=== PATIENT | female | born 1965 | race Caucasian/White ===

== ENCOUNTER → 2019-01-24 10:48 | Outpatient (CLI) | payer OTHER, SELFPAY ==
--- NOTE | 2019-01-24 10:56 | US_ITS ---
US extremity RT limited CLINICAL INDICATION: ITS.REASON: INGUINAL LYMPHADENOPATHY ORDERING PHYSICIAN: ANUP Fierro PATIENT AGE: 53 years Comparison: None FINDINGS: Several small lymph nodes are present in the right inguinal region measuring up to 2 x 1 cm. No abnormal fluid collections or other significant anomalies. IMPRESSION: Multiple small right inguinal lymph nodes. Consider CT for more thorough evaluation
== END ==
PROVIDERS: PCP Family Medicine; Visit Provider Physician Assistant
DX: R59.0 Localized enlarged lymph nodes (principal)
CPT/HCPCS: 76882

== ENCOUNTER → 2019-01-31 17:37 | Outpatient (CLI) | payer OTHER, SELFPAY ==
[2019-01-31 19:28] LABS: Blood Urea Nitrogen 10 mg/dL (7-18); Creatinine,Serum 0.68 mg/dL (0.55-1.02); Estimated Glomerular Filt Rate 90 ml/min (>60); GFR (African American) 109 ML/MIN (>60)
== END ==
PROVIDERS: Visit Provider Physician Assistant
DX: Z01.818 Encounter for other preprocedural examination (principal)
CPT/HCPCS: 36415; 82565; 84520

== ENCOUNTER → 2019-02-02 09:37 | Outpatient (CLI) | payer OTHER, SELFPAY ==
--- NOTE | 2019-02-02 09:44 | CT_ITS ---
CT abdomen pelvis w con CLINICAL INDICATION: Lymphadenopathy, enlarging lymph nodes on ultrasound ITS.REASON: INGUINAL LYMPHADENOPATHY ORDERING PHYSICIAN: ANUP Fierro PATIENT AGE: 53 years COMPARISON: 08/28/2016 TECHNIQUE: Axial images obtained with sagittal and coronal reformats. All CT scans at the facility use one or more dose reduction, viz: automated exposure control, ma/kV adjustment per patient size (including targeted exams where dose is matched to indication, i.e. head), or iterative reconstruction technique. PROCEDURE: Oral Contrast: None IV Contrast: 75 mL's Optiray 350. FINDINGS: Lower thoracic images show bilateral breast implants. Cholecystectomy change. The liver, spleen, right adrenal gland, and pancreas have an unremarkable appearance. There is a stable left adrenal nodule is 6 mm consistent with an adenoma. No renal or ureteral calculi. No hydronephrosis. No intestinal obstruction or free air. Prior appendectomy. Prior hysterectomy. No pelvic mass abnormal fluid collection or focal inflammatory change. There are scattered small lymph nodes within the mesentery is nonspecific and not significantly changed. There are a few scattered small inguinal lymph nodes on both sides. These do not appear significant changed compared to 08/28/2016 and do not meet size criteria for enlargement by CT criteria. There is incidentally noted high-grade stenosis of the ostium of the celiac artery with stenosis estimated to be greater than 90%. CT angiography may confirm. The superior mesenteric artery has an unremarkable appearance. IMPRESSION: 1. There are few scattered small lymph nodes in the abdomen and within the inguinal areas not significantly changed. No adenopathy evident. 2. 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
== END ==
PROVIDERS: PCP Family Medicine; Visit Provider Physician Assistant
DX: R59.0 Localized enlarged lymph nodes (principal)
CPT/HCPCS: 74177; Q9967

== ENCOUNTER → 2019-02-13 14:04 | Outpatient (CLI) | payer OTHER, SELFPAY ==
--- NOTE | 2019-02-13 14:06 | CT_ITS ---
CT chest wo con HISTORY: ITS.REASON: LYMPHADENOPATHY ORDERING PHYSICIAN: Ernie Silva MD PATIENT AGE: 53 years COMPARISON: None Technique: Axial images obtained without contrast. Sagittal, and coronal reformatted images are also generated and reviewed. All CT scans at the facility use one or more dose reduction, viz: automated exposure control, ma/kV adjustment per patient size (including targeted exams where dose is matched to indication, i.e. head), or iterative reconstruction technique. FINDINGS: There is some mild calcification of the aortic root and questionable calcification of the left main coronary artery. Normal heart size. No evidence of pericardial effusion. No mediastinal or hilar mass or adenopathy. No axillary adenopathy. There are bilateral subpectoral breast implants. There is evidence of old granulomatous disease. No suspicious pulmonary nodules are evident. No effusions or infiltrates. There is a subpleural nodular opacity left lower lobe laterally at 4 mm which is nonspecific. No central obstructing lesions. No acute bony anomalies. IMPRESSION: 1. No acute finding. No adenopathy. There are scattered small nodes in the mediastinum axilla and dora however, these nodes are not enlarged 2. Minimal coronary artery calcification. 3. Other nonacute findings as described above
[2019-02-13 17:36] LABS: Free T4 (Free Thyroxine) 0.79 ng/dl (0.76-1.46); Thyroid Stimulating Hormone 5.86 uIU/ml (0.358-3.740)
[2019-02-15 14:28] LABS: Thyroid Peroxidase Antibodies 30 IU/mL (0-34)
== END ==
PROVIDERS: Otolaryngology; PCP Family Medicine; Visit Provider Family Medicine
DX: R59.1 Generalized enlarged lymph nodes (principal)
CPT/HCPCS: 36415; 71250; 82308; 84439; 84443; 84445; 86376

== ENCOUNTER → 2019-02-13 15:36 | Outpatient (CLI) | payer OTHER, SELFPAY | PROVIDERS: Visit Provider Otolaryngology | DX: R59.1 Generalized enlarged lymph nodes (principal) | CPT/HCPCS: 36415; 82308; 84439; 84443; 84445; 86376 ==

== ENCOUNTER → 2019-02-17 08:10 | Outpatient (CLI) | payer OTHER, SELFPAY ==
--- NOTE | 2019-02-17 08:12 | US_ITS ---
US thyroid HISTORY: ITS.REASON: thyroid nodule ORDERING PHYSICIAN: Norbert Sampson MD PATIENT AGE: 53 years Comparison: None FINDINGS: The isthmus is thickened at 5 mm. The right lobe is 4.2 x 1.5 x 1.3 cm. There is diffuse heterogeneous echogenicity of the right lobe of the thyroid gland. The left lobe is 3.5 x 1.1 x 1.4 cm with heterogeneous echogenicity. A 1.3 x 0.5 cm hypoechoic nodule is present superiorly. IMPRESSION: Heterogeneous echogenicity of the thyroid gland with 1 cm nodule superiorly on the left. There is diffuse heterogeneous echogenicity on the right. Consider 6 month follow-up to confirm stability
== END ==
PROVIDERS: PCP Family Medicine; Visit Provider Otolaryngology
DX: E01.0 Iodine-deficiency related diffuse (endemic) goiter (principal); E03.9 Hypothyroidism, unspecified
CPT/HCPCS: 76536

== ENCOUNTER → 2019-03-07 12:35 | Outpatient (CLI) | payer OTHER, SELFPAY ==
[2019-03-07 16:01] LABS: Blood Urea Nitrogen 8 mg/dL (7-18); Estimated Glomerular Filt Rate 87 ml/min (>60); GFR (African American) 106 ML/MIN (>60)
== END ==
PROVIDERS: Visit Provider Family Medicine
DX: E03.9 Hypothyroidism, unspecified (principal); E04.1 Nontoxic single thyroid nodule; E06.3 Autoimmune thyroiditis
CPT/HCPCS: 36415; 82565; 84520

== ENCOUNTER → 2019-03-08 09:29 | Outpatient (CLI) | payer OTHER, SELFPAY ==
--- NOTE | 2019-03-08 09:34 | CT_ITS ---
CT angio abdomen pelvis CLINICAL INDICATION: Right upper quadrant pain, back pain, history of Crohn's disease ITS.REASON: CELIAC ARTERY STENOSIS ORDERING PHYSICIAN: Enrie Silva MD PATIENT AGE: 53 years COMPARISON: 02/02/2019 TECHNIQUE: Axial images obtained with sagittal and coronal reformats. All CT scans at the facility use one or more dose reduction, viz: automated exposure control, ma/kV adjustment per patient size (including targeted exams where dose is matched to indication, i.e. head), or iterative reconstruction technique. PROCEDURE: Oral Contrast: None IV Contrast: 100 mL's Optiray 350. FINDINGS: Lower thorax: There is consolidation within the inferior aspect of the right upper lobe consistent with pneumonia. This is incompletely imaged and chest x-ray or CT follow-up is suggested. A subpleural nodular opacity is present in the left lung base laterally at 4 mm.. Prior bilateral breast implant placement ABDOMEN: Liver: Fatty liver Gallbladder: Post cholecystectomy Pancreas: No masses or peripancreatic fluid collections. Spleen: Unremarkable. Adrenals: Unremarkable Kidneys/ureters: No masses. No renal calculi. No hydronephrosis. No perinephric fluid collections. No ureteral dilatation or obvious ureteral calculi. Stomach bowel: Nondistended. No obvious mass or thickening. Appendix: Prior appendectomy PELVIS: Reproductive: Post hysterectomy Bladder: Nondistended. No obvious stones or masses. ABDOMEN & PELVIS: Peritoneum: No abnormal fluid collections. No obvious inflammatory changes. No free air. Lymph nodes: There are few scattered small mesenteric and inguinal lymph nodes nonspecific Vasculature: No evidence of aortic aneurysm. Atheromatous changes are present involving the aortoiliac vessels without significant stenosis. There is moderate to severe stenosis involving the proximal aspect of the celiac artery approximately 1 cm distal to the ostium.. There is poststenotic dilatation. It is difficult to determine the degree of stenosis due to the poststenotic dilatation or displacement of the 50-60% if not more. Approximately 40 % stenosis involves the ostium of the celiac artery. The SMA has an unremarkable appearance. HOLLI is patent. Bones: No acute fracture IMPRESSION: 1. Moderate to high-grade stenosis involving the ostium and proximal aspect of the celiac artery with poststenotic dilatation. There is 50-60% stenosis of the proximal aspect of the celiac artery. The stenosis was over estimated on the non-CTA abdomen of 02/02/2019. The current study is more accurate for stenosis. 2. Otherwise negative CTA of the abdomen and pelvis
== END ==
PROVIDERS: PCP Family Medicine; Visit Provider Family Medicine
DX: I77.4 Celiac artery compression syndrome (principal)
CPT/HCPCS: 74174; Q9967

== ENCOUNTER → 2019-03-13 11:17 | Outpatient (CLI) | payer OTHER, SELFPAY ==
--- NOTE | 2019-03-13 11:22 | XR_ITS ---
XR chest 2V HISTORY: ITS.REASON: COUGH,CONGESTION ORDERING PHYSICIAN: Christiano Garcia MD PATIENT AGE: 53 years COMPARISON: 12/29/2015 FINDINGS: The cardiomediastinal silhouette and pulmonary vascularity are within normal limits. Faint opacification is present in the right midlung and may be related to residual pneumonia as seen on the most recent CT of 03/08/2019 faint nodularity is present in this region possibly related to the alveolar opacification.. Consider CT chest for further evaluation. Left lung is clear. No acute bony anomalies. IMPRESSION: Faint nodularity in the right midlung which may be due to some residual pneumonia versus underlying pulmonary nodule. Previous abdomen CT demonstrates some infiltrate in this area on the most superior image. Consider chest CT with contrast follow-up for further evaluation
== END ==
PROVIDERS: PCP Family Medicine; Visit Provider Family Medicine
DX: J18.1 Lobar pneumonia, unspecified organism (principal); R05 Cough
CPT/HCPCS: 71046

== ENCOUNTER → 2019-05-17 10:17 | Outpatient (CLI) | payer OTHER, SELFPAY ==
--- NOTE | 2019-05-17 10:20 | US_ITS ---
US thyroid HISTORY: 3 month follow-up thyroid nodule ITS.REASON: thyroid nodule ORDERING PHYSICIAN: Norbert Sampson MD PATIENT AGE: 53 years Comparison: 02/17/2019 FINDINGS: There is diffuse heterogeneous echogenicity of the thyroid gland. The isthmus is mildly thickened. A 7 mm hypoechoic nodule present in the lateral aspect of the isthmus probably unchanged The right lobe is 3.7 x 1.5 x 1.1 cm. A 6 mm hypoechoic nodule is present in the lower pole unchanged. The left lobe is 3.4 x 1.1 x 1.1 cm with diffuse heterogeneous echogenicity. There is a 1 cm nodule in the upper pole not significant changed. Other areas of decreased echogenicity are noted consistent with heterogeneous echotexture tissue. IMPRESSION: No change in the diffuse heterogeneous echogenicity of the thyroid gland with small bilateral nodules
[2019-05-17 12:22] LABS: Free T4 (Free Thyroxine) 0.82 ng/dl (0.76-1.46); Thyroid Stimulating Hormone 4.41 uIU/ml (0.358-3.740)
== END ==
PROVIDERS: PCP Family Medicine; Visit Provider Otolaryngology
DX: E03.9 Hypothyroidism, unspecified (principal); E04.1 Nontoxic single thyroid nodule; E06.3 Autoimmune thyroiditis
CPT/HCPCS: 36415; 76536; 84439; 84443

== ENCOUNTER → 2019-05-22 12:09 | Outpatient (CLI) | payer OTHER, SELFPAY ==
--- NOTE | 2019-05-22 12:14 | XR_ITS ---
XR foot LT min 3V HISTORY: ITS.REASON: LT FOOT PAIN ORDERING PHYSICIAN: Christiano Garcia MD PATIENT AGE: 53 years COMPARISON: None FINDINGS: No fracture or dislocation. No lytic or blastic change. There is normal mineralization.. The joint spaces are well-preserved. No significant degenerative/arthritic changes. No erosive changes evident. There is a prominent calcaneal spur at 9 mm IMPRESSION: Calcaneal spur otherwise negative
== END ==
PROVIDERS: PCP Family Medicine; Visit Provider Family Medicine
DX: M79.672 Pain in left foot (principal)
CPT/HCPCS: 73630

== ENCOUNTER → 2019-08-25 16:27 | Outpatient (CLI) | payer OTHER, SELFPAY ==
[2019-08-25 17:31] LABS: Free T4 (Free Thyroxine) 0.89 ng/dl (0.76-1.46); Thyroid Stimulating Hormone 4.02 uIU/ml (0.358-3.740)
== END ==
PROVIDERS: Visit Provider Otolaryngology
DX: E03.9 Hypothyroidism, unspecified (principal); E04.9 Nontoxic goiter, unspecified
CPT/HCPCS: 36415; 84439; 84443

== ENCOUNTER → 2019-10-24 12:45 | Outpatient (CLI) | payer OTHER, SELFPAY ==
--- NOTE | 2019-10-24 12:45 | US_ITS ---
PROCEDURE: US THYROID CLINICAL INDICATION: thyroid nodule Follow-up thyroid nodules COMPARISON: THY US thyroid from 02/17/2019 THY US thyroid from 05/17/2019 FINDINGS: The isthmus is thickened at 4 mm with hypoechoic nodule in the right isthmus at 5 mm unchanged and hypoechoic nodule at the left of the isthmus at 5 mm slightly larger. Right lobe is 4.1 x 1.4 x 1.1 cm. 4 mm hypoechoic nodules present in the upper pole. 9 mm hypoechoic nodule noted in the lower pole. This is probably unchanged although not well demonstrated on the previous exam however was felt to be present on 10/26 and not significantly changed. Left lobe is 3.6 x 1.1 x 1.1 cm. There is an 11 x 5 mm hypoechoic nodule in the upper pole unchanged. Heterogeneous echogenicity noted with other multiple small nodules unchanged. IMPRESSION: No change multinodular appearance of the thyroid gland Dictated by: Lamont Pierre MD 10/24/2019 16:07 Electronically signed by Lamont Pierre MD in [place] 10/24/2019 16:07
== END ==
PROVIDERS: PCP Family Medicine; Visit Provider Otolaryngology
DX: E03.9 Hypothyroidism, unspecified (principal); E04.1 Nontoxic single thyroid nodule
CPT/HCPCS: 76536

== ENCOUNTER → 2019-11-02 11:47 | Outpatient (CLI) | payer OTHER, SELFPAY ==
[2019-11-02 14:57] LABS: Free T4 (Free Thyroxine) 0.91 ng/dl (0.76-1.46); Thyroid Stimulating Hormone 2.52 uIU/ml (0.358-3.740)
== END ==
PROVIDERS: Visit Provider Otolaryngology
DX: E03.9 Hypothyroidism, unspecified (principal); E04.1 Nontoxic single thyroid nodule
CPT/HCPCS: 36415; 84439; 84443

== ENCOUNTER → 2019-12-19 09:21 | Outpatient (POV) | payer OTHER, SELFPAY | PROVIDERS: Visit Provider Dermatology | DX: Z00.00 Encounter for general adult medical examination without abnormal findings (principal) ==

== ENCOUNTER → 2020-05-28 12:50 | Outpatient (CLI) | payer OTHER, SELFPAY ==
[2020-05-28 16:00] LABS: Free T4 (Free Thyroxine) 1.02 ng/dl (0.78-2.19)
[2020-05-28 16:14] LABS: Thyroid Stimulating Hormone 2.36 uIU/mL (0.465-4.68)
[2020-05-28 17:32] LABS: Coronavirus 19 IgM Antibody Negative (Negative)
[2020-05-28 17:39] LABS: Coronavirus 19 IgG Antibody Positive (Negative)
== END ==
PROVIDERS: Otolaryngology; Visit Provider Physician Assistant
DX: E03.9 Hypothyroidism, unspecified (principal); E04.9 Nontoxic goiter, unspecified
CPT/HCPCS: 36415; 84439; 84443; 86328

== ENCOUNTER → 2020-05-30 13:48 | Outpatient (CLI) | payer OTHER, SELFPAY ==
--- NOTE | 2020-05-30 13:51 | US_ITS ---
PROCEDURE: US THYROID CLINICAL INDICATION: goiter Follow-up nodule COMPARISON: US THYROID from 10/24/2019 FINDINGS: Right lobe: 1.1cm x 3.3 cm x 1.3cm. Heterogeneous echogenicity noted of the right lobe of the thyroid gland. Ill-defined nodules are noted on the right the largest at 1 cm in the lower pole unchanged. Left lobe: 1.2cm x 2.9cm x 1.0cm. Heterogeneous echogenicity with ill-defined nodularity with the largest nodule at 9 mm unchanged Isthmus: The isthmus is thickened at 5 mm. A hypoechoic nodules present in the left aspect of the isthmus at 5 mm unchanged. 5 mm hypoechoic nodule also present in the right aspect of the isthmus unchanged Additional findings: IMPRESSION: No change heterogeneous echogenicity of the thyroid with stable bilateral nodules and stable isthmus nodules Dictated by: Lamont Pierre MD 05/31/2020 12:49 Electronically signed by Lamont Pierre MD in [place] 05/31/2020 12:49
== END ==
PROVIDERS: PCP Family Medicine; Visit Provider Otolaryngology
DX: E03.9 Hypothyroidism, unspecified (principal); E04.9 Nontoxic goiter, unspecified
CPT/HCPCS: 76536

== ENCOUNTER 2020-08-11 17:47 | Emergency (ER) | payer OTHER, MEDICAID, SELFPAY ==
[2020-08-11 18:10] VITALS: BP 136/72; PULSE 91; RESP 19; TEMP 36.8; O2SAT 98; BMI 36.3
--- NOTE | 2020-08-11 18:30 | HMH.EDUTC ---
[facility] [place] Dis[place] Clinical Impression: Urticaria Disposition: Home, Self-Care Condition on Discharge: Good Instructions: DI for Hives, Prednisone Additional Instructions: Over the counter Benadryl may help with itching Take medication as prescribed start medrol dose pack tomorrow Follow up with Family Doctor if no improvement or any worsening of symptoms Straight to ER if any life threatening symptoms Follow up with Dermatology if no improvement or any worsening of symptoms Prescriptions: methylPREDNISolone [Medrol 4mg tab] 4 mg PO DIRECTED #21 tab Transmission Status: Received by [id number] Referrals: Christiano Garcia MD [Primary Care Provider] - As needed Time of Disposition: 19:01 Medical Decision Making - Nate Inquiry Pt receiving controlled substance: No Nate was queried for this patient: No Vital Signs: 08/11/20 18:10 08/11/20 19:03 Temperature 98.2 F 98.2 F Temperature Source Oral Oral Pulse Rate 91 H Pulse Rate [Radial] 91 H Respiratory Rate 19 19 Blood Pressure 136/72 Blood Pressure [Right Arm] 136/72 Blood Pressure Mean [Right Arm] 93 Blood Pressure Source Automatic Cuff Blood Pressure Source [Right Arm] Automatic Cuff Blood Pressure Position Sitting Blood Pressure Position [Right Arm] Sitting 02 Sat by Pulse Oximetry 98 Oxygen Delivery Method Room Air Room Air Orders (Tests/Meds): ED MEDICATIONS Discontinued Medications Generic Name Dose Route Start Last Admin Trade Name Brian PRN Reason Stop Dose Admin Methylprednisolone Sodium Succinate 125 mg 08/11/20 18:50 08/11/20 18:51 Methylprednisolone Sod Succ 125mg Vial IM 08/11/20 18:51 125 mg ONCE ONE Administration Medical Decision Narrative: Patient states that steriods is listed on her allergies however she is not allergic to them they just keep her up at night States that she has taken them several times before without complications or reactions. States that her PCP gives them too her and usually when she has an allergic reaction she has to get medrol dose pack and steriod shot to clear it up. Patient aware that it may elevate her blood sugar but then should return to normal and patient states that she has taken both SoluMedrol and medrol dose pack in the past without reactions or complications Shot time and patient rash on arms appears improved after injection [facility] [place] HPI - General Stated complaint: Possible allergic reaction Time Seen by Provider: 08/11/20 18:31 Mode of Arrival: Ambulatory Source of Information: Patient Limitations: No Limitations Description of Symptoms (Recalled from Triage Doc. by RN): allergic reaction rash all over for 1 week HEENT Symptoms (Recalled from RN notes): No Resp Symptoms (Recalled from RN notes): No Skin Symptoms (Recalled from RN notes): Yes MS Symptoms (Recalled from RN notes): No Functional Status (Recalled from RN notes): wnl - History of Present Illness Provider Complaint: Patient states that she is allergic to alot of things States that she noticed she started breaking out last week and has continued to get worse States that she has been using topical hydrocortisone but not helped and she noticed earlier that that rash was getting worse and she got to looking and she had used some unstoppables and thinks she may be having a reaction to that - Related Data Home Medications Medication Instructions Recorded Confirmed gabapentin 600 mg tablet 600 mg PO DAILY 02/13/19 06/04/20 rosuvastatin 20 mg tablet 20 mg PO DAILY 02/13/19 06/04/20 sitagliptin 50 mg-metformin 1,000 1 tab PO BID 02/13/19 06/04/20 mg tablet Aspirin [Aspirin 81mg EC Tab] 81 mg PO DAILY 05/04/19 06/04/20 Prasugrel HCl [Prasugrel 10mg 10 mg PO DAILY 05/04/19 06/04/20 Tab] aspirin 81 mg tablet,delayed 81 mg PO DAILY 05/29/19 06/04/20 release diclofenac sodium 1 % topical gel TOPICAL 11/03/19 06/04/20 nitroglycerin 0.4 mg sublingual mg SUBLINGUAL 11/03/1905/09
--- NOTE | 2020-08-11 18:58 | PC.NURSE ---
Patient states that she can have steroids it just makes her not sleep.
[2020-08-11 19:03] VITALS: BP 136/72; PULSE 91; RESP 19; TEMP 36.8; O2SAT 98
== END 2020-08-11 19:06 | disposition home or self-care (01) ==
PROVIDERS: Emergency Provider Nurse Practitioner; PCP Family Medicine
DX: L50.0 Allergic urticaria (principal); E11.9 Type 2 diabetes mellitus without complications; Z79.899 Other long term (current) drug therapy; Z88.0 Allergy status to penicillin; Z88.2 Allergy status to sulfonamides; Z88.5 Allergy status to narcotic agent; Z88.8 Allergy status to other drugs, medicaments and biological substances; Z90.13 Acquired absence of bilateral breasts and nipples; Z90.710 Acquired absence of both cervix and uterus; Z90.49 Acquired absence of other specified parts of digestive tract
CPT/HCPCS: 96372; 99201

== ENCOUNTER → 2020-10-30 11:55 | Outpatient (CLI) | payer OTHER, MEDICAID, SELFPAY ==
[2020-10-30 13:52] LABS: Hemoglobin A1C 7.1 % (4.0-6.0)
[2020-10-30 15:07] LABS: Alanine Aminotransferase 32 U/L (12-78); Albumin Level 4.5 g/dl (3.5-5.0); Albumin/Globulin Ratio 1.7 (1.1-1.8); Alkaline Phosphatase 74 U/L (38-126); Anion Gap 11.5 mEq/L (5-15); Aspartate Amino Transferase 27 U/L (14-36); Blood Urea Nitrogen 15 mg/dl (7-17); Calcium 10.2 mg/dl (8.4-10.2); Carbon Dioxide 27 mmol/L (22.0-30.0); Chloride 102 mmol/L (98-107); Chol/HDL Ratio 2.1 (1-3.5); Cholesterol 153 mg/dl (140-200); Estimated Glomerular Filt Rate 103 ml/min (>60); GFR (African American) 125 ML/MIN (>60); Globulin 2.7 g/dL (1.3-3.2); Glucose 157 mg/dl (74-100); HDL Cholesterol 72 mg/dl (40-60); Potassium 4.5 mmoL/L (3.5-5.1); Sodium 136 mmol/L (136-145); Total Protein,Serum 7.2 g/dl (6.3-8.2); Triglycerides 142 mg/dl (30-150); VLDL Cholesterol 28 mg/dL (0-40)
[2020-10-30 15:18] LABS: Direct LDL Cholesterol 67.91 mg/dL (100-129)
[2020-10-30 15:24] LABS: 25-OH Vitamin D, Total 25.3 ng/mL (30-100)
[2020-10-30 15:38] LABS: Thyroid Stimulating Hormone 2.11 uIU/mL (0.465-4.68)
[2020-10-30 15:57] LABS: Vitamin B12 799 pg/mL (239-931)
[2020-10-30 16:08] LABS: Coronavirus 19 IgG Antibody Positive (Negative); Coronavirus 19 IgM Antibody Negative (Negative)
== END ==
PROVIDERS: Visit Provider Physician Assistant
DX: E03.9 Hypothyroidism, unspecified (principal); E11.9 Type 2 diabetes mellitus without complications; E78.2 Mixed hyperlipidemia; E55.9 Vitamin D deficiency, unspecified; E53.8 Deficiency of other specified B group vitamins; Z86.19 Personal history of other infectious and parasitic diseases
CPT/HCPCS: 36415; 80053; 80061; 82306; 82607; 83036; 84443; 86328

== ENCOUNTER 2020-11-12 11:20 | Emergency (ER) | payer OTHER, SELFPAY ==
[2020-11-12 12:15] VITALS: BP 130/69; PULSE 82; RESP 18; TEMP 36.9; O2SAT 98; BMI 36.9
--- NOTE | 2020-11-12 12:37 | HMH.EDUTC ---
[facility] [place] Clinical Impression: Exposure to COVID-19 virus Disposition: Home, Self-Care Condition on Discharge: Good Instructions: DI for COVID-19 (Suspected or Confirmed ), COVID-19: Testing and Tracing, Preventing the Spread of Coronavirus Discharge Instructions Additional Instructions: *Monitor Temp, Over the counter Motrin or Tylenol as directed/as needed Tylenol every 4 hours and Motrin every 6 hours (as long as your family doctor has told you that you can take it) for fever or pain. and straight to ER if unable to lower temp less than 101.0 after medication given *Warm salt water gargles may help to soothe the throat *Throat Lozenges *Warm fluids like tea with honey may help to soothe the throat *Sleep elevated *Humidifier/Vaporizer Follow up IMMEDIATELY for new or worsening symptoms or no Noticeable improvement over the next 48-72 hours. 911 for difficulty breathing or swallowing You were tested for today for COVID19 your test result should be back in the next 24-48 hours, you may call to the [facility] to see if your test results are back in the next 48 hours [phone] [facility] hours are 9am-9pm You was given a handout with instructions for Self Quarantine and Self isolation for while you wait on test results and what to do if they are positive If you are positive the Health Dept will be contacting you also Referrals: Christiano Garcia MD [Primary Care Provider] - As needed Forms: Work/School Release Time of Disposition: 12:39 Medical Decision Making - Nate Inquiry Pt receiving controlled substance: No Nate was queried for this patient: No Vital Signs: 11/12/20 12:15 Temperature 98.4 F Temperature Source Oral Pulse Rate [Right Brachial] 82 Respiratory Rate 18 Blood Pressure [Right Arm] 130/69 Blood Pressure Mean [Right Arm] 89 Blood Pressure Source [Right Arm] Automatic Cuff Blood Pressure Position [Right Arm] Sitting 02 Sat by Pulse Oximetry 98 Oxygen Delivery Method Room Air Orders (Tests/Meds): ORDERS Category Date Time Status Covid-19 Nasal PCR ([facility]) Routine Lab 11/12/20 12:07 Ordered [facility] [place] HPI - General Stated complaint: covid exposure Time Seen by Provider: 11/12/20 12:37 Mode of Arrival: Ambulatory Source of Information: Patient Limitations: No Limitations Description of Symptoms (Recalled from Triage Doc. by RN): REQUESTING COVID TEST D/T EXPOSURE; DENIES SYMPTOMS HEENT Symptoms (Recalled from RN notes): No Resp Symptoms (Recalled from RN notes): No Skin Symptoms (Recalled from RN notes): No MS Symptoms (Recalled from RN notes): No Functional Status (Recalled from RN notes): WNL - History of Present Illness Provider Complaint: Patient state that her and several other members of her family has recently tested positive for COVID States that she has had a few body aches and diarrhea yesterday but she has crohns and often has diarrhea but she just wanted to get tested - Related Data Home Medications Medication Instructions Recorded Confirmed gabapentin 600 mg tablet 600 mg PO DAILY 02/13/19 06/04/20 rosuvastatin 20 mg tablet 20 mg PO DAILY 02/13/19 06/04/20 sitagliptin 50 mg-metformin 1,000 1 tab PO BID 02/13/19 06/04/20 mg tablet Aspirin [Aspirin 81mg EC Tab] 81 mg PO DAILY 05/04/19 06/04/20 Prasugrel HCl [Prasugrel 10mg 10 mg PO DAILY 05/04/19 06/04/20 Tab] aspirin 81 mg tablet,delayed 81 mg PO DAILY 05/29/19 06/04/20 release diclofenac sodium 1 % topical gel TOPICAL 11/03/19 06/04/20 nitroglycerin 0.4 mg sublingual mg SUBLINGUAL 11/03/19 06/04/20 tablet Previous Rx's Medication Instructions Recorded levothyroxine 50 mcg tablet 50 mcg PO DAILY #90 tab 11/03/19 levothyroxine 25 mcg tablet 25 mcg PO DAILY #90 tab 06/04/20 methylPREDNISolone [Medrol 4mg 4 mg PO DIRECTED #21 tab 08/11/20 tab] Allergies Allergy/AdvReac Type Severity Reaction Status Date / Time codeine [CODEINE] Allergy Severe Unknown Verified
[2020-11-12 12:44] VITALS: BP 130/69; PULSE 82; RESP 18; TEMP 36.9; O2SAT 98
== END 2020-11-12 12:45 | disposition home or self-care (01) ==
PROVIDERS: Emergency Provider Nurse Practitioner; PCP Family Medicine
DX: Z20.822 Contact with and (suspected) exposure to COVID-19 (principal); M79.10 Myalgia, unspecified site; E03.9 Hypothyroidism, unspecified; E11.9 Type 2 diabetes mellitus without complications; Z79.899 Other long term (current) drug therapy; Z88.0 Allergy status to penicillin; Z88.2 Allergy status to sulfonamides; Z88.8 Allergy status to other drugs, medicaments and biological substances
CPT/HCPCS: 99202; G0463; U0003

== ENCOUNTER → 2020-11-22 14:45 | Outpatient (CLI) | payer OTHER, SELFPAY ==
--- NOTE | 2020-11-22 14:46 | US_ITS ---
PROCEDURE: US THYROID CLINICAL INDICATION: GOITER Follow-up thyroid nodule COMPARISON: US US THYROID from 05/30/2020 FINDINGS: Right lobe: 1.5cm x 4.1cm x 1.3cm. Left lobe: 0.9cm x 3.2cm x 1.5cm Isthmus: There is a 5 mm hypoechoic nodule in the left aspect of the isthmus not significantly changed. An additional 3 mm hypoechoic nodules present in the right aspect of the isthmus unchanged Additional findings: There is diffuse heterogeneous echogenicity of the thyroid gland both sides. There are multiple small hypoechoic nodules with the largest nodule in the lower pole on the right at 9 mm unchanged. On the left there are multiple small hypoechoic nodules with the largest nodule at approximately 8 mm also unchanged. IMPRESSION: Overall no change in the multiple small nodules of the thyroid gland with diffuse heterogeneous echogenicity of the thyroid gland. Dictated by: Lamont Pierre MD 11/23/2020 05:17 Lamont Pierre MD in [place] 11/23/2020 05:17
== END ==
PROVIDERS: PCP Family Medicine; Visit Provider Otolaryngology
DX: E04.9 Nontoxic goiter, unspecified (principal)
CPT/HCPCS: 76536

== ENCOUNTER 2020-11-26 10:00 | Outpatient (RCR) | payer OTHER, MEDICAID, SELFPAY ==
[2020-08-19 12:19] LABS: POC Glucose,Bedside 208 (70-110)
== END 2020-11-26 10:05 | disposition home or self-care (01) ==
LOC: PT 10:00
PROVIDERS: PCP Family Medicine; Visit Provider Orthopaedic Surgery
DX: M25.562 Pain in left knee (principal); M17.12 Unilateral primary osteoarthritis, left knee
CPT/HCPCS: 82962; 97010; 97014; 97035; 97110; 97163; 97164; G0283

== ENCOUNTER → 2020-12-02 15:05 | Outpatient (CLI) | payer OTHER, SELFPAY ==
[2020-12-02 16:17] LABS: Free T4 (Free Thyroxine) 1.13 ng/dl (0.78-2.19)
[2020-12-02 16:31] LABS: Thyroid Stimulating Hormone 3.83 uIU/mL (0.465-4.68)
== END ==
PROVIDERS: Visit Provider Otolaryngology
DX: E04.9 Nontoxic goiter, unspecified (principal)
CPT/HCPCS: 36415; 84439; 84443

== ENCOUNTER → 2020-12-09 08:51 | Outpatient (CLI) | payer OTHER, SELFPAY ==
[2020-12-09 09:30] LABS: Basophils # 0.1 K/mm3 (0-0.2); Basophils % 0.5 % (0.1-2.0); Eosinophils # 0.1 K/mm3 (0.0-0.4); Eosinophils % 0.7 % (0.1-12.0); Lymphocytes # 2.1 K/mm3 (0.7-4.5); Lymphocytes % 18.8 % (10-50); Mean Corpuscular HGB Conc 32.7 g/dL (31.8-35.4); Mean Corpuscular Hemoglobin 28.2 pg (27.0-31.2); Mean Corpuscular Volume 86.2 fl (81-99); Monocytes # 0.6 K/mm3 (0.1-1.0); Monocytes % 5.6 % (1.7-9.3); Neutrophils # 8.4 K/mm3 (1.8-7.8); Neutrophils % 74.3 % (37.0-80.0); Platelet Count 413 K/mm3 (142-424); Red Blood Count 5.68 M/mm3 (4.20-5.40); Red Cell Distribution Width 13.6 % (11.5-17.5); White Blood Count 11.3 K/mm3 (4.8-10.8)
[2020-12-09 09:47] LABS: Anion Gap 11.3 mEq/L (5-15); Blood Urea Nitrogen 13 mg/dl (7-17); Calcium 10.2 mg/dl (8.4-10.2); Carbon Dioxide 31 mmol/L (22.0-30.0); Chloride 97 mmol/L (98-107); Estimated Glomerular Filt Rate 87 ml/min (>60); GFR (African American) 105 ML/MIN (>60); Glucose 200 mg/dl (74-100); Potassium 4.3 mmoL/L (3.5-5.1); Sodium 135 mmol/L (136-145)
[2020-12-09 10:05] LABS: Coronavirus 19 IgG Antibody Positive (Negative); Coronavirus 19 IgM Antibody Negative (Negative)
== END ==
PROVIDERS: Visit Provider Nurse Practitioner Family
DX: Z01.810 Encounter for preprocedural cardiovascular examination (principal); Z20.822 Contact with and (suspected) exposure to COVID-19; Z86.16 Personal history of COVID-19; I20.9 Angina pectoris, unspecified; I25.118 Atherosclerotic heart disease of native coronary artery with other forms of angina pectoris; Z82.49 Family history of ischemic heart disease and other diseases of the circulatory system; Z87.891 Personal history of nicotine dependence
CPT/HCPCS: 36415; 80048; 85025; 86328

== ENCOUNTER 2020-12-10 08:27 | Day surgery (SDC) | payer OTHER, SELFPAY ==
[2020-12-10] VITALS (11 sets, daily range): BP systolic 122–159; BP diastolic 65–85; PULSE 63–90; RESP 16–20; O2SAT 92–97; BMI 37.8
--- NOTE | 2020-12-10 07:16 | IR_ITS ---
APPROVED REPORT Patient Location: Outpatient Case Packer: PAULIE Gomez RT (R) PROCEDURES Left heart catheterization Left ventriculogram Selective coronary angiogram INDICATION Known coronary artery disease, Atypical angina Informed consent was obtained prior to the procedure. COMPLICATIONS none Estimated Blood Loss: less than 10 mls TECHNIQUE One percent lidocaine used to anesthetize the right anterior aspect of the wrist. The right radial artery was accessed via the Seldinger technique. A 6 [place] sheath was placed in the right radial artery. 2.5 mg of verapamil, 800 mcg of nitroglycerin, 1mg Lidocaine and 5000 U Heparin were given through the arterial sheath. The trap catheter and a 4 Malaysian JL 3.5 catheter were used to perform left heart catheterization, left ventriculogram and selective coronary angiogram. At the end of the procedure the sheath was removed good hemostasis was achieved using Traclet band, patient was transferred to the postop holding area in stable condition. ANGIOGRAPHIC RESULTS The left main artery Has a smooth eccentric 20% stenosis The left anterior descending artery Has a stent in the proximal segment which is widely patent free of in-stent restenosis with excellent proximal distal transitioning The circumflex artery Large dominant vessel with mild 10% luminal irregularities The right coronary artery Small nondominant normal The [place] ventriculogram reveals Normal 65% The left ventricular end-diastolic pressure Elevated 25 mmHg IMPRESSION Coronary disease as described above Normal ejection fraction Elevated LVEDP consistent with moderate diastolic dysfunction PLAN 1. Continue treatment for ischemic heart disease 2. Patient symptoms are likely stemming from elevated LVEDP/diastolic dysfunction, treat accordingly Electronically signed by : Olivier Encinas, 12/10/2020 11:08:07
--- NOTE | 2020-12-10 08:31 | CA_ITS ---
APPROVED REPORT EXAM: Comprehensive 2D, Doppler, and color-flow Echocardiogram [employer] Car[employer] Operator: Sharona Mariano RVT Ht: 5 ft 6 in Wt: 234lbs BSA: 2.14 BP: 154/82 mmHg Indications: ANGINA,FINN,NEAR SUNCOPE,EX SMOKER,DM,HTN,HLD,HX BREAST CA TDS-PT HAS IMPLANTS 2D Dimensions LVOT 1.63 cm (M/F) 1.5-2.5 M-Mode Dimensions RVDd 2.62 cm (0.9-2.6) LA Diam 3.94 cm (1.9-4.0) LVDd 3.83 cm (3.5-5.7) Ao Diam 2.65 cm (2.0-3.7) LVDs 2.50 cm (3.5-5.7) IVSd 1.25 cm (0.6-1.1) PWd 0.68 cm (0.6-1.1) EF (Teich) 64.70% FS 34.70% EDV (Teich) 63.10 mL ESV (Teich) 22.30 mL LV Diastology E Decel Time 240.00 (160-240 msec) E/A Ratio 1.0 MED E' 9.00 (< 7 cm/sec) E'/MED E' Ratio 7.62 (>14) LAT E' 8.90 (<10 cm/sec) E/LAT E' Ratio 7.71 (>14) Mitral Valve MV E Max Geoffrey. 69.00 (40-130 cm/s) MV A Velocity 67.00 (40-130 cm/s) E/A Ratio 1.02 MV Decel. Time 240.00 (160-240 ms) MV PHT 70.00 ms Pulmonary Valve PV Peak Velocity 73.00 (50-150 cm/s) Tricuspid Valve TR P. Velocity 191.00 cm/s Left Ventricle Left atrium is mildly enlarged, left ventricle is normal size, mild concentric left ventricular hypertrophy, visually estimated ejection fraction 55% with no regional wall motion abnormality, diastolic parameters are inconclusive. Right Ventricle Right atrium and right ventricle are normal size and contractility. Aortic Valve Aortic valve is minimally thickened and fibrosed, there is no aortic stenosis or aortic insufficiency. Mitral Valve Mitral valve is grossly normal, there is trace mitral regurgitation. Tricuspid Valve Tricuspid valve grossly normal, there is no significant tricuspid regurgitation noted to calculated right ventricular systolic pressure. Pulmonic Valve Pulmonic valve is poorly visualized. Great Vessels Aortic root is normal size. Pericardium No significant pericardial effusion noted. Conclusion 1. Mildly enlarged left atrium, normal left ventricular size, mild concentric left ventricular hypertrophy, visually estimated ejection fraction 55% with no regional wall motion abnormality, diastolic parameters are inconclusive. 2. Trace mitral regurgitation. 3. No significant pericardial effusion noted. Electronically signed by : Chaparro Snow, 12/11/2020 06:22:57
== END 2020-12-10 14:00 | disposition home or self-care (01) ==
LOC: CATHLAB 08:29
PROVIDERS: PCP Family Medicine; Visit Provider Internal Medicine
DX: I25.110 Atherosclerotic heart disease of native coronary artery with unstable angina pectoris (principal); E11.9 Type 2 diabetes mellitus without complications; E78.5 Hyperlipidemia, unspecified; G47.33 Obstructive sleep apnea (adult) (pediatric); I10 Essential (primary) hypertension; Z82.49 Family history of ischemic heart disease and other diseases of the circulatory system; Z87.891 Personal history of nicotine dependence; Z79.84 Long term (current) use of oral hypoglycemic drugs; Z79.82 Long term (current) use of aspirin; Z88.8 Allergy status to other drugs, medicaments and biological substances; Z88.5 Allergy status to narcotic agent
CPT/HCPCS: 93306; 93458; 99152; 99153; C1725; C1760; C1769; J1644; Q9967

== ENCOUNTER → 2020-12-16 10:48 | Outpatient (CLI) | payer OTHER, SELFPAY ==
--- NOTE | 2020-12-16 10:50 | CA_ITS ---
APPROVED REPORT Laterality: Unilateral right Foam Machine Operator: Sharona Mariano, RVT Comments Pt had cath on 12/10/20. Bruising at cath site, pain at cath site that radiates into rt elbow Findings Study suggests no evidence of pseudoaneurysm or AV fistula of the right wrist. Conclusion Study suggests no evidence of pseudoaneurysm or AV fistula of the right wrist. Electronically signed by : Lamont Pierre MD 12/16/2020 16:13:04
== END ==
PROVIDERS: PCP Family Medicine; Visit Provider Nurse Practitioner Family
DX: I77.0 Arteriovenous fistula, acquired (principal)
CPT/HCPCS: 93931

== ENCOUNTER → 2021-01-24 14:39 | Outpatient (CLI) | payer OTHER, SELFPAY ==
[2021-01-24 15:35] LABS: Chloride 102 mmol/L (98-107); Sodium 139 mmol/L (136-145)
[2021-01-24 15:36] LABS: Potassium 3.9 mmoL/L (3.5-5.1)
[2021-01-24 15:39] LABS: Anion Gap 10.9 mEq/L (5-15); Blood Urea Nitrogen 11 mg/dl (7-17); Calcium 10.1 mg/dl (8.4-10.2); Carbon Dioxide 30 mmol/L (22.0-30.0); Estimated Glomerular Filt Rate 103 ml/min (>60); GFR (African American) 125 ML/MIN (>60); Glucose 238 mg/dl (74-100)
== END ==
PROVIDERS: Visit Provider Nurse Practitioner Family
DX: I10 Essential (primary) hypertension (principal); E78.2 Mixed hyperlipidemia; R06.02 Shortness of breath; R94.30 Abnormal result of cardiovascular function study, unspecified; I25.118 Atherosclerotic heart disease of native coronary artery with other forms of angina pectoris; G47.33 Obstructive sleep apnea (adult) (pediatric); Z87.891 Personal history of nicotine dependence
CPT/HCPCS: 36415; 80048

== ENCOUNTER → 2021-02-06 09:49 | Outpatient (CLI) | payer OTHER, SELFPAY ==
[2021-02-06 11:04] LABS: Erythrocyte Sedimentation Rate 13 mm/hr (0-30)
[2021-02-06 12:06] LABS: Vitamin B12 522 pg/mL (239-931)
[2021-02-06 12:07] LABS: Folate 9.11 ng/mL
[2021-02-07 07:36] LABS: Homocyst(e)ine 9.3 umol/L (0.0-14.5)
[2021-02-07 16:12] LABS: Anti-Centromere B Antibodies <0.2 AI (0.0-0.9); Anti-Jo-1 <0.2 AI (0.0-0.9); Anti-Smith Antibody <0.2 AI (0.0-0.9); Antichromatin Antibodies <0.2 AI (0.0-0.9); Antiscleroderma-70 Antibodies <0.2 AI (0.0-0.9); RNP Antibodies <0.2 AI (0.0-0.9); Sjogren's Anti-SS-A <0.2 AI (0.0-0.9); Sjogren's Anti-SS-B <0.2 AI (0.0-0.9)
[2021-02-08 14:51] LABS: Anti-DNA (DS) Ab Qn 1 IU/mL (0-9)
[2021-02-14 19:34] LABS: Methylmalonic Acid 52 nmol/L (0-378)
== END ==
PROVIDERS: Visit Provider Specialist
DX: R41.3 Other amnesia (principal); G44.1 Vascular headache, not elsewhere classified; I25.118 Atherosclerotic heart disease of native coronary artery with other forms of angina pectoris; I10 Essential (primary) hypertension; G47.33 Obstructive sleep apnea (adult) (pediatric); E11.9 Type 2 diabetes mellitus without complications; Z79.84 Long term (current) use of oral hypoglycemic drugs
CPT/HCPCS: 36415; 82131; 82607; 82746; 83090; 85651; 86225; 86235

== ENCOUNTER → 2021-02-12 13:43 | Outpatient (CLI) | payer OTHER, SELFPAY ==
--- NOTE | 2021-02-12 13:48 | XR_ITS ---
PROCEDURE: XR CHEST 2V CLINICAL HISTORY: dyspnea COMPARISON: Implants are hard to see on the x-ray the a medium barely cm bodies are to see on CT and FINDINGS: The cardiomediastinal silhouette and pulmonary vascularity are within normal limits. The lungs are clear without infiltrates, suspicious nodules, or pleural effusions. No acute bony abnormalities. There are bilateral breast implants. IMPRESSION: No acute findings. Dictated by: Lamont Pierre MD 02/12/2021 14:19 Lamont Pierre MD in [place] 02/12/2021 14:19
== END ==
PROVIDERS: PCP Family Medicine; Visit Provider Urology
DX: R06.02 Shortness of breath (principal); R94.30 Abnormal result of cardiovascular function study, unspecified; Z87.891 Personal history of nicotine dependence
CPT/HCPCS: 71046; 95806

== ENCOUNTER → 2021-02-27 09:19 | Outpatient (CLI) | payer OTHER, SELFPAY ==
--- NOTE | 2021-02-27 09:19 | US_ITS ---
APPROVED REPORT Exam Type: Ankle to Brachial Index Field Technician: Jossy Osman CRT Indications Claudication: Rest Pain: Risk Factors Hypertension Hyperlipidemia cardiac stent Pressures/Indices Right Indices Left Indices Brachial 141.00 mmHg Brachial 144.00 mmHg Low Thigh 145.00 mmHg 1.01 Low Thigh 147.00 mmHg 1.02 Calf 161.00 mmHg 1.12 Calf 146.00 mmHg 1.01 Ankle(PT) 137.00 mmHg 0.95 Ankle(PT) 158.00 mmHg 1.10 Ankle(DP) 137.00 mmHg 0.95 Ankle(DP) 141.00 mmHg 0.98 Digit 137.00 mmHg 0.95 Digit 122.00 mmHg 0.85 Findings R NEPTALI 1.0 L NEPTALI 1.1 R TBI 1.0 L TBI 1.1 Normal waveforms and pulses Conclusion R NEPTALI 1.0 L NEPTALI 1.1 R TBI 1.0 L TBI 1.1 Normal waveforms and pulses Normal appearing resting noninvasive lower extremity arterial study. Electronically signed by : Lamont Pierre MD 02/27/2021 16:59:22
--- NOTE | 2021-02-27 11:06 | MR_ITS ---
PROCEDURE: MR HEAD/BRAIN WO CON CLINICAL INDICATION: headache, memory impairment Pt c/o h/a and memory loss. Blurred vision that has gotten worse over the last year. Pt has hx of melanoma. Prior CT brain done 11/01/2019. COMPARISON: No exams were available for comparison TECHNIQUE: Routine multiplanar multi echo sequences are performed without gadolinium enhancement. FINDINGS: No midline shift, mass effect, intracranial hemorrhage, or hydrocephalus is evident. The cerebellopontine angles, cerebellum, brainstem and mid brain have an unremarkable appearance. There are a few T2 white matter hyperintensities which are nonspecific and may be due to small gliotic foci from microangiopathic changes. The pituitary, optic chiasm, corpus callosum, and craniocervical junction have an unremarkable appearance. No mastoid effusion or sinus air-fluid level. IMPRESSION: 1. No acute intracranial findings. 2. There are few scattered T2 white matter hyperintensities nonspecific and may be related to microangiopathic changes. Migraine headache and demyelinating process included in the differential diagnosis. Dictated by: Lamont Pierre MD 02/28/2021 15:09 Lamont Pierre MD in [place] 02/28/2021 15:09
== END ==
PROVIDERS: PCP Family Medicine; Visit Provider Urology
DX: G44.1 Vascular headache, not elsewhere classified (principal); I73.9 Peripheral vascular disease, unspecified; R41.3 Other amnesia
CPT/HCPCS: 70551; 93923

== ENCOUNTER → 2021-03-03 14:56 | Outpatient (CLI) | payer OTHER, SELFPAY ==
--- NOTE | 2021-03-03 15:30 | PC.NURSE ---
PFT Completed without incident. Albuterol 0.083% given via HHN, Per written protocol, Pt tolerated tx well.
== END ==
PROVIDERS: PCP Family Medicine; Visit Provider Urology
DX: R06.00 Dyspnea, unspecified (principal)
CPT/HCPCS: 94060; 94726; 94729

== ENCOUNTER → 2021-05-21 13:01 | Outpatient (CLI) | payer OTHER, SELFPAY | PROVIDERS: Visit Provider Otolaryngology | DX: E07.9 Disorder of thyroid, unspecified (principal) | CPT/HCPCS: 84439; 84443 ==

== ENCOUNTER → 2021-05-21 13:12 | Outpatient (CLI) | payer OTHER, SELFPAY ==
--- NOTE | 2021-05-21 13:12 | US_ITS ---
PROCEDURE: US THYROID CLINICAL INDICATION: goiter Follow-up nodules, follow-up goiter COMPARISON: US US THYROID from 11/22/2020 FINDINGS: Right lobe: 1.2cm x 4.0cm x 1.5cm. Heterogeneous echogenicity. 13 x 5 mm solid nodule upper pole unchanged. 7 mm hypoechoic solid nodule mid polar region unchanged Left lobe: 0.8cm x 3.0cm x 1.1cm. 5 mm hypoechoic nodule solid-appearing upper pole unchanged. 7 x 6 mm hypoechoic solid appearing nodule lower pole unchanged Isthmus: Mildly thickened at 5 mm. A 5 x 2 mm hypoechoic oval nodule is present in the isthmus slightly toward the left unchanged. On the right side of the isthmus there is a 4 mm spongiform appearing nodule unchanged Additional findings: IMPRESSION: Small bilateral thyroid and isthmus nodules which appear stable. Annual follow-up suggested Dictated by: Lamont Pierre MD 05/22/2021 07:26 Lamont Pierre MD in [place] 05/22/2021 07:26
[2021-05-21 14:16] LABS: Free T4 (Free Thyroxine) 1.17 ng/dl (0.78-2.19)
[2021-05-21 14:30] LABS: Thyroid Stimulating Hormone 1.86 uIU/mL (0.465-4.68)
== END ==
PROVIDERS: PCP Family Medicine; Visit Provider Otolaryngology
DX: E03.9 Hypothyroidism, unspecified (principal); E04.9 Nontoxic goiter, unspecified
CPT/HCPCS: 76536; 84439; 84443

== ENCOUNTER → 2021-07-30 07:34 | Outpatient (CLI) | payer OTHER, SELFPAY ==
[2021-07-30 07:59] LABS: Blood Urea Nitrogen 5 mg/dl (7-17); Estimated Glomerular Filt Rate 103 ml/min (>60); GFR (African American) 125 ML/MIN (>60)
--- NOTE | 2021-07-30 09:06 | CT_ITS ---
Procedure: CT ANGIO ABDOMEN PELVIS CLINICAL HISTORY: CELIAC ARTERY STENOSIS Follow-up celiac artery stenosis COMPARISON: [facility] CT angio abdomen pelvis from 03/08/2019 TECHNIQUE: IV Contrast: 100ml Isovue 370 Axial images obtained with sagittal and coronal reformats. All CT scans at the facility use one or more dose reduction, viz: automated exposure control, ma/kV adjustment per patient size (including targeted exams where dose is matched to indication, i.e. head), or iterative reconstruction technique. FINDINGS: High-grade celiac artery stenosis is present approximately 1 cm distal to its origin. The stenosis as increased compared to the previous exam now estimated to be approximately 70 percent previously estimated at 50 percent. There is kinking in the celiac artery at this region with the distal celiac having a cephalad course. There is poststenotic dilatation of the celiac artery. The SMA has an unremarkable appearance. The HOLLI is patent. No significant renal artery stenosis apparent. No evidence of aortic aneurysm. No iliac artery stenosis. Bilateral breast implants are present. There has been a prior cholecystectomy. Coronary artery stent noted in the LAD. The liver, spleen, pancreas, right adrenal gland, and kidneys have an unremarkable appearance. Minimal nodularity noted of the left adrenal gland nonspecific and unchanged. No intestinal obstruction or free air. There is a mild amount of retained colonic feces. Urinary bladder is contracted with thickening of its wall. There are post hysterectomy changes. Postsurgical changes are present at the cecal region. No acute bony anomaly IMPRESSION: 1. High-grade stenosis of the proximal aspect of the celiac artery of approximately 70 percent increased from the previous exam. There is poststenotic dilatation. There is a kink in the celiac artery at this region with the distal celiac artery having a cephalad course 2. Other nonacute findings as described above Dictated by: Lamont Pierre MD 07/31/2021 07:26 Lamont Pierre MD in [place] 07/31/2021 07:26
== END ==
PROVIDERS: PCP Family Medicine; Visit Provider Physician Assistant
DX: I77.4 Celiac artery compression syndrome (principal)
CPT/HCPCS: 36415; 74174; 82565; 84520; Q9967

== ENCOUNTER 2021-08-07 08:55 | Day surgery (SDC) | payer OTHER, SELFPAY ==
[2021-08-07] VITALS (14 sets, daily range): BP systolic 120–158; BP diastolic 68–108; PULSE 62–98; RESP 13–20; O2SAT 91–98; BMI 33.5
--- NOTE | 2021-08-07 | IR_ITS ---
APPROVED REPORT Patient Location: Outpatient PROCEDURES Right femoral arterial access Catheter placement in the right vertebral artery Right vertebral artery selective angiogram Indirect right common carotid artery angiogram Catheter placed in the left subclavian artery Left subclavian artery angiogram Bare-metal stent deployment to the left subclavian artery INDICATION Left subclavian artery stenosis, Subclavian steal phenomena, Bilateral carotid artery stenosis Informed consent was obtained prior to the procedure. COMPLICATIONS none Estimated Blood Loss: less than 10 ml TECHNIQUE 1% lidocaine used anesthetize the right groin the right femoral artery was accessed via Salinger technique and a 5 Romansh sheath was placed in the right femoral artery. A JR4 catheter was used to selectively intubate the right vertebral artery and perform angiography. The JR4 catheter cannot easily cannulate the right common carotid artery therefore indirect angiography was performed. At this point the catheter was then placed in the left subclavian artery where angiography was performed and showed a severe high-grade calcified ostial stenosis. Therapeutic heparin was administered and a long advantage wire was placed distally in the vessel. The sheath was exchanged for a long 7 Romansh destination sheath. An 8 mm balloon cannot be advanced for predilatation. A 6 mm balloon was then advanced and deployed in the ostial segment. Following this an 8 mm x 20 mm balloon was then deployed at 14 emily to also reduce the stenosis. Despite this there is still dense calcification in the sheath cannot be advanced. An 8 mm x 17 mm balloon mounted stent was then advanced into the ostial segment. A portion of the stent latched onto the calcified edges and could neither be advanced nor retrieved. The balloon was retrieved however the stent remained lodged into the calcified left subclavian artery. A 5 mm x 40 mm balloon was then advanced up the wire into the proximal and distal portion of the stent and deployed at 14 emily. Following this an additional 8 mm x 17 mm balloon mounted stent was placed distal to the first stent and deployed at 14 emily. Repeat angiography still demonstrated there was a residual stenosis therefore an 8 mm x 27 mm bare-metal stent was then placed slightly distal to this overlapping the first 2 stents and then deployed at 14 emily. You 10 mm x 20 mm balloon was then deployed at 14 emily in the ostial segment which flared the stent. There was excellent angiographic results with wide patency and antegrade flow down the left subclavian artery at the end of the procedure. At the end of procedure the apparatus was removed the groin was reprepped closure change at this move hemostasis achieved using Perclose device patient transferred the postop already in stable condition ANGIOGRAPHIC RESULTS The right vertebral artery singular and supplies a large basilar artery The right common carotid artery is widely patent and supplies a calcified right internal carotid artery and right external carotid artery The internal carotid artery stenosis cannot be accurately estimated The left common carotid artery is widely patent however stenosis severity cannot be assessed The left subclavian artery has an ostial calcified 90% stenosis IMPRESSION Patent right vertebral artery Patent common carotid arteries with angiographically indeterminate bilateral internal carotid artery calcification and stenoses Severe left subclavian artery stenosis Successful stenting of the left subclavian artery severe disease reduced to 0% with 3 bare-metal stents as described above thereby providing excellent antegrade flow down the left subclavian a
[2021-08-07 09:46] LABS: Coronavirus 19, PCR Not Detected (NotDetected); Influenza A, PCR Not Detected (NotDetected); Influenza B, PCR Not Detected (NotDetected)
[2021-08-07 09:48] LABS: Basophils # 0.1 K/mm3 (0-0.2); Basophils % 0.8 % (0.1-2.0); Eosinophils # 0.1 K/mm3 (0.0-0.4); Eosinophils % 0.8 % (0.1-12.0); Hematocrit 44.4 % (37.0-47.0); Hemoglobin 15.3 g/dL (12.2-16.2); Lymphocytes # 1.7 K/mm3 (0.7-4.5); Lymphocytes % 22.9 % (10-50); Mean Corpuscular HGB Conc 34.4 g/dL (31.8-35.4); Mean Corpuscular Hemoglobin 29.7 pg (27.0-31.2); Mean Corpuscular Volume 86.3 fl (81-99); Mean Platelet Volume 8.8 fl (7.4-10.4); Monocytes # 0.5 K/mm3 (0.1-1.0); Monocytes % 6.9 % (1.7-9.3); Neutrophils % 68.6 % (37.0-80.0); Platelet Count 373 K/mm3 (142-424); Red Blood Count 5.14 M/mm3 (4.20-5.40); Red Cell Distribution Width 13.9 % (11.5-17.5); White Blood Count 7.3 K/mm3 (4.8-10.8)
[2021-08-07 09:55] LABS: Chloride 105 mmol/L (98-107); Potassium 3.5 mmoL/L (3.5-5.1); Sodium 140 mmol/L (136-145)
[2021-08-07 09:58] LABS: Anion Gap 13.5 mEq/L (5-15); Blood Urea Nitrogen 4 mg/dl (7-17); Carbon Dioxide 25 mmol/L (22.0-30.0); Creatinine Clearance Estimated 187 mL/min (50-200); Estimated Glomerular Filt Rate 128 ml/min (>60); GFR (African American) 154 ML/MIN (>60); Glucose 185 mg/dl (74-100)
[2021-08-07 09:59] LABS: Calcium 9.6 mg/dl (8.4-10.2)
[2021-08-07 15:30] LABS: CATHL Activated Clotting Time 228 SEC (74-125)
--- NOTE | 2021-08-07 15:45 | HMH.PHACLD ---
Sydnie Alejandra has received discharge medication counseling on the following medications: -ASA -PLAVIX (BLEEDING RISK WITH ASA, IMPORTANCE OF TAKING DAILY, IF YOU BUMP HEAD YOU NEED TO BE SEEN) -ROSUVASTATIN -METOPROLOL -METFORMIN - HOLD UNTIL WEDNESDAY.
== END 2021-08-07 14:30 | disposition home or self-care (01) ==
LOC: CATHLAB 08:57
PROVIDERS: PCP Family Medicine; Visit Provider Internal Medicine
DX: I77.4 Celiac artery compression syndrome (principal); I25.118 Atherosclerotic heart disease of native coronary artery with other forms of angina pectoris; I77.1 Stricture of artery; I65.23 Occlusion and stenosis of bilateral carotid arteries; E11.9 Type 2 diabetes mellitus without complications; K21.9 Gastro-esophageal reflux disease without esophagitis; Z79.84 Long term (current) use of oral hypoglycemic drugs; Z20.822 Contact with and (suspected) exposure to COVID-19; Z79.899 Other long term (current) drug therapy; Z88.8 Allergy status to other drugs, medicaments and biological substances
CPT/HCPCS: 36222; 36226; 36245; 36251; 37236; 37237; 80048; 85025; 85347; 99152; 99153; C1725; C1769; C1876; C9803; J1644; J2405; Q9967; U0003; U0005

== ENCOUNTER → 2021-08-18 07:04 | Outpatient (CLI) | payer OTHER, SELFPAY ==
[2021-08-18 07:19] LABS: Basophils % 0.5 % (0.1-2.0); Eosinophils # 0.1 K/mm3 (0.0-0.4); Eosinophils % 1.4 % (0.1-12.0); Hematocrit 43.2 % (37.0-47.0); Hemoglobin 14.6 g/dL (12.2-16.2); Lymphocytes # 1.9 K/mm3 (0.7-4.5); Lymphocytes % 21.7 % (10-50); Mean Corpuscular HGB Conc 33.7 g/dL (31.8-35.4); Mean Corpuscular Hemoglobin 28.8 pg (27.0-31.2); Mean Corpuscular Volume 85.3 fl (81-99); Mean Platelet Volume 8.7 fl (7.4-10.4); Monocytes # 0.5 K/mm3 (0.1-1.0); Monocytes % 6.3 % (1.7-9.3); Neutrophils % 70.1 % (37.0-80.0); Platelet Count 387 K/mm3 (142-424); Red Blood Count 5.06 M/mm3 (4.20-5.40); Red Cell Distribution Width 14.2 % (11.5-17.5); White Blood Count 8.6 K/mm3 (4.8-10.8)
[2021-08-18 07:48] LABS: Anion Gap 9.5 mEq/L (5-15); Calcium 9.4 mg/dl (8.4-10.2); Carbon Dioxide 32 mmol/L (22.0-30.0); Chloride 99 mmol/L (98-107); Glucose 203 mg/dl (74-100); Potassium 3.5 mmoL/L (3.5-5.1); Sodium 137 mmol/L (136-145)
[2021-08-18 10:06] LABS: Blood Urea Nitrogen 6 mg/dl (7-17)
== END ==
PROVIDERS: Visit Provider Internal Medicine
DX: I25.10 Atherosclerotic heart disease of native coronary artery without angina pectoris (principal); I10 Essential (primary) hypertension
CPT/HCPCS: 36415; 80048; 85025

== ENCOUNTER → 2021-09-16 07:41 | Outpatient (CLI) | payer OTHER, SELFPAY ==
[2021-09-16 08:07] LABS: Blood Urea Nitrogen 5 mg/dl (7-17); Estimated Glomerular Filt Rate 103 ml/min (>60); GFR (African American) 125 ML/MIN (>60)
--- NOTE | 2021-09-16 08:49 | CT_ITS ---
Procedure: CT ANGIO ABDOMEN/FEMORAL CLINICAL HISTORY: claudication LLE COMPARISON: No exams were available for comparison TECHNIQUE: IV Contrast: 100ml Isovue 370 Axial images obtained with sagittal and coronal reformats. All CT scans at the facility use one or more dose reduction, viz: automated exposure control, ma/kV adjustment per patient size (including targeted exams where dose is matched to indication, i.e. head), or iterative reconstruction technique. FINDINGS: CTA abdomen: A stent is present within the celiac artery however the ostium the celiac artery in the most proximal aspect of the stent is not imaged. The SMA has an unremarkable appearance. Mild atheromatous changes of the renal arteries without significant stenosis. No aneurysm patent HOLLI. Atheromatous changes involve the distal abdominal aorta without significant stenosis. Calcific plaque is present involving the common internal iliacs without significant stenosis. No external iliac artery stenosis. CTA femorals with runoff: Right lower extremity: The common femoral, femoral, and popliteal arteries are unremarkable. The tibial peroneal trunk and anterior tib have an unremarkable appearance proximally. The vessels are not well opacified from the mid to lower calf region and not adequately assessed. Left lower extremity: The common iliac internal iliac, and external iliac arteries have an unremarkable appearance aside from some minimal calcific plaque at the common iliac proximally. The superficial femoral artery is unremarkable popliteal artery and tibial peroneal trunk and anterior tib artery are patent to the mid calf. The distal vessels at the lower calf were not well opacified and not adequately assessed. This may be due to a timing phenomenon. There is colonic diverticulosis. No evidence of diverticulitis. There is sclerosis of the SI joints. Small sclerotic foci present in the humeral head centrally and posteriorly suggesting bone islands. IMPRESSION: No significant stenotic lesions evident The visualized portion of the celiac artery is patent. The ostium of the celiac is not covered on the images. Dictated by: Lamont Pierre MD 09/22/2021 08:33 Lamont Pierre MD in [place] 09/22/2021 08:33
== END ==
PROVIDERS: PCP Family Medicine; Visit Provider Nurse Practitioner Family
DX: I25.118 Atherosclerotic heart disease of native coronary artery with other forms of angina pectoris (principal); I73.9 Peripheral vascular disease, unspecified; M79.605 Pain in left leg; I77.4 Celiac artery compression syndrome; Z87.891 Personal history of nicotine dependence
CPT/HCPCS: 36415; 75635; 82565; 84520; Q9967

== ENCOUNTER → 2021-09-21 13:21 | Outpatient (CLI) | payer OTHER, SELFPAY | LOC: UTC.OUT 13:24 → COVID.OUT 09-22 05:48 | PROVIDERS: PCP Family Medicine; Visit Provider Nurse Practitioner | DX: Z20.822 Contact with and (suspected) exposure to COVID-19 (principal) | CPT/HCPCS: C9803; U0003; U0005 ==

== ENCOUNTER → 2021-10-21 17:22 | Outpatient (CLI) | payer OTHER, SELFPAY ==
--- NOTE | 2021-10-21 17:30 | XR_ITS ---
PROCEDURE: XR HIP RT 2-3V W/PELVIS CLINICAL INDICATION: Pain COMPARISON: No exams were available for comparison FINDINGS: Minimal osteoarthritic change hips. No fracture or dislocation. No lytic or blastic change. IMPRESSION: Minimal osteoarthritis of the hips Dictated by: Lamont Pierre MD 10/21/2021 17:49 Lamont Pierre MD in [place] 10/21/2021 17:49
--- NOTE | 2021-10-21 17:30 | XR_ITS ---
PROCEDURE: XR KNEE LT 2V CLINICAL INDICATION: fall, c/o rt hip and lt knee pain COMPARISON: No exams were available for comparison FINDINGS: No fracture or dislocation. No lytic or blastic change. There is normal mineralization. There are mild osteoarthritic changes involving all 3 compartments. Chondrocalcinosis noted of the medial compartment. Other findings:None. IMPRESSION: Osteoarthritis with chondrocalcinosis Dictated by: Lamont Pierre MD 10/21/2021 17:49 Lamont Pierre MD in [place] 10/21/2021 17:49
== END ==
PROVIDERS: PCP Family Medicine; Visit Provider Nurse Practitioner Family
DX: M25.551 Pain in right hip (principal); R10.2 Pelvic and perineal pain; M25.562 Pain in left knee
CPT/HCPCS: 73502; 73560

== ENCOUNTER → 2021-11-09 10:28 | Outpatient (CLI) | payer BC, SELFPAY | PROVIDERS: PCP Family Medicine; Visit Provider Nurse Practitioner Family | DX: Z20.822 Contact with and (suspected) exposure to COVID-19 (principal) | CPT/HCPCS: C9803; U0003; U0005 ==

== ENCOUNTER → 2022-02-16 14:21 | Outpatient (CLI) | payer BC, SELFPAY ==
--- NOTE | 2022-02-16 14:22 | CT_ITS ---
FINAL REPORT TECHNIQUE: Axial images through the abdomen and pelvis were performed without contrast. This study was performed with techniques to keep radiation doses as low as reasonably achievable, (ALARA). Individualized dose reduction techniques using automated exposure control or adjustment of mA and/or kV according to the patient's size were employed. CLINICAL HISTORY: pelvic pain FINDINGS: Abdomen: There are bilateral subglandular breast implants. The lung bases are clear. The liver parenchyma is homogeneous. The gallbladder is absent. The spleen, pancreas, adrenals and kidneys are unremarkable. There has been placement of a celiac axis stent. A large amount of retained stool is present. Pelvis: The urinary bladder is unremarkable. There are postoperative changes at the base of the cecum. The uterus is not identified. There is no pelvic mass or inflammation. IMPRESSION: Large amount of retained stool. Postoperative change at the base of the cecum. Reviewed, Interpreted and Dictated by Cali Berry MD Transcribed by Louie Lancaster Authenticated by Cali Berry MD on 02/16/2022 04:17:[address] [facility]
== END ==
PROVIDERS: PCP Family Medicine; Visit Provider Obstetrics & Gynecology
DX: R10.2 Pelvic and perineal pain (principal)
CPT/HCPCS: 74176

== ENCOUNTER → 2022-03-19 10:10 | Outpatient (CLI) | payer BC, SELFPAY ==
[2022-03-19 13:50] LABS: Free T4 (Free Thyroxine) 0.92 ng/dl (0.78-2.19)
[2022-03-19 14:01] LABS: Thyroid Stimulating Hormone 3.35 uIU/mL (0.465-4.68)
== END ==
PROVIDERS: PCP Family Medicine; Visit Provider Otolaryngology
DX: E03.9 Hypothyroidism, unspecified (principal)
CPT/HCPCS: 36415; 84439; 84443

== ENCOUNTER → 2022-05-07 13:16 | Outpatient (CLI) | payer BC, SELFPAY ==
--- NOTE | 2022-05-07 13:16 | US_ITS ---
FINAL REPORT CLINICAL HISTORY: hx hypothyroid COMPARISON: May 21, 2021 FINDINGS: THYROID ULTRASOUND The right lobe of the thyroid measures 3.5 x 1.8 x 1.0 cm. The left lobe of the thyroid measures 2.8 x 1.1 x 0.7 cm. The thyroid gland has heterogeneous echotexture. There is a 9 x 6 x 4 mm solid and isoechoic nodule in the mid right thyroid consistent with a TIRADS 4. The upper left lobe of the thyroid is a 6 x 5 x 3 mm solid hypoechoic TIRADS 4 nodule. In the lower left thyroid is a 7 x 4 x 6 solid and isoechoic nodule consistent with a TIRADS 3. There is a 3 mm isthmus nodule. IMPRESSION: No significant change in a small thyroid with multiple small nodules that may represent chronic thyroiditis. Reviewed, Interpreted and Dictated by Zach Rausch III, MD Transcribed by Louie Lancaster Authenticated and [facility]
--- NOTE | 2022-05-07 16:26 | XR_ITS ---
FINAL REPORT CLINICAL HISTORY: LEFT SHOULDER PAIN, LIMITED ROM FINDINGS: LEFT SHOULDER Three views demonstrate no acute fracture or dislocation. There are mild degenerative changes of the acromioclavicular and the glenohumeral joints. The visualized bony structures are well aligned. No soft tissue abnormality is seen. IMPRESSION: Mild degenerative changes. Reviewed, Interpreted and Dictated by Zach Rausch III, MD Transcribed by Louie Lancaster Authenticated and [facility]
== END ==
PROVIDERS: PCP Family Medicine; Visit Provider Otolaryngology
DX: E03.9 Hypothyroidism, unspecified (principal); M25.512 Pain in left shoulder
CPT/HCPCS: 73030; 76536

== ENCOUNTER → 2022-05-07 16:22 | Outpatient (CLI) | payer BC, SELFPAY | PROVIDERS: PCP Family Medicine; Visit Provider Physician Assistant | DX: M25.512 Pain in left shoulder (principal) ==

== ENCOUNTER → 2022-05-15 16:06 | Outpatient (CLI) | payer BC, SELFPAY ==
--- NOTE | 2022-05-15 16:09 | MR_ITS ---
PROCEDURE INFORMATION: Exam: MR Left Upper Extremity Joint Without Contrast; Shoulder Exam date and time: 05/15/2022 4:16 PM Age: 56 years old Clinical indication: Pain; Shoulder; Left; Additional info: Acute pain of left shoulder TECHNIQUE: Imaging protocol: Magnetic resonance imaging of the Left upper extremity without contrast. Exam focused on the shoulder. COMPARISON: CR XR SHOULDER LT MIN 2V 05/07/2022 4:28 PM FINDINGS: Bones and cartilage: Mild hypertrophy and degeneration of the acromioclavicular joint. Otherwise, unremarkable. No marrow edema or infiltrate. No fractures or dislocations. Joint spaces: Intact. Glenoid labrum: Unremarkable. No evidence of tear. Bursae: Small amount of fluid in the subcoracoid bursa. No other joint fluid. Supraspinatus tendon: Unremarkable. No evidence of tear. Infraspinatus tendon: Unremarkable. No evidence of tear. Subscapularis tendon: Unremarkable. No evidence of tear. Teres minor tendon: Unremarkable. No evidence of tear. Tendon of biceps brachii: Unremarkable. No evidence of tear. Glenohumeral ligaments: Unremarkable. Muscles: Unremarkable. Soft tissues: Unremarkable. IMPRESSION: 1. Minimal to mild subcoracoid bursitis. 2. Otherwise, unremarkable shoulder.
== END ==
PROVIDERS: PCP Family Medicine; Visit Provider Physician Assistant
DX: M25.512 Pain in left shoulder (principal)
CPT/HCPCS: 73221

== ENCOUNTER 2022-05-23 14:33 | Emergency (ER) | payer BC, SELFPAY ==
[2022-05-23 15:05] VITALS: BP 120/70; PULSE 94; RESP 20; TEMP 36.9; O2SAT 99; BMI 28.0
--- NOTE | 2022-05-23 15:30 | HMH.EDUTC ---
[facility] [place] Clinical Impression: COVID-19, Viral syndrome Disposition: Home, Self-Care Condition on Discharge: Good Instructions: DI for COVID-19 (Suspected or Confirmed ), Preventing the Spread of Coronavirus Discharge Instructions Additional Instructions: Drink plenty of fluids. Take tylenol or ibuprofen for pain or fever. Take the medications as directed. Follow up with your regular doctor. GO TO THE ER FOR ANY WORSENING SYMPTOMS Quarantine until you know the results of your covid-19 test. Notify your school or workplace of your results and follow their instructions regarding return to work/school. The cough medication (promethazine dm) will make you drowsy, so don't drive or operate heavy machinery after taking it. Prescriptions: Promethazine/Dextromethorphan [Promethazine-Dm Syrup] 5 ml PO Q6HP PRN #240 ml PRN Reason: Cough Transmission Status: Received by [id number] Ondansetron [Zofran 4mg ODT] 4 mg PO Q8HP PRN #20 tab PRN Reason: Nausea Transmission Status: Received by [facility] Benzonatate [Benzonatate 100mg cap] 100 mg PO TIDP PRN #30 cap PRN Reason: Cough Transmission Status: Received by [facility] Referrals: Christiano Garcia MD [Primary Care Provider] - Time of Disposition: 15:52 Medical Decision Making - Medical Records Medical records reviewed: No: I reviewed the patient's medical records. - Nate Inquiry Pt receiving controlled substance: No Vital Signs: 05/23/22 15:05 05/23/22 15:57 Temperature 98.5 F 98.5 F Temperature Source Oral Oral Pulse Rate 94 H Pulse Rate [Brachial] 94 H Respiratory Rate 20 20 Blood Pressure 120/70 Blood Pressure [Right Arm] 120/70 Blood Pressure Mean [Right Arm] 86 Blood Pressure Source Automatic Cuff Blood Pressure Source [Right Arm] Automatic Cuff Blood Pressure Position Sitting Blood Pressure Position [Right Arm] Sitting 02 Sat by Pulse Oximetry 99 Oxygen Delivery Method Room Air Room Air [facility] [place] - General Stated complaint: congestion positive home test Time Seen by Provider: 05/23/22 15:30 - History of Present Illness Provider Complaint: She is here to have a pcr covid test. She has been feeling bad for the past 2 days. She tested positive for covid-19 at home on a home test. - Related Data Home Medications Medication Instructions Recorded Confirmed rosuvastatin 20 mg tablet 20 mg PO DAILY 02/13/19 05/20/22 aspirin 81 mg tablet,delayed 81 mg PO DAILY tab 12/04/20 05/20/22 release gabapentin 300 mg capsule 600 mg PO DAILY cap 12/04/20 05/20/22 metformin 500 mg tablet,extended 1,000 mg PO BID tab 02/12/21 05/20/22 release 24 hr cyanocobalamin (vitamin B-12) 1,000 mcg SQ DAILY ml 06/03/21 05/20/22 1,000 mcg/mL injection solution Levothyroxine Sodium [Synthroid 50 mcg PO DAILY 08/07/21 05/20/22 50mcg (0.05mg) tab] linaclotide 145 mcg capsule 145 mcg PO DAILY cap 03/18/22 05/20/22 potassium chloride 20 mEq/15 mL 20 meq PO DAILY ml 03/18/22 05/20/22 oral liquid dulaglutide 1.5 mg/0.5 mL mg SQ 05/20/22 05/20/22 subcutaneous pen injector Previous Rx's Medication Instructions Recorded clopidogrel 75 mg tablet 75 mg PO DAILY #90 tab 09/05/21 rivaroxaban 2.5 mg tablet 2.5 mg PO BID #180 tab 09/09/21 furosemide 40 mg tablet See Rx Instructions .ROUTE 12/18/21 .COMPLEX #90 tablet spironolactone 50 mg tablet See Rx Instructions .ROUTE 12/18/21 .COMPLEX #90 tablet metoprolol succinate 25 mg See Rx Instructions .ROUTE 12/23/21 tablet,extended release 24 hr .COMPLEX #90 tablet estradiol 1 appful VAGINAL DAILY 30 Days 02/10/22 #42.5 g Benzonatate [Benzonatate 100mg 100 mg PO TIDP PRN #30 cap 05/23/22 cap] Ondansetron [Zofran 4mg ODT] 4 mg PO Q8HP PRN #20 tab 05/23/22 Promethazine/Dextromethorphan 5 ml PO Q6HP PRN #240 ml 05/23/22 [Promethazine-Dm Syrup] Allergies Allergy/AdvReac Type Severity Reaction Status
[2022-05-23 15:57] VITALS: BP 120/70; PULSE 94; RESP 20; TEMP 36.9
== END 2022-05-23 15:59 | disposition home or self-care (01) ==
PROVIDERS: Emergency Provider Nurse Practitioner Family; PCP Family Medicine
DX: U07.1 COVID-19 (principal)
CPT/HCPCS: 99212; C9803; G0463; U0003; U0005

== ENCOUNTER → 2022-06-11 10:58 | Outpatient (CLI) | payer BC, SELFPAY ==
[2022-06-11 11:49] LABS: Basophils % 0.5 % (0.1-2.0); Eosinophils # 0.1 K/mm3 (0.0-0.4); Eosinophils % 1.6 % (0.1-12.0); Hematocrit 40.8 % (37.0-47.0); Hemoglobin 13.2 g/dL (12.2-16.2); Lymphocytes # 1.5 K/mm3 (0.7-4.5); Lymphocytes % 20.4 % (10-50); Mean Corpuscular HGB Conc 32.3 g/dL (31.8-35.4); Mean Corpuscular Hemoglobin 27.6 pg (27.0-31.2); Mean Corpuscular Volume 85.6 fl (81-99); Monocytes # 0.4 K/mm3 (0.1-1.0); Monocytes % 5.9 % (1.7-9.3); Neutrophils # 5.3 K/mm3 (1.8-7.8); Neutrophils % 71.6 % (37.0-80.0); Platelet Count 302 K/mm3 (142-424); Red Blood Count 4.76 M/mm3 (4.20-5.40); Red Cell Distribution Width 13.6 % (11.5-17.5); White Blood Count 7.4 K/mm3 (4.8-10.8)
[2022-06-11 12:26] LABS: Chloride 106 mmol/L (98-107)
[2022-06-11 12:27] LABS: Potassium 4.5 mmoL/L (3.5-5.1); Sodium 139 mmol/L (136-145)
[2022-06-11 12:30] LABS: Anion Gap 6.5 mEq/L (5-15); Blood Urea Nitrogen 9 mg/dl (7-17); Carbon Dioxide 31 mmol/L (22.0-30.0); Estimated Glomerular Filt Rate 103 ml/min (>60); GFR (African American) 125 ML/MIN (>60); Glucose 118 mg/dl (74-100)
== END ==
PROVIDERS: PCP Family Medicine; Visit Provider Surgery
DX: Z01.812 Encounter for preprocedural laboratory examination (principal)
CPT/HCPCS: 36415; 80048; 85025

== ENCOUNTER 2022-07-06 14:18 | Emergency (ER) | payer BC, SELFPAY ==
[2022-07-06 14:25] VITALS: BP 111/66; PULSE 79; RESP 16; TEMP 36.7; O2SAT 100; BMI 27.4
--- NOTE | 2022-07-06 14:32 | ECG_ITS ---
APPROVED REPORT Exam: Resting ECG HR:84 bpm ECG Measurements Heart Rate 84 AXES AL 144 P 24 QRSd 98 QRS 51 QT 370 T -20 QTc 411 Conclusion SINUS RHYTHM LOW QRS VOLTAGE IN EXTREMITY LEADS [QRS DEFLECTION < 0.5 mV IN LIMB LEADS] ABNORMAL QRS-T ANGLE [QRS-T AXIS DIFFERENCE > 60] ABNORMAL ECG INTERPRETATION BASED ON A DEFAULT AGE OF 40 YEARS UNCONFIRMED REPORT Electronically signed by : Christian Rios MD 07/06/2022 20:07:22
--- NOTE | 2022-07-06 14:55 | PC.NURSE ---
EKG machine was malfunctioning when I hooked patient up to the EKG machine. EKG machine kept sating no leads attached even though I turned off the machine, tried pushing stickers down and unhooking wires from the machine to reset it. I had to call respiratory for them to come look and they were having just as much trouble. They ended up having to bring us another EKG machine. EKG was finally complete at 1432 and given to ER . Severino Olmstead RN was aware of situation.
--- NOTE | 2022-07-06 15:56 | XR_ITS ---
FINAL REPORT CLINICAL HISTORY: chest pain FINDINGS: The heart size is normal. The mediastinum is normal. There is no focal infiltrate or edema. There are no pleural effusions. There is no pneumothorax. There is no osseous abnormality. IMPRESSION: No acute cardiopulmonary process Reviewed, Interpreted and Dictated by Zach Rausch III, MD Transcribed by Louie Lancaster Authenticated and [facility]
[2022-07-06 16:06] LABS: Chloride 101 mmol/L (98-107); Potassium 3.7 mmoL/L (3.5-5.1); Sodium 138 mmol/L (136-145)
[2022-07-06 16:09] LABS: Alanine Aminotransferase 35 U/L (12-78); Albumin Level 4.3 g/dl (3.5-5.0); Albumin/Globulin Ratio 1.7 (1.1-1.8); Alkaline Phosphatase 77 U/L (38-126); Anion Gap 10.7 mEq/L (5-15); Aspartate Amino Transferase 53 U/L (14-36); Basophils % 0.4 % (0.1-2.0); Bilirubin,Total 0.7 mg/dl (0.2-1.3); Blood Urea Nitrogen 11 mg/dl (7-17); Carbon Dioxide 30 mmol/L (22.0-30.0); Creatinine Clearance Estimated 108 mL/min (50-200); Eosinophils # 0.1 K/mm3 (0.0-0.4); Eosinophils % 1.5 % (0.1-12.0); Estimated Glomerular Filt Rate 86 ml/min (>60); GFR (African American) 104 ML/MIN (>60); Globulin 2.6 g/dL (1.3-3.2); Hematocrit 40.3 % (37.0-47.0); Hemoglobin 13.3 g/dL (12.2-16.2); Lymphocytes # 1.8 K/mm3 (0.7-4.5); Mean Corpuscular HGB Conc 32.9 g/dL (31.8-35.4); Mean Corpuscular Hemoglobin 27.7 pg (27.0-31.2); Mean Corpuscular Volume 84.3 fl (81-99); Mean Platelet Volume 8.9 fl (7.4-10.4); Monocytes # 0.7 K/mm3 (0.1-1.0); Monocytes % 8.8 % (1.7-9.3); Neutrophils # 5.4 K/mm3 (1.8-7.8); Neutrophils % 67.3 % (37.0-80.0); Platelet Count 286 K/mm3 (142-424); Red Blood Count 4.79 M/mm3 (4.20-5.40); Red Cell Distribution Width 13.2 % (11.5-17.5); Total Protein,Serum 6.9 g/dl (6.3-8.2); White Blood Count 8.1 K/mm3 (4.8-10.8)
[2022-07-06 16:10] LABS: Calcium 9.7 mg/dl (8.4-10.2); Glucose 217 mg/dl (74-100)
[2022-07-06 16:16] VITALS: BP 109/59; PULSE 78; O2SAT 99
--- NOTE | 2022-07-06 16:18 | PC.NURSE ---
Rounded on patient; gave her another warm blanket and some ice water that was okay'd by ER . she voices no other needs at this time and is aware that we are waiting on test results
[2022-07-06 16:19] LABS: NT Pro Brain Natriuretic Pep. 80.7 pg/mL (0-125)
[2022-07-06 16:23] LABS: Troponin I < 0.01 ng/ml (0.00-0.034)
--- NOTE | 2022-07-06 17:26 | HMH.EDGENADL ---
Discharge Plan Disposition Patient Disposition: Home, Self-Care Condition: Good Chief Complaint: Chest Pain Prescriptions Prescriptions: No Action rosuvastatin 20 mg tablet 20 mg PO DAILY gabapentin 300 mg capsule 600 mg PO DAILY metformin 500 mg tablet extended release 24 hr 1,000 mg PO BID cyanocobalamin (vitamin B-12) 1,000 mcg/mL solution 1,000 mcg SQ DAILY Linzess 145 mcg capsule 145 mcg PO DAILY potassium chloride 20 mEq/15 mL liquid 20 meq PO DAILY estradiol [Estrace] 0.01 % (0.1 mg/gram) cream 1 appful VAGINAL DAILY 30 Days Qty: 42.5 2RF Trulicity 1.5 mg/0.5 mL pen injector SQ aspirin 81 mg tablet,delayed release (DR/EC) 81 mg PO DAILY clopidogrel 75 mg tablet 75 mg PO DAILY Qty: 90 3RF Xarelto 2.5 mg tablet 2.5 mg PO BID Qty: 180 3RF spironolactone 50 mg tablet See Rx Instructions .ROUTE .COMPLEX Qty: 90 3RF Dose Instruction: TAKE 1 TABLET DAILY Rx Instructions: TAKE 1 TABLET DAILY furosemide 40 mg tablet See Rx Instructions .ROUTE .COMPLEX Qty: 90 3RF Dose Instruction: TAKE 1 TABLET DAILY Rx Instructions: TAKE 1 TABLET DAILY metoprolol succinate 25 mg tablet extended release 24 hr See Rx Instructions .ROUTE .COMPLEX Qty: 90 0RF Dose Instruction: TAKE 1 TABLET DAILY Rx Instructions: TAKE 1 TABLET DAILY levothyroxine 50 MCG tablet 50 mcg PO DAILY promethazine-DM 120 ML syrup 5 ml PO Q6HP PRN (Reason: Cough) Qty: 240 0RF benzonatate 100 MG capsule 100 mg PO TIDP PRN (Reason: Cough) Qty: 30 0RF ondansetron 4 MG tablet,disintegrating 4 mg PO Q8HP PRN (Reason: Nausea) Qty: 20 0RF Referrals Follow up/Referrals: Provider,Referral, MD [Primary Care Provider] - See instructions Clinical Impressions Clinical Impression: Chest pain Discharge ED Provider: Smith Massey General Adult HPI General Chief complaint: Chest Pain Stated complaint: CP Time Seen by Provider: 07/06/22 14:30 Mode of Arrival: Ambulatory Source of Information: Patient Limitations: No Limitations Description of Symptoms (Recalled from ER Triage Doc. by RN): chest pain that started Wednesday with left arm numbness and soa and gets worse with a incline of decline with walking History of Present Illness HPI narrative: This is a 56-year-old female with history of CAD status post stenting 1 year prior to arrival who is presenting with chest pain. Patient states that chest pain started approximately 2 days prior to arrival. The chest pain is dull, burning, substernal, radiates to her left arm and is associated with left arm numbness. It is made worse by walking up ramps and exertion, made better by rest. Nonpositional. She has not tried Tylenol or ibuprofen. 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 Denies nausea, vomiting, diaphoresis, shortness of breath more than baseline, neurologic deficits otherwise. Related Data Home Medications Medication Instructions Recorded Confirmed rosuvastatin 20 mg tablet 20 mg PO DAILY Cholesterol 02/13/19 05/20/22 aspirin 81 mg tablet,delayed 81 mg PO DAILY Heart disease 12/04/20 05/20/22 release gabapentin 300 mg capsule 600 mg PO DAILY Pain 12/04/20 05/20/22 metformin 500 mg tablet,extended 1,000 mg PO BID Diabetes 02/12/21 05/20/22 release 24 hr cyanocobalamin (vitamin B-12) 1,000 mcg SQ DAILY Supplement 06/03/21 05/20/22 1,000 mcg/mL injection solution levothyroxine 50 mcg tablet 50 mcg PO DAILY Thyroid 08/07/21 05/20/22 linaclotide 145 mcg capsule 145 mcg PO DAILY 03/18/22 05/20/22 (Linzess) potassium chloride 20 mEq/15 mL 20 meq PO DAILY 03/18/22 05/20/22 oral liquid dulaglutide 1.5 mg/0.5 mL mg SQ 05/20/22 05/20/22 subcutaneous pen injector (Trulicity) Previous Rx's Medication Instructions Recorded cl
[2022-07-06 18:10] VITALS: BP 119/72; PULSE 84; RESP 16; TEMP 36.7; O2SAT 100
== END 2022-07-06 18:09 | disposition home or self-care (01) ==
PROVIDERS: Emergency Provider Emergency Medicine
DX: R07.9 Chest pain, unspecified (principal); R06.02 Shortness of breath; R20.0 Anesthesia of skin; Z98.61 Coronary angioplasty status; Z87.891 Personal history of nicotine dependence
CPT/HCPCS: 71045; 80053; 83880; 84484; 85025; 93005; 99284

== ENCOUNTER → 2022-07-16 07:16 | Outpatient (CLI) | payer BC, SELFPAY ==
--- NOTE | 2022-07-16 07:17 | NM_ITS ---
APPROVED REPORT Exam: Nuclear Stress Test Indication: chest pain..short of breath..palpitations..fatigue Patient Location: Outpatient Stress Tech: Aissatou Dunham [place] Tech:Zaida Trivedi ARRMichela RT(R)(N) Ht: 5 ft 6 in Wt: 170 lbs Bra Size: 38c HR: 92 bpm BP: 123/57 mmHg BSA: 1.87 m2 TID: 1.62 BMI: 27.4 History: chest pain..short of breath..palpitations..fatigue Procedure: Patient exercised on Brandon protocol 6:46 minutes and sec, resting heart rate 92 bpm, resting blood pressure 123/57 mmHg, with exercise maximum heart rate achived was 133 bpm which is 82 % of the maximum predicted heart rate and blood pressure was 153/57 mmHg. Patient has Adequate exercise capacity, achieved 7.0 METs of workload on treadmill, the blood pressure response to exercise was Adequate. Electrocardiogram Resting electrocardiogram showed sinus rhythm, with exercise there is less than 1.[address] segment depression noted from the baseline EKG. The EKG portion of the exercise Myoview was nondiagnostic as patient did not achieve the target heart rate. Cardiac Stress and Resting SPECT Images: Cardiac Stress and Resting SPECT images were obtained using technetium 99m Myoview 30.6 mCi stress and 10.07 mCi at rest. Gated SPECT analysis of segmental wall motion and calculation of the ejection fraction also done. Cardiac stress and rest SPECT images show a fixed defect anterolaterally with normal contractility in the gated SPECT is likely secondary to soft tissue attenuation, no reversible ischemia seen, however there is transient ischemic dilatation of the left ventricle seen. Computer derived ejection fraction is 64% with no regional wall motion abnormality, right ventricle is normal size and contractility. Conclusion: 1. The EKG portion of the exercise Myoview was nondiagnostic as patient did not achieve the target heart rate, patient has adequate exercise capacity achieved 7 METS of workload on treadmill, the blood pressure response to exercise was adequate, patient complained of chest pressure with exercise which was relieved with rest. 2. No scintigraphic evidence of reversible ischemia seen, a fixed defect anterolaterally is likely secondary to soft tissue attenuation, computer derived ejection fraction is 64% with no regional wall motion abnormality however there is transient ischemic dilatation of the left ventricle seen raising the concerns for balanced ischemia or multivessel coronary artery disease. 3. Abnormal exercise Myoview study. Electronically signed by : Chaparro Snow MD 07/17/2022 09:48:44
--- NOTE | 2022-07-16 09:32 | CA_ITS ---
APPROVED REPORT Exam: Exercise Treadmill Technologist: Aissatou Bo, Ht: 5 ft 6 in Wt: 173 lbs BSA: 1.88 m2 HR: 85 bpm BP: 110/60 mmHg Medical History Medications: Aspirin,,,,, Metoprolol,,,,, Metformin,,,,, Gabapentin,,,,, XaRELTO,,,,, ProMETHAZINE,,,,, Cyclobenzaprine,,,,, RoSUVASTATIN,,,,, ONdansetron,,,,, TrULicity,,,,, Furosemide,,,,, Vitamin B2,,,,, Stress Test Details Test: Brandon HR Resting HR: 92 bpm Max Heart Rate (APMHR): 163 bpm Max HR Achieved: 133 bpm Target HR (85% APMHR): 139 bpm % of APMHR: 82 Recovery HR: 84 bpm BP Resting BP: 123/57 mmHg Max BP: 153/51 mmHg Recovery BP: 131.0/51.0 mmHg ECG Resting ECG: NSR, right axis deviation, low voltage QRS Clinical Exercise duration: 06:46 min Highest Stage Achieved: II Exercise capacity: 7.0 METs Stress ECG Conclusion Exercised 6:45 into stage II of Brandon Protocol. Stage II held to completion. Max HR: 133 %of PM: 82% Max BP: 153/51 METs: 7.0 Test stopped due to: SOA Symptoms: Left upper CP with exercise, resolving in recovery. Arrhythmias/Ectopy: None ST-T Changes: Nonspecific T wave changes inferiorly, most notable in recovery otherwise normal ST response to exercise. Conclusion: Exercise induced CP but within normal stress EKGs. Myoview images reported seperately. Test Summary REST . . . . . . . Sitting REST . . . . . . . Standing REST 04:01 0.0 0.0 92 . 123/ 57 . . Stage 1 01:00 10.0 1.7 105 . . . . Stage 1 02:00 10.0 1.7 116 . . . . Stage 1 03:00 10.0 1.7 121 . 148/ 78 . . Stage 2 01:00 12.0 2.5 108 . . . . Stage 2 02:00 12.0 2.5 130 . . . . Stage 2 . . . . . . . Cardiolite injected Stage 2 . . . . . . . Stage held Stage 2 03:00 12.0 2.5 130 . . . . Stage 2 . . . . . . . Stage resumed Stage 2 03:46 12.0 2.5 133 . . . Stop exercise at 06:46 RECOVERY 01:00 0.0 0.0 113 . . . . RECOVERY 02:00 0.0 0.0 95 . 146/ 71 . . RECOVERY 03:00 0.0 0.0 87 . 146/ 71 . . RECOVERY 04:00 0.0 0.0 89 . 153/ 51 . . RECOVERY 05:00 0.0 0.0 84 . 131/ 51 . . RECOVERY 05:29 0.0 0.0 87 . 131/ 51 . . Electronically signed by : Chaparro Snow MD 07/17/2022 09:44:28
== END ==
PROVIDERS: PCP Family Medicine; Visit Provider Physician Assistant
DX: I25.118 Atherosclerotic heart disease of native coronary artery with other forms of angina pectoris (principal); R06.02 Shortness of breath; I20.8 Other forms of angina pectoris; I10 Essential (primary) hypertension; E78.2 Mixed hyperlipidemia; I73.9 Peripheral vascular disease, unspecified; I77.4 Celiac artery compression syndrome
CPT/HCPCS: 78452; 93017; A9502

== ENCOUNTER → 2022-07-22 12:03 | Outpatient (CLI) | payer BC, SELFPAY ==
--- NOTE | 2022-07-22 12:07 | XR_ITS ---
FINAL REPORT CLINICAL HISTORY: COCCYGEAL PAIN FINDINGS: SACRUM/COCCYX 3 views were obtained. There is no acute fracture. The joint spaces are intact. There is no soft tissue abnormality. IMPRESSION: No acute bony abnormality. Reviewed, Interpreted and Dictated by Zach Rausch III, MD Transcribed by Vivi Brandt Authenticated and . [facility]
== END ==
PROVIDERS: PCP Family Medicine; Visit Provider Physician Assistant
DX: M53.3 Sacrococcygeal disorders, not elsewhere classified (principal)
CPT/HCPCS: 72220

== ENCOUNTER → 2022-07-24 14:45 | Outpatient (CLI) | payer BC, SELFPAY ==
[2022-07-24 15:24] LABS: Basophils # 0.1 K/mm3 (0-0.2); Basophils % 0.7 % (0.1-2.0); Eosinophils # 0.1 K/mm3 (0.0-0.4); Eosinophils % 1.2 % (0.1-12.0); Hematocrit 40.8 % (37.0-47.0); Hemoglobin 13.8 g/dL (12.2-16.2); Lymphocytes % 21.7 % (10-50); Mean Corpuscular HGB Conc 33.8 g/dL (31.8-35.4); Mean Corpuscular Hemoglobin 28.4 pg (27.0-31.2); Mean Corpuscular Volume 83.8 fl (81-99); Mean Platelet Volume 8.8 fl (7.4-10.4); Monocytes # 0.5 K/mm3 (0.1-1.0); Monocytes % 5.5 % (1.7-9.3); Neutrophils # 6.5 K/mm3 (1.8-7.8); Platelet Count 375 K/mm3 (142-424); Red Blood Count 4.87 M/mm3 (4.20-5.40); Red Cell Distribution Width 13.8 % (11.5-17.5); White Blood Count 9.1 K/mm3 (4.8-10.8)
[2022-07-24 15:52] LABS: Anion Gap 16.1 mEq/L (5-15); Blood Urea Nitrogen 11 mg/dl (7-17); Calcium 9.5 mg/dl (8.4-10.2); Carbon Dioxide 28 mmol/L (22.0-30.0); Chloride 97 mmol/L (98-107); Estimated Glomerular Filt Rate 86 ml/min (>60); GFR (African American) 104 ML/MIN (>60); Glucose 147 mg/dl (74-100); Potassium 4.1 mmoL/L (3.5-5.1); Sodium 137 mmol/L (136-145)
== END ==
PROVIDERS: PCP Family Medicine; Visit Provider Nurse Practitioner
DX: Z01.812 Encounter for preprocedural laboratory examination (principal); Z20.822 Contact with and (suspected) exposure to COVID-19; R06.02 Shortness of breath; I25.118 Atherosclerotic heart disease of native coronary artery with other forms of angina pectoris; I77.4 Celiac artery compression syndrome; I10 Essential (primary) hypertension; E78.2 Mixed hyperlipidemia; R94.30 Abnormal result of cardiovascular function study, unspecified
CPT/HCPCS: 36415; 80048; 85025; C9803; U0003; U0005

== ENCOUNTER 2022-07-27 08:53 | Day surgery (SDC) | payer BC, SELFPAY ==
[2022-07-27] VITALS (16 sets, daily range): BP systolic 111–133; BP diastolic 57–74; PULSE 70–88; RESP 16–18; O2SAT 92–98; BMI 27.7
--- NOTE | 2022-07-27 | IR_ITS ---
APPROVED REPORT Patient Location: Outpatient PROCEDURES Left heart catheterization Left ventriculogram Selective coronary angiogram INDICATION Known coronary artery disease, Angina pectoris, Abnormal stress test Informed consent was obtained prior to the procedure. COMPLICATIONS None Estimated Blood Loss: Less than 10 mls TECHNIQUE One percent lidocaine was used to anesthetize the right groin. The right femoral artery was accessed via the Seldinger technique. A 4-Croatian sheath was placed in the right femoral artery. The JL-4 and JR-4 catheter was also used to perform left heart catheterization left ventriculogram and selective coronary angiogram. At the end of the procedure the patient was transferred to the post-op holding area in stable condition for arterial sheath removal. ANGIOGRAPHIC RESULTS The left main artery Normal The left anterior descending artery Has stents in the proximal LAD which are widely patent with minimal in-stent restenosis. The remaining LAD is widely patent The circumflex artery Is a dominant vessel and has mild mid vessel 10% luminal irregularities The right coronary artery Vestigial normal The [place] ventriculogram reveals Normal 60% The left ventricular end-diastolic pressure 20 mmHg IMPRESSION Widely patent proximal LAD stent Normal ejection fraction with mildly elevated LVEDP consistent with hypertensive heart disease and or diastolic dysfunction PLAN 1. Continue medical management with risk factor modification Electronically signed by : Olivier Encinas MD 07/27/2022 13:09:17
== END 2022-07-27 14:54 | disposition home or self-care (01) ==
PROVIDERS: PCP Family Medicine; Visit Provider Internal Medicine
DX: I25.118 Atherosclerotic heart disease of native coronary artery with other forms of angina pectoris (principal); R94.39 Abnormal result of other cardiovascular function study; Z95.5 Presence of coronary angioplasty implant and graft; Z79.899 Other long term (current) drug therapy; Z87.891 Personal history of nicotine dependence; I10 Essential (primary) hypertension; I77.4 Celiac artery compression syndrome; E78.5 Hyperlipidemia, unspecified
CPT/HCPCS: 93458; 99152; C1725; C1769; J1644; Q9967

== ENCOUNTER → 2022-11-02 14:46 | Outpatient (CLI) | payer BC, SELFPAY ==
--- NOTE | 2022-11-02 14:50 | XR_ITS ---
FINAL REPORT CLINICAL HISTORY: PAIN IN LEFT FOOT on top FINDINGS: 3 views of the left foot were obtained. There is no acute fracture or dislocation. There are calcaneal spurs. The joint spaces are intact. The soft tissues are unremarkable. IMPRESSION: No acute process. Reviewed, Interpreted and Dictated by Zach Rausch III, MD Transcribed by Louie Lancaster Authenticated and . [facility]
== END ==
PROVIDERS: PCP Family Medicine; Visit Provider Family Medicine
DX: M79.672 Pain in left foot (principal)
CPT/HCPCS: 73630

== ENCOUNTER 2022-11-08 09:45 | Emergency (ER) | payer BC, SELFPAY ==
[2022-11-08] VITALS (9 sets, daily range): BP systolic 91–126; BP diastolic 48–68; PULSE 75–85; RESP 16–19; TEMP 36.4; O2SAT 97–100; BMI 28.5
--- NOTE | 2022-11-08 09:52 | ECG_ITS ---
APPROVED REPORT Exam: Resting ECG HR:78 bpm ECG Measurements Heart Rate [address] 138 P 10 QRSd 89 QRS 46 QT 390 T 51 QTc 423 Conclusion SINUS RHYTHM NORMAL ECG UNCONFIRMED REPORT Electronically signed by : Christian iRos MD 11/08/2022 22:21:02
--- NOTE | 2022-11-08 09:56 | HMH.EDGENADL ---
Discharge Plan Disposition Patient Disposition: Home, Self-Care Condition: Good Chief Complaint: Syncope Prescriptions Prescriptions: No Action rosuvastatin 20 mg tablet 20 mg PO DAILY gabapentin 300 mg capsule 600 mg PO DAILY metformin 500 mg tablet extended release 24 hr 2,000 mg PO HS cyanocobalamin (vitamin B-12) 1,000 mcg/mL solution 1,000 mcg SQ DAILY Trulicity 1.5 mg/0.5 mL pen injector 1.5 mg SQ WEEKLY cyclobenzaprine 5 mg tablet 5 mg PO DAILY aspirin 81 mg tablet,delayed release (DR/EC) 81 mg PO DAILY levothyroxine [Synthroid] 25 mcg tablet 25 mcg PO DAILY metoprolol succinate 25 mg tablet extended release 24 hr 25 mg PO DAILY Qty: 90 3RF ethacrynic acid 25 mg tablet 25 mg PO BID Qty: 180 3RF Xarelto 2.5 mg tablet 2.5 mg PO BID Qty: 180 3RF spironolactone 50 mg tablet See Rx Instructions .ROUTE .COMPLEX Rx Instructions: TAKE 1 TABLET DAILY promethazine-DM 120 ML syrup 5 ml PO Q6HP PRN (Reason: Cough) Qty: 240 0RF ondansetron 4 MG tablet,disintegrating 4 mg PO Q8HP PRN (Reason: Nausea) Qty: 20 0RF Referrals Follow up/Referrals: Christiano Garcia MD [Primary Care Provider] - See instructions Activity Restrictions/Add. Instructions Additional Instructions/Restrictions: Rest, drink plenty fluids. Follow-up with primary care provider, call tomorrow morning to make appointment. Clinical Impressions Clinical Impression: Near syncope, Abrasion of knee, Upper respiratory infection, viral, Dizziness Instructions Patient Instructions: DI for Syncope in Adults (Fainting), DI for Abrasion, DI for Viral Upper Respiratory Infection -- Adult, DI for Dizziness-Nonvertigo Discharge ED Provider: Carlton Crenshaw General Adult HPI General Chief complaint: [place] St[place]: [id number], fell/passed out, sore everywhere Time Seen by Provider: 11/08/22 10:51 History of Present Illness HPI narrative: She has not felt well for couple of days. She feels like she has a cold. She complains of cough and congestion. No documented fevers. She has diarrhea, but says she also has diarrhea chronically because of Crohn's disease. A little bit of blood in her stool last night. No vomiting. At [employer] today she says she was feeling dizzy which she describes both as a feeling of lightheadedness/weakness and spinning. She says that she went down to the ground at je[employer]ah[employer] witness because of the lightheadedness and both of her legs felt weak, but she says she did not lose consciousness. Currently says she just feels weak and washed out. 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 She has some pain from that. Her right knee hurts from hitting it on the ground when she fell. Denies any other pain. No chest pain. Related Data Home Medications Medication Instructions Recorded Confirmed rosuvastatin 20 mg tablet 20 mg PO DAILY Cholesterol 02/13/19 09/30/22 aspirin 81 mg tablet,delayed 81 mg PO DAILY Heart disease 12/04/20 09/30/22 release gabapentin 300 mg capsule 600 mg PO DAILY Pain 12/04/20 09/30/22 cyanocobalamin (vitamin B-12) 1,000 mcg SQ DAILY Supplement 06/03/21 09/30/22 1,000 mcg/mL injection solution cyclobenzaprine 5 mg tablet 5 mg PO DAILY . 07/07/22 09/30/22 dulaglutide 1.5 mg/0.5 mL 1.5 mg SQ WEEKLY . 07/07/22 09/30/22 subcutaneous pen injector (Trulicity) metformin 500 mg tablet,extended 2,000 mg PO HS Diabetes 07/07/22 09/30/22 release 24 hr spironolactone 50 mg tablet See Rx Instructions .Route 07/27/22 09/30/22 .COMPLEX . levothyroxine 25 mcg tablet 25 mcg PO DAILY 09/30/22 09/30/22 (Synthroid) Previous Rx's Medication Instructions Recorded ondansetron 4 mg disintegrating 4 mg PO Q8HP PRN Nausea #20 tabs 05/23/22 tablet promethazine-DM 6.25 mg-15 mg/5 mL 5 ml PO Q6HP PRN Cough #240 mL 05/23/22 oral syrup metoprolol succinate 25 mg 25 mg PO DAILY . #90 tabs 09/21/22 tablet,extended release
[2022-11-08 10:05] LABS: Coronavirus 19, PCR Not Detected (NotDetected); Influenza A, PCR Not Detected (NotDetected); Influenza B, PCR Not Detected (NotDetected)
[2022-11-08 10:08] LABS: POC Glucose,Bedside 129 (70-110)
--- NOTE | 2022-11-08 10:10 | XR_ITS ---
PROCEDURE INFORMATION: Exam: XR Chest Exam date and time: 11/08/2022 10:15 AM Age: 57 years old Clinical indication: Other: Syncope TECHNIQUE: Imaging protocol: Radiologic exam of the chest. Views: 2 views. COMPARISON: CR XR CHEST PORTABLE 07/06/2022 4:09 PM FINDINGS: Lungs: Acute airspace disease noted at the left lung base. Pleural spaces: Unremarkable. No pleural effusion. No pneumothorax. Heart/Mediastinum: Unremarkable. No cardiomegaly. Bones/joints: Unremarkable. IMPRESSION: Left lung base pneumonia.
--- NOTE | 2022-11-08 10:19 | PC.NURSE ---
auto brake technician taking patient to x-ray in wheelchair
[2022-11-08 10:23] LABS: Chloride 102 mmol/L (98-107); Potassium 3.9 mmoL/L (3.5-5.1); Sodium 139 mmol/L (136-145)
[2022-11-08 10:25] LABS: Blood Urea Nitrogen 10 mg/dl (7-17); Creatinine Clearance Estimated 97 mL/min (50-200); Estimated Glomerular Filt Rate 74 ml/min (>60); GFR (African American) 89 ML/MIN (>60)
[2022-11-08 10:26] LABS: Alanine Aminotransferase 24 U/L (12-78); Albumin Level 3.9 g/dl (3.5-5.0); Albumin/Globulin Ratio 1.6 (1.1-1.8); Alkaline Phosphatase 70 U/L (38-126); Anion Gap 11.9 mEq/L (5-15); Aspartate Amino Transferase 33 U/L (14-36); Bilirubin,Total 0.7 mg/dl (0.2-1.3); Calcium 8.9 mg/dl (8.4-10.2); Carbon Dioxide 29 mmol/L (22.0-30.0); Globulin 2.4 g/dL (1.3-3.2); Glucose 186 mg/dl (74-100); Total Protein,Serum 6.3 g/dl (6.3-8.2)
[2022-11-08 10:40] LABS: Basophils # 0.1 K/mm3 (0-0.2); Basophils % 0.9 % (0.1-2.0); Eosinophils # 0.1 K/mm3 (0.0-0.4); Eosinophils % 1.4 % (0.1-12.0); Hematocrit 41.2 % (37.0-47.0); Hemoglobin 13.7 g/dL (12.2-16.2); Lymphocytes # 1.4 K/mm3 (0.7-4.5); Lymphocytes % 23.2 % (10-50); Mean Corpuscular HGB Conc 33.2 g/dL (31.8-35.4); Mean Corpuscular Hemoglobin 27.9 pg (27.0-31.2); Mean Corpuscular Volume 83.9 fl (81-99); Mean Platelet Volume 8.8 fl (7.4-10.4); Monocytes # 0.5 K/mm3 (0.1-1.0); Monocytes % 8.8 % (1.7-9.3); Neutrophils # 3.9 K/mm3 (1.8-7.8); Neutrophils % 65.8 % (37.0-80.0); Platelet Count 340 K/mm3 (142-424); Red Blood Count 4.91 M/mm3 (4.20-5.40)
[2022-11-08 10:50] LABS: Troponin I < 0.01 ng/ml (0.00-0.034)
--- NOTE | 2022-11-08 10:59 | XR_ITS ---
PROCEDURE INFORMATION: Exam: XR Right Knee Exam date and time: 11/08/2022 11:17 AM Age: 57 years old Clinical indication: Patient HX: Fall, right knee pain; Additional info: Fell and landed on knee TECHNIQUE: Imaging protocol: Radiologic exam of the Right knee. Views: 3 views. COMPARISON: US ARTERIAL LOWER EXT REST 02/27/2021 9:26 AM FINDINGS: Bones/joints: No acute fracture or malalignment. Mild tricompartmental degenerative changes. No joint effusion. Soft tissues: Normal. IMPRESSION: No acute fracture or malalignment.
--- NOTE | 2022-11-08 11:05 | PC.NURSE ---
mechanical sound technician @ [facility] for chest x-ray
--- NOTE | 2022-11-08 12:00 | PC.NURSE ---
pt sleeping on ED stretcher with SO at [facility]. SO reports they have no needs at this time, turned lights out for patient to better rest
== END 2022-11-08 12:56 | disposition home or self-care (01) ==
PROVIDERS: Emergency Provider Emergency Medicine; PCP Family Medicine
DX: R55 Syncope and collapse (principal); J06.9 Acute upper respiratory infection, unspecified; R42 Dizziness and giddiness; S80.211A Abrasion, right knee, initial encounter; W19.XXXA Unspecified fall, initial encounter; K50.90 Crohn's disease, unspecified, without complications; E11.9 Type 2 diabetes mellitus without complications; K21.9 Gastro-esophageal reflux disease without esophagitis; E78.5 Hyperlipidemia, unspecified; I10 Essential (primary) hypertension; Z87.891 Personal history of nicotine dependence; Z20.822 Contact with and (suspected) exposure to COVID-19
CPT/HCPCS: 71046; 73562; 80053; 82962; 84484; 85025; 93005; 96360; 99285; C9803; U0003; U0005

== ENCOUNTER 2022-11-09 15:50 | Outpatient (CLI) | payer BC, SELFPAY ==
[2022-11-09 16:00] VITALS: BP 134/89; PULSE 89; RESP 18; TEMP 36.8; O2SAT 98
[2022-11-09 17:00] VITALS: BP 152/72; PULSE 90; RESP 18; O2SAT 99
[2022-11-09 18:00] VITALS: BP 149/76; PULSE 91; RESP 18; O2SAT 99
[2022-11-09 18:45] VITALS: BP 140/79; PULSE 89; RESP 18; O2SAT 99
== END 2022-11-09 19:00 | disposition home or self-care (01) ==
LOC: INF 15:51
PROVIDERS: PCP Family Medicine; Visit Provider Family Medicine
DX: R19.7 Diarrhea, unspecified (principal); I95.9 Hypotension, unspecified
CPT/HCPCS: 96360; 96361

== ENCOUNTER → 2023-01-09 09:31 | Outpatient (CLI) | payer BC, SELFPAY ==
[2023-01-09 11:10] LABS: Chloride 101 mmol/L (98-107); Potassium 4.2 mmoL/L (3.5-5.1); Sodium 139 mmol/L (136-145)
[2023-01-09 11:13] LABS: Anion Gap 13.2 mEq/L (5-15); Blood Urea Nitrogen 10 mg/dl (7-17); Carbon Dioxide 29 mmol/L (22.0-30.0); Estimated Glomerular Filt Rate 86 ml/min (>60); GFR (African American) 104 ML/MIN (>60); Glucose 125 mg/dl (74-100)
[2023-01-09 11:14] LABS: Calcium 9.4 mg/dl (8.4-10.2)
== END ==
PROVIDERS: PCP Family Medicine; Visit Provider Specialist
DX: I25.118 Atherosclerotic heart disease of native coronary artery with other forms of angina pectoris (principal); R42 Dizziness and giddiness; R51.9 Headache, unspecified
CPT/HCPCS: 36415; 80048

== ENCOUNTER → 2023-01-11 13:24 | Outpatient (CLI) | payer BC, SELFPAY ==
--- NOTE | 2023-01-11 13:24 | MR_ITS ---
FINAL REPORT CLINICAL HISTORY: Chronic daily headache, history of melanoma. DIZZINESS, BLURRED VISION COMPARISON: 02/27/2021 FINDINGS: Multiplanar MR imaging of the brain was performed without and with contrast. There are stable mild chronic ischemic/gliotic changes. There is no evidence of intracranial hemorrhage or mass. No abnormal extra-axial fluid collection is seen. The ventricular size is within normal limits. There is no evidence of shift of the midline structures. The posterior fossa and brainstem have an unremarkable appearance. No area of abnormal restricted diffusion is identified. No abnormal contrast enhancement is seen. Normal major vessel vascular flow voids are noted. Retention cysts or polyps are seen in the right maxillary sinus. IMPRESSION: No acute intracranial abnormality identified. Reviewed, Interpreted and Dictated by Zach Rausch III, MD Transcribed by Vivi Brandt Authenticated and [facility]
== END ==
PROVIDERS: PCP Family Medicine; Visit Provider Specialist
DX: G44.85 Primary stabbing headache (principal); Z85.820 Personal history of malignant melanoma of skin
CPT/HCPCS: 70553; A9576

== ENCOUNTER → 2023-02-17 14:07 | Outpatient (CLI) | payer BC, SELFPAY ==
--- NOTE | 2023-02-17 14:18 | XR_ITS ---
FINAL REPORT CLINICAL HISTORY: SOA, follow up on pneumonia COMPARISON: 11/08/2022 FINDINGS: Two views of the chest were obtained. The heart size and pulmonary vascularity are within normal limits. The mediastinum is normal. There has been interval improvement in left base opacity consistent with proving pneumonia. There is no pneumothorax. The bony thorax is intact. IMPRESSION: Findings consistent with improving pneumonia. Reviewed, Interpreted and Dictated by Zach Rausch III, MD Transcribed by Abigail Landeros Authenticated and [facility]
== END ==
PROVIDERS: PCP Family Medicine; Visit Provider Physician Assistant
DX: R06.02 Shortness of breath (principal); Z87.891 Personal history of nicotine dependence
CPT/HCPCS: 71046

== ENCOUNTER → 2023-03-02 16:03 | Outpatient (CLI) | payer BC, SELFPAY ==
[2023-03-02 17:20] LABS: Blood Urea Nitrogen 9 mg/dl (7-17); Estimated Glomerular Filt Rate 103 ml/min (>60); GFR (African American) 124 ML/MIN (>60)
== END ==
PROVIDERS: PCP Family Medicine; Visit Provider Physician Assistant
DX: Z01.812 Encounter for preprocedural laboratory examination (principal)
CPT/HCPCS: 36415; 82565; 84520

== ENCOUNTER → 2023-03-03 10:38 | Outpatient (CLI) | payer BC, SELFPAY ==
--- NOTE | 2023-03-03 10:39 | CT_ITS ---
FINAL REPORT TECHNIQUE: Axial CT images of the chest were obtained with contrast. Coronal reformatted images were also obtained. This study was performed with techniques to keep radiation doses as low as reasonably achievable, (ALARA). Individualized dose reduction techniques using automated exposure control or adjustment of mA and/or KV according to the patient's size were employed. CLINICAL HISTORY: abnl cxr/pnx COMPARISON: Two-view chest 02/17/2023 FINDINGS: There is no evidence of mediastinal or hilar mass or adenopathy. No axillary mass or adenopathy is identified. There are postoperative changes in the anterior chest wall. There is a 4 mm nodule in the lateral left lung base. There is mild atelectasis or scarring. There is a calcified granuloma in the right middle lung. Limited images of the upper abdomen reveal post cholecystectomy. There is mild fatty infiltration of the liver. IMPRESSION: Left lung base 4 mm nodule. Reviewed, Interpreted and Dictated by Zach Rausch III, MD Transcribed by Tamie Martinez Authenticated and [facility]
== END ==
PROVIDERS: PCP Family Medicine; Visit Provider Physician Assistant
DX: J18.9 Pneumonia, unspecified organism (principal); R93.89 Abnormal findings on diagnostic imaging of other specified body structures
CPT/HCPCS: 71260; Q9967

== ENCOUNTER 2023-04-06 10:30 | Outpatient (RCR) | payer BC, SELFPAY ==
--- NOTE | 2023-02-10 09:52 | HMH.PTOPEV ---
PT Outpatient Evaluation Rehab PT Outpatient Evaluation Start: 02/10/23 09:30 Freq: Status: Active Protocol: Document 02/10/23 09:31 LYNSEY (Rec: 02/10/23 09:52 LYNSEY [id number]) E-signed By Daniele Baron, PT Outpatient Therapy Subjective History Subjective History Patient is a 57 year old female presenting to outpatient PT with reports of chronic headaches/migraines starting approx 10 years ago. Patient has previously been being treated by an fence installer some short-term relief. Patient also complains of L frozen shoulder symptoms with no mechanism of injury. Comorbidities include hx of diabetes, TKA possible and hypotension. Chief Complaint Pain,Spasms,Stiff Symptom Type Dull Symptoms Relieved By Rest/Positioning,OTC Meds, Prescription Meds Symptoms Aggravated By Physical Activity,Lifting Prior Functional Limitations None Current Functional Limitations Reaching,Lifting,Housework Symptom Description Constant but Variable Level of pain today (0-10) 2 Pain scale - at its best (0-10) 0 Pain scale - at its worst (0-10) 5 Cervical Eval Palpation Cervical Muscles R Upper Trapezius,L Upper Trapezius Cervical/Thoracic Palpation Findings Tenderness Posture Head/C-Spine Posture Sitting Position Flexed Head/C-Spine Posture Standing Position Flexed Flexibility Deficits Upper Trapezius Muscle Length (R) Moderate Tightness,(L) Moderate Tightness Passive Joint Mobility Cervical PIVM Dec: R OA L OA R AA L AA R C2/3 L C2/3 R C3/4 L C3/4 R C4/5 L C4/5 R C5/6 L C5/6 R C6/7 L C6/7 R C7/T1 L C7/T1 AROM Cervical Spine Extension Active Range of 56 Motion (degrees) Cervical Spine Flexion Active Range of 38 Motion (degrees) C
--- NOTE | 2023-03-11 08:10 | HMH.RHREAS ---
Rehab Reassessment Rehab OP Re-assessment Start: 03/11/23 08:03 Freq: Status: Active Protocol: Document 03/09/23 10:00 LYNSEY (Rec: 03/11/23 08:10 LYNSEY [id number]) E-signed By Daniele Baron PT Rehab Re-assessment Subjective Subjective Patient reports 50% improvement since start of care. Objective Objective Notes CROM: flx42; ext 43; SBr 38; SBl 22; Rr 51; Rl 41 GHJ AROM: flx 91; abd 96; ER 42; IR 50 MMT: L GHJ 4/5 grossly Pain: 5/10 today; 7/10 at worst over past week; 4/10 at best Assessment Progress Assessment Progressing as Expected Assessment Notes Though patient is reporting overall improved mobility and decreased symptoms, deficits persist. Patient would benefit from continuing with skilled PT services to address any functional limitations with any reaching/lifting activities. MIRELES continue though decreased F,I and D noted. Patient goals met STG 2 Goals Not Met STG 1; LTG's Revised Goals NA Plan Plan Continue with current POC. Intro dry needling. Frequency of Therapy 2x/week Duration of therapy 4 weeks Time and Billing Re-Eval Time 16 Re-Eval Billing Units 1 PHYSICIAN CERTIFICATION: I certify the specified therapy services for Sydnie Alejandra are required, authorized, and reviewed every 30 days.
== END 2023-04-06 10:35 | disposition home or self-care (01) ==
LOC: PT 10:30
PROVIDERS: PCP Family Medicine; Visit Provider Specialist
DX: G44.85 Primary stabbing headache
CPT/HCPCS: 20561; 97010; 97014; 97035; 97110; 97140; 97163; 97164; G0283

== ENCOUNTER → 2023-04-13 12:43 | Outpatient (CLI) | payer BC, SELFPAY ==
--- NOTE | 2023-04-13 12:43 | US_ITS ---
FINAL REPORT TECHNIQUE: Sonographic images of the thyroid were obtained. CLINICAL HISTORY: Thyroid nodules, follow-up COMPARISON: 05/07/2022 FINDINGS: THYROID ULTRASOUND The thyroid gland is diffusely atrophied and heterogeneous most compatible with chronic thyroiditis. There are multiple tiny nodules identified with a mixture of hypoechoic and isoechoic nodules measuring up to 6 mm. These appear similar to the prior exam. There is no dominant mass. IMPRESSION: Stable appearance of the thyroid gland suggestive of chronic thyroiditis compatible with TI-RADS 4. No additional follow-up needed of thyroid nodules. Reviewed, Interpreted and Dictated by Ernie Rivero MD Transcribed by Vivi Brandt Authenticated and [facility]
[2023-04-13 14:31] LABS: Free T4 (Free Thyroxine) 0.91 ng/dl (0.78-2.19)
[2023-04-13 14:46] LABS: Thyroid Stimulating Hormone 2.66 uIU/mL (0.465-4.68)
== END ==
PROVIDERS: PCP Family Medicine; Visit Provider Otolaryngology
DX: E03.9 Hypothyroidism, unspecified (principal)
CPT/HCPCS: 36415; 76536; 84439; 84443

== ENCOUNTER 2023-04-24 12:33 | Observation (INO) | payer BC, SELFPAY ==
[2023-04-24] VITALS (10 sets, daily range): BP systolic 98–145; BP diastolic 52–81; PULSE 69–83; RESP 15–20; TEMP 36.4–36.8; O2SAT 95–100; BMI 29.0
--- NOTE | 2023-04-24 12:31 | ECG_ITS ---
APPROVED REPORT Exam: Resting ECG HR:83 bpm ECG Measurements Heart Rate 83 AXES UT 145 P 26 QRSd 86 QRS 44 QT 376 T 46 QTc 415 Conclusion SINUS RHYTHM LOW QRS VOLTAGE IN PRECORDIAL LEADS [QRS DEFLECTION < 1.0 mV IN CHEST LEADS] BORDERLINE ECG UNCONFIRMED REPORT Electronically signed by : Christian Rios MD 04/25/2023 13:52:06
--- NOTE | 2023-04-24 12:37 | XR_ITS ---
PROCEDURE INFORMATION: Exam: XR Chest Exam date and time: 04/24/2023 12:37 PM Age: 57 years old Clinical indication: Pain; Chest pressure; Additional info: Chest pain TECHNIQUE: Imaging protocol: Radiologic exam of the chest. Views: 2 views. COMPARISON: CT CHEST W CON 03/03/2023 11:39 AM FINDINGS: Lungs: Unremarkable. No consolidation. Pleural spaces: Unremarkable. No pleural effusion. No pneumothorax. Heart/Mediastinum: Unremarkable. No cardiomegaly. Bones/joints: Unremarkable. IMPRESSION: No acute findings.
--- NOTE | 2023-04-24 12:38 | HMH.EDGENADL ---
Discharge Plan Disposition Patient Disposition: Admitted Condition: Fair Chief Complaint: Chest Pain Prescriptions Prescriptions: No Action rosuvastatin 20 mg tablet 20 mg PO DAILY gabapentin 300 mg capsule 600 mg PO DAILY metformin 500 mg tablet extended release 24 hr 2,000 mg PO HS cyanocobalamin (vitamin B-12) 1,000 mcg/mL solution 1,000 mcg SQ Q4W Trulicity 1.5 mg/0.5 mL pen injector 1.5 mg SQ WEEKLY cyclobenzaprine 5 mg tablet 5 mg PO DAILY aspirin 81 mg tablet,delayed release (DR/EC) 81 mg PO DAILY levothyroxine [Synthroid] 25 mcg tablet 25 mcg PO DAILY metoprolol succinate 25 mg tablet extended release 24 hr 12.5 mg PO DAILY Nurtec ODT 75 mg tablet,disintegrating 75 mg PO Q OTHER DAY MDD 75 mg q. other day Qty: 16 6RF ethacrynic acid 25 mg tablet 25 mg PO BID Qty: 180 3RF Xarelto 2.5 mg tablet 2.5 mg PO BID Qty: 180 3RF spironolactone 50 mg tablet See Rx Instructions .ROUTE .COMPLEX Qty: 90 3RF Dose Instruction: TAKE 1 TABLET DAILY Rx Instructions: TAKE 1 TABLET DAILY Referrals Follow up/Referrals: Christiano Garcia MD [Primary Care Provider] - See instructions Clinical Impressions Clinical Impression: Chest pain, Stenosis of celiac artery, CAD (coronary artery disease), Stenosis of left subclavian artery Discharge ED Provider: Vivian Tong Adult HPI General Chief complaint: Chest Pain Stated complaint: CP Time Seen by Provider: 04/24/23 12:37 Mode of Arrival: Ambulatory Source of Information: Patient Limitations: No Limitations History of Present Illness HPI narrative: 57-year-old female presenting to the emergency department chest pain. Pain started about 2 hours ago while she was fishing. Described as left-sided, achy, crampy, sharp. Radiates to her left arm. Pain has been constant since onset. Nothing seems to make it better or worse. No nausea or diaphoresis. No difficulty breathing. She took 81 mg aspirin.. No other medications prior to arrival. She has a history of 2 cardiac stents. Follows with Dr. Encinas. She denies recent exertional chest pain. No fevers, chills, cough, shortness of breath. No recent exertional chest pain. Related Data Home Medications Medication Instructions Recorded Confirmed rosuvastatin 20 mg tablet 20 mg PO DAILY Cholesterol 02/13/19 04/20/23 aspirin 81 mg tablet,delayed 81 mg PO DAILY Heart disease 12/04/20 04/20/23 release gabapentin 300 mg capsule 600 mg PO DAILY Pain 12/04/20 04/20/23 cyclobenzaprine 5 mg tablet 5 mg PO DAILY . 07/07/22 04/20/23 dulaglutide 1.5 mg/0.5 mL 1.5 mg SQ WEEKLY Diabetes 07/07/22 04/20/23 subcutaneous pen injector (Trulicity) metformin 500 mg tablet,extended 2,000 mg PO HS Diabetes 07/07/22 04/20/23 release 24 hr levothyroxine 25 mcg tablet 25 mcg PO DAILY thyroid 09/30/22 04/20/23 (Synthroid) cyanocobalamin (vitamin B-12) 1,000 mcg SQ Q4W Supplement 02/02/23 04/20/23 1,000 mcg/mL injection solution metoprolol succinate 25 mg 12.5 mg PO DAILY . 04/07/23 04/20/23 tablet,extended release 24 hr Previous Rx's Medication Instructions Recorded ethacrynic acid 25 mg tablet 25 mg PO BID . #180 tabs 11/05/22 rivaroxaban 2.5 mg tablet (Xarelto) 2.5 mg PO BID . #180 tabs 11/05/22 spironolactone 50 mg tablet See Rx Instructions .Route 12/14/22 .COMPLEX #90 tabs rimegepant 75 mg disintegrating 75 mg PO Q OTHER DAY Episodic 04/07/23 tablet (Nurtec ODT) migraine #16 tabs Allergies Allergy/AdvReac Type Severity Reaction Status Date / Time codeine [CODEINE] Allergy Severe Unknown Verified 04/20/23 14:50 allergy reaction Corticosteroids Allergy Unknown Verified 04/20/23 14:50 (Glucocorticoids) [CORTICOSTEROIDS (GLUCOCORTICOIDS)] dexamethasone [DEXAMETHASONE] Allergy Unknown Verified 04/20/23 14:50 erythromycin base Allergy Unknown I-RASH Verified 04/20/23 14:50 [ERYTHROMY
--- NOTE | 2023-04-24 12:44 | PC.NURSE ---
Pt updated on plan of care. Warm blanket provided. Call xiao within reach. No further complaints at this time.
[2023-04-24 12:48] LABS: Basophils % 0.3 % (0.1-2.0); Chloride 101 mmol/L (98-107); Eosinophils # 0.2 K/mm3 (0.0-0.4); Eosinophils % 1.9 % (0.1-12.0); Hematocrit 40.2 % (37.0-47.0); Hemoglobin 12.9 g/dL (12.2-16.2); Lymphocytes # 1.9 K/mm3 (0.7-4.5); Lymphocytes % 19.3 % (10-50); Mean Corpuscular Hemoglobin 26.9 pg (27.0-31.2); Mean Corpuscular Volume 84.1 fl (81-99); Mean Platelet Volume 8.4 fl (7.4-10.4); Monocytes # 0.6 K/mm3 (0.1-1.0); Monocytes % 5.9 % (1.7-9.3); Neutrophils % 72.6 % (37.0-80.0); Platelet Count 310 K/mm3 (142-424); Red Blood Count 4.78 M/mm3 (4.20-5.40); Red Cell Distribution Width 13.9 % (11.5-17.5); White Blood Count 9.6 K/mm3 (4.8-10.8)
[2023-04-24 12:49] LABS: Potassium 4.2 mmoL/L (3.5-5.1); Sodium 139 mmol/L (136-145)
--- NOTE | 2023-04-24 12:49 | PC.NURSE ---
back from XR
[2023-04-24 12:52] LABS: Anion Gap 14.2 mEq/L (5-15); Calcium 9.5 mg/dl (8.4-10.2); Carbon Dioxide 28 mmol/L (22.0-30.0); Glucose 108 mg/dl (74-100)
[2023-04-24 12:57] LABS: Blood Urea Nitrogen 8 mg/dl (7-17); Creatinine Clearance Estimated 99 mL/min (50-200); Estimated Glomerular Filt Rate 74 ml/min (>60); GFR (African American) 89 ML/MIN (>60)
--- NOTE | 2023-04-24 13:02 | PC.NURSE ---
Went to administer 243 mg of Aspirin when patient states she had taken A full Bare Aspirin FARM ADVISOR instead of just 81mg of Aspirin. notified
[2023-04-24 13:06] LABS: Troponin I < 0.01 ng/ml (0.00-0.034)
--- NOTE | 2023-04-24 13:35 | CT_ITS ---
PROCEDURE INFORMATION: Exam: CTA Chest With Contrast Exam date and time: 04/24/2023 2:08 PM Age: 57 years old Clinical indication: Pain; Radiating; Prior surgery; Surgery date: 6+ months; Surgery type: Stents; Additional info: Chest pain, to back-- previous stents TECHNIQUE: Imaging protocol: Computed tomographic angiography of the chest with contrast. Exam focused on the arteries. 3D rendering (Not supervised by radiologist): MIP and/or 3D reconstructed images were created by the technologist. Radiation optimization: All CT scans at this facility use at least one of these dose optimization techniques: automated exposure control; mA and/or kV adjustment per patient size (includes targeted exams where dose is matched to clinical indication); or iterative reconstruction. Contrast material: ISOVUE; Contrast volume: 100 ml; Contrast route: INTRAVENOUS (IV); REPORTING DATA: Count of CT and Cardiac NM exams in prior 12 months: This patient has received [address] and 0 known cardiac nuclear medicine studies in the 12 months prior to the current study. COMPARISON: CT CHEST W CON 03/03/2023 11:39 AM FINDINGS: Pulmonary arteries: No evidence of pulmonary embolus to the segmental level. Aorta: No aneurysm of the aorta. No dissection of the aorta. Lungs: Unremarkable. No consolidation. No masses. Pleural spaces: Unremarkable. No pneumothorax. No pleural effusion. Heart: Unremarkable. No cardiomegaly. No pericardial effusion. Coronary arteries: Coronary artery calcifications may indicate coronary artery disease. Lymph nodes: Unremarkable. No enlarged lymph nodes. Gallbladder and bile ducts: Cholecystectomy Bones/joints: Unremarkable. No acute fracture. Soft tissues: Bilateral breast a augmentation IMPRESSION: 1. No evidence of pulmonary embolus to the segmental level. 2. No aneurysm of the aorta. 3. No dissection of the aorta.
--- NOTE | 2023-04-24 14:18 | PC.NURSE ---
Rounded on patient and ; updated on plan of care. Call xiao within reach of patient nothing needed at this time. Patient resting in bed in no apparent distress
--- NOTE | 2023-04-24 14:47 | PC.NURSE ---
Rounded on patient; warm blanket provided
[2023-04-24 15:12] LABS: Troponin I < 0.01 ng/ml (0.00-0.034)
--- NOTE | 2023-04-24 15:16 | PC.NURSE ---
texting Dr Encinas for consult
--- NOTE | 2023-04-24 15:25 | PC.NURSE ---
Dr moore spoke with Dr Florian and hospitalist for admission
[2023-04-24 15:31] LABS: Coronavirus 19, PCR Not Detected (NotDetected); Influenza A, PCR Not Detected (NotDetected); Influenza B, PCR Not Detected (NotDetected)
--- NOTE | 2023-04-24 15:45 | PC.NURSE ---
Dr Najera hospitalist at bedside
--- NOTE | 2023-04-24 15:54 | PC.NURSE ---
Attempted to call report. Nurse not available
--- NOTE | 2023-04-24 16:08 | PC.NURSE ---
Report called; awaiting transport from 2nd floor
--- NOTE | 2023-04-24 16:14 | PC.NURSE ---
Patient arrived to floor via stretcher
--- NOTE | 2023-04-24 16:40 | EXP.HP ---
History of Present Illness *Admission Date: 04/24/23 *Reason for visit:: Chest discomfort *History of present illness: Patient with past medical history of subclavian steal syndrome and coronary disease with heart stents on Xarelto presents to the hospital with her present during interview with Dr. Najera. Patient complains of chest discomfort. Patient describes chest discomfort as 3/10, 1 to 2 minutes sharp pain then became tight, radiating left arm/jaw region. Patient states that chest tightness lasted for approximately 1.5 to 2 hours, and was relieved after her recommended she take aspirin 5 mg x 1. Patient states pain took 45 minutes to resolve. States her seed analysis laboratory assistant is Dr. Encinas. Admits to history of diabetes and takes metformin/Trulicity as outpatient. EKG in the emergency room showed no signs or symptoms of acute coronary syndrome. Cardiac troponins x2 in emergency room within normal limits. Admission CTA chest shows no dissection or pulmonary embolus. Patient also admits to decreased p.o. intake, nausea, vomiting for past several days. Patient states she had similar symptoms during previous celiac artery occlusions requiring stent amelioration. Admits to history of abdominal discomfort a few days ago, but denies current abdominal discomfort at time of evaluation by Dr. Najera. [facility] Disclaimer: The information contained in this section may have been updated after the patient was seen, as this information can be updated by other users. Medical History Abnormal chest x-ray Arthritis Asthma CAD (coronary artery disease) Cancer Claudication Diabetes Dizziness DM2 (diabetes mellitus, type 2) Dyspnea on exertion Early satiety Former smoker GERD (gastroesophageal reflux disease) HLD (hyperlipidemia) HTN (hypertension) Hypertension Hypothyroidism Impacted cerumen, right ear Lymphadenopathy Nodule of left lung Pneumonia Stopped smoking with greater than 20 pack year history Tinnitus Surgical History H/O arthroscopy of left knee H/O bilateral mastectomy Family History Father Cancer Coronary artery disease Mother Diabetes Stroke Brother Coronary artery disease Heart attack Other Hyperlipidemia Hypertension Social History (Updated 04/24/23 @ 16:36 by Marianne Ortiz RN) Smoking Status: Former smoker alcohol intake: never substance use type: denies use current occupational status: employed Travel in the last 8 weeks: None household members: spouse housing: house caffeine: No Review of Systems Constitutional Constitutional: Denies headache(s) ENT Ears, Nose, Mouth, and Throat: Denies headache(s) *Neurologic Neurologic: Denies headache(s) Meds Home Medications and Allergies Home Medications Medication Instructions Recorded Confirmed Type rosuvastatin 20 mg tablet 20 mg PO DAILY Cholesterol 02/13/19 04/24/23 History aspirin 81 mg tablet,delayed 81 mg PO DAILY Heart disease 12/04/20 04/20/23 History release gabapentin 300 mg capsule 600 mg PO DAILY Pain 12/04/20 04/20/23 History cyclobenzaprine 5 mg tablet 5 mg PO DAILY . 07/07/22 04/20/23 History dulaglutide 1.5 mg/0.5 mL 1.5 mg SQ WEEKLY Diabetes 07/07/22 04/20/23 History subcutaneous pen injector (Trulicity) metformin 500 mg tablet,extended 2,000 mg PO HS Diabetes 07/07/22 04/20/23 History release 24 hr levothyroxine 25 mcg tablet 25 mcg PO DAILY thyroid 09/30/22 04/20/23 History (Synthroid) cyanocobalamin (vitamin B-12) 1,000 mcg SQ Q4W Supplement 02/02/23 04/20/23 History 1,000 mcg/mL injection solution metoprolol succinate 25 mg 12.5 mg PO DAILY High blood 04/07/23 04/24/23 History tablet,extended release 24 hr pressure rimegepant 75 mg disintegrating 75 mg PO Q OTHER DAY Episodic 04/07/23 04/24/23 Rx tablet (Nurtec ODT)
[2023-04-24 17:01] LABS: POC Glucose,Bedside 84 (70-110)
--- NOTE | 2023-04-24 17:34 | XR_ITS ---
PROCEDURE INFORMATION: Exam: XR Abdomen Exam date and time: 04/24/23 05:56 PM Age: 57 years old Clinical indication: Abdominal pain; Additional info: R/O sbo or ileus in PT with decreased po intake TECHNIQUE: Imaging protocol: Radiologic exam of the abdomen. Views: 2 Views. Upright and supine views. COMPARISON: CT ABDOMEN PELVIS WO CON 02/16/22 02:28 PM FINDINGS: Gastrointestinal tract: Normal. No bowel dilation. Intraperitoneal space: Normal. No free air. Bones/joints: Unremarkable for age. IMPRESSION: 1. No acute findings. 2. Contrast in the bladder.
[2023-04-24 19:08] LABS: Thyroid Stimulating Hormone 2.94 uIU/mL (0.465-4.68)
[2023-04-24 19:12] LABS: Troponin I < 0.01 ng/ml (0.00-0.034)
--- NOTE | 2023-04-24 19:42 | PC.NURSE ---
Notified MD Silva of rivaroxaban 2.5 due at 2100. Per holding due to do possible cath in the AM.
[2023-04-25] VITALS: BP 126/58; PULSE 73; PULSE 82; RESP 18; TEMP 36.7; O2SAT 98
[2023-04-25 00:08] LABS: POC Glucose,Bedside 81 (70-110)
[2023-04-25 04:00] VITALS: BP 109/60; PULSE 71; PULSE 75; RESP 18; TEMP 36.9; O2SAT 95; BMI 29.5
--- NOTE | 2023-04-25 05:08 | PC.NURSE ---
Pateint has had no complaints of chest pain through the night. Has rested well. Has been to void multiple times. no issues stated by patient
[2023-04-25 05:38] LABS: POC Glucose,Bedside 119 (70-110)
[2023-04-25 07:22] LABS: Chloride 103 mmol/L (98-107); Potassium 3.7 mmoL/L (3.5-5.1); Sodium 138 mmol/L (136-145)
[2023-04-25 07:23] LABS: Basophils % 0.3 % (0.1-2.0); Eosinophils # 0.1 K/mm3 (0.0-0.4); Eosinophils % 2.3 % (0.1-12.0); Hematocrit 37.8 % (37.0-47.0); Hemoglobin 12.5 g/dL (12.2-16.2); Lymphocytes % 17.6 % (10-50); Mean Corpuscular HGB Conc 32.9 g/dL (31.8-35.4); Mean Corpuscular Hemoglobin 27.4 pg (27.0-31.2); Mean Corpuscular Volume 83.4 fl (81-99); Mean Platelet Volume 8.7 fl (7.4-10.4); Monocytes # 0.4 K/mm3 (0.1-1.0); Monocytes % 6.3 % (1.7-9.3); Neutrophils # 4.3 K/mm3 (1.8-7.8); Neutrophils % 73.4 % (37.0-80.0); Platelet Count 278 K/mm3 (142-424); Red Blood Count 4.54 M/mm3 (4.20-5.40); White Blood Count 5.9 K/mm3 (4.8-10.8)
[2023-04-25 07:25] LABS: Anion Gap 9.7 mEq/L (5-15); Blood Urea Nitrogen 8 mg/dl (7-17); Carbon Dioxide 29 mmol/L (22.0-30.0); Creatinine Clearance Estimated 115 mL/min (50-200); Estimated Glomerular Filt Rate 86 ml/min (>60); GFR (African American) 104 ML/MIN (>60)
[2023-04-25 07:26] LABS: Calcium 8.6 mg/dl (8.4-10.2); Glucose 114 mg/dl (74-100); Magnesium 1.8 mg/dl (1.6-2.3)
[2023-04-25 07:39] LABS: Troponin I < 0.01 ng/ml (0.00-0.034)
[2023-04-25 08:00] VITALS: BP 122/55; PULSE 70; PULSE 72; RESP 18; TEMP 36.6; O2SAT 100
--- NOTE | 2023-04-25 09:10 | EXP.ACUTE.PN ---
Subjective *Date: 04/25/23 *Time: 09:10 Interval history: Patient feels better this morning, no chest pain. Medical Exam Vital signs and Labs for Last 24 Hours: Vital Signs Temp Pulse Pulse Pulse Resp BP BP 04/25/23 08:00 97.8 F 72 18 122/55 L 04/25/23 08:00 70 04/25/23 04:00 75 04/25/23 04:00 98.4 F 71 18 109/60 L 04/25/23 00:00 82 04/25/23 00:00 98.0 F 73 18 126/58 L 04/24/23 20:00 97.5 F L 77 18 141/70 H 04/24/23 20:00 69 04/24/23 16:21 97.9 F 79 17 125/75 04/24/23 16:08 98.3 F 78 16 123/68 04/24/23 15:00 80 16 98/81 L 04/24/23 14:30 77 18 108/52 L 04/24/23 14:00 74 20 114/62 04/24/23 13:30 78 18 128/61 04/24/23 13:00 80 18 121/58 L 04/24/23 12:47 83 04/24/23 12:33 81 15 BP Pulse Ox 04/25/23 08:00 100 04/25/23 08:00 04/25/23 04:00 04/25/23 04:00 95 04/25/23 00:00 04/25/23 00:00 98 04/24/23 20:00 99 04/24/23 20:00 04/24/23 16:21 97 04/24/23 16:08 04/24/23 15:00 97 04/24/23 14:30 100 04/24/23 14:00 97 04/24/23 13:30 97 04/24/23 13:00 95 04/24/23 12:47 04/24/23 12:33 145/72 H 98 Intake and Output 04/24/23 04/25/23 04/25/23 23:59 07:59 15:59 Intake Total 360 / 360 Output Total 0 / 0 0 / 0 Balance 360 / 360 0 / 0 Intake: Intake, Oral Amount 360 / 360 Output: Output, Urine Amount 0 / 0 0 / 0 Other: Number of Voids 1 Number of Unmeasured Voids 1 1 1 Weight 183 lb 7 oz Patient Weight 04/25/23 23:59 Weight 183 lb 7 oz Laboratory Results - last 24 hr 04/24/23 12:36: WBC 9.6, RBC 4.78, Hgb 12.9, Hct 40.2, MCV 84.1, MCH 26.9 L, MCHC 32.0, RDW 13.9, Plt Count 310, MPV 8.4, Neut % (Auto) 72.6, Lymph % (Auto) 19.3, Davis % (Auto) 5.9, Eos % (Auto) 1.9, Baso % (Auto) 0.3, Neut # (Auto) 7.0, Lymph # (Auto) 1.9, Davis # (Auto) 0.6, Eos # (Auto) 0.2, Baso # (Auto) 0.0 04/24/23 12:36: Sodium 139, Potassium 4.2, Chloride 101, Carbon Dioxide 28, Anion Gap 14.2, BUN 8, Creatinine 0.80, Estimated Creat Clear 99, Estimated GFR 74, Est GFR ( Amer) 89, Glucose 108 H, Calcium 9.5, Troponin I < 0.01 04/24/23 14:30: Troponin I < 0.01 04/24/23 14:45: TSH 2.94 04/24/23 15:22: SARS-CoV-2 (PCR) Not detected, Influenza A Untype (PCR) Not detected, Influenza Type B (PCR) Not detected 04/24/23 16:50: POC Glucose 84 04/24/23 18:45: Troponin I < 0.01 04/24/23 20:11: POC Glucose 81 04/25/23 05:29: POC Glucose 119 H 04/25/23 07:05: Troponin I < 0.01 04/25/23 07:05: WBC 5.9 D, RBC 4.54, Hgb 12.5, Hct 37.8, MCV 83.4, MCH 27.4, MCHC 32.9, RDW 14.0, Plt Count 278, MPV 8.7, Neut % (Auto) 73.4, Lymph % (Auto) 17.6, Davis % (Auto) 6.3, Eos % (Auto) 2.3, Baso % (Auto) 0.3, Neut # (Auto) 4.3, Lymph # (Auto) 1.0, Davis # (Auto) 0.4, Eos # (Auto) 0.1, Baso # (Auto) 0.0 04/25/23 07:05: Sodium 138, Potassium 3.7, Chloride 103, Carbon Dioxide 29, Anion Gap 9.7, BUN 8, Creatinine 0.70, Estimated Creat Clear 115, Estimated GFR 86, Est GFR ( Amer) 104, Glucose 114 H, Calcium 8.6, Magnesium 1.8 I & O for Labs for Last 24 Hours: Intake & Output 04/22/23 04/23/23 04/24/23 04/25/23 23:59 23:59 23:59 23:59 Intake Total 360 / 360 Output Total 0 / 0 0 / 0 Balance 360 / 360 0 / 0 Weight 180 lb 183 lb 7 oz Constitutional: Present no acute distress Respiratory: Present normal respiratory effort Cardiac: Present Reg Rate and Rhythm GI: Present tenderness (minimal periumbilical) and normal bowel sounds Extremities: Present normal inspection and full ROM Skin: Present intact; Absent erythema Neuro: Present Grossly Intact and moves all extremities Assessment and Plan *Assessment and plan (1) Chest pain: Status: Acute Category: Medical Code(s): R07.9 - Chest pain, unspecified (2) Stenosis of left subclavian artery: Status: Acute Category: Medical Code(s): I77.1 - Stricture of art
[2023-04-25 11:29] LABS: POC Glucose,Bedside 86 (70-110)
--- NOTE | 2023-04-25 11:43 | PC.NURSE ---
Per MD Florian, resume xarelto. No heart cath. No medication changes. May be DC.
[2023-04-25 12:00] VITALS: BP 121/56; PULSE 82; RESP 18; TEMP 36.6; O2SAT 100
--- NOTE | 2023-04-26 14:38 | CARE MANAGER ---
Contacted patient related to hospital discharge. She states she is feeling well. She has scheduled follow up with cardiology on Wednesday and will schedule her PCP appointment after cardiology visit. No new medications and denies questions or concerns. DEV oGmez
--- NOTE | 2023-04-27 21:25 | EXP.DC.SUM ---
General Admission date:: 04/24/23 Discharge date: 04/25/23 HPI HPI HPI: Patient with past medical history of subclavian steal syndrome and coronary disease with heart stents on Xarelto presents to the hospital with her present during interview with Dr. Najera. Patient complains of chest discomfort. Patient describes chest discomfort as 3/10, 1 to 2 minutes sharp pain then became tight, radiating left arm/jaw region. Patient states that chest tightness lasted for approximately 1.5 to 2 hours, and was relieved after her recommended she take aspirin 5 mg x 1. Patient states pain took 45 minutes to resolve. States her disk recordist is Dr. Encinas. Admits to history of diabetes and takes metformin/Trulicity as outpatient. EKG in the emergency room showed no signs or symptoms of acute coronary syndrome. Cardiac troponins x2 in emergency room within normal limits. Admission CTA chest shows no dissection or pulmonary embolus. Patient also admits to decreased p.o. intake, nausea, vomiting for past several days. Patient states she had similar symptoms during previous celiac artery occlusions requiring stent amelioration. Admits to history of abdominal discomfort a few days ago, but denies current abdominal discomfort at time of evaluation by Dr. Najera. Hospital Course Hospital Course Hospital Course: The patient's troponins were normal. Cardiology was consulted and recommended the patient be admitted for telemetry and overnight monitoring. They felt they might perform an angiogram. An acute abdominal series was ordered to look for small bowel obstruction or ileus. The abdominal series showed nothing acute. She did have a CTA which showed no PE and nothing acute. By 04/25/2023 the patient was feeling better and had no further chest pain. She was seen by the disk recordist who was on-call for Dr. Encinas and he felt she was stable for discharge. Exam Data for Last 24 hours Vital signs and Labs for Last 24 Hours: Temp Pulse Resp BP Pulse Ox 97.9 F 82 18 121/56 L 100 04/25/23 12:00 04/25/23 12:00 04/25/23 12:00 04/25/23 12:00 04/25/23 12:00 I & O for Last 24 hours: Intake & Output 04/25/23 04/26/23 04/27/23 04/28/23 11:59 11:59 11:59 11:59 Intake Total 360 / 360 480 / 480 Output Total 0 / 0 Balance 360 / 360 480 / 480 Weight 183 lb 7 oz Narrative: Constitutional Constitutional: no acute distress, average body habitus and cooperative *Routine HEENT Exam Head: Present normocephalic and atraumatic Eye: Present EOMI ENT: Present mucous membranes moist *Routine Neck Exam Neck: Present supple Routine Chest/Breast/Axilla Exam Chest wall: Absent tenderness *Routine Respiratory Exam Respiratory: Present CTA bilaterally; Absent accessory muscle use *Routine Cardiovascular Exam Cardiovascular: Present RRR, Normal S1 and Normal S2 *Routine Abdominal Exam Abdominal: Present soft and normoactive bowel sounds; Absent rebound or guarding *Routine Rectal Exam Rectal:: deferred *Routine Genitalia Exam Genitalia:: deferred *Routine Extremities Exam Extremities: Present full ROM *Routine Skin Exam Skin: Present intact and normal turgor DS: Diagnosis Discharge Diagnosis (1) Chest pain: Status: Acute Code(s): R07.9 - Chest pain, unspecified (2) Stenosis of left subclavian artery: Status: Acute Code(s): I77.1 - Stricture of artery (3) Stenosis of celiac artery: Status: Acute Code(s): I77.1 - Stricture of artery (4) CAD (coronary artery disease): Status: Acute Code(s): I25.10 - Atherosclerotic heart disease of [place] coronary artery without angina pectoris (5) Hypothyroidism: Status: Acute Code(s): E03.9 - Hypothyroidism, unspecified (6) Episodic migraine: Status: Chronic Code(s): G43.909 - Migraine, unspecified, not intractable, without status migrainosus Problem details: Symptomatic improvement with Nurtec's
== END 2023-04-25 15:00 | disposition home or self-care (01) ==
LOC: ER 15:31 → 2ND 16:12
PROVIDERS: Family Medicine; Internal Medicine; Admitting Provider Family Medicine; Emergency Provider Emergency Medicine; PCP Family Medicine; Visit Provider Family Medicine
DX: R07.9 Chest pain, unspecified (principal); I77.1 Stricture of artery; I25.118 Atherosclerotic heart disease of native coronary artery with other forms of angina pectoris; E03.9 Hypothyroidism, unspecified; G43.909 Migraine, unspecified, not intractable, without status migrainosus; Z95.5 Presence of coronary angioplasty implant and graft; Z95.828 Presence of other vascular implants and grafts; I10 Essential (primary) hypertension; Z79.4 Long term (current) use of insulin; E11.9 Type 2 diabetes mellitus without complications; Z79.01 Long term (current) use of anticoagulants; Z79.899 Other long term (current) drug therapy
CPT/HCPCS: 36415; 71046; 71275; 74019; 80048; 82962; 83735; 84443; 84484; 85025; 87636; 93005; 99285; C9803; G0378; Q9967; U0003; U0005

== ENCOUNTER → 2023-05-13 08:19 | Outpatient (POV) | payer BC, SELFPAY | PROVIDERS: Visit Provider Specialist/Technologist | DX: Z00.00 Encounter for general adult medical examination without abnormal findings (principal) ==

== ENCOUNTER → 2023-06-10 11:14 | Outpatient (CLI) | payer BC, SELFPAY ==
[2023-06-10 11:40] LABS: Blood Urea Nitrogen 11 mg/dl (7-17); Estimated Glomerular Filt Rate 74 ml/min (>60); GFR (African American) 89 ML/MIN (>60)
== END ==
PROVIDERS: PCP Family Medicine; Visit Provider Physician Assistant
DX: Z01.812 Encounter for preprocedural laboratory examination (principal)
CPT/HCPCS: 36415; 82565; 84520

== ENCOUNTER → 2023-06-11 07:55 | Outpatient (CLI) | payer BC, SELFPAY ==
--- NOTE | 2023-06-11 07:55 | CT_ITS ---
FINAL REPORT TECHNIQUE: Pre-and postcontrast images of the abdomen and pelvis were performed by computed tomography. Extensive 3-D reconstruction images were performed. A CTA was performed. This study was performed with techniques to keep radiation doses as low as reasonably achievable (ALARA). Individualized dose reduction techniques using automated exposure control or adjustment of mA and/or kV according to the patient''s size were employed. CLINICAL HISTORY: celiac artery stenosis, weight loss FINDINGS: ABDOMEN: There is mild bibasilar atelectasis. Precontrast images demonstrate no evidence of nephrolithiasis. No adrenal masses are identified. The liver, spleen and pancreas are unremarkable. The patient is status post cholecystectomy. CTA: The abdominal aorta is proper caliber. The SMA and HOLLI are patent. Celiac artery stent is present and appears patent. There is no significant stenosis or calcification. The renal arteries are patent bilaterally. PELVIS: The iliac arteries are normal. The appendix is not visualized. The patient is status post hysterectomy. There is bladder wall thickening, likely inflammatory. IMPRESSION: Celiac artery stent is patent. Reviewed, Interpreted and Dictated by Zach Rausch III, MD Transcribed by Jennifer Meyer Authenticated and [facility]
== END ==
PROVIDERS: PCP Family Medicine; Visit Provider Physician Assistant
DX: I77.1 Stricture of artery (principal); R63.4 Abnormal weight loss; R68.81 Early satiety; I25.10 Atherosclerotic heart disease of native coronary artery without angina pectoris; E78.5 Hyperlipidemia, unspecified; I73.9 Peripheral vascular disease, unspecified; E11.9 Type 2 diabetes mellitus without complications; Z79.84 Long term (current) use of oral hypoglycemic drugs
CPT/HCPCS: 74174; Q9967

== ENCOUNTER 2023-06-30 12:49 | Emergency (ER) | payer BC, SELFPAY ==
[2023-06-30 13:30] VITALS: BP 132/71; PULSE 113; RESP 22; TEMP 37.5; O2SAT 98; BMI 28.2
--- NOTE | 2023-06-30 14:06 | EXP.UTC ---
Discharge Plan Disposition Patient Disposition: Home, Self-Care Condition: Good Prescriptions Prescriptions: No Action rosuvastatin 20 mg tablet 20 mg PO HS gabapentin 300 mg capsule 600 mg PO HS metformin 500 mg tablet extended release 24 hr 2,000 mg PO HS cyanocobalamin (vitamin B-12) 1,000 mcg/mL solution 1,000 mcg SQ MONTHLY Trulicity 1.5 mg/0.5 mL pen injector 1.5 mg SQ TH cyclobenzaprine 5 mg tablet 5 mg PO TIDP PRN (Reason: MUSCLE SPASMS) aspirin 81 mg tablet,delayed release (DR/EC) 81 mg PO DAILY levothyroxine [Synthroid] 25 mcg tablet 25 mcg PO DAILY metoprolol succinate 25 mg tablet extended release 24 hr 12.5 mg PO HS ranolazine 500 mg tablet extended release 12 hr 500 mg PO BID Qty: 180 3RF spironolactone 50 mg tablet 50 mg PO HS Xarelto 2.5 mg tablet 2.5 mg PO BID ethacrynic acid 25 mg tablet 25 mg PO BID albuterol sulfate 90 mcg/actuation HFA aerosol inhaler 1 puff INHALATION QIDP PRN (Reason: SHORTNESS OF BREATH/WHEEZING) Patient Comments: INHALE 1 PUFF BY MOUTH 4 TIMES A DAY NEEDED FOR SHORTNESS OF BREATH OR WHEEZING Nurtec ODT 75 mg tablet,disintegrating 75 mg PO QODHS Referrals Follow up/Referrals: Christiano Garcia MD [Primary Care Provider] - See instructions Activity Restrictions/Add. Instructions Additional Instructions/Restrictions: *Monitor Temp, Over the counter Motrin or Tylenol as directed/as needed Tylenol every 4 hours and Motrin every 6 hours (as long as your family doctor has told you that you can take it) for fever or pain. and straight to ER if unable to lower temp less than 101.0 after medication given *Warm salt water gargles may help to soothe the throat *Throat Lozenges? *Warm fluids like tea with honey may help to soothe the throat? *Sleep elevated *Humidifier/Vaporizer Follow up IMMEDIATELY for new or worsening symptoms or no Noticeable improvement over the next 48-72 hours. 911 for difficulty breathing or swallowing You were tested for today for Upper Respiratory Panel with COVID19 your test result should be back in the next 24 You may check your results on the [facility] My Health Portal Clinical Impressions Clinical Impression: Viral upper respiratory infection Stand Alone Forms Stand Alone Forms: Work/School Release Instructions Patient Instructions: DI for Viral Upper Respiratory Infection -- Adult Discharge ED [place] [facility] [place] General Stated complaint: runny nose, chest congestion Mode of Arrival: Ambulatory Source of Information: Patient Limitations: No Limitations Time Seen by Provider: 06/30/23 14:06 Description of Symptoms (Recalled from Triage Doc. by RN): PATIENT C/O COUGH, CONGESTION, RUNNY NOSE AND EYES SINCE YESTERDAY. RECENTLY HAD A SECONDARY EXPOSURE TO COVID HEENT Symptoms (Recalled from RN notes): Yes Resp Symptoms (Recalled from RN notes): Yes Skin Symptoms (Recalled from RN notes): No MS Symptoms (Recalled from RN notes): No Functional Status (Recalled from RN notes): WNL History of Present Illness Provider Complaint: Patient states that she was recently around someone that was positive for COVID States that she started yesterday with runny nose, nasal congestion, and cough States that she seen her PCP and they checked her for bacterial infection but didnt test her for COVID so today she came in wanted to get a COVID test to see if she may have COVID Related Data Home Medications Medication Instructions Recorded Confirmed rosuvastatin 20 mg tablet 20 mg PO HS Cholesterol 02/13/19 05/31/23 aspirin 81 mg tablet,delayed 81 mg PO DAILY Heart disease 12/04/20 05/31/23 release gabapentin 300 mg capsule 600 mg PO HS Pain 12/04/20 05/31/23 cyclobenzaprine 5 mg tablet 5 mg PO TIDP PRN MUSCLE SPASMS 07/07/22 05/31/23 dulaglutide 1.5 mg/0.5 mL 1.5 mg SQ TH Diabetes 07/07/22 05/31/23
[2023-06-30 14:08] VITALS: BP 132/71; PULSE 113; RESP 22; TEMP 37.5; O2SAT 98
== END 2023-06-30 14:10 | disposition home or self-care (01) ==
PROVIDERS: Emergency Provider Nurse Practitioner; PCP Family Medicine
DX: U07.1 COVID-19 (principal); R50.9 Fever, unspecified; J45.909 Unspecified asthma, uncomplicated; I11.9 Hypertensive heart disease without heart failure; I25.10 Atherosclerotic heart disease of native coronary artery without angina pectoris; E11.9 Type 2 diabetes mellitus without complications; E03.9 Hypothyroidism, unspecified; K21.9 Gastro-esophageal reflux disease without esophagitis; E78.5 Hyperlipidemia, unspecified; G47.33 Obstructive sleep apnea (adult) (pediatric); Z79.84 Long term (current) use of oral hypoglycemic drugs; Z87.891 Personal history of nicotine dependence
CPT/HCPCS: 99212; 99213; G0463

== ENCOUNTER 2023-07-16 10:00 | Outpatient (RCR) | payer BC, SELFPAY ==
--- NOTE | 2023-05-12 14:19 | HMH.PTOPEV ---
PT Outpatient Evaluation Rehab PT Outpatient Evaluation Start: 05/12/23 14:01 Freq: Status: Active Protocol: Document 05/12/23 14:02 LYNSEY (Rec: 05/12/23 14:18 LYNSEY [id number]) E-signed By Daniele Baron, PT Outpatient Therapy Subjective History Subjective History Patient is a 57 year old female presenting to outpatient PT with reports of L shoulder pain starting approximately 1 year ago. No recent imaging on file, though patient reports MRI approx 1 year ago idicating bursitis. No previous L shoulder treatment to report. Sympotms are of insidious onset. Comorbidities include hx of diabetes, fibromyalgia, double mastectomy with implants involving pec mm, L knee sx x 3, HTN and HL. Chief Complaint Pain,Stiff,Weakness Symptom Type Throb,Sharp Symptoms Relieved By Rest/Positioning,Prescription Meds Symptoms Aggravated By Physical Activity,Lifting Prior Functional Limitations None Current Functional Limitations Reaching,Lifting,Housework, Dressing,Driving,Sleeping Symptom Description Intermittent Level of pain today (0-10) 0 Pain scale - at its best (0-10) 0 Pain scale - at its worst (0-10) 8 Shoulder/Elbow Eval Shoulder Objective Measurements Palpation Tenderness tenderness shoulder exam standard left tenderness over the bicipital tendon left shoulder exam standard Posture Shoulder Posture Sitting Position (L) Forward,(R) Forward Shoulder Posture Standing Position (L) Forward,(R) Forward Scapula Posture Sitting Position (L) Protracted,(R) Protracted Scapular Posture Standing Position (L) Protracted,(R) Protracted Flexibilty Deficits Pectoralis Minor Muscle Length (R) Moderate Tightness,(L) Moderate Tightness Pectoralis Major Muscle Length (R) Moderate Tightness,(L) Moderate Tightness Shoulder Internal Rotators Muscle Length (L) Moderate Tightness Upper Trapezius Muscle Length (R) Moderate Tightness,(L) Moderate Tightness Shoulder ROM Left Shoulder ROM Limitations Soft Tissue Tightness,Bony Restriction Shoulder Abduction Active Range of 78 Motion (degrees) Shoulder Abduction Passive Range of 84 Motion (degrees) Shoulder Flexion Active Range of Motion 99 (degrees) Query Text: Shoulder Flexion Passive Range of Motion 106 (degrees) Shoulder External Rotation Active Range 22 of Motion (degrees) Shoulder External Rotation Passive Range 26 of Motion (degrees) Shoulder Internal Rotation Active Range 56 of Motion (degrees) Shoulder Internal Rotation Passive Range 61 of Motion (degrees) pain with active ROM shoulder exam left standard pain with passive ROM shoulder exam left standard decreased ROM shoulder exam standard left Shoulder MMT Shoulder Abduction Strength Grade 3+ Fair+ Shoulder Flexion Strength Grade 4- Good- Shoulder External Rotation Strength 4- Good- Grade Shoulder Internal Rotation Strength 3+ Fair+ Grade Subscapularis Muscle Grade 3+ Fair+ Shoulder Special Tests impingement sign present shoulder exam left standard Shoulder Drop Arm Test Positive Left Shoulder Cross-Over Impingement Test Positive Left Shoulder Empty Can (Supraspinatus) Test Positive Left Shoulder Leija-Zachariah Impingement Positive Left Test Shoulder Neer Impingement Test Positive Left Shoulder Speed's Sign Test Positive Left Elbow Objective Measurements Outpatient Therapy Assessment Impairments Problems/Impairmments Palpation Tenderness,Impaired Range of Motion,Impaired Strength,Impaired Driving, Impaired Lifting,Impaired Dressing,Impaired Shower/ Bathing,Impaired Household Care,Impaired Work Activities, Impaired Desk/Computer Activities,Subjective C/O Pain Prognosis Rehab Potential Good Clinical Impression Consistent with Diagnosis Yes Consistent with ACJ AC Short Term Goals Number of Weeks 2 Decrease Subjective C/O Pain Yes: 03/17 at worst Patient to be Ind w/ HEP Yes Senior Living Goals Number of Weeks 4-6 Decreased Palpation Tenderness Yes: 1/4 Increase Range of Motion Yes: WNL Increase Strength Yes: 4+/5 LUE grossly Restore Ability to Lift Objects to Waist Yes: 10 lb without difficulty Level Restore Ability to Lift Objects to Yes: Shoulder Level Restore Ability to Lift Objects Overhead Yes: Improve Tolerance to Work Activities Yes Decrease Subjective C/O Pain Yes: 12/18 at worst Outpatient Therapy Plan of Care Treatment Plan May Include Therapeutic Exercise Including Home Yes Exercise Program Manual Therapy Techniques Yes Neuromuscular Re-education Yes Therapeutic Activities to Return to Yes Previous Functional/Work Level ADL/Self Care Education Yes Dry Needling Yes Thermal Modalities Yes Electrical Stimulation Yes Ultrasound/Phonophoresis Yes Iontophoresis Yes Orthotics/Bracing/Splinting Yes Vasopneumatic Compression Pump Yes Massage Yes Eval/Re-Eval Yes Frequency Times per week 2 Duration Number of Weeks 4-6 Addendums This patient is a candidate for social No or vocational rehab? Patient/Guardian verbally acknowledges Yes understanding of treatment program and consents to further treatment? Patient/Guardian verbally acknowledges Yes understanding of diagnosis, prognosis and goals for treatment? G -code Required No Eval Complexity PT Charges 40734 - Moderate Complexity PHYSICIAN CERTIFICATION: I certify the specified therapy services for Sydnie K Justyn are required, authorized, and reviewed every 30 days.
--- NOTE | 2023-06-10 11:12 | HMH.RHREAS ---
Rehab Reassessment Rehab OP Re-assessment Start: 05/12/23 14:01 Freq: Status: Active Protocol: Document 06/10/23 11:08 LYNSEY (Rec: 06/10/23 11:11 LYNSEY [id number]) E-signed By Daniele Baron, PT Rehab Re-assessment Subjective Subjective Patient reports 70% improvement since start of care. Objective Objective Notes AROM: flx 124; Abd 108; ER 82; IR 53 MMT: WFL Pain: 0/10 today; 3/10 at worst over past week Neuro WNL Assessment Progress Assessment Progressing as Expected Assessment Notes Patient would benefit from continuing to with skilled PT services in order to address functional limitations with all reaching/lifting activities. ROM deficits persistin capsular patter. Patient goals met STG's Goals Not Met LTG's Revised Goals NA Plan Plan Continue with current POC. Frequency of Therapy 2x/week Duration of therapy 4 weeks Time and Billing Re-Eval Time 14 Re-Eval Billing Units 1 PHYSICIAN CERTIFICATION: I certify the specified therapy services for Sydnie Alejandra are required, authorized, and reviewed every 30 days.
--- NOTE | 2023-07-15 10:04 | HMH.RHREAS ---
Rehab Reassessment Rehab OP Re-assessment Start: 05/12/23 14:01 Freq: Status: Active Protocol: Document 07/14/23 10:00 LYNSEY (Rec: 07/15/23 10:03 HERNANDOMICKY [id number]) E-signed By Daniele Baron, PT Rehab Re-assessment Subjective Subjective Patient reports 75% improvement since start of care. [ End ] Objective Objective Notes AROM: flx 124; Abd 112; ER 81; IR 58 MMT: WFL Pain: 01/15 today; 5/10 at worst over past week Neuro WNL Assessment Progress Assessment Progressing as Expected Assessment Notes Patient was ready for discharge until she became ill with COVID and had a regression in progress. Patient would benefit from continuing to with skilled PT services in order to address functional limitations with all reaching/lifting activities. ROM deficits persistin capsular patter. Patient goals met STG's Goals Not Met LTG's Revised Goals NA Plan Plan Continue with current POC. Frequency of Therapy 2x/week Duration of therapy 4 weeks Time and Billing Re-Eval Time 15 Re-Eval Billing Units 1 PHYSICIAN CERTIFICATION: I certify the specified therapy services for Sydnie Alejandra are required, authorized, and reviewed every 30 days.
== END 2023-07-16 11:30 | disposition home or self-care (01) ==
LOC: PT 10:00
PROVIDERS: PCP Family Medicine; Visit Provider Physician Assistant
DX: M75.02 Adhesive capsulitis of left shoulder (principal)
CPT/HCPCS: 97010; 97014; 97016; 97110; 97140; 97163; 97164; 97530; G0283

== ENCOUNTER 2023-09-04 16:40 | Emergency (ER) | payer BC, SELFPAY ==
[2023-09-04 16:40] VITALS: BP 133/64; PULSE 86; RESP 16; TEMP 36.6; O2SAT 98; BMI 27.1
--- NOTE | 2023-09-04 16:54 | CT_ITS ---
PROCEDURE INFORMATION: Exam: CT Abdomen And Pelvis With Contrast Exam date and time: 09/04/2023 5:45 PM Age: 57 years old Clinical indication: Abdominal pain; Other: Llq; Additional info: Llq abd pain, h/o crohns TECHNIQUE: Imaging protocol: Computed tomography of the abdomen and pelvis with contrast. Radiation optimization: All CT scans at this facility use at least one of these dose optimization techniques: automated exposure control; mA and/or kV adjustment per patient size (includes targeted exams where dose is matched to clinical indication); or iterative reconstruction. Contrast material: ISOVUE; Contrast volume: 75 ml; Contrast route: IV; REPORTING DATA: Count of CT and Cardiac NM exams in prior 12 months: This patient has received 3 known CTs and 0 known cardiac nuclear medicine studies in the 12 months prior to the current study. COMPARISON: CT ANGIO ABDOMEN PELVIS 06/11/2023 8:06 AM FINDINGS: Tubes, catheters and devices: None noted. Lungs: Lung bases appear clear. Heart: No significant coronary calcifications. No cardiomegaly. No significant pericardial effusion. Liver: Normal. No mass. Gallbladder and bile ducts: Cholecystectomy. No ductal dilation. Pancreas: Normal. No ductal dilation. Spleen: Normal. No splenomegaly. Adrenal glands: Normal. No mass. Kidneys and ureters: Normal. No hydronephrosis. Stomach and bowel: Extensive stool throughout the colon. No obstruction. No mucosal thickening. Appendix: Appendectomy. No evidence of appendicitis. Intraperitoneal space: Unremarkable. No free air. No significant fluid collection. Retroperitoneal space: No significant retroperitoneal inflammatory changes are noted. Vasculature: Celiac stent. No abdominal aortic aneurysm. Lymph nodes: Unremarkable. No enlarged lymph nodes. Urinary bladder: Unremarkable as visualized. Reproductive: Hysterectomy. Bones/joints: Unremarkable. No acute fracture. Soft tissues: Bilateral breast implants. IMPRESSION: 1. No acute findings. 2. Extensive stool throughout the colon. 3. Celiac stent. 4. Hysterectomy. 5. Cholecystectomy. 6. Bilateral breast implants.
--- NOTE | 2023-09-04 16:56 | HMH.EDGENADL ---
Discharge Plan Disposition Patient Disposition: Home, Self-Care Prescriptions Prescriptions: No Action rosuvastatin 20 mg tablet 20 mg PO HS gabapentin 300 mg capsule 600 mg PO HS metformin 500 mg tablet extended release 24 hr 1,000 mg PO HS cyanocobalamin (vitamin B-12) 1,000 mcg/mL solution 1,000 mcg SQ MONTHLY Trulicity 1.5 mg/0.5 mL pen injector 1.5 mg SQ TH cyclobenzaprine 5 mg tablet 5 mg PO TIDP PRN (Reason: MUSCLE SPASMS) aspirin 81 mg tablet,delayed release (DR/EC) 81 mg PO DAILY levothyroxine [Synthroid] 25 mcg tablet 25 mcg PO DAILY citalopram 10 mg tablet 10 mg PO DAILY spironolactone 50 mg tablet 25 mg PO HS ranolazine 500 mg tablet extended release 12 hr 500 mg PO BID Qty: 180 3RF Xarelto 2.5 mg tablet 2.5 mg PO BID ethacrynic acid 25 mg tablet 25 mg PO BID Referrals Follow up/Referrals: Christiano Garcia MD [Primary Care Provider] - See instructions Activity Restrictions/Add. Instructions Additional Instructions/Restrictions: Please take MiraLAX, which can be the generic [id number] form, take half a cap twice a day and double the dose every 3 days until you are having the bowel movement the consistency of soft serve ice cream. Stay on this dose for at least 2 weeks. Make sure you are drinking plenty of fluids. Clinical Impressions Clinical Impression: Bilateral lower abdominal pain, Constipation Instructions Patient Instructions: DI for Acute Abdominal Pain Discharge ED Provider: Angie Oconnor General Adult HPI General Chief complaint: Abdominal Pain Stated complaint: left side pain Time Seen by Provider: 09/04/23 16:48 Mode of Arrival: Ambulatory Source of Information: Patient Limitations: No Limitations Description of Symptoms (Recalled from ER Triage Doc. by RN): Patient states she has been having on and off left sided lower abdomen pain that started today. Denies N/V/D. States that when she has the pain that it is sharp in nature. Denies any pain at this moment. History of Present Illness HPI narrative: Patient is a 57-year-old female history of Crohn's disease status post colectomy not currently on any medications for immunosuppression present today with lower abdominal discomfort is been going on for the last several hours that has been intermittent in terms of its intensity but is still persistent and mild at the moment. Related Data Home Medications Medication Instructions Recorded Confirmed rosuvastatin 20 mg tablet 20 mg PO HS Cholesterol 02/13/19 08/31/23 aspirin 81 mg tablet,delayed 81 mg PO DAILY Heart disease 12/04/20 08/31/23 release gabapentin 300 mg capsule 600 mg PO HS Pain 12/04/20 08/31/23 cyclobenzaprine 5 mg tablet 5 mg PO TIDP PRN MUSCLE SPASMS 07/07/22 08/31/23 dulaglutide 1.5 mg/0.5 mL 1.5 mg SQ TH Diabetes 07/07/22 08/31/23 subcutaneous pen injector (Trulicity) levothyroxine 25 mcg tablet 25 mcg PO DAILY thyroid 09/30/22 08/31/23 (Synthroid) cyanocobalamin (vitamin B-12) 1,000 mcg SQ MONTHLY Supplement 02/02/23 08/31/23 1,000 mcg/mL injection solution ethacrynic acid 25 mg tablet 25 mg PO BID Heart failure/FLUID 04/24/23 08/31/23 rivaroxaban 2.5 mg tablet (Xarelto) 2.5 mg PO BID blood thinner 04/24/23 08/31/23 citalopram 10 mg tablet 10 mg PO DAILY 08/31/23 08/31/23 metformin 500 mg tablet,extended 1,000 mg PO HS Diabetes 08/31/23 08/31/23 release 24 hr spironolactone 50 mg tablet 25 mg PO HS Heart failure 08/31/23 08/31/23 Previous Rx's Medication Instructions Recorded ranolazine 500 mg tablet,extended 500 mg PO BID #180 tabs 05/28/23 release,12 hr Allergies Allergy/AdvReac Type Severity Reaction Status Date / Time codeine [CODEINE] Allergy Severe Unknown Verified 08/31/23 09:35 allergy reaction Corticosteroids Allergy Unknown Verified 08/31/23 09:35 (Glucocorticoids) [CORTICOSTEROIDS (GLUCOCORTICOIDS)] dexame
[2023-09-04 17:15] LABS: Appearance,Urine CLEAR (Clear); Bilirubin,Urine Negative (Negative); Blood, Urine Negative (Negative); Color,Urine YELLOW (Yellow); Glucose,Urine (UA) Negative (Negative); Ketones,Urine Negative (Negative); Leukocyte Esterase,Urine Negative (Negative); Microscopic, Urine URINE MICROSCOPIC (MICROSCOPIC); Nitrate,Urine Negative (Negative); PH,Urine 5.5 (5.0-8.5); Protein,Urine Negative (Negative); Specific Gravity, Urine >= 1.030 (1.005-1.030); Urobilinogen,Urine 0.2 EU/dl (0.2)
[2023-09-04 17:24] LABS: Chloride 101 mmol/L (98-107); Potassium 4.1 mmoL/L (3.5-5.1); Sodium 138 mmol/L (136-145)
[2023-09-04 17:27] LABS: Alanine Aminotransferase 35 U/L (12-78); Albumin Level 4.5 g/dl (3.5-5.0); Albumin/Globulin Ratio 1.7 (1.1-1.8); Alkaline Phosphatase 63 U/L (38-126); Anion Gap 13.1 mEq/L (5-15); Aspartate Amino Transferase 41 U/L (14-36); Bilirubin,Total 0.9 mg/dl (0.2-1.3); Blood Urea Nitrogen 13 mg/dl (7-17); Carbon Dioxide 28 mmol/L (22.0-30.0); Creatinine Clearance Estimated 82 mL/min (50-200); Estimated Glomerular Filt Rate 64 ml/min (>60); GFR (African American) 78 ML/MIN (>60); Globulin 2.7 g/dL (1.3-3.2); Total Protein,Serum 7.2 g/dl (6.3-8.2)
[2023-09-04 17:28] LABS: Calcium 9.2 mg/dl (8.4-10.2); Glucose 149 mg/dl (74-100); Lactic Acid 1.9 mmol/L (0.7-2.1)
[2023-09-04 17:30] VITALS: BP 132/65; PULSE 78; O2SAT 91
[2023-09-04 17:33] LABS: C-Reactive Protein 0.4 mg/L (0-4)
[2023-09-04 17:36] LABS: Basophils % 0.3 % (0.1-2.0); Eosinophils # 0.2 K/mm3 (0.0-0.4); Hematocrit 38.3 % (37.0-47.0); Hemoglobin 13.1 g/dL (12.2-16.2); Lymphocytes # 1.7 K/mm3 (0.7-4.5); Mean Corpuscular HGB Conc 34.3 g/dL (31.8-35.4); Mean Corpuscular Volume 87.4 fl (81-99); Mean Platelet Volume 8.6 fl (7.4-10.4); Monocytes # 0.4 K/mm3 (0.1-1.0); Monocytes % 5.3 % (1.7-9.3); Neutrophils # 5.7 K/mm3 (1.8-7.8); Neutrophils % 71.4 % (37.0-80.0); Platelet Count 332 K/mm3 (142-424); Red Blood Count 4.38 M/mm3 (4.20-5.40); Red Cell Distribution Width 13.6 % (11.5-17.5)
[2023-09-04 17:38] LABS: Squamous Epithelial Cell,Urine Occasional #/hpf (0-5)
[2023-09-04 18:00] VITALS: BP 142/69; PULSE 80; O2SAT 98
[2023-09-04 18:15] VITALS: BP 149/65; PULSE 84; O2SAT 98
[2023-09-04 18:34] VITALS: BP 149/75; PULSE 76; RESP 18; TEMP 36.6; O2SAT 94
== END 2023-09-04 18:36 | disposition home or self-care (01) ==
PROVIDERS: Emergency Provider Student in an Organized Health Care Education/Training Program; PCP Family Medicine
DX: R10.30 Lower abdominal pain, unspecified (principal); K59.00 Constipation, unspecified; E11.9 Type 2 diabetes mellitus without complications; I25.10 Atherosclerotic heart disease of native coronary artery without angina pectoris; I11.9 Hypertensive heart disease without heart failure; E78.5 Hyperlipidemia, unspecified; E03.9 Hypothyroidism, unspecified; K21.9 Gastro-esophageal reflux disease without esophagitis; Z79.84 Long term (current) use of oral hypoglycemic drugs
CPT/HCPCS: 74177; 80053; 81001; 83605; 85025; 86140; 96361; 96374; 96375; 99284; J2405; Q9967

== ENCOUNTER → 2023-10-26 08:57 | Outpatient (CLI) | payer BC, SELFPAY ==
[2023-10-26 09:50] LABS: Basophils % 0.3 % (0.1-2.0); Eosinophils # 0.1 K/mm3 (0.0-0.4); Eosinophils % 3.2 % (0.1-12.0); Hematocrit 35.5 % (37.0-47.0); Hemoglobin 12.4 g/dL (12.2-16.2); Lymphocytes % 34.4 % (10-50); Mean Corpuscular Hemoglobin 30.1 pg (27.0-31.2); Mean Corpuscular Volume 85.9 fl (81-99); Mean Platelet Volume 7.9 fl (7.4-10.4); Monocytes # 0.3 K/mm3 (0.1-1.0); Monocytes % 8.3 % (1.7-9.3); Neutrophils # 1.6 K/mm3 (1.8-7.8); Neutrophils % 53.8 % (37.0-80.0); Platelet Count 252 K/mm3 (142-424); Red Blood Count 4.13 M/mm3 (4.20-5.40); Red Cell Distribution Width 14.2 % (11.5-17.5)
[2023-10-26 10:19] LABS: Erythrocyte Sedimentation Rate 21 mm/hr (0-30)
[2023-10-26 10:20] LABS: Chloride 105 mmol/L (98-107); Sodium 139 mmol/L (136-145)
[2023-10-26 10:23] LABS: Alanine Aminotransferase 64 U/L (12-78); Albumin Level 3.7 g/dl (3.5-5.0); Albumin/Globulin Ratio 1.8 (1.1-1.8); Alkaline Phosphatase 84 U/L (38-126); Aspartate Amino Transferase 76 U/L (14-36); Bilirubin,Total 0.7 mg/dl (0.2-1.3); Blood Urea Nitrogen 9 mg/dl (7-17); Calcium 9.1 mg/dl (8.4-10.2); Carbon Dioxide 30 mmol/L (22.0-30.0); Estimated Glomerular Filt Rate 73 ml/min (>60); GFR (African American) 89 ML/MIN (>60); Globulin 2.1 g/dL (1.3-3.2); Glucose 107 mg/dl (74-100); Total Protein,Serum 5.8 g/dl (6.3-8.2)
[2023-10-26 10:41] LABS: Free T4 (Free Thyroxine) 0.78 ng/dl (0.78-2.19)
[2023-10-26 10:54] LABS: Thyroid Stimulating Hormone 3.07 uIU/mL (0.465-4.68)
[2023-10-26 11:50] LABS: Vitamin B12 413 pg/mL (239-931)
[2023-10-26 11:53] LABS: Folate 6.81 ng/mL
[2023-10-27 11:14] LABS: Anti-Centromere B Antibodies <0.2 AI (0.0-0.9); Anti-DNA (DS) Ab Qn 1 IU/mL (0-9); Anti-Jo-1 <0.2 AI (0.0-0.9); Anti-Smith Antibody <0.2 AI (0.0-0.9); Antichromatin Antibodies <0.2 AI (0.0-0.9); Antiscleroderma-70 Antibodies <0.2 AI (0.0-0.9); RNP Antibodies 0.2 AI (0.0-0.9); Rapid Plasma Reagin Ab Titer Non Reactive titer (NonRea<1:1); Sjogren's Anti-SS-A <0.2 AI (0.0-0.9); Sjogren's Anti-SS-B <0.2 AI (0.0-0.9)
[2023-10-29 14:11] LABS: CSF Lyme (B. burgdorferi) PCR Negative (Negative)
[2023-10-29 16:12] LABS: Vitamin B1 86.3 nmol/L (66.5-200.0)
[2023-11-02 09:22] LABS: PTH Related Peptide < 2.0
== END ==
PROVIDERS: PCP Family Medicine; Visit Provider Specialist
DX: E03.9 Hypothyroidism, unspecified (principal); F22 Delusional disorders; G43.909 Migraine, unspecified, not intractable, without status migrainosus; G93.40 Encephalopathy, unspecified
CPT/HCPCS: 36415; 80053; 82397; 82533; 82607; 82746; 84425; 84439; 84443; 85025; 85651; 86225; 86235; 86593; 87476

== ENCOUNTER → 2023-10-27 09:51 | Outpatient (CLI) | payer BC, SELFPAY | PROVIDERS: PCP Family Medicine; Visit Provider Specialist | DX: G93.40 Encephalopathy, unspecified (principal); R41.82 Altered mental status, unspecified | CPT/HCPCS: 95819 ==

== ENCOUNTER → 2023-11-04 09:34 | Outpatient (CLI) | payer BC, SELFPAY ==
[2023-11-04 09:53] LABS: Basophils % 0.6 % (0.1-2.0); Eosinophils # 0.2 K/mm3 (0.0-0.4); Eosinophils % 3.6 % (0.1-12.0); Hematocrit 38.7 % (37.0-47.0); Lymphocytes % 23.8 % (10-50); Mean Corpuscular HGB Conc 33.7 g/dL (31.8-35.4); Mean Corpuscular Hemoglobin 28.5 pg (27.0-31.2); Mean Corpuscular Volume 84.6 fl (81-99); Mean Platelet Volume 8.6 fl (7.4-10.4); Monocytes # 0.2 K/mm3 (0.1-1.0); Monocytes % 5.9 % (1.7-9.3); Neutrophils # 2.7 K/mm3 (1.8-7.8); Neutrophils % 66.1 % (37.0-80.0); Platelet Count 325 K/mm3 (142-424); Red Blood Count 4.57 M/mm3 (4.20-5.40); Red Cell Distribution Width 14.2 % (11.5-17.5); White Blood Count 4.1 K/mm3 (4.8-10.8)
[2023-11-04 10:16] LABS: Alanine Aminotransferase 45 U/L (12-78); Albumin Level 3.9 g/dl (3.5-5.0); Alkaline Phosphatase 83 U/L (38-126); Aspartate Amino Transferase 44 U/L (14-36); Bilirubin,Indirect 0.7 mg/dL (0.0-0.9); Bilirubin,Total 0.7 mg/dl (0.2-1.3); Bilirubin,Unconjugated 0.7 mg/dL (0.0-1.1); Total Protein,Serum 6.2 g/dl (6.3-8.2)
== END ==
LOC: LAB 09:35
PROVIDERS: PCP Family Medicine; Visit Provider Family Medicine
DX: D72.819 Decreased white blood cell count, unspecified (principal)
CPT/HCPCS: 36415; 80076; 85025

== ENCOUNTER 2023-11-09 15:27 | Outpatient (CLI) | payer BC, SELFPAY ==
[2023-11-09 16:27] LABS: Calcium 9.2 mg/dl (8.4-10.2)
[2023-11-11 13:11] LABS: Ceruloplasmin 20.7 mg/dL (19.0-39.0)
== END 2023-11-09 23:59 ==
LOC: LAB 15:28
PROVIDERS: PCP Family Medicine; Visit Provider Specialist
DX: E03.9 Hypothyroidism, unspecified (principal); F22 Delusional disorders; G43.909 Migraine, unspecified, not intractable, without status migrainosus
CPT/HCPCS: 36415; 82310; 82390

== ENCOUNTER 2024-03-25 12:31 | Emergency (ER) | payer BC, SELFPAY ==
[2024-03-25 13:10] VITALS: BP 124/69; PULSE 78; RESP 18; TEMP 36.6; O2SAT 96; BMI 27.5
--- NOTE | 2024-03-25 13:10 | XR_ITS ---
PROCEDURE INFORMATION: Exam: XR Left Knee Exam date and time: 03/25/2024 1:09 PM Age: 58 years old Clinical indication: Pain; Knee; Left TECHNIQUE: Imaging protocol: Radiologic exam of the left knee. Views: 3 views. COMPARISON: CR XR KNEE LT 2V 21/10/2021 17:27 FINDINGS: Bones/joints: There has been progression of the tricompartmental osteoarthritic changes of the left knee. The lateral compartment is most severely affected. There is chondrocalcinosis of the medial meniscus. No evidence of a left knee effusion. No evidence of a left knee fracture. Soft tissues: Normal. IMPRESSION: No evidence of the left knee fracture. There has been progression of the tricompartmental osteoarthritis of the left knee compared to the 2020 exam
--- NOTE | 2024-03-25 13:10 | XR_ITS ---
PROCEDURE INFORMATION: Exam: XR Left Hip Exam date and time: 03/25/2024 1:11 PM Age: 58 years old Clinical indication: Hip pain; Left hip TECHNIQUE: Imaging protocol: Radiologic exam of the left hip. Views: 2 or 3 views hip with pelvis when performed. COMPARISON: CT ABDOMEN PELVIS W CON 04/09/2023 17:45 FINDINGS: Bones/joints: There is normal anatomic alignment of both hips. No evidence of a fracture. N mild degenerative joint space narrowing of both hips. There are 2 small enostoses in the left femoral head and a small enostosis in the inferior right pubic ramus. The sacrum appears intact. Soft tissues: Unremarkable. IMPRESSION: Mild degenerative narrowing of the bilateral hip joints. No fracture
--- NOTE | 2024-03-25 13:10 | XR_ITS ---
PROCEDURE INFORMATION: Exam: XR Left Ankle Exam date and time: 03/25/2024 1:07 PM Age: 58 years old Clinical indication: Pain; Ankle; Left TECHNIQUE: Imaging protocol: Radiologic exam of the left ankle. Views: 3 or more views. COMPARISON: CR XR FOOT LT MIN 3V 02/11/2022 14:55 FINDINGS: Bones/joints: There is normal anatomic alignment of the left ankle. No evidence of a fracture or destructive bone lesion. There are calcaneal bone spurs. Soft tissues: Normal. IMPRESSION: Calcaneal bone spurs, otherwise unremarkable left ankle
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
--- NOTE | 2024-03-25 14:01 | PC.NURSE ---
Pt was offered a knee immobilizer and declined to take it.
[2024-03-25 14:03] VITALS: BP 124/69; PULSE 78; RESP 18; TEMP 36.6; O2SAT 96
== END 2024-03-25 14:03 | disposition home or self-care (01) ==
PROVIDERS: Emergency Provider Nurse Practitioner Family; PCP Family Medicine
DX: S83.92XA Sprain of unspecified site of left knee, initial encounter (principal); M25.572 Pain in left ankle and joints of left foot; M25.552 Pain in left hip; V86.59XA Driver of other special all-terrain or other off-road motor vehicle injured in nontraffic accident, initial encounter
CPT/HCPCS: 73502; 73562; 73610; 99212; 99214; G0463

== ENCOUNTER 2024-04-24 13:18 | Outpatient (CLI) | payer BC, SELFPAY ==
--- NOTE | 2024-04-24 13:19 | US_ITS ---
FINAL REPORT CLINICAL HISTORY: hypothyroidism COMPARISON: 04/13/2023 FINDINGS: THYROID ULTRASOUND: The thyroid gland is atrophic, as noted on the prior exam of 2022. The right thyroid lobe length is 2.8 cm, and the left thyroid lobe length is also 2.8 cm. There are multiple nodules present in the thyroid gland. The nodule in the posterior margin of the right lobe of the thyroid gland has enlarged when compared to the prior exam, now measuring 10 x 6 x 6 mm in size. This nodule was not well-visualized on the prior exam. The previously described 6 mm nodule in the right lobe of the thyroid gland is not well-seen on today's examination. Several other small nodules are present, measuring up to 4 mm in size. IMPRESSION: Enlargement of a right thyroid nodule when compared to the prior exam. Recommend 12-month follow-up thyroid ultrasound for further evaluation. 6 mm right thyroid lobe nodule seen on the prior exam is no longer seen. Reviewed, Interpreted and Dictated by Ernie Rivero MD Transcribed by Ana Araujo Authenticated and [facility]
[2024-04-24 15:47] LABS: Free T4 (Free Thyroxine) 0.87 ng/dl (0.78-2.19)
[2024-04-24 16:01] LABS: Thyroid Stimulating Hormone 2.81 uIU/mL (0.465-4.68)
== END 2024-04-24 23:59 | disposition home or self-care (01) ==
PROVIDERS: PCP Family Medicine; Visit Provider Nurse Practitioner
DX: E03.9 Hypothyroidism, unspecified (principal); E04.2 Nontoxic multinodular goiter; H61.21 Impacted cerumen, right ear
CPT/HCPCS: 36415; 76536; 84439; 84443

== ENCOUNTER 2024-09-16 09:27 | Outpatient (CLI) | payer BC, SELFPAY ==
[2024-09-16 10:14] LABS: Chloride 102 mmol/L (98-107)
[2024-09-16 10:15] LABS: Potassium 4.1 mmoL/L (3.5-5.1); Sodium 136 mmol/L (136-145)
[2024-09-16 10:17] LABS: Blood Urea Nitrogen 11 mg/dl (7-17); Estimated Glomerular Filt Rate 57 ml/min (>60); GFR (African American) 68 ML/MIN (>60)
[2024-09-16 10:18] LABS: Anion Gap 8.1 mEq/L (5-15); Calcium 9.3 mg/dl (8.4-10.2); Carbon Dioxide 30 mmol/L (22.0-30.0); Glucose 131 mg/dl (74-100)
== END 2024-09-16 23:59 | disposition home or self-care (01) ==
LOC: RAD 09:29
PROVIDERS: Internal Medicine; PCP Family Medicine; Visit Provider Physician Assistant
DX: I25.10 Atherosclerotic heart disease of native coronary artery without angina pectoris (principal); E03.9 Hypothyroidism, unspecified
CPT/HCPCS: 36415; 80048

== ENCOUNTER 2024-09-16 14:55 | Emergency (ER) | payer BC, SELFPAY ==
[2024-09-16 15:45] VITALS: BP 89/54; PULSE 91; RESP 19; TEMP 37; O2SAT 97; BMI 27.6
--- NOTE | 2024-09-16 16:40 | ED_ITS ---
Discharge Plan Disposition Patient Disposition: Home, Self-Care Condition: Good Prescriptions Prescriptions: New cefdinir 300 mg capsule 300 mg PO Q12H 10 Days Qty: 20 0RF No Action citalopram 10 mg tablet 10 mg PO DAILY ethacrynic acid 25 mg tablet 25 mg PO BID Patient Comments: TAKE 1 TABLET BY MOUTH TWICE DAILY levothyroxine [Synthroid] 25 mcg tablet 25 mcg PO DAILY cyanocobalamin (vitamin B-12) 1,000 mcg/mL solution 1,000 mcg IM MONTHLY gabapentin 300 mg capsule 300 mg PO DAILY cyclobenzaprine 5 mg tablet 5 mg PO DAILY rosuvastatin 20 mg tablet 20 mg PO DAILY ranolazine 500 mg tablet extended release 12 hr 500 mg PO DAILY Trulicity 1.5 mg/0.5 mL pen injector 1.5 mg SQ WEEKLY Referrals Follow up/Referrals: Christiano Garcia MD [Primary Care Provider] - See instructions Activity Restrictions/Add. Instructions Additional Instructions/Restrictions: Take medication as prescribed. Increase fluids and rest. Avoid standing up too quickly. Follow up with PCP if symptoms persist or worsen. Clinical Impressions Clinical Impression: Acute suppur left otitis media w/o spontan rupture tympanic membrane Instructions Patient Instructions: Middle Ear Infection, DI for Hypotension Print Language Print Language: Occitan Discharge ED Provider: Marianne Ma [facility] General Stated complaint: headache, congestion, dizzy Mode of Arrival: Ambulatory Source of Information: Patient Limitations: No Limitations Time Seen by Provider: 09/16/24 16:39 Description of Symptoms (Recalled from Triage Doc. by RN): PATIENT C/O HEADACHE, CONGESTION AND DIZZINESS SINCE LAST NIGHT HEENT Symptoms (Recalled from RN notes): Yes Resp Symptoms (Recalled from RN notes): No Skin Symptoms (Recalled from RN notes): No MS Symptoms (Recalled from RN notes): No Functional Status (Recalled from RN notes): WNL History of Present Illness Provider Complaint: Pt reports that she has had dizziness, congestion, and hea dache since last night. Pt BP is low. Pt reports a history of low blood pressure. She states that she has had 2 quarts of tea today. Related Data Home Medications ?Medication ?Instructions ?Recorded ?Confirmed citalopram 10 mg tablet 10 mg PO DAILY 09/16/24 09/16/24 cyanocobalamin (vitamin B-12) 1,000 mcg IM MONTHLY 09/16/24 09/16/24 1,000 mcg/mL injection solution cyclobenzaprine 5 mg tablet 5 mg PO DAILY 09/16/24 09/16/24 dulaglutide 1.5 mg/0.5 mL 1.5 mg SQ WEEKLY 09/16/24 09/16/24 subcutaneous pen injector (Trulicity) ethacrynic acid 25 mg tablet 25 mg PO BID 09/16/24 09/16/24 gabapentin 300 mg capsule 300 mg PO DAILY 09/16/24 09/16/24 levothyroxine 25 mcg tablet 25 mcg PO DAILY 09/16/24 09/16/24 (Synthroid) ranolazine 500 mg tablet,extended 500 mg PO DAILY 09/16/24 09/16/24 release,12 hr rosuvastatin 20 mg tablet 20 mg PO DAILY 09/16/24 09/16/24 Previous Rx's ?Medication ?Instructions ?Recorded cefdinir 300 mg capsule 300 mg PO Q12H 10 days #20 caps 09/16/24 Allergies Allergy/AdvReac Type Severity Reaction Status Date / Time codeine [CODEINE] Allergy Severe Unknown Verified 08/30/24 09:57 allergy reaction Corticosteroids Allergy Unknown Unknown Verified 09/16/24 15:56 (Glucocorticoids) allergy [CORTICOSTEROIDS reaction (GLUCOCORTICOIDS)] dexamethasone [DEXAMETHASONE] Allergy Unknown Unknown Verified 09/16/24 15:56 allergy reaction erythromycin base Allergy Unknown I-RASH Verified 08/30/24 09:57 [ERYTHROMYCIN BASE] fexofenadine [FEXOFENADINE] Allergy Unknown UNKNOWN I Verified 08/30/24 09:57 DONT DO GOOD WITH DECONGESTANTS hydroxyzine [HYDROXYZINE] Allergy Unknown UNKNOWN Verified 08/30/24 09:57 loratadine [LORATADINE] Allergy Unknown Unknown Verified 09/16/24 15:56 allergy reaction nitrofurantoin Allergy Unknown Unknown Verified 09/16/24 15:56 [NITROFURANTOIN] allergy reaction Penicillins [PENICILLINS] Allergy Unknown Unknown Verified 09/16/24 15:56 allergy reaction pseudoephedrine Allergy Unknown Unknown Verified 09/16/24 15:56 [PSEUDOEPHEDRINE] allergy reaction Sulfa (Sulfonamide Allergy Unknown Unknown Verified 09/16/24 15:56 Antibiotics) allergy [SULFA (SULFONAMIDE reaction ANTIBIOTICS)] furosemide Allergy Rash Verified 08/30/24 09:57 spironolactone Allergy Unknown Verified 09/16/24 15:56 allergy reaction Worker's Comp Is this a Worker's Comp case?: No [facility] Disclaimer: The information contained in this section may have been updated after the patient was seen, as this information can be updated by other users. Medical History (Updated 09/16/24 @ 16:53 by Marianne Ma APRN) Abdominal pain Crohn's disease Multiple thyroid nodules Paranoia Tinnitus Impacted cerumen, right ear Hypothyroidism Asthma Dyspnea on exertion Stopped smoking with greater than 20 pack year history Nodule of left lung Lung nodule Abnormal chest x-ray Pneumonia Headache History of melanoma Lymphadenopathy Arthritis GERD (gastroesophageal reflux disease) Cancer Former smoker Hypertension Diabetes Dyspareunia in female Vaginal atrophy Early satiety Claudication Heart murmur Family history of ischemic heart disease Former smoker TIM (obstructive sleep apnea) Melanoma Disorder of thyroid DM2 (diabetes mellitus, type 2) HLD (hyperlipidemia) HTN (hypertension) CAD (coronary artery disease) Exposure to COVID-19 virus Urticaria Adverse drug effect Right ankle sprain Surgical History H/O arthroscopy of left knee H/O bilateral mastectomy History of hysterectomy with bilateral oophorectomy Family History Father Cancer Coronary artery disease Mother Diabetes Stroke Brother Coronary artery disease Heart attack Other Hyperlipidemia Hypertension Social History Smoking Status: Former smoker tobacco type: cigarettes packs per day: 1 years smoked: 20 smoking status stop date: 1997 second hand exposure: No alcohol intake: never counseling given: No substance use type: denies use counseling given: No current occupational status: employed Travel in the last 8 weeks: None adopted: No caregiver/support person: No foster care: No household members: spouse housing: house marital status: number of children: 0 education level: college current occupation: [employer] Hx Recent Travel: No caffeine: No physical activity: none gregory/hoahaoism: Congregational special gregory needs: No working smoke detector in home: Yes fire extinguisher in home: No carbon monox detector in home: Yes firearms in home: Yes firearms unloaded and locked: Yes do you feel safe at home: Yes victim of physical abuse: No victim of emotional abuse: No victim of sexual abuse: No would you like helpful sources: No ROS Obtained: Yes All systems reviewed & no additional complaints except as documented Constitutional Constitutional: Reports system reviewed and no additional complaints, except as documented Eyes Eyes: Reports system reviewed and no additional complaints, except as documented ENT Ears, Nose, Mouth, and Throat: Reports system reviewed and no additional complaints, except as documented, Reports nasal congestion, Reports nasal discharge and Reports vertigo Cardiovascular Cardiovascular: Reports system reviewed and no additional complaints, except as documented Respiratory Respiratory: Reports system reviewed and no additional complaints, except as documented Gastrointestinal Gastrointestingal: Reports system reviewed and no additional complaints, except as documented Genitourinary Female Genitourinary: Reports system reviewed and no additional complaints, except as documented Musculoskeletal Musculoskeletal: Reports system reviewed and no additional complaints, except as documented Integumentary/Breasts Skin/Breast: Reports system reviewed and no additional complaints, except as documented Neurologic Neurologic: Reports system reviewed and no additional complaints, except as documented and Reports vertigo Endocrine Endocrine: Reports system reviewed and no additional complaints, except as documented Hematologic/Lymphatic Henatologic/Lymphatic: Reports system reviewed and no additional complaints, except as documented Allergic/Immunologic Allergic/Immunologic: Reports system reviewed and no additional complaints, except as documented Physical Exam General General appearance: alert and in no apparent distress Head Head exam: atraumatic and normocephalic Eye Eye exam: Present normal appearance ENT ENT exam: Present mucous membranes moist Expanded ENT Exam External ear exam: Present normal external inspection TM/Canal exam: Left TM: erythema, effusion (purulent) and loss of landmarks Nasal speculum exam: Bilateral: normal Mouth exam: Present normal external inspection Teeth exam: Present normal inspection Throat exam: Present normal inspection Neck Neck exam: Present normal inspection and full ROM Chest Chest inspection: Present normal inspection and symmetric chest wall rise Respiratory Respiratory exam: Present normal lung sounds bilaterally Cardiovascular Cardiovascular exam: Present regular rate and normal rhythm Abdominal Exam Abdominal exam: Present soft and normal bowel sounds Extremities Exam Extremities exam: Present normal inspection Back Exam Back exam: Present normal inspection Neurological Exam Neurological exam: Present alert, oriented X3 and normal gait Psychiatric Psychiatric exam: Present normal affect and normal mood Skin Skin exam: Present warm, dry and intact Lymphatic Lymphatic Findings: no adenopathy Medical Decision Making Medical Records Screening: Per USPSTF and CDC recommendations, given the prevalence of disease in our region, it is our hospital?s policy to screen for HIV and viral Hepatitis for all patients aged 18 and over and those with ongoing risk factors. Nate Inquiry Pt receiving controlled substance: No Nate was queried for this patient: No Vital Signs: 09/16/24 15:45 Temperature 98.6 F Temperature Source Oral Pulse Rate [Left Brachial] 91 H Respiratory Rate 19 Blood Pressure [Left Arm] 89/54 L Blood Pressure Mean [Left Arm] 65 Blood Pressure Source [Left Arm] Automatic Cuff Blood Pressure Position [Left Arm] Sitting 02 Sat by Pulse Oximetry 97 Oxygen Delivery Method Room Air Pt given Gatorade and after drinking one small bottle, BP 96/58.
[2024-09-16 16:55] VITALS: BP 96/58; PULSE 91; RESP 19; TEMP 37; O2SAT 97
== END 2024-09-16 16:58 | disposition home or self-care (01) ==
PROVIDERS: Emergency Provider Nurse Practitioner Family; PCP Family Medicine
DX: H66.002 Acute suppurative otitis media without spontaneous rupture of ear drum, left ear (principal); R51.9 Headache, unspecified; R09.81 Nasal congestion; R42 Dizziness and giddiness
CPT/HCPCS: 99212; G0381

== ENCOUNTER 2024-09-18 07:46 | Outpatient (CLI) | payer BC, SELFPAY ==
--- NOTE | 2024-09-18 07:47 | CT_ITS ---
FINAL REPORT CLINICAL HISTORY: abd pain, hx celiac stents, crohns COMPARISON: 09/16/2021 FINDINGS: Thin section axial CT images of the abdomen, pelvis and lower extremities were obtained with contrast. Multiplanar reformatted images were also obtained and reviewed. ABDOMEN AND PELVIS: Moderate vascular calcifications are present. There is no abdominal aortic aneurysm or dissection. A celiac artery stent is present, patent. The proximal superior mesenteric artery is unremarkable. The inferior mesenteric artery is patent. There is no renal artery stenosis. There is no significant stenosis of the right common iliac artery or external right iliac artery. There is no significant stenosis of the left common iliac artery or external left iliac artery. The internal iliac arteries are patent. RIGHT LOWER EXTREMITY: There is no significant stenosis of the right common femoral or superficial femoral arteries. The right deep femoral artery is patent. The right popliteal artery is patent. There is three-vessel runoff to the distal lower leg. LEFT LOWER EXTREMITY: There is no significant stenosis of the left common femoral or superficial femoral arteries. The left deep femoral artery is patent. The left popliteal artery is patent. There is three-vessel runoff to the distal lower leg. OTHER FINDINGS: The gallbladder has been surgically resected. There are postoperative changes of the bowel in the right side of the abdomen. The uterus has been surgically resected. IMPRESSION: Celiac artery stent remains present, and is patent. No significant stenosis is noted in the abdominal aorta, iliac vessels, and runoff vessels bilaterally. Reviewed, Interpreted and Dictated by Zach Rausch III, MD Transcribed by Ana Araujo Authenticated and [facility]
[2024-09-18] MEDS: SODIUM CHLORIDE 0.9% 10ML SYR (RAD ONLY) 10 ML IV (08:13)
[2024-09-18] MEDS: IOPAMIDOL-370 (76%);100ML BOTTLE 100 ML IV (08:13)
[2024-09-18] MEDS: 0.9 % SODIUM CHLORIDE 50 ML VIAL IV (08:13)
== END 2024-09-18 23:59 | disposition home or self-care (01) ==
LOC: RAD 07:47
PROVIDERS: PCP Family Medicine; Visit Provider Physician Assistant
DX: R94.30 Abnormal result of cardiovascular function study, unspecified (principal); I25.10 Atherosclerotic heart disease of native coronary artery without angina pectoris
CPT/HCPCS: 75635; Q9967

== ENCOUNTER 2024-09-20 10:08 | Outpatient (CLI) | payer BC, SELFPAY ==
[2024-09-20 10:28] LABS: Basophils % 0.8 % (0.1-2.0); Eosinophils # 0.1 K/mm3 (0.0-0.4); Eosinophils % 3.1 % (0.1-12.0); Hematocrit 39.9 % (37.0-47.0); Hemoglobin 13.8 g/dL (12.2-16.2); Lymphocytes # 0.9 K/mm3 (0.7-4.5); Mean Corpuscular HGB Conc 34.5 g/dL (31.8-35.4); Mean Corpuscular Hemoglobin 30.3 pg (27.0-31.2); Mean Corpuscular Volume 87.9 fl (81-99); Mean Platelet Volume 8.5 fl (7.4-10.4); Monocytes # 0.2 K/mm3 (0.1-1.0); Monocytes % 6.4 % (1.7-9.3); Neutrophils # 2.4 K/mm3 (1.8-7.8); Neutrophils % 65.7 % (37.0-80.0); Platelet Count 275 K/mm3 (142-424); Red Blood Count 4.54 M/mm3 (4.20-5.40); Red Cell Distribution Width 13.9 % (11.5-17.5); White Blood Count 3.7 K/mm3 (4.8-10.8)
[2024-09-20 10:36] LABS: Alanine Aminotransferase 19 U/L (12-78); Albumin Level 3.9 g/dl (3.5-5.0); Alkaline Phosphatase 57 U/L (38-126); Anion Gap 6.9 mEq/L (5-15); Aspartate Amino Transferase 27 U/L (14-36); Bilirubin,Direct 0.3 mg/dl (0.0-0.4); Bilirubin,Indirect 0.5 mg/dL (0.0-0.9); Bilirubin,Total 0.8 mg/dl (0.2-1.3); Bilirubin,Unconjugated 0.5 mg/dL (0.0-1.1); Blood Urea Nitrogen 8 mg/dl (7-17); Calcium 9.4 mg/dl (8.4-10.2); Carbon Dioxide 31 mmol/L (22.0-30.0); Chloride 105 mmol/L (98-107); Chol/HDL Ratio 2.9 (1-3.5); Cholesterol 137 mg/dl (140-200); Estimated Glomerular Filt Rate 73 ml/min (>60); GFR (African American) 89 ML/MIN (>60); Glucose 106 mg/dl (74-100); HDL Cholesterol 47 mg/dl (40-60); Magnesium 2.1 mg/dl (1.6-2.3); Potassium 3.9 mmoL/L (3.5-5.1); Sodium 139 mmol/L (136-145); Total Protein,Serum 6.1 g/dl (6.3-8.2); Triglycerides 124 mg/dl (30-150); VLDL Cholesterol 25 mg/dL (0-40)
[2024-09-20 10:47] LABS: Direct LDL Cholesterol 68.93 mg/dL (100-129)
[2024-09-20 11:07] LABS: Thyroid Stimulating Hormone 3.25 uIU/mL (0.465-4.68)
== END 2024-09-20 23:59 | disposition home or self-care (01) ==
LOC: LAB 10:08
PROVIDERS: PCP Family Medicine; Visit Provider Internal Medicine
DX: R06.00 Dyspnea, unspecified (principal); I11.9 Hypertensive heart disease without heart failure; K21.9 Gastro-esophageal reflux disease without esophagitis
CPT/HCPCS: 36415; 80048; 80061; 80076; 83735; 84439; 84443; 85025

== ENCOUNTER 2024-09-28 12:56 | Outpatient (CLI) | payer BC, SELFPAY ==
--- NOTE | 2024-09-28 12:58 | CA_ITS ---
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 2D Dimensions LA Volume 24.50 mL LA Volume Index 13.10 mL/m2 (M/F) 16-34 EF AP4 68.80 % GL Strain -21.5 % M-Mode Dimensions RVDd 2.54 cm (0.9-2.6) LA Diam 3.37 cm (1.9-4.0) LVDd 4.50 cm (3.5-5.7) LVDs 3.00 cm (3.5-5.7) IVSd 0.79 cm (0.6-1.1) PWd 0.75 cm (0.6-1.1) EF (Teich) 62.10% FS 33.30% EDV (Teich) 92.40 mL ESV (Teich) 35.00 mL LV Diastology E Decel Time 197 (160-240 msec) E/A Ratio 1.1 Mitral Valve MV E Max Geoffrey. 100.0 (40-130 cm/s) MV A Velocity 89.0 (40-130 cm/s) E/A Ratio 1.12 MV PHT 58.0 ms Left Ventricle The left ventricle is normal size. The left ventricular systolic function is normal. The left ventricular ejection fraction is within the normal range. There is increased LV wall thickness. There is normal LV segmental wall motion. The left ventricular diastolic function is normal. LVEF is 55%. Right Ventricle The right ventricle is borderline dilated. The right ventricular systolic function is normal. Atria The left atrium size is normal. The right atrium size is normal. There is no Doppler evidence of interatrial shunt. Aortic Valve The aortic valve is mildly thickened. There is no aortic valvular stenosis. Trace aortic regurgitation is present. Mitral Valve The mitral valve is normal in structure. No evidence of mitral valve stenosis. Trace mitral regurgitation. Tricuspid Valve The tricuspid valve leaflets are thin and pliable. Trace tricuspid regurgitation. There is insufficient TR jet to estimate RVSP. Pulmonic Valve The pulmonary valve is normal in structure. Trace pulmonic regurgitation. Great Vessels The aortic root is normal in size. The ascending aorta is not well-visualized. IVC is normal in size and collapses >50% with inspiration. Pericardium There is no pericardial effusion. Other Information Study Quality: Fair Conclusion Normal biventricular systolic function. Borderline dilated ascending aorta. No significant valvular stenosis or regurgitation. Electronically signed by : Xin Francisco MD 10/08/2024 23:33:50
== END 2024-09-28 23:59 | disposition home or self-care (01) ==
LOC: RT 12:57
PROVIDERS: PCP Family Medicine; Visit Provider Internal Medicine
DX: I10 Essential (primary) hypertension (principal); I25.118 Atherosclerotic heart disease of native coronary artery with other forms of angina pectoris; I77.1 Stricture of artery; K50.919 Crohn's disease, unspecified, with unspecified complications; E78.2 Mixed hyperlipidemia; E11.9 Type 2 diabetes mellitus without complications; I73.9 Peripheral vascular disease, unspecified; R06.00 Dyspnea, unspecified; R63.4 Abnormal weight loss; Z68.29 Body mass index [BMI] 29.0-29.9, adult
CPT/HCPCS: 93306

== ENCOUNTER 2024-10-20 18:57 | Emergency (ER) | payer BC, SELFPAY ==
--- NOTE | 2024-10-20 19:17 | ED_ITS ---
Discharge Plan Disposition Patient Disposition: Home, Self-Care Condition: Good Prescriptions Prescriptions: New cefdinir 300 mg capsule 300 mg PO BID Qty: 20 0RF prednisone 10 mg tablet 10 mg PO DIRECTED 6 Days Qty: 6 0RF Rx Instructions: Take 4 tablets daily for 2 days, then take 2 tablets daily for 2 days, then take 1 tablet daily for 2 days, then stop. No Action triamcinolone acetonide 0.1 % cream topical aspirin [Adult Aspirin Regimen] 81 mg tablet,delayed release (DR/EC) 81 mg PO DAILY Qty: 30 2RF Xarelto 2.5 mg tablet 2.5 mg PO BID Qty: 60 2RF citalopram 10 mg tablet 10 mg PO DAILY ethacrynic acid 25 mg tablet 25 mg PO BID Patient Comments: TAKE 1 TABLET BY MOUTH TWICE DAILY levothyroxine [Synthroid] 25 mcg tablet 25 mcg PO DAILY cyanocobalamin (vitamin B-12) 1,000 mcg/mL solution 1,000 mcg IM MONTHLY gabapentin 300 mg capsule 300 mg PO DAILY cyclobenzaprine 5 mg tablet 5 mg PO DAILY rosuvastatin 20 mg tablet 20 mg PO DAILY ranolazine 500 mg tablet extended release 12 hr 500 mg PO DAILY Trulicity 1.5 mg/0.5 mL pen injector 1.5 mg SQ WEEKLY cefdinir 300 mg capsule 300 mg PO Q12H 10 Days Qty: 20 0RF Referrals Follow up/Referrals: Christiano Garcia MD [Primary Care Provider] - See instructions Activity Restrictions/Add. Instructions Additional Instructions/Restrictions: Drink plenty of fluids. Take tylenol for pain or fever. Take the medications as directed. Follow up with your regular doctor. GO TO THE ER FOR ANY WORSENING SYMPTOMS Clinical Impressions Clinical Impression: Otitis media, Acute viral syndrome Instructions Patient Instructions: Middle Ear Infection, DI for Viral Syndrome Print Language Print Language: Niuean Discharge ED Provider: Shaw Robles [facility] General Stated complaint: ear pain, lips tingling Time Seen by Provider: 10/20/24 19:17 Related Data Home Medications ?Medication ?Instructions ?Recorded ?Confirmed citalopram 10 mg tablet 10 mg PO DAILY 09/16/24 10/24/24 cyanocobalamin (vitamin B-12) 1,000 mcg IM MONTHLY 09/16/24 10/24/24 1,000 mcg/mL injection solution cyclobenzaprine 5 mg tablet 5 mg PO DAILY 09/16/24 10/24/24 dulaglutide 1.5 mg/0.5 mL 1.5 mg SQ WEEKLY 09/16/24 10/24/24 subcutaneous pen injector (Trulicity) ethacrynic acid 25 mg tablet 25 mg PO BID 09/16/24 10/24/24 gabapentin 300 mg capsule 300 mg PO DAILY 09/16/24 10/24/24 levothyroxine 25 mcg tablet 25 mcg PO DAILY 09/16/24 10/24/24 (Synthroid) ranolazine 500 mg tablet,extended 500 mg PO DAILY 09/16/24 10/24/24 release,12 hr rosuvastatin 20 mg tablet 20 mg PO DAILY 09/16/24 10/24/24 triamcinolone acetonide 0.1 % applic topical 10/24/24 10/24/24 topical cream Previous Rx's ?Medication ?Instructions ?Recorded cefdinir 300 mg capsule 300 mg PO Q12H 10 days #20 caps 09/16/24 aspirin 81 mg tablet,delayed 81 mg PO DAILY #30 tabs 09/20/24 release (Adult Aspirin Regimen) rivaroxaban 2.5 mg tablet (Xarelto) 2.5 mg PO BID #60 tabs 09/20/24 cefdinir 300 mg capsule 300 mg PO BID #20 caps 10/20/24 prednisone 10 mg tablet 10 mg PO DIRECTED 6 days #6 tabs 10/20/24 Allergies Allergy/AdvReac Type Severity Reaction Status Date / Time codeine (CODEINE) Allergy Severe Unknown Verified 10/24/24 09:27 allergy reaction Corticosteroids Allergy Unknown Unknown Verified 10/24/24 09:27 (Glucocorticoids) allergy (CORTICOSTEROIDS reaction (GLUCOCORTICOIDS)) dexamethasone (DEXAMETHASONE) Allergy Unknown Unknown Verified 10/24/24 09:27 allergy reaction erythromycin base Allergy Unknown I-RASH Verified 10/24/24 09:27 (ERYTHROMYCIN BASE) fexofenadine (FEXOFENADINE) Allergy Unknown UNKNOWN I Verified 10/24/24 09:27 DONT DO GOOD WITH DECONGESTANTS hydroxyzine (HYDROXYZINE) Allergy Unknown UNKNOWN Verified 10/24/24 09:27 loratadine (LORATADINE) Allergy Unknown Unknown Verified 10/24/24 09:27 allergy reaction nitrofurantoin Allergy Unknown Unknown Verified 10/24/24 09:27 (NITROFURANTOIN) allergy reaction Penicillins (PENICILLINS) Allergy Unknown Unknown Verified 10/24/24 09:27 allergy reaction pseudoephedrine Allergy Unknown Unknown Verified 10/24/24 09:27 (PSEUDOEPHEDRINE) allergy reaction Sulfa (Sulfonamide Allergy Unknown Unknown Verified 10/24/24 09:27 Antibiotics) (SULFA allergy (SULFONAMIDE ANTIBIOTICS)) reaction furosemide Allergy Rash Verified 10/24/24 09:27 spironolactone Allergy Unknown Verified 10/24/24 09:27 allergy reaction dapagliflozin (From Farxiga) AdvReac Severe Verified 10/24/24 09:27 [facility] Disclaimer: The information contained in this section may have been updated after the patient was seen, as this information can be updated by other users. Medical History Abdominal pain Crohn's disease Multiple thyroid nodules Paranoia Tinnitus Impacted cerumen, right ear Hypothyroidism Asthma Dyspnea on exertion Stopped smoking with greater than 20 pack year history Nodule of left lung Lung nodule Abnormal chest x-ray Pneumonia Headache History of melanoma Lymphadenopathy Arthritis GERD (gastroesophageal reflux disease) Cancer Former smoker Hypertension Diabetes Dyspareunia in female Vaginal atrophy Early satiety Claudication Heart murmur Family history of ischemic heart disease Father-CABG @ 60 Mother- valve replacement @ 62 Brother-CAD with stent Former smoker TIM (obstructive sleep apnea) Mild, declined treatment Melanoma Disorder of thyroid DM2 (diabetes mellitus, type 2) HLD (hyperlipidemia) HTN (hypertension) CAD (coronary artery disease) Exposure to COVID-19 virus Urticaria Adverse drug effect Right ankle sprain Surgical History H/O arthroscopy of left knee H/O bilateral mastectomy History of hysterectomy with bilateral oophorectomy Family History Father Cancer Coronary artery disease Mother Diabetes Stroke Brother Coronary artery disease Heart attack Other Hyperlipidemia Hypertension Social History Smoking Status: Former smoker tobacco type: cigarettes packs per day: 1 years smoked: 20 smoking status stop date: 1997 second hand exposure: No alcohol intake: never counseling given: No substance use type: denies use counseling given: No current occupational status: employed Travel in the last 8 weeks: None adopted: No caregiver/support person: No foster care: No household members: spouse housing: house marital status: number of children: 0 education level: college 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 Hx Recent Travel: No caffeine: No physical activity: none gregory/advent: [employer] special gregory needs: No working smoke detector in home: Yes fire extinguisher in home: No carbon monox detector in home: Yes firearms in home: Yes firearms unloaded and locked: Yes do you feel safe at home: Yes victim of physical abuse: No victim of emotional abuse: No victim of sexual abuse: No would you like helpful sources: No Have you lived/traveled outside [place] in past 30 days?: No Contact w/someone who lives/traveled outside US past 30 days?: No Exposure to someone with infectious disease in past 14 days?: No Do you have a fever (greater than 100.4 F or 38 C)?: No Have you tested positive for COVID-19: No Exposed to someone with COVID-19 in past 14 days?: No Do you have a sore throat?: No Do you have a cough?: No Do you have shortness of breath?: No Do you have a headache?: No Do you have any weakness?: No Are you experiencing any nausea/vomitting?: No Do you have any diarrhea?: No Are you experiencing any unusual bleeding?: No Do you have any muscle aches/pain?: No Do you have any abdominal pain?: No Are you experiencing loss of taste or smell?: No ROS Obtained: Yes All systems reviewed & no additional complaints except as documented Constitutional Constitutional: Denies chills, Reports fever(s) and Reports poor appetite Eyes Eyes: Denies eye discharge ENT Ears, Nose, Mouth, and Throat: Denies ear discharge, Reports otalgia, Denies hearing loss, Denies sinus pain and Reports sore throat Cardiovascular Cardiovascular: Denies chest pain and Denies dyspnea Respiratory Respiratory: Denies chest congestion, Reports cough and Denies dyspnea Gastrointestinal Gastrointestingal: Denies abdominal pain, diarrhea, nausea or vomiting Musculoskeletal Musculoskeletal: Denies arthralgias Integumentary/Breasts Skin/Breast: Denies rash Physical Exam General General appearance: alert and in no apparent distress Head Head exam: atraumatic, normocephalic and normal inspection Eye Eye exam: Present normal appearance; Absent PERRL or EOMI ENT ENT exam: Present mucous membranes moist and normal external ear exam Expanded ENT Exam TM/Canal exam: Bilateral TM: erythema, bulging and effusion Nose exam: Absent sinus tenderness Nasal speculum exam: Bilateral: normal Mouth exam: Present normal external inspection and other; Absent drooling Teeth exam: Present normal inspection Throat exam: Present tonsillar erythema and tonsillomegaly Neck Neck exam: Present normal inspection, full ROM and trachea midline; Absent tenderness, meningismus or lymphadenopathy Chest Chest inspection: Present normal inspection and symmetric chest wall rise; Absent tenderness Respiratory Respiratory exam: Present normal lung sounds bilaterally; Absent respiratory distress, wheezes or stridor Cardiovascular Cardiovascular exam: Present regular rate, normal rhythm and normal heart sounds; Absent tachycardia or irregular rhythm Abdominal Exam Abdominal exam: Present soft and normal bowel sounds; Absent distention, tenderness, guarding, rebound or rigidity Extremities Exam Extremities exam: Present normal inspection and normal capillary refill; Absent tenderness, joint swelling or calf tenderness Back Exam Back exam: Present normal inspection and full ROM; Absent tenderness, CVA tenderness (R) or CVA tenderness (L) Neurological Exam Neurological exam: Present alert, oriented X3, CN II-XII intact, normal gait and reflexes normal; Absent motor sensory deficit Psychiatric Psychiatric exam: Present normal affect and normal mood Skin Skin exam: Present warm, dry, intact and normal color Lymphatic Lymphatic Findings: no adenopathy Medical Decision Making Medical Records Medical records reviewed: No I reviewed the patient's medical records. Screening: Per USPSTF and CDC recommendations, given the prevalence of disease in our region, it is our hospital?s policy to screen for HIV and viral Hepatitis for all patients aged 18 and over and those with ongoing risk factors. Nate Inquiry Pt receiving controlled substance: No Lab Data Lab results reviewed: Yes I reviewed the patient's lab results.
[2024-10-20 19:22] VITALS: BP 134/69; PULSE 68; RESP 18; TEMP 36.6; O2SAT 100; BMI 27.4
[2024-10-20 19:56] VITALS: BP 134/69; PULSE 68; RESP 18; TEMP 36.6
== END 2024-10-20 19:59 | disposition home or self-care (01) ==
PROVIDERS: Emergency Provider Nurse Practitioner Family; PCP Family Medicine
DX: B34.9 Viral infection, unspecified (principal); H66.93 Otitis media, unspecified, bilateral; R50.9 Fever, unspecified; H92.03 Otalgia, bilateral; R63.8 Other symptoms and signs concerning food and fluid intake; J02.9 Acute pharyngitis, unspecified; R05.9 Cough, unspecified
CPT/HCPCS: 87635; 99212; G0381

== ENCOUNTER 2024-10-24 08:50 | Outpatient (CLI) | payer BC, SELFPAY ==
--- NOTE | 2024-10-24 08:59 | XR_ITS ---
FINAL REPORT CLINICAL HISTORY: left knee pain x few yrs FINDINGS: LEFT KNEE 3 views of the left knee were obtained. There is no acute fracture or dislocation. There are moderate degenerative changes, most pronounced in the lateral compartment. There is chondrocalcinosis. Bones are osteopenic. Visualized joint spaces are normally aligned. Soft tissues are unremarkable. IMPRESSION: Degenerative changes without acute bony abnormality. Reviewed, Interpreted and Dictated by Ernie Rivero MD Transcribed by Silvia Mak Authenticated and [facility]
== END 2024-10-24 23:59 | disposition home or self-care (01) ==
LOC: RAD 08:51
PROVIDERS: PCP Family Medicine; Visit Provider Physician Assistant Surgical
DX: M17.12 Unilateral primary osteoarthritis, left knee (principal)
CPT/HCPCS: 73562

== ENCOUNTER 2024-12-10 10:05 | Observation (INO) | payer BC, SELFPAY ==
[2024-12-10] VITALS (14 sets, daily range): BP systolic 109–152; BP diastolic 49–90; PULSE 62–74; RESP 11–24; TEMP 36.6–36.7; O2SAT 94–100; BMI 33.3; BMI 30.2
--- NOTE | 2024-12-10 10:09 | ECG_ITS ---
APPROVED REPORT Exam: Resting ECG HR:64 bpm ECG Measurements Heart Rate 64 AXES MA 164 P 44 QRSd 94 QRS 73 QT 463 T 58 QTc 472 Conclusion Sinus rhythm Prolonged QT Electronically signed by : MATILDE MCLEOD, 12/11/2024 13:18:35
--- NOTE | 2024-12-10 10:24 | HMH.EDGENADL ---
Discharge Plan Disposition Patient Disposition: Admitted Chief Complaint: Syncope Prescriptions Prescriptions: No Action aspirin [Adult Aspirin Regimen] 81 mg tablet,delayed release (DR/EC) 81 mg PO DAILY Qty: 30 2RF Xarelto 2.5 mg tablet 2.5 mg PO BID Qty: 60 2RF citalopram 10 mg tablet 10 mg PO DAILY ethacrynic acid 25 mg tablet 25 mg PO BID Patient Comments: TAKE 1 TABLET BY MOUTH TWICE DAILY levothyroxine [Synthroid] 25 mcg tablet 25 mcg PO DAILY cyanocobalamin (vitamin B-12) 1,000 mcg/mL solution 1,000 mcg IM MONTHLY cyclobenzaprine 5 mg tablet 5 mg PO DAILY rosuvastatin 20 mg tablet 20 mg PO DAILY Trulicity 1.5 mg/0.5 mL pen injector 1.5 mg SQ WEEKLY gabapentin 300 mg capsule 300 mg PO BID ranolazine 1,000 mg tablet extended release 12 hr 500 mg PO BID Clinical Impressions Clinical Impression: Stroke-like symptoms, Acute left-sided muscle weakness Instructions Patient Instructions: DI for Syncope in Adults (Fainting), DI for Syncope in Children (Fainting) Print Language Print Language: Chinese Discharge ED Provider: Smith Massey General Adult HPI General Chief complaint: Syncope Stated complaint: light headed Time Seen by Provider: 12/10/24 10:13 History of Present Illness HPI narrative: Please note that above description of symptoms, in this electronic medical record under categorization of recalled from ER triage doctor by RN are reflective of an initial nursing assessment, however, is not reflective of my full history and physical exam that was personally taken and clarified. Consequentially, this preceding description of symptoms, which may include the patient's categorized chief complaint in the EMR, do not reflect my personal clinical impression, and the ultimate description of history of present illness and patient stated complaints should be deferred to this section of the note. Unless stated otherwise or congruent with this section of the note, additional signs, symptoms, or incongruence should be interpreted as inaccurate with my clinical impression. Related Data Home Medications ?Medication ?Instructions ?Recorded ?Confirmed citalopram 10 mg tablet 10 mg PO DAILY 09/16/24 12/10/24 cyanocobalamin (vitamin B-12) 1,000 mcg IM MONTHLY 09/16/24 12/10/24 1,000 mcg/mL injection solution cyclobenzaprine 5 mg tablet 5 mg PO DAILY 09/16/24 12/10/24 dulaglutide 1.5 mg/0.5 mL 1.5 mg SQ WEEKLY 09/16/24 12/10/24 subcutaneous pen injector (Trulicity) ethacrynic acid 25 mg tablet 25 mg PO BID 09/16/24 12/10/24 levothyroxine 25 mcg tablet 25 mcg PO DAILY 09/16/24 12/10/24 (Synthroid) rosuvastatin 20 mg tablet 20 mg PO DAILY 09/16/24 12/10/24 gabapentin 300 mg capsule 300 mg PO BID 12/04/24 12/10/24 ranolazine 1,000 mg 500 mg PO BID 12/10/24 12/10/24 tablet,extended release,12 hr Previous Rx's ?Medication ?Instructions ?Recorded aspirin 81 mg tablet,delayed 81 mg PO DAILY #30 tabs 09/20/24 release (Adult Aspirin Regimen) rivaroxaban 2.5 mg tablet (Xarelto) 2.5 mg PO BID #60 tabs 09/20/24 Allergies Allergy/AdvReac Type Severity Reaction Status Date / Time codeine (CODEINE) Allergy Severe Unknown Verified 12/10/24 10:21 allergy reaction Corticosteroids Allergy Unknown Unknown Verified 12/10/24 10:21 (Glucocorticoids) allergy (CORTICOSTEROIDS reaction (GLUCOCORTICOIDS)) dexamethasone (DEXAMETHASONE) Allergy Unknown Unknown Verified 12/10/24 10:21 allergy reaction erythromycin base Allergy Unknown I-RASH Verified 12/10/24 10:21 (ERYTHROMYCIN BASE) fexofenadine (FEXOFENADINE) Allergy Unknown UNKNOWN I Verified 12/10/24 10:21 DONT DO GOOD WITH DECONGESTANTS hydroxyzine (HYDROXYZINE) Allergy Unknown UNKNOWN Verified 12/10/24 10:21 loratadine (LORATADINE) Allergy Unknown Unknown Verified 12/10/24 10:21 allergy reaction nitrofurantoin Allergy Unknown Unknown Verified 12/10/24 10:21 (NITROFURANTOIN) allergy reaction Penicillins (PENICILLINS) Allergy Unknown Unknown Verified 12/10/24 10:21 allergy reaction pseudoephedrine Allergy Unknown Unknown Verified 12/10/24 10:21 (PSEUDOEPHEDRINE) allergy reaction Sulfa (Sulfonamide Allergy Unknown Unknown Verified 12/10/24 10:21 Antibiotics) (SULFA allergy (SULFONAMIDE ANTIBIOTICS)) reaction furosemide Allergy Rash Verified 12/10/24 10:21 spironolactone Allergy Unknown Verified 12/10/24 10:21 allergy reaction dapagliflozin (From Farxiga) AdvReac Severe Unknown Verified 12/10/24 10:21 allergy reaction PFSH PFS Disclaimer: The information contained in this section may have been updated after the patient was seen, as this information can be updated by other users. Medical History (Updated 12/10/24 @ 13:17 by Smith Massey MD) Angina pectoris Dilatation of thoracic aorta Abdominal pain Crohn's disease Multiple thyroid nodules Paranoia Tinnitus Impacted cerumen, right ear Hypothyroidism Asthma Dyspnea on exertion Stopped smoking with greater than 20 pack year history Nodule of left lung Lung nodule Abnormal chest x-ray Pneumonia Headache History of melanoma Lymphadenopathy Arthritis GERD (gastroesophageal reflux disease) Cancer Former smoker Hypertension Diabetes Dyspareunia in female Vaginal atrophy Early satiety Claudication Heart murmur Family history of ischemic heart disease Former smoker TIM (obstructive sleep apnea) Melanoma Disorder of thyroid DM2 (diabetes mellitus, type 2) HLD (hyperlipidemia) HTN (hypertension) CAD (coronary artery disease) Exposure to COVID-19 virus Urticaria Adverse drug effect Right ankle sprain Surgical History H/O arthroscopy of left knee H/O bilateral mastectomy History of hysterectomy with bilateral oophorectomy Family History Father Cancer Coronary artery disease Mother Diabetes Stroke Brother Coronary artery disease Heart attack Other Hyperlipidemia Hypertension Social History Smoking Status: Former smoker tobacco type: cigarettes packs per day: 1 years smoked: 20 smoking status stop date: 1997 second hand exposure: No alcohol intake: never counseling given: No substance use type: denies use counseling given: No current occupational status: employed Travel in the last 8 weeks: None adopted: No caregiver/support person: No foster care: No household members: spouse housing: house marital status: number of children: 0 education level: college current occupation: [employer] Hx Recent Travel: No caffeine: No physical activity: none gregory/christianity: Voodoo special gregory needs: No working smoke detector in home: Yes fire extinguisher in home: No carbon monox detector in home: Yes firearms in home: Yes firearms unloaded and locked: Yes do you feel safe at home: Yes victim of physical abuse: No victim of emotional abuse: No victim of sexual abuse: No would you like helpful sources: No Have you lived/traveled outside [place] in past 30 days?: No Contact w/someone who lives/traveled outside US past 30 days?: No Exposure to someone with infectious disease in past 14 days?: No Do you have a fever (greater than 100.4 F or 38 C)?: No Have you tested positive for COVID-19: No Exposed to someone with COVID-19 in past 14 days?: No Do you have a sore throat?: No Do you have a cough?: No Do you have any weakness?: No Do you have any diarrhea?: No Are you experiencing any unusual bleeding?: No Do you have any muscle aches/pain?: No Do you have any abdominal pain?: No Are you experiencing loss of taste or smell?: No Other Medical History Have you received the Flu Vaccine for this season: No Have you received the Pneumonia Vaccine: No ROS Obtained: Yes All systems reviewed & no additional complaints except as documented Physical Exam General General appearance: alert and in no apparent distress Head Head exam: atraumatic and normocephalic Eye Eye exam: Present normal appearance, PERRL and EOMI Neck Neck exam: Present normal inspection, full ROM and trachea midline Respiratory Respiratory exam: Absent respiratory distress, wheezes, stridor, accessory muscle use or prolonged expiratory phase Cardiovascular Cardiovascular exam: Present other (Pulses equal symmetric in upper and lower extremities) Abdominal Exam Abdominal exam: Present soft; Absent distention, tenderness or pulsatile mass Extremities Exam Extremities exam: Absent edema Neurological Exam Neurological exam: Present alert and oriented X3; Absent CN II-XII intact or motor sensory deficit Skin Skin exam: Present warm and dry; Absent diaphoresis or erythema Medical Decision Making Medical Records Medical records reviewed: Yes I reviewed the patient's medical records. Screening: Per USPSTF and CDC recommendations, given the prevalence of disease in our region, it is our hospital?s policy to screen for HIV and viral Hepatitis for all patients aged 18 and over and those with ongoing risk factors. Nate Inquiry Pt receiving controlled substance: No Nate was queried for this patient: No Vital Signs: 12/10/24 10:21 12/10/24 10:30 12/10/24 10:42 Temperature 98.0 F Temperature Source Oral Pulse Rate 62 Pulse Rate [Left Radial] 62 Respiratory Rate 19 12 Blood Pressure 113/61 152/90 H Blood Pressure [Right Arm] 118/51 L Blood Pressure Mean [Right Arm] 73 02 Sat by Pulse Oximetry 100 100 Oxygen Delivery Method Room Air Room Air 12/10/24 11:01 12/10/24 11:30 12/10/24 12:06 Temperature Temperature Source Pulse Rate 65 62 63 Pulse Rate [Left Radial] Respiratory Rate 13 11 L 24 Blood Pressure 136/62 112/58 L 150/61 H Blood Pressure [Right Arm] Blood Pressure Mean [Right Arm] 02 Sat by Pulse Oximetry 94 L 100 99 Oxygen Delivery Method Room Air Room Air Room Air 12/10/24 12:30 12/10/24 12:45 Temperature Temperature Source Pulse Rate 64 65 Pulse Rate [Left Radial] Respiratory Rate 14 16 Blood Pressure 151/66 H Blood Pressure [Right Arm] Blood Pressure Mean [Right Arm] 02 Sat by Pulse Oximetry 98 95 Oxygen Delivery Method Room Air Room Air Lab Data Lab Results 12/10/24 10:17: WBC 4.9, RBC 4.08 L, Hgb 11.9 L, Hct 36.2 L, MCV 88.7, MCH 29.2, MCHC 32.9, RDW 12.8, Plt Count 243, MPV 11.3 H, Neut % (Auto) 65.7, Lymph % (Auto) 22.5, Bent % (Auto) 9.8 H, Eos % (Auto) 1.2, Baso % (Auto) 0.2, Neut # (Auto) 3.2, Lymph # (Auto) 1.1, Bent # (Auto) 0.5, Eos # (Auto) 0.1, Baso # (Auto) 0.0, PT 10.9, INR 0.99, APTT 27.4, HCV Ab MAURY w/Rflx PCR Qn Negative, HIV Ag/Ab Combo Qual Negative 12/10/24 10:42: Urine Color Yellow, Urine Appearance Clear, Urine pH 6.0, Ur Specific [place] >= 1.030, Urine Protein Negative, Urine Glucose (UA) Negative, Urine Ketones Negative, Urine Blood Negative, Urine Nitrate Negative, Urine Bilirubin Negative, Urine Urobilinogen 1.0, Ur Leukocyte Esterase Negative, Urine RBC None, Urine WBC 3-5, Ur Squamous Epith Cells 3-5, Urine Bacteria None 12/10/24 10:17 Orders (Tests/Meds): ED MEDICATIONS Discontinued Medications Generic Name Dose Route Start Last Admin Trade Name Brian PRN Reason Stop Dose Admin Iopamidol 80 ml 12/10/24 10:49 12/10/24 10:50 Iopamidol-370 (76%);100ml Bottle IV 12/10/24 10:50 80 ml ONCE ONE Administration Sodium Chloride 10 ml 12/10/24 10:49 12/10/24 10:50 Sodium Chloride 0.9% 10ml Syr (Rad Only) IV 12/10/24 10:50 10 ml ONCE ONE Administration Sodium Chloride 50 ml 12/10/24 10:49 12/10/24 10:50 0.9 % Sodium Chloride 50 Ml Vial IV 12/10/24 10:50 50 ml ONCE ONE Administration ORDERS Category Date Time Status CT angio head Stat Cat Scan 12/10/24 10:[address] angio neck Stat Cat Scan 12/10/24 10:[address] head/brain wo con Stat Cat Scan 12/10/24 10:42 Completed XR chest portable Stat Exams 12/10/24 10:42 Completed Complete Blood Count Auto Diff Stat Lab 12/10/24 10:17 Completed Comprehensive Metabolic Panel Stat Lab 12/10/24 10:17 Received HIV Combo Stat Lab 12/10/24 10:17 Completed Hemoglobin A1C Stat Lab 12/10/24 10:17 Received Hepatitis C Ab Qual. W/ RFX Stat Lab 12/10/24 10:17 Completed Lipid Panel Stat Lab 12/10/24 10:17 Received Magnesium Stat Lab 12/10/24 10:17 Received NT Pro Brain Natriuretic Pep. Stat Lab 12/10/24 10:17 Received PT INR [Prothrombin Time INR] Stat Lab 12/10/24 10:17 Completed PTT [Activated Partial Thrombo Time] Stat Lab 12/10/24 10:17 Completed T4 (Thyroxine) Stat Lab 12/10/24 10:17 Received TSH [Thyroid Stimulating Hormone] Stat Lab 12/10/24 10:17 Received Troponin I Q3H Lab 12/10/24 13:45 Ordered Troponin I Q3H Lab 12/10/24 16:45 Ordered Troponin I Stat Lab 12/10/24 10:17 Received Urinalysis and Microscopic Stat Lab 12/10/24 10:42 Completed Medical Decision Narrative: 59-year-old female history of hypertension, hyperlipidemia, thoracic aortic aneurysm, diabetes, CAD status post stenting on Xarelto, presenting with strokelike symptoms. States that she was driving about an hour prior to this, felt presyncopal, weakness on the left side and numbness on her left face and left arm. Came in for further evaluation. No chest pain, shortness of breath, nausea, vomiting, falls, etc. Still having symptoms, although they are less severe. Patient stroke alerted on arrival. Glucose just over 100. Differential includes embolic versus hemorrhagic stroke, dissection, metabolic abnormality, endocrinologic abnormality, pneumonia, UTI, infection, sepsis, among others. Given IV fluids. Placed on secured entrance monitor with initial blood pressure 118/51, pulse rate 62. Placed on continuous pulse oximetry with O2 sat 100%. Labs were drawn, images were obtained. On independent interpretation of CT scans of the head, patient has now intracranial hemorrhage. No abnormalities of the vessels including clot, dissection, among others. CBC normal, []. On repeat evaluation, patient states that she is feel better after liter of fluids. NIHSS 0. Because patient is on Xarelto, prolonged conversation had with patient and family regarding admission, MRI, and further workup. I feel it is unlikely, but I have had patients clot through antiten a inhibitors and cannot completely rule this out without MRI versus other inflammatory versus autoimmune diseases that could also present on MRI. Shared decision making liaison patient and family wanting to be admitted for further neurologic evaluation via MRI. tPA considered, but not deemed necessary in this case after discussion with patient, also contraindicated given her use of Xarelto and improvement of NIHSS on repeat exam. Because patient high risk for clinical decompensation, deemed appropriate for inpatient admission. Results were relayed to patient who voiced understanding and patient was agreeable to inpatient admission and management. Patient was admitted to the hospital for further definitive management. Outsole Tacker disclaimer Much of this encounter note is an electronic bank credit card collection clerk spoken language to printed text. Electronic bank credit card collection clerk of the spoken language may permit errors. Although I have reviewed the note, some errors may still exist. Critical Care Critical Care Time Critical Care Time: Yes (neuro) Attestation: On 12/10/24, the high probability of a clinically significant, sudden or life threatening deterioration of the following system(s) required my full and direct attention, intervention and personal management. The time I documented below is in addition to time spent performing reported procedures but includes the following listed in this critical care notation. Total Time Total Critical Care Time: 35
--- NOTE | 2024-12-10 10:42 | XR_ITS ---
PROCEDURE INFORMATION: Exam: XR Chest Exam date and time: 12/10/2024 10:53 AM Age: 59 years old Clinical indication: Other: Weakness; Additional info: Stroke like sumptoms TECHNIQUE: Imaging protocol: Radiologic exam of the chest. Views: 1 view. COMPARISON: CT ANGIO CHEST 04/24/2023 2:08 PM FINDINGS: Lungs: Unremarkable. No consolidation. Pleural spaces: Unremarkable. No pleural effusion. No pneumothorax. Heart/Mediastinum: Unremarkable. No cardiomegaly. Bones/joints: Unremarkable. IMPRESSION: No acute cardiopulmonary process.
--- NOTE | 2024-12-10 10:42 | CT_ITS ---
PROCEDURE INFORMATION: Exam: CTA Neck With Contrast Exam date and time: 12/10/2024 10:49 AM Age: 59 years old Clinical indication: Stroke-like symptoms; Lt upper extremity and lt lower extremity weakness; Additional info: Left sided deficits TECHNIQUE: Imaging protocol: Computed tomographic angiography of the neck with contrast. Exam focused on the cervical segments of the vasculature. 3D rendering (Not supervised by radiologist): MIP and/or 3D reconstructed images were created by the technologist. Radiation optimization: All CT scans at this facility use at least one of these dose optimization techniques: automated exposure control; mA and/or kV adjustment per patient size (includes targeted exams where dose is matched to clinical indication); or iterative reconstruction. Contrast material: ISOVUE 370; Contrast volume: 80 ml; Contrast route: INTRAVENOUS (IV); COMPARISON: CT ANGIO HEAD 12/10/2024 10:49 AM FINDINGS: Right common carotid artery: No stenosis. No dissection or occlusion. Right internal carotid artery: There are atherosclerotic changes of the internal carotid artery bifurcation. There is no significant stenosis or occlusion (less than 30%). Right external carotid artery: No occlusion or stenosis of the origin. Left common carotid artery: No stenosis. No dissection or occlusion. Left internal carotid artery: There is no significant stenosis or occlusion (0%). Left external carotid artery: No occlusion or stenosis of the origin. Right vertebral artery: There is no significant stenosis or occlusion (0%). Left vertebral artery: There is no significant stenosis or occlusion (0%). Salivary glands: Submandibular glands and parotid glands appear unremarkable. Thyroid: Thyroid gland appears unremarkable. Soft tissues: The soft tissues of the neck appear unremarkable. Bones/joints: The osseous structures of the neck demonstrate no acute abnormalities. Lungs: Partially imaged lungs are clear. IMPRESSION: No significant stenosis or occlusion in the vertebral arteries and carotid arteries in the neck. There are atherosclerotic changes of the carotid bifurcation bilaterally. REFERENCES: NASCET CRITERIA. The degree of stenosis in the cervical segment of the internal carotid artery is based on NASCET criteria. Normal is no stenosis. Mild is less than 50% stenosis. Moderate is 50-69% stenosis. Severe is 70% to 99% stenosis. Total occlusion is no detectable patent lumen.
--- NOTE | 2024-12-10 10:42 | CT_ITS ---
PROCEDURE INFORMATION: Exam: CT Head Without Contrast Exam date and time: 12/10/2024 10:48 AM Age: 59 years old Clinical indication: Stroke-like symptoms; Other: Left sided deficits TECHNIQUE: Imaging protocol: Computed tomography of the head without contrast. Radiation optimization: All CT scans at this facility use at least one of these dose optimization techniques: automated exposure control; mA and/or kV adjustment per patient size (includes targeted exams where dose is matched to clinical indication); or iterative reconstruction. Other technique: STROKE PROTOCOL was implemented. COMPARISON: CT HEAD/BRAIN WO CON 12/10/2024 10:48 AM FINDINGS: Brain: Najera-white matter differentiation and sulcation pattern is normal. There is normal density in the basal ganglia and thalamus. There is no intracranial hemorrhage. There are no pathologic extra-axial fluid collections. Cerebral ventricles: No ventriculomegaly. Paranasal sinuses: Visualized sinuses are unremarkable. No fluid levels. Mastoid air cells: Visualized mastoid air cells are well aerated. Orbital cavities: Globes and orbits are normal. Bones: Unremarkable. No acute fracture. Soft tissues: Unremarkable. IMPRESSION: No acute intracranial pathology. ASSESSMENT: ASPECTS ([place] Stroke Program Early CT Score) is 10
--- NOTE | 2024-12-10 10:42 | CT_ITS ---
PROCEDURE INFORMATION: Exam: CTA Head With Contrast, Arteriography Exam date and time: 12/10/2024 10:49 AM Age: 59 years old Clinical indication: Stroke-like symptoms; Lt upper extremity and lt lower extremity weakness; Additional info: Left sided deficits TECHNIQUE: Imaging protocol: Computed tomographic angiography of the head with contrast. Exam focused on the arteries. 3D rendering (Not supervised by radiologist): MIP and/or 3D reconstructed images were created by the technologist. Radiation optimization: All CT scans at this facility use at least one of these dose optimization techniques: automated exposure control; mA and/or kV adjustment per patient size (includes targeted exams where dose is matched to clinical indication); or iterative reconstruction. Contrast material: ISOUVE 370; Contrast volume: 80 ml; Contrast route: INTRAVENOUS (IV); COMPARISON: CT HEAD/BRAIN WO CON 12/10/2024 10:48 AM FINDINGS: ANTERIOR CIRCULATION: Right internal carotid artery: Intracranial segment is patent with no significant stenosis or occlusion. No aneurysm. Right middle cerebral artery: No occlusion or significant stenosis. No aneurysm. Right anterior cerebral artery: No occlusion or significant stenosis. No aneurysm. Left internal carotid artery: Intracranial segment is patent with no significant stenosis or occlusion. No aneurysm. Left middle cerebral artery: No occlusion or significant stenosis. No aneurysm. Left anterior cerebral artery: No occlusion or significant stenosis. No aneurysm. POSTERIOR CIRCULATION: Right vertebral artery: No occlusion or significant stenosis. No aneurysm. Left vertebral artery: No occlusion or significant stenosis. No aneurysm. Basilar artery: No occlusion or significant stenosis. No aneurysm. Right posterior cerebral artery: No occlusion or significant stenosis. No aneurysm. Left posterior cerebral artery: No occlusion or significant stenosis. No aneurysm. Veins: Dural venous sinuses are patent. Brain: No definite mass, mass effect, or midline shift. Cerebral ventricles: No ventriculomegaly. Bones/joints: Unremarkable. No acute fracture. Soft tissues: Unremarkable. IMPRESSION: [id number] is intact. No evidence of large vessel occlusion.
--- NOTE | 2024-12-10 10:42 | PC.NURSE ---
stroke alert paged over head
--- NOTE | 2024-12-10 10:45 | PC.NURSE ---
pt is at ct scan
--- NOTE | 2024-12-10 10:46 | PC.NURSE ---
pt to ct scan
--- NOTE | 2024-12-10 10:47 | PC.NURSE ---
pt in ct scan
[2024-12-10] MEDS: IOPAMIDOL-370 (76%);100ML BOTTLE 80 ML IV (10:50)
[2024-12-10] MEDS: 0.9 % SODIUM CHLORIDE 50 ML VIAL IV (10:50)
[2024-12-10] MEDS: SODIUM CHLORIDE 0.9% 10ML SYR (RAD ONLY) 10 ML IV (10:50)
[2024-12-10 10:54] LABS: Basophils % 0.2 % (0.1-2.0); Eosinophils # 0.1 K/mm3 (0.0-0.4); Eosinophils % 1.2 % (0.1-12.0); Hematocrit 36.2 % (37.0-47.0); Hemoglobin 11.9 g/dL (12.2-16.2); Lymphocytes # 1.1 K/mm3 (0.7-4.5); Lymphocytes % 22.5 % (10-50); Mean Corpuscular HGB Conc 32.9 g/dL (31.8-35.4); Mean Corpuscular Hemoglobin 29.2 pg (27.0-31.2); Mean Corpuscular Volume 88.7 fl (81-99); Mean Platelet Volume 11.3 fl (7.4-10.4); Monocytes # 0.5 K/mm3 (0.1-1.0); Monocytes % 9.8 % (1.7-9.3); Neutrophils # 3.2 K/mm3 (1.8-7.8); Neutrophils % 65.7 % (37.0-80.0); Platelet Count 243 K/mm3 (142-424); Red Blood Count 4.08 M/mm3 (4.20-5.40); Red Cell Distribution Width 12.8 % (11.5-17.5); White Blood Count 4.9 K/mm3 (4.8-10.8)
--- NOTE | 2024-12-10 10:57 | PC.NURSE ---
pt back to room
--- NOTE | 2024-12-10 11:06 | PC.NURSE ---
sent images via [facility].
--- NOTE | 2024-12-10 11:07 | PC.NURSE ---
speaking with SULLY
--- NOTE | 2024-12-10 11:10 | PC.NURSE ---
spoke with vrad who reports no LVO
[2024-12-10 11:53] LABS: HIV Combo NEGATIVE (Negative)
[2024-12-10 12:01] LABS: Hepatitis C Ab Qual. W/ RFX NEGATIVE (Negative)
--- NOTE | 2024-12-10 12:01 | PC.NURSE ---
pt to bathroom via wheelchair to provide urine sample
--- NOTE | 2024-12-10 12:08 | PC.NURSE ---
pt assisted back to bed, placed back on monitor. pt provided warm blanket.
[2024-12-10 12:14] LABS: Microscopic, Urine URINE MICROSCOPIC (MICROSCOPIC)
[2024-12-10 12:18] LABS: Activated Partial Thrombo Time 27.4 seconds (22.5-28.5); INR 0.99 (0.9-1.1); Prothrombin Time 10.9 seconds (9.2-12.1)
[2024-12-10 12:19] LABS: Appearance,Urine CLEAR (Clear); Bilirubin,Urine Negative (Negative); Blood, Urine Negative (Negative); Color,Urine YELLOW (Yellow); Glucose,Urine (UA) Negative (Negative); Ketones,Urine Negative (Negative); Leukocyte Esterase,Urine Negative (Negative); Nitrate,Urine Negative (Negative); Protein,Urine Negative (Negative); Specific Gravity, Urine >= 1.030 (1.005-1.030)
--- NOTE | 2024-12-10 13:13 | PC.NURSE ---
admit HS aware
--- NOTE | 2024-12-10 13:25 | PC.NURSE ---
report called to garth on second floor
[2024-12-10 13:30] LABS: NT Pro Brain Natriuretic Pep. 82.4 pg/mL (0-125)
[2024-12-10 13:37] LABS: T4 (Thyroxine) 9.6 ug/dl (5.53-11.0)
[2024-12-10 13:50] LABS: Thyroid Stimulating Hormone 2.74 uIU/mL (0.465-4.68)
--- NOTE | 2024-12-10 13:55 | PC.NURSE ---
pt arrived on floor by wc from er
--- NOTE | 2024-12-10 14:02 | HMH.PHAINT1 ---
Pharmacy Intervention Comments: MEDICATION RECONCILIATION COMPLETE USING LIST FROM RECENT CARDIOLOGY OFFICE VISIT, EXTERNAL PHARMACY FILL HISTORY, AND ZAFAR REPORT.
[2024-12-10 14:11] LABS: Troponin I < 0.01 ng/ml (0.00-0.034)
[2024-12-10 14:27] LABS: Alanine Aminotransferase 17 U/L (12-78); Albumin Level 3.7 g/dl (3.5-5.0); Albumin/Globulin Ratio 2.1 (1.1-1.8); Alkaline Phosphatase 60 U/L (38-126); Anion Gap 12.1 mEq/L (5-15); Aspartate Amino Transferase 34 U/L (14-36); Bilirubin,Total 0.6 mg/dl (0.2-1.3); Blood Urea Nitrogen 13 mg/dl (7-17); Calcium 8.9 mg/dl (8.4-10.2); Carbon Dioxide 23 mmol/L (22.0-30.0); Chloride 107 mmol/L (98-107); Chol/HDL Ratio 2.4 (1-3.5); Cholesterol 137 mg/dl (140-200); Creatinine Clearance Estimated 111 mL/min (50-200); Estimated Glomerular Filt Rate 85 ml/min (>60); GFR (African American) 103 ML/MIN (>60); Globulin 1.8 g/dL (1.3-3.2); Glucose 124 mg/dl (74-100); HDL Cholesterol 58 mg/dl (40-60); Magnesium 1.9 mg/dl (1.6-2.3); Potassium 4.1 mmoL/L (3.5-5.1); Sodium 138 mmol/L (136-145); Total Protein,Serum 5.5 g/dl (6.3-8.2); Triglycerides 55 mg/dl (30-150); VLDL Cholesterol 11 mg/dL (0-40)
[2024-12-10 14:33] LABS: Hemoglobin A1C 5.4 % (4.0-6.0)
[2024-12-10 14:38] LABS: Direct LDL Cholesterol 57.24 mg/dL (100-129)
[2024-12-10 14:52] LABS: Troponin I < 0.01 ng/ml (0.00-0.034)
[2024-12-10 17:48] LABS: Troponin I < 0.01 ng/ml (0.00-0.034)
--- NOTE | 2024-12-10 18:04 | PC.NURSE ---
Pt admitted with stroke like symptoms. Pt scored 2 on NIH scale, she has some left sided weakness in both extremities. She is alert and oriented x4. On RA. Pt did state that she has had some recent falls so bed alarm is on and pt educated on asking for help with call light if she wants to get up. Pt does do well with ambulating and just needs supervision. Pt tolerating meals. Family at bedside. She has been resting in bed since her arrival to the floor. call light in reach, no complaints at this time.
[2024-12-10] MEDS: ATORVASTATIN 40MG TABLET 80 MG PO (21:18)
[2024-12-10] MEDS: GABAPENTIN 300MG CAPSULE 300 MG PO (21:19)
[2024-12-10] MEDS: RANOLAZINE 500MG ER TABLET 1000 MG PO (21:19)
[2024-12-11 04:00] VITALS: BP 103/58; PULSE 67; RESP 19; TEMP 36.6; O2SAT 98; BMI 30.8
--- NOTE | 2024-12-11 04:30 | PC.NURSE ---
Pt is A/O X 4. She has bed alarm on for safety due to falls at home. She does call out for assistance as needed. Pt has denied further syncope, increased weakness, numbness or tingling. Speech clear with no deficits. Pt maintains sats above 90 on RA, VSS. She has rested this shift with no complaints
[2024-12-11] MEDS: LEVOTHYROXINE 25MCG (0.025MG) TAB 25 MCG PO (06:40)
--- NOTE | 2024-12-11 07:00 | MR_ITS ---
FINAL REPORT CLINICAL HISTORY: Stroke like symptoms. COMPARISON: None FINDINGS: Multiplanar MR imaging of the brain was performed without and with contrast. There are a few scattered foci of increased signal in the periventricular and subcortical white matter, which do not enhance after contrast administration, most consistent with mild foci of ischemic microvascular disease. There is no evidence of intracranial hemorrhage or mass. No abnormal extra-axial fluid collection is seen. The ventricular size is within normal limits. There is no evidence of shift of the midline structures. The posterior fossa and brainstem have an unremarkable appearance. No area of abnormal restricted diffusion is identified. No abnormal contrast enhancement is seen. Normal major vessel vascular flow voids are noted. There is mild mucoperiosteal thickening noted in the maxillary sinuses. IMPRESSION: Few scattered foci of increased signal in the white matter, nonenhancing, most consistent in appearance with mild changes of ischemic microvascular disease. Reviewed, Interpreted and Dictated by Cali Berry MD Transcribed by Ana Araujo Authenticated and [facility]
[2024-12-11 07:24] VITALS: BP 121/52; PULSE 66; RESP 18; TEMP 36.5; O2SAT 100
[2024-12-11] MEDS: LORazepam 1MG TABLET 1 MG PO (08:30)
--- NOTE | 2024-12-11 08:46 | EXP.HP ---
History of Present Illness *Admission Date: 12/10/24 *Reason for visit:: Syncopal episode; stroke symptoms. *History of present illness: Ms. Alejandra is a 59-year-old female with multiple problems to include coronary artery disease, type 2 diabetes mellitus, hyperplasia of bilateral breast, fibromyalgia, Crohn's disease, melanoma, allergic rhinitis, chronic headaches, vitamin B12 deficiency requiring injections, celiac artery stenosis, partial small bowel resection and right hemicolectomy in 2004, who presented to [facility] emergency room for evaluation after having a syncopal episode at [facility]. She describes having some tingling around the mouth prior to rast[facility] which increased in intensity and radiated down her left arm. She denies experiencing any type of chest pain or shortness of breath. She does remember palpitations. There were several minutes when she remembers nothing and then looking up and seeing a lot of people looking at her. She was seen in the office of cardiology last week with numbness and tingling around the mouth and chest pain. At that time she was scheduled for stress test and a CTA. In the emergency room She was noted to still be having symptoms although less severe. She was stroke alerted on arrival. Glucose was just over 100. O2 sats were 100%. She did feel better after receiving a liter of IV fluids. NIHSS was 0. Studies included a chest x-ray which showed no acute cardiopulmonary process. Head CT showed no acute intracranial pathology. CTA of the head showed [place] to be intact with no evidence of large vessel occlusion. CTA of the neck showed no significant stenosis or occlusions in the vertebral arteries and carotid arteries in the neck. Noted were atherosclerotic changes of the carotid bifurcation bilaterally. Laboratory data revealed a hemoglobin of 11.9 hematocrit of 36.2 and white blood cell count of 4900. Blood chemistry with normal electrolytes and renal function. Blood sugar was 124 and did note she had had several packets of sugar in the rastafari. Troponin I's were negative x 3 cholesterol was 137 with an LDL of 57.24 and HDL of 58. TSH was normal at 2.76. This a.m. patient states she is better with fewer symptoms. She denies chest pain and shortness of breath. She is awaiting an MRI. [facility] Disclaimer: The information contained in this section may have been updated after the patient was seen, as this information can be updated by other users. Medical History (Updated 12/11/24 @ 13:18 by Christiano Garcia MD) Angina pectoris Dilatation of thoracic aorta Abdominal pain Crohn's disease Multiple thyroid nodules Paranoia Tinnitus Impacted cerumen, right ear Hypothyroidism Asthma Dyspnea on exertion Stopped smoking with greater than 20 pack year history Nodule of left lung Lung nodule Abnormal chest x-ray Pneumonia Headache History of melanoma Lymphadenopathy Arthritis GERD (gastroesophageal reflux disease) Cancer Former smoker Hypertension Diabetes Dyspareunia in female Vaginal atrophy Early satiety Claudication Heart murmur Family history of ischemic heart disease Former smoker TIM (obstructive sleep apnea) Melanoma Disorder of thyroid DM2 (diabetes mellitus, type 2) HLD (hyperlipidemia) HTN (hypertension) CAD (coronary artery disease) Exposure to COVID-19 virus Urticaria Adverse drug effect Right ankle sprain Surgical History H/O arthroscopy of left knee H/O bilateral mastectomy History of hysterectomy with bilateral oophorectomy Family History Father Cancer Coronary artery disease Mother Diabetes Stroke Brother Coronary artery disease Heart attack Other Hyperlipidemia Hypertension Social History (Updated 12/10/24 @ 14:14 by Elizabeth Shirley, RN) Smoking Status: Former smoker tobacco type: cigarettes packs per day: 1 years smoked: 20 smoking status stop date: 1997 second hand exposure: No alcohol intake: never counseling given: No substance use type: denies use counseling given: No current occupational status: employed Travel in the last 8 weeks: None adopted: No caregiver/support person: No foster care: No household members: spouse housing: house marital status: number of children: 0 education level: college current occupation: [employer] Hx Recent Travel: No caffeine: No physical activity: none gregory/denominational: Gnosticism special gregory needs: No working smoke detector in home: Yes fire extinguisher in home: No carbon monox detector in home: Yes firearms in home: Yes firearms unloaded and locked: Yes do you feel safe at home: Yes victim of physical abuse: No victim of emotional abuse: No victim of sexual abuse: No would you like helpful sources: No Have you lived/traveled outside [place] in past 30 days?: No Contact w/someone who lives/traveled outside US past 30 days?: No Exposure to someone with infectious disease in past 14 days?: No Do you have a fever (greater than 100.4 F or 38 C)?: No Have you tested positive for COVID-19: No Exposed to someone with COVID-19 in past 14 days?: No Do you have a sore throat?: No Do you have a cough?: No Do you have any weakness?: No Are you experiencing any nausea/vomitting?: No Do you have any diarrhea?: No Are you experiencing any unusual bleeding?: No Do you have any muscle aches/pain?: No Do you have any abdominal pain?: No Are you experiencing loss of taste or smell?: No Other Medical History Have you received the Flu Vaccine for this season: No Have you received the Pneumonia Vaccine: No Review of Systems Constitutional Constitutional: Denies body ache(s), Denies chills, Denies fever(s), Denies frequent falls, Denies headache(s) and Denies poor appetite Eyes Eyes: Denies blurry vision, Denies change in vision and Denies loss of vision ENT Ears, Nose, Mouth, and Throat: Reports dizziness, Denies otalgia, Denies headache(s), Reports nasal congestion, Reports nasal discharge, Denies sore throat and Reports vertigo *Cardiovascular Cardiovascular: Denies chest pain with activity, Denies dyspnea, Reports irregular heart rhythm and Reports syncope *Respiratory Respiratory: Denies chest congestion, Denies cough and Denies dyspnea *Gastrointestinal Gastrointestinal: Denies belching, Reports dyspepsia (She describes heartburn as being severe sometimes requiring 10 Tums ), Reports heartburn, Denies loose stools, Denies nausea and Denies vomiting *Genitourinary Genitourinary: Denies difficulty voiding and Denies dysuria *Musculoskeletal Musculoskeletal: Denies abnormal gait, Denies arthralgias and Reports tingling *Neurologic Neurologic: Denies abnormal gait, Reports dizziness, Denies frequent falls, Denies headache(s), Denies loss of vision, Reports paresthesias, Denies seizure-like activity, Reports syncope, Reports tingling and Reports vertigo Meds Home Medications and Allergies Home Medications ?Medication ?Instructions ?Recorded ?Confirmed ?Type citalopram 10 mg tablet 10 mg PO DAILY 09/16/24 12/10/24 History cyanocobalamin (vitamin B-12) 1,000 mcg IM MONTHLY 09/16/24 12/10/24 History 1,000 mcg/mL injection solution cyclobenzaprine 5 mg tablet 5 mg PO DAILY 09/16/24 12/10/24 History dulaglutide 1.5 mg/0.5 mL 1.5 mg SQ WEEKLY 09/16/24 12/10/24 History subcutaneous pen injector (Trulicity) ethacrynic acid 25 mg tablet 25 mg PO BID 09/16/24 12/10/24 History levothyroxine 25 mcg tablet 25 mcg PO DAILYDM 09/16/24 12/10/24 History (Synthroid) rosuvastatin 20 mg tablet 20 mg PO DAILY 09/16/24 12/10/24 History aspirin 81 mg tablet,delayed 81 mg PO DAILY #30 tabs 09/20/24 12/10/24 Rx release (Adult Aspirin Regimen) rivaroxaban 2.5 mg tablet (Xarelto) 2.5 mg PO BID #60 tabs 09/20/24 12/10/24 Rx gabapentin 300 mg capsule 600 mg PO HS 12/04/24 12/11/24 History ranolazine 1,000 mg 1,000 mg PO BID 12/10/24 12/10/24 History tablet,extended release,12 hr New Prescriptions to Start Prescriptions: Allergies Allergy/AdvReac Type Severity Reaction Status Date / Time codeine (CODEINE) Allergy Severe Unknown Verified 12/10/24 10:21 allergy reaction Corticosteroids Allergy Unknown Unknown Verified 12/10/24 10:21 (Glucocorticoids) allergy (CORTICOSTEROIDS reaction (GLUCOCORTICOIDS)) dexamethasone (DEXAMETHASONE) Allergy Unknown Unknown Verified 12/10/24 10:21 allergy reaction erythromycin base Allergy Unknown I-RASH Verified 12/10/24 10:21 (ERYTHROMYCIN BASE) fexofenadine (FEXOFENADINE) Allergy Unknown UNKNOWN I Verified 12/10/24 10:21 DONT DO GOOD WITH DECONGESTANTS hydroxyzine (HYDROXYZINE) Allergy Unknown UNKNOWN Verified 12/10/24 10:21 loratadine (LORATADINE) Allergy Unknown Unknown Verified 12/10/24 10:21 allergy reaction nitrofurantoin Allergy Unknown Unknown Verified 12/10/24 10:21 (NITROFURANTOIN) allergy reaction Penicillins (PENICILLINS) Allergy Unknown Unknown Verified 12/10/24 10:21 allergy reaction pseudoephedrine Allergy Unknown Unknown Verified 12/10/24 10:21 (PSEUDOEPHEDRINE) allergy reaction Sulfa (Sulfonamide Allergy Unknown Unknown Verified 12/10/24 10:21 Antibiotics) (SULFA allergy (SULFONAMIDE ANTIBIOTICS)) reaction furosemide Allergy Rash Verified 12/10/24 10:21 spironolactone Allergy Unknown Verified 12/10/24 10:21 allergy reaction dapagliflozin (From [facility]) AdvReac Severe Unknown Verified 12/10/24 10:21 allergy reaction Exam Data for Last 24 hours Vital signs and Labs for Last 24 Hours: Temp Pulse Resp BP Pulse Ox O2 Del Method 97.7 F 66 18 121/52 L 100 Room Air 12/11/24 07:24 12/11/24 07:24 12/11/24 07:24 12/11/24 07:24 12/11/24 07:24 12/11/24 07:55 Laboratory Results - last 24 hr 12/10/24 10:17: WBC 4.9, RBC 4.08 L, Hgb 11.9 L, Hct 36.2 L, MCV 88.7, MCH 29.2, MCHC 32.9, RDW 12.8, Plt Count 243, MPV 11.3 H, Neut % (Auto) 65.7, Lymph % (Auto) 22.5, [place] % (Auto) 9.8 H, Eos % (Auto) 1.2, Baso % (Auto) 0.2, Neut # (Auto) 3.2, Lymph # (Auto) 1.1, Kimball # (Auto) 0.5, Eos # (Auto) 0.1, Baso # (Auto) 0.0, PT 10.9, INR 0.99, APTT 27.4, Sodium 138, Potassium 4.1, Chloride 107, Carbon Dioxide 23, Anion Gap 12.1, BUN 13, Creatinine 0.70, Estimated Creat Clear 111, Estimated GFR 85, Est GFR ( Amer) 103, Glucose 124 H, Hemoglobin A1c 5.4, Calcium 8.9, Magnesium 1.9, Total Bilirubin 0.6, AST 34, ALT 17, Alkaline Phosphatase 60, Troponin I < 0.01, NT-Pro-B Natriuret Pep 82.4, Total Protein 5.5 L, Albumin 3.7, Globulin 1.8, Albumin/Globulin Ratio 2.1 H, Triglycerides 55, Cholesterol 137 L, LDL Cholesterol Direct 57.24 L, VLDL Cholesterol 11, HDL Cholesterol 58, Cholesterol/HDL Ratio 2.4, TSH 2.74, Thyroxine (T4) 9.6, HCV Ab MAURY w/Rflx PCR Qn Negative, HIV Ag/Ab Combo Qual Negative 12/10/24 10:42: Urine Color Yellow, Urine Appearance Clear, Urine pH 6.0, Ur Specific [place] >= 1.030, Urine Protein Negative, Urine Glucose (UA) Negative, Urine Ketones Negative, Urine Blood Negative, Urine Nitrate Negative, Urine Bilirubin Negative, Urine Urobilinogen 1.0, Ur Leukocyte Esterase Negative, Urine RBC None, Urine WBC 3-5, Ur Squamous Epith Cells 3-5, Urine Bacteria None 12/10/24 14:15: Troponin I < 0.01 12/10/24 17:10: Troponin I < 0.01 I & O for Last 24 hours: Intake & Output 12/08/24 12/09/24 12/10/24 12/11/24 11:59 11:59 11:59 11:59 Intake Total 720 / 720 Output Total 0 / 0 Balance 720 / 720 Weight 200 lb 185 lb 1.6 oz Constitutional Constitutional: no acute distress Comments: Sitting in recliner and appears most comfortable *Routine HEENT Exam Head: Present normocephalic and atraumatic Eye: Present EOMI and PERRL; Absent conjunctival icterus, scleral injection or conjunctivae pink ENT: Present mucous membranes moist and oropharynx clear *Routine Neck Exam Neck: Present supple; Absent carotid bruit, lymphadenopathy or thyromegaly Routine Chest/Breast/Axilla Exam Chest wall: Absent tenderness Breast: Absent tenderness *Routine Respiratory Exam Respiratory: Present CTA bilaterally (Anteriorly and posteriorly) *Routine Cardiovascular Exam Cardiovascular: Present RRR; Absent murmur *Routine Abdominal Exam Abdominal: Present soft and normoactive bowel sounds; Absent tenderness, distended, guarding or organomegaly *Routine Rectal Exam Rectal:: deferred *Routine Genitalia Exam Genitalia:: deferred *Routine Extremities Exam Extremities: Present pulses intact; Absent edema or calf tenderness *Routine Neurological Exam Neurological: Present alert, oriented X3, CN II-XII intact, moving all extremities and normal speech; Absent pronator drift Comments: Left shoulder, arm, and leg with decrease in strength Assessment and Plan *Assessment and plan (1) Acute left-sided muscle weakness: Status: Acute Category: Medical Code(s): M62.81 - Muscle weakness (generalized) (2) Stroke-like symptoms: Status: Acute Category: Medical Code(s): R29.90 - Unspecified symptoms and signs involving the nervous system (3) Dilatation of thoracic aorta: Status: Acute Category: Medical Code(s): I77.810 - Thoracic aortic ectasia (4) History of melanoma: Status: Acute Category: Medical Code(s): Z85.820 - Personal history of malignant melanoma of skin (5) CAD (coronary artery disease): Status: Acute Category: Medical Code(s): I25.10 - Atherosclerotic heart disease of [place] coronary artery without angina pectoris (6) Hypothyroidism: Status: Acute Qualifiers: Hypothyroidism type: unspecified Qualified Code(s): E03.9 - Hypothyroidism, unspecified Category: Medical Code(s): E03.9 - Hypothyroidism, unspecified (7) DM2 (diabetes mellitus, type 2): Status: Chronic Qualifiers: Diabetes mellitus complication status: without complication 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 use: without local intermodal truck driver use Qualified Code(s): E11.9 - Type 2 diabetes mellitus without complications Category: Medical Code(s): E11.9 - Type 2 diabetes mellitus without complications (8) Syncopal episodes: Status: Acute Category: Medical Code(s): R55 - Syncope and collapse (9) Paresthesias: Status: Acute Category: Medical Code(s): R20.2 - Paresthesia of skin (10) Chest pain: Status: Resolved Qualifiers: Chest pain type: precordial pain Qualified Code(s): R07.2 - Precordial pain Category: Medical Code(s): R07.9 - Chest pain, unspecified (11) Dyspepsia: Status: Acute Category: Medical Code(s): R10.13 - Epigastric pain Plan Patient to have MRI this a.m. Dr. Garcia entry - Saw patient, agree with above note. MRI results reviewed, no CVA. OK to discharge home with a PPI and outpatient f/u next week.
[2024-12-11] MEDS: SODIUM CHLORIDE 0.9% 10ML SYR (RAD ONLY) 10 ML IV (10:11)
[2024-12-11] MEDS: GADOTERIDOL INJ 20ML SYRINGE 16 ML IV (10:11)
[2024-12-11] MEDS: ETHACRYNIC ACID 25 MG PO (11:45)
[2024-12-11] MEDS: RANOLAZINE 500MG ER TABLET 1000 MG PO (11:45)
[2024-12-11] MEDS: RIVAROXABAN 2.5MG TABLET 2.5 MG PO (11:47)
--- NOTE | 2024-12-13 11:27 | SW/DCPLANNER ---
Spoke with patient on the phone. Patient stated that she is doing good. Patient stated that she was able to pickle pumper her new medicine from [facility]. Patient stated that she is aware of her upcoming appointments. Patient stated that she has no concerns or questions at this time. Lon Driscoll
--- NOTE | 2024-12-17 22:44 | P.DS_ITS ---
General Admission date:: 12/10/24 Discharge date: 12/11/24 HPI HPI HPI: Ms. Alejandra is a 59-year-old female with multiple problems to include coronary artery disease, type 2 diabetes mellitus, hyperplasia of bilateral breast, fibromyalgia, Crohn's disease, melanoma, allergic rhinitis, chronic headaches, vitamin B12 deficiency requiring injections, celiac artery stenosis, partial small bowel resection and right hemicolectomy in 2004, who presented to [facility] emergency room for evaluation after having a syncopal episode at [facility]. She describes having some tingling around the mouth prior to [facility] which increased in intensity and radiated down her left arm. She denies experiencing any type of chest pain or shortness of breath. She does remember palpitations. There were several minutes when she remembers nothing and then looking up and seeing a lot of people looking at her. She was seen in the office of cardiology last week with numbness and tingling around the mouth and chest pain. At that time she was scheduled for stress test and a CTA. In the emergency room She was noted to still be having symptoms although less severe. She was stroke alerted on arrival. Glucose was just over 100. O2 sats were 100%. She did feel better after receiving a liter of IV fluids. NIHSS was 0. Studies included a chest x-ray which showed no acute cardiopulmonary process. Head CT showed no acute intracranial pathology. CTA of the head showed [place] to be intact with no evidence of large vessel occlusion. CTA of the neck showed no significant stenosis or occlusions in the vertebral arteries and carotid arteries in the neck. Noted were atherosclerotic changes of the carotid bifurcation bilaterally. Laboratory data revealed a hemoglobin of 11.9 hematocrit of 36.2 and white blood cell count of 4900. Blood chemistry with normal electrolytes and renal function. Blood sugar was 124 and did note she had had several packets of sugar in the [facility]. Troponin I's were negative x 3 cholesterol was 137 with an LDL of 57.24 and HDL of 58. TSH was normal at 2.76. This a.m. patient states she is better with fewer symptoms. She denies chest pain and shortness of breath. She is awaiting an MRI. Hospital Course Hospital Course Hospital Course: The patient was admitted and an MRI was ordered. The MRI showed no CVA. It was felt the patient could be discharged home with a PPI and outpatient follow-up in the office of [facility]. Exam Data for Last 24 hours Vital signs and Labs for Last 24 Hours: Temp Pulse Resp BP Pulse Ox O2 Del Method 97.7 F 66 18 121/52 L 100 Room Air 12/11/24 07:24 12/11/24 07:24 12/11/24 07:24 12/11/24 07:24 12/11/24 07:24 12/11/24 13:00 Narrative: Constitutional Constitutional: no acute distress Comments: Sitting in recliner and appears most comfortable *Routine HEENT Exam Head: Present normocephalic and atraumatic Eye: Present EOMI and PERRL; Absent conjunctival icterus, scleral injection or conjunctivae pink ENT: Present mucous membranes moist and oropharynx clear *Routine Neck Exam Neck: Present supple; Absent carotid bruit, lymphadenopathy or thyromegaly Routine Chest/Breast/Axilla Exam Chest wall: Absent tenderness Breast: Absent tenderness *Routine Respiratory Exam Respiratory: Present CTA bilaterally (Anteriorly and posteriorly) *Routine Cardiovascular Exam Cardiovascular: Present RRR; Absent murmur *Routine Abdominal Exam Abdominal: Present soft and normoactive bowel sounds; Absent tenderness, distended, guarding or organomegaly *Routine Rectal Exam Rectal:: deferred *Routine Genitalia Exam Genitalia:: deferred *Routine Extremities Exam Extremities: Present pulses intact; Absent edema or calf tenderness *Routine Neurological Exam Neurological: Present alert, oriented X3, CN II-XII intact, moving all extremities and normal speech; Absent pronator drift Comments: Left shoulder, arm, and leg with decrease in strength DS: Diagnosis Discharge Diagnosis (1) Acute left-sided muscle weakness: Status: Acute Code(s): M62.81 - Muscle weakness (generalized) (2) Stroke-like symptoms: Status: Acute Code(s): R29.90 - Unspecified symptoms and signs involving the nervous system (3) Dilatation of thoracic aorta: Status: Acute Code(s): I77.810 - Thoracic aortic ectasia (4) History of melanoma: Status: Acute Code(s): Z85.820 - Personal history of malignant melanoma of skin (5) CAD (coronary artery disease): Status: Acute Code(s): I25.10 - Atherosclerotic heart disease of samish coronary artery without angina pectoris (6) Hypothyroidism: Status: Acute Code(s): E03.9 - Hypothyroidism, unspecified Qualifiers: Hypothyroidism type: unspecified Qualified Code(s): E03.9 - Hypothyroidism, unspecified (7) DM2 (diabetes mellitus, type 2): Status: Chronic Code(s): E11.9 - Type 2 diabetes mellitus without complications Qualifiers: Diabetes mellitus detention insulin use: without detention use Diabetes mellitus complication status: without complication Qualified Code(s): E11.9 - Type 2 diabetes mellitus without complications (8) Syncopal episodes: Status: Acute Code(s): R55 - Syncope and collapse (9) Paresthesias: Status: Acute Code(s): R20.2 - Paresthesia of skin (10) Chest pain: Status: Resolved Code(s): R07.9 - Chest pain, unspecified Qualifiers: Chest pain type: precordial pain Qualified Code(s): R07.2 - Precordial pain (11) Dyspepsia: Status: Acute Code(s): R10.13 - Epigastric pain Meds Home Medications and Allergies Home Medications ?Medication ?Instructions ?Recorded ?Confirmed ?Type citalopram 10 mg tablet 10 mg PO DAILY 09/16/24 12/10/24 History cyanocobalamin (vitamin B-12) 1,000 mcg IM MONTHLY 09/16/24 12/10/24 History 1,000 mcg/mL injection solution cyclobenzaprine 5 mg tablet 5 mg PO DAILY 09/16/24 12/10/24 History dulaglutide 1.5 mg/0.5 mL 1.5 mg SQ WEEKLY 09/16/24 12/10/24 History subcutaneous pen injector (Trulicity) ethacrynic acid 25 mg tablet 25 mg PO BID 09/16/24 12/10/24 History levothyroxine 25 mcg tablet 25 mcg PO DAILYDM 09/16/24 12/10/24 History (Synthroid) rosuvastatin 20 mg tablet 20 mg PO DAILY 09/16/24 12/10/24 History aspirin 81 mg tablet,delayed 81 mg PO DAILY #30 tabs 09/20/24 12/10/24 Rx release (Adult Aspirin Regimen) rivaroxaban 2.5 mg tablet (Xarelto) 2.5 mg PO BID #60 tabs 09/20/24 12/10/24 Rx gabapentin 300 mg capsule 600 mg PO HS 12/04/24 12/11/24 History ranolazine 1,000 mg 1,000 mg PO BID 12/10/24 12/10/24 History tablet,extended release,12 hr omeprazole 40 mg capsule,delayed 40 mg PO DAILY #30 caps 12/11/24 Rx release New Prescriptions to Start Prescriptions: omeprazole Christiano Garcia Allergies Allergy/AdvReac Type Severity Reaction Status Date / Time codeine (CODEINE) Allergy Severe Unknown Verified 12/10/24 10:21 allergy reaction Corticosteroids Allergy Unknown Unknown Verified 12/10/24 10:21 (Glucocorticoids) allergy (CORTICOSTEROIDS reaction (GLUCOCORTICOIDS)) dexamethasone (DEXAMETHASONE) Allergy Unknown Unknown Verified 12/10/24 10:21 allergy reaction erythromycin base Allergy Unknown I-RASH Verified 12/10/24 10:21 (ERYTHROMYCIN BASE) fexofenadine (FEXOFENADINE) Allergy Unknown UNKNOWN I Verified 12/10/24 10:21 DONT DO GOOD WITH DECONGESTANTS hydroxyzine (HYDROXYZINE) Allergy Unknown UNKNOWN Verified 12/10/24 10:21 loratadine (LORATADINE) Allergy Unknown Unknown Verified 12/10/24 10:21 allergy reaction nitrofurantoin Allergy Unknown Unknown Verified 12/10/24 10:21 (NITROFURANTOIN) allergy reaction Penicillins (PENICILLINS) Allergy Unknown Unknown Verified 12/10/24 10:21 allergy reaction pseudoephedrine Allergy Unknown Unknown Verified 12/10/24 10:21 (PSEUDOEPHEDRINE) allergy reaction Sulfa (Sulfonamide Allergy Unknown Unknown Verified 12/10/24 10:21 Antibiotics) (SULFA allergy (SULFONAMIDE ANTIBIOTICS)) reaction furosemide Allergy Rash Verified 12/10/24 10:21 spironolactone Allergy Unknown Verified 12/10/24 10:21 allergy reaction dapagliflozin (From Farxiga) AdvReac Severe Unknown Verified 12/10/24 10:21 allergy reaction Discharge Plan Disposition Patient Disposition: Home, Self-Care Condition: Fair Follow up Plan Follow up with: Christiano Garcia MD [Staff Physician] - 12/20/24 10:15 am Prescriptions/Medication Reconciliation: New omeprazole 40 mg capsule,delayed release(DR/EC) 40 mg PO DAILY Qty: 30 0RF Continued aspirin [Adult Aspirin Regimen] 81 mg tablet,delayed release (DR/EC) 81 mg PO DAILY Qty: 30 2RF Xarelto 2.5 mg tablet 2.5 mg PO BID Qty: 60 2RF citalopram 10 mg tablet 10 mg PO DAILY ethacrynic acid 25 mg tablet 25 mg PO BID Patient Comments: TAKE 1 TABLET BY MOUTH TWICE DAILY levothyroxine [Synthroid] 25 mcg tablet 25 mcg PO DAILYDM cyanocobalamin (vitamin B-12) 1,000 mcg/mL solution 1,000 mcg IM MONTHLY cyclobenzaprine 5 mg tablet 5 mg PO DAILY rosuvastatin 20 mg tablet 20 mg PO DAILY Trulicity 1.5 mg/0.5 mL pen injector 1.5 mg SQ WEEKLY gabapentin 300 mg capsule 600 mg PO HS ranolazine 1,000 mg tablet extended release 12 hr 1,000 mg PO BID Problem Reconciliation Problems Reviewed?: Yes Patient Discharge Instructions ACTIVITY: Continue current activity DIET: continue same diet Print Language: Uzbek Providers Primary Care Provider: Provider,Referral Admit Provider: Ernie Silva Attending Provider: Christiano Garcia
== END 2024-12-11 14:00 | disposition home or self-care (01) ==
LOC: ER 13:17 → 2ND 13:17
PROVIDERS: Admitting Provider Family Medicine; Emergency Provider Emergency Medicine; Visit Provider Family Medicine
DX: R55 Syncope and collapse (principal); R20.2 Paresthesia of skin; K21.9 Gastro-esophageal reflux disease without esophagitis; E78.5 Hyperlipidemia, unspecified; I10 Essential (primary) hypertension; I25.119 Atherosclerotic heart disease of native coronary artery with unspecified angina pectoris; K50.90 Crohn's disease, unspecified, without complications; M79.7 Fibromyalgia; E11.9 Type 2 diabetes mellitus without complications; I77.810 Thoracic aortic ectasia; M62.81 Muscle weakness (generalized); I77.4 Celiac artery compression syndrome; E03.9 Hypothyroidism, unspecified; Z87.891 Personal history of nicotine dependence; Z79.01 Long term (current) use of anticoagulants; Z85.820 Personal history of malignant melanoma of skin; Z79.890 Hormone replacement therapy; Z82.3 Family history of stroke; Z79.82 Long term (current) use of aspirin; Z80.9 Family history of malignant neoplasm, unspecified; Z83.3 Family history of diabetes mellitus; Z83.2 Family history of diseases of the blood and blood-forming organs and certain disorders involving the immune mechanism
CPT/HCPCS: 36415; 70450; 70496; 70498; 70553; 71045; 80053; 80061; 81001; 83036; 83735; 83880; 84436; 84443; 84484; 85025; 85610; 85730; 86803; 87389; 93005; 99291; A9576; G0378; Q9967

== ENCOUNTER 2024-12-13 06:39 | Outpatient (CLI) | payer BC, SELFPAY ==
--- NOTE | 2024-12-13 | CA_ITS ---
APPROVED REPORT Exam: Pharmacologic Technologist: Minerva Strickland Ht: 5 ft 6 in Wt: 178 lbs BSA: 1.90 m2 HR: 76 bpm BP: 143/65 mmHg Stress Test Details Test: Lexiscan HR Resting HR: 76 bpm Max Heart Rate (APMHR): 160 bpm Max HR Achieved: 103 bpm Target HR (85% APMHR): 136 bpm % of APMHR: 64 Recovery HR: 85 bpm BP Resting BP: 143.0/65.0 mmHg Max BP: 143.0/65.0 mmHg Recovery BP: 122.0/62.0 mmHg ECG Stress ECG Conclusion Symptoms: Nausea and dizziness with Lexiscan Arrhythmias/Ectopy: None ST-T Changes: Less than 1.[address] depression with Lexiscan Electronically signed by : Xin Francisco MD 12/13/2024 11:11:31
--- NOTE | 2024-12-13 06:49 | NM_ITS ---
APPROVED REPORT Exam: Nuclear Stress Test Indication: cad, diabetes, hyperlipidemia, fm hx, c.p., sob, syncope Patient Location: Outpatient Stress Tech: Minerva Strickland ND Tech:NANCY VergaraT RT (R)(N)(M) Ht: 5 ft 6 in Wt: 180 lbs Bra Size: c HR: 76 bpm BP: 143/65 mmHg BSA: 1.91 m2 TID: 1.35 BMI: 29.0 History: cad, diabetes, hyperlipidemia, fm hx, c.p., sob, syncope Procedure: Patient received 0.4 mg of intravenous Lexiscan, resting heart rate 76 bpm, resting blood pressure 143/65 mmHg, with Lexiscan maximum heart rate achieved was 101 bpm which is % of the maximum predicted heart rate and blood pressure was 114/47 mmHg. With Lexiscan, patient denied any complaint of chest pain. Cardiac Stress and Resting SPECT Images: Cardiac Stress and Resting SPECT images were obtained using technetium 99m Myoview 29.8 mCi stress and 10.42 mCi at rest. Resting and stress imaging in supine and prone positions demonstrate no evidence of fixed or reversible perfusion defects. There is increase in transient ischemic dilatation ratio (TID 1.35), suggestive of possible multivessel disease or balanced ischemia. Gated imaging demonstrates normal global and regional LV systolic function. LVEF is calculated at 64%. Conclusion: No evidence of fixed or reversible perfusion defects. There is increase in transient ischemic dilatation ratio (TID 1.35), suggestive of possible multivessel disease or balanced ischemia. Gated imaging demonstrates normal global and regional LV systolic function. LVEF is calculated at 64%. Electronically signed by : Xin Francisco MD 12/13/2024 23:48:32
[2024-12-13] MEDS: SODIUM CHLORIDE 0.9% 10ML SYR (RAD ONLY) 10 ML IV ×2 (07:10→09:00)
[2024-12-13] MEDS: REGADENOSON 0.4MG/5ML SYRINGE 0.4 MG IV (09:00)
[2024-12-13] MEDS: ISOTOPE MYOVIEW (PER STUDY) 1 DOSE IV (09:43)
== END 2024-12-13 23:59 | disposition home or self-care (01) ==
LOC: RAD 06:40
PROVIDERS: PCP Family Medicine; Visit Provider Nurse Practitioner Family
DX: I25.10 Atherosclerotic heart disease of native coronary artery without angina pectoris (principal); R06.00 Dyspnea, unspecified; R55 Syncope and collapse
CPT/HCPCS: 78452; 93017; 93018; 93270; 93272; A9502; J2785

== ENCOUNTER 2024-12-25 12:48 | Outpatient (CLI) | payer BC, SELFPAY ==
--- NOTE | 2024-12-25 12:48 | CT_ITS ---
FINAL REPORT TECHNIQUE: Axial imaging of the chest is obtained after the administration of contrast. 3-D MIP reformatted images were also obtained and reviewed per PE protocol. CLINICAL HISTORY: Dilated thoracic aorta COMPARISON: 04/24/2023 FINDINGS: The pulmonary arteries are well filled. There is no evidence of pulmonary embolus. There is no thoracic aortic aneurysm or dissection. Heart size is normal. There is no mediastinal, hilar, or axillary lymphadenopathy. The lungs are clear. There is no suspicious pulmonary mass or nodule. There is no pleural or pericardial effusion. Limited evaluation of the upper abdomen is without acute abnormality. A stent in the celiac axis appears patent within the limitations of this exam. No acute osseous abnormality. IMPRESSION: No thoracic aortic aneurysm or dissection. No acute intrathoracic abnormality. Reviewed, Interpreted and Dictated by Krista Mcintyre MD Transcribed by Vivi Brandt Authenticated and [facility]
[2024-12-25] MEDS: IOPAMIDOL-370 (76%);100ML BOTTLE 100 ML IV (13:16)
[2024-12-25] MEDS: 0.9 % SODIUM CHLORIDE 50 ML VIAL 40 ML IV (13:16)
[2024-12-25] MEDS: SODIUM CHLORIDE 0.9% 10ML SYR (RAD ONLY) 10 ML IV (13:16)
== END 2024-12-25 23:59 | disposition home or self-care (01) ==
LOC: RAD 12:48
PROVIDERS: PCP Family Medicine; Visit Provider Nurse Practitioner Family
DX: I25.10 Atherosclerotic heart disease of native coronary artery without angina pectoris (principal); I77.810 Thoracic aortic ectasia
CPT/HCPCS: 71275; Q9967

== ENCOUNTER 2024-12-29 07:37 | Day surgery (SDC) | payer BC, SELFPAY ==
[2024-12-29] VITALS (15 sets, daily range): BP systolic 113–158; BP diastolic 60–88; PULSE 60–88; RESP 16–20; TEMP 36.6–36.9; O2SAT 95–96; BMI 29.2
--- NOTE | 2024-12-29 07:06 | IR_ITS ---
APPROVED REPORT Patient Location: Outpatient PROCEDURES Left heart catheterization Left ventriculogram Selective coronary angiogram Drug-eluting stent deployment to the ostial proximal left main artery INDICATION High risk abnormal Myoview, Angina pectoris, Coronary artery disease, Informed consent was obtained prior to the procedure. COMPLICATIONS NONE Estimated Blood Loss: LESS THAN 10 ML TECHNIQUE One percent lidocaine used to anesthetize the medial anterior aspect of the right wrist. The right ulnar l artery was accessed via the Seldinger technique. A 6 Georgian sheath was placed in the right ulnar l artery. 2.5 mg of Verapamil, 800 mcg of nitroglycerin, 1mg Lidocaine and 5000 U Heparin were given through the arterial sheath. The 6 Georgian JL 3 guide catheter was used to intubate the left main artery. There was severe dampening with contrast retention after each injection which required pulling the catheter out and placing it into the left coronary cusp. Following diagnostic angiography therapeutic heparin was administered giving a therapeutic ACT and the guide catheters placed in the left coronary cusp with a Choice PT extra-support wire placed in the LAD. A 4 mm x 12 mm Rahul frontier stent was deployed in the ostial proximal segment at 20 emily reducing the stenosis to 0%. The catheter was then reintroduced with no more dampening and excellent expansion of the stent. Following this left heart catheterization and left ventriculogram was performed. At the end the procedure the apparatus was removed the sheath was removed and hemostasis was achieved and TR banding patient was transferred to the postop putting in stable condition ANGIOGRAPHIC RESULTS The left main artery Has an ostial 60% stenosis The left anterior descending artery Has a stent in the proximal to mid segment which has mild concentric in-stent restenosis with excellent proximal distal transitioning. First diagonal artery is a small 1 mm vessel and jailed within the stent still with SOFIE-3 flow. The circumflex artery Is a dominant vessel and has 30% concentric stenosis in the ostial proximal first obtuse marginal artery with rest of the vessel having mild 10% luminal regularities The right coronary artery Vestigial normal The [place] ventriculogram reveals Hyperdynamic 75% The left ventricular end-diastolic pressure 15 mmHg IMPRESSION Severe ostial left main disease with successful stenting reducing lesion to 0% with 1 drug-eluting stent Hyperdynamic ventricle Normal LVEDP PLAN 1. Plavix and aspirin 2. LDL less than 55 achieved high intensity statin 3. Treatment of hyperdynamic ventricle 4. Cardiac rehabilitation 5. Avoidance of tobacco products Electronically signed by : Olivier Encinas MD 12/29/2024 09:17:22
[2024-12-29 07:55] LABS: Basophils % 0.4 % (0.1-2.0); Eosinophils # 0.1 K/mm3 (0.0-0.4); Eosinophils % 2.8 % (0.1-12.0); Hematocrit 39.7 % (37.0-47.0); Hemoglobin 13.1 g/dL (12.2-16.2); Lymphocytes # 1.2 K/mm3 (0.7-4.5); Lymphocytes % 23.3 % (10-50); Mean Corpuscular Hemoglobin 28.9 pg (27.0-31.2); Mean Corpuscular Volume 87.4 fl (81-99); Mean Platelet Volume 10.6 fl (7.4-10.4); Monocytes # 0.5 K/mm3 (0.1-1.0); Monocytes % 9.9 % (1.7-9.3); Neutrophils # 3.1 K/mm3 (1.8-7.8); Neutrophils % 63.2 % (37.0-80.0); Platelet Count 297 K/mm3 (142-424); Red Blood Count 4.54 M/mm3 (4.20-5.40)
[2024-12-29 08:02] LABS: Chloride 104 mmol/L (98-107); Potassium 3.6 mmoL/L (3.5-5.1); Sodium 139 mmol/L (136-145)
[2024-12-29 08:05] LABS: Anion Gap 9.6 mEq/L (5-15); Blood Urea Nitrogen 9 mg/dl (7-17); Carbon Dioxide 29 mmol/L (22.0-30.0); Creatinine Clearance Estimated 97 mL/min (50-200); Estimated Glomerular Filt Rate 73 ml/min (>60); GFR (African American) 89 ML/MIN (>60)
[2024-12-29 08:06] LABS: Calcium 9.4 mg/dl (8.4-10.2); Glucose 110 mg/dl (74-100)
[2024-12-29] MEDS: HEPARIN 1,000 UNITS/500ML NS (CATH LAB) 3000 UNIT IV (08:39)
[2024-12-29] MEDS: 0.9 % SODIUM CHLORIDE 500 ML 25 ML IV (08:40)
[2024-12-29] MEDS: LIDOCAINE 1% 10ML MDV 20 ML IJ (08:40)
[2024-12-29] MEDS: diphenhydrAMINE 50MG/ML VIAL 50 MG IV (08:40)
[2024-12-29] MEDS: VERAPAMIL 2.5MG/ML 2ML VIAL 2.5 MG IV (08:40)
[2024-12-29] MEDS: HEPARIN 1,000 UNITS/ML 10ML VIAL (CATH LAB) 10000 UNIT IV ×2 (08:40→09:14)
[2024-12-29] MEDS: NITROGLYCERIN 800MCG/8ML SYR (CATH LAB) 800 MCG IA (08:40)
[2024-12-29] MEDS: FENTANYL 100MCG/2ML VIAL 50 MCG IV (09:12)
[2024-12-29] MEDS: CLOPIDOGREL 300MG TABLET 600 MG PO (09:13)
[2024-12-29] MEDS: MIDAZOLAM HCL 1MG/ML 5ML VIAL 1 MG IV (09:14)
--- NOTE | 2024-12-29 10:23 | SUR.PHASEII ---
NO ALEC OR ARB PER MD
[2024-12-29] MEDS: IOPAMIDOL-370 (76%);100ML BOTTLE 70 ML IV (12:39)
[2024-12-29 12:40] LABS: CATHL Activated Clotting Time > 400 SEC (74-125)
== END 2024-12-29 12:53 | disposition home or self-care (01) ==
PROVIDERS: PCP Family Medicine; Visit Provider Internal Medicine
DX: I25.118 Atherosclerotic heart disease of native coronary artery with other forms of angina pectoris (principal); I77.1 Stricture of artery; R93.1 Abnormal findings on diagnostic imaging of heart and coronary circulation; Z95.5 Presence of coronary angioplasty implant and graft; Z79.899 Other long term (current) drug therapy; Z79.01 Long term (current) use of anticoagulants; I10 Essential (primary) hypertension; E78.5 Hyperlipidemia, unspecified; E11.9 Type 2 diabetes mellitus without complications; Z82.49 Family history of ischemic heart disease and other diseases of the circulatory system; Z87.891 Personal history of nicotine dependence; I77.810 Thoracic aortic ectasia; I77.4 Celiac artery compression syndrome
CPT/HCPCS: 80048; 85025; 85347; 92928; 93458; 99152; 99153; C1725; C1769; C1874; C9600; J1200; J1644; J2250; J3010; Q9967

== ENCOUNTER 2025-01-01 15:12 | Outpatient (CLI) | payer BC, SELFPAY ==
[2025-01-01 15:38] LABS: Basophils % 0.5 % (0.1-2.0); Eosinophils # 0.1 K/mm3 (0.0-0.4); Eosinophils % 2.2 % (0.1-12.0); Hemoglobin 12.7 g/dL (12.2-16.2); Lymphocytes # 1.4 K/mm3 (0.7-4.5); Lymphocytes % 22.5 % (10-50); Mean Corpuscular HGB Conc 33.4 g/dL (31.8-35.4); Mean Corpuscular Hemoglobin 29.3 pg (27.0-31.2); Mean Corpuscular Volume 87.8 fl (81-99); Mean Platelet Volume 10.5 fl (7.4-10.4); Monocytes # 0.4 K/mm3 (0.1-1.0); Monocytes % 7.2 % (1.7-9.3); Neutrophils % 67.1 % (37.0-80.0); Platelet Count 279 K/mm3 (142-424); Red Blood Count 4.33 M/mm3 (4.20-5.40); Red Cell Distribution Width 13.1 % (11.5-17.5)
[2025-01-01 16:49] LABS: Chloride 103 mmol/L (98-107); Sodium 137 mmol/L (136-145)
[2025-01-01 16:50] LABS: Potassium 3.6 mmoL/L (3.5-5.1)
[2025-01-01 16:53] LABS: Anion Gap 9.6 mEq/L (5-15); Blood Urea Nitrogen 11 mg/dl (7-17); Calcium 9.1 mg/dl (8.4-10.2); Carbon Dioxide 28 mmol/L (22.0-30.0); Estimated Glomerular Filt Rate 85 ml/min (>60); GFR (African American) 103 ML/MIN (>60); Glucose 91 mg/dl (74-100)
== END 2025-01-01 23:59 | disposition home or self-care (01) ==
LOC: LAB 15:13
PROVIDERS: PCP Family Medicine; Visit Provider Internal Medicine
DX: Z95.5 Presence of coronary angioplasty implant and graft (principal)
CPT/HCPCS: 36415; 80048; 85025

== ENCOUNTER 2025-01-03 09:13 | Emergency (ER) | payer BC, SELFPAY ==
[2025-01-03] VITALS (50 sets, daily range): BP systolic 63–134; BP diastolic 38–68; PULSE 63–75; RESP 12–24; TEMP 36.8; O2SAT 89–100; BMI 28.7
--- NOTE | 2025-01-03 09:15 | ECG_ITS ---
APPROVED REPORT Exam: Resting ECG HR:74 bpm ECG Measurements Heart Rate 74 AXES NC 161 P 18 QRSd 86 QRS 59 QT 426 T 59 QTc 454 Conclusion Sinus rhythm, low voltage QRS Electronically signed by : MATILDE MCLEOD, 01/03/2025 15:02:30
--- NOTE | 2025-01-03 09:20 | PC.NURSE ---
FSBS was 120 at 0916 hrs
--- NOTE | 2025-01-03 09:24 | CT_ITS ---
FINAL REPORT TECHNIQUE: Thin section axial CT with contrast with multiplanar reconstruction This study was performed with techniques to keep radiation doses as low as reasonably achievable, (ALARA). Individualized dose reduction techniques using automated exposure control or adjustment of mA and/or kV according to the patient''s size were employed. CLINICAL HISTORY: syncope, weakness COMPARISON: 12/25/2024 FINDINGS: There is no evidence of central pulmonary embolism. Thoracic aorta shows no dissection or aneurysm. No pulmonary mass or infiltrate is present. There is no significant pleural effusion. There is no significant pericardial effusion. No mediastinal or hilar adenopathy is present. IMPRESSION: No evidence of thoracic aortic aneurysm or dissection. No evidence of central pulmonary embolism. Reviewed, Interpreted and Dictated by Ernie Rivero MD Transcribed by Jennifer Meyer Authenticated and [facility]
--- NOTE | 2025-01-03 09:24 | CT_ITS ---
FINAL REPORT TECHNIQUE: Thin section axial images were obtained through the abdomen and pelvis after contrast injection per CT angiogram protocol. Multiplanar reconstruction images were obtained from the axial data. This exam was performed with techniques to keep radiation dose as low as reasonably achievable. This includes automated exposure control, adjustment of the MA and KVP, and iterative reconstruction technique. CLINICAL HISTORY: syncope, weakness, nausea COMPARISON: 09/18/2024 CTA abdomen and pelvis with runoff FINDINGS: CTA: No abdominal aortic aneurysm or aortic dissection. Scattered plaque is identified in the abdominal aorta. The superior mesenteric artery, and inferior mesenteric artery are patent without stenosis. A stent is once again noted in the celiac axis, and there is intrastent narrowing of the celiac stent. The renal arteries are patent. The common iliac arteries and visualized portions of the internal and external iliac arteries are patent. No significant stenosis. NONVASCULAR: The gallbladder has been surgically resected. The solid abdominal organs are without acute abnormality. Postoperative changes are noted in the cecum, and the appendix is not visualized, presumed surgically absent. Mild bladder wall thickening is present. The uterus has been surgically resected. No lymphadenopathy or free fluid. No acute osseous abnormality. IMPRESSION: No evidence of abdominal aortic aneurysm or dissection. No findings to suggest mesenteric ischemia. 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 Reviewed, Interpreted and Dictated by Ernie Rivero MD Transcribed by Ana Araujo Authenticated and [facility]
[2025-01-03 09:25] LABS: Coronavirus 19, PCR Not Detected (NotDetected); Influenza A, PCR Not Detected (NotDetected); Influenza B, PCR Not Detected (NotDetected)
--- NOTE | 2025-01-03 09:25 | XR_ITS ---
FINAL REPORT CLINICAL HISTORY: syncope, cp COMPARISON: 12/10/2024 FINDINGS: No acute pulmonary opacity is present. There is no evidence of effusion or pneumothorax. Mediastinum is unremarkable. Heart size is normal. IMPRESSION: No acute abnormality. Reviewed, Interpreted and Dictated by Ernie Rivero MD Transcribed by Jennifer Meyer Authenticated and [facility]
--- NOTE | 2025-01-03 09:29 | PC.NURSE ---
Took a manual blood pressure on the patient and it was 82/60.
[2025-01-03 09:31] LABS: Basophils % 0.5 % (0.1-2.0); Eosinophils # 0.1 K/mm3 (0.0-0.4); Eosinophils % 2.2 % (0.1-12.0); Hematocrit 38.2 % (37.0-47.0); Hemoglobin 13.2 g/dL (12.2-16.2); Lymphocytes # 1.6 K/mm3 (0.7-4.5); Lymphocytes % 25.9 % (10-50); Mean Corpuscular HGB Conc 34.6 g/dL (31.8-35.4); Mean Corpuscular Hemoglobin 29.9 pg (27.0-31.2); Mean Corpuscular Volume 86.4 fl (81-99); Mean Platelet Volume 10.7 fl (7.4-10.4); Monocytes # 0.4 K/mm3 (0.1-1.0); Monocytes % 6.5 % (1.7-9.3); Platelet Count 342 K/mm3 (142-424); Red Blood Count 4.42 M/mm3 (4.20-5.40); Red Cell Distribution Width 13.1 % (11.5-17.5); White Blood Count 6.3 K/mm3 (4.8-10.8)
--- NOTE | 2025-01-03 09:34 | [facility].EDCP ---
Discharge Plan Disposition Patient Disposition: Home, Self-Care Chief Complaint: Syncope Prescriptions Prescriptions: No Action aspirin [Adult Aspirin Regimen] 81 mg tablet,delayed release (DR/EC) 81 mg PO DAILY Qty: 30 2RF Xarelto 2.5 mg tablet 2.5 mg PO BID Qty: 60 2RF clopidogrel [Plavix] 75 mg Tablet 75 mg PO DAILY Qty: 30 6RF bisoprolol fumarate 5 mg Tablet 5 mg PO DAILY Qty: 30 3RF citalopram 10 mg tablet 10 mg PO DAILY ethacrynic acid 25 mg tablet 25 mg PO BID Patient Comments: TAKE 1 TABLET BY MOUTH TWICE DAILY levothyroxine [Synthroid] 25 mcg tablet 25 mcg PO DAILYDM cyanocobalamin (vitamin B-12) 1,000 mcg/mL solution 1,000 mcg IM MONTHLY cyclobenzaprine 5 mg tablet 5 mg PO DAILY rosuvastatin 20 mg tablet 20 mg PO DAILY Trulicity 1.5 mg/0.5 mL pen injector 1.5 mg SQ WEEKLY gabapentin 300 mg capsule 600 mg PO HS ranolazine 1,000 mg tablet extended release 12 hr 1,000 mg PO BID Referrals Follow up/Referrals: Provider,Referral, MD [Referring] - See instructions Activity Restrictions/Add. Instructions Additional Instructions/Restrictions: Call cardiology clinic to schedule follow-up appointment, you can also walk-in to their clinic today and see if they will accept you as a walk-in. Call your family doctor to establish care for this visit to the emergency department and schedule follow-up within 48 hours to ensure improvement. If you have any worsening of your condition or any other concerning signs or symptoms, return to the emergency department or your primary care doctor for further evaluation. Clinical Impressions Clinical Impression: Syncope Instructions Patient Instructions: DI for Syncope in Adults (Fainting), DI for Syncope in Children (Fainting) Print Language Print Language: Kazakh Discharge ED Provider: Smith Massey HPI General Chief Complaint: Syncope Stated Complaint: Syncopy Time Seen by Provider: 01/03/25 09:23 History of Present Illness HPI narrative: Please note that above description of symptoms, in this electronic medical record under categorization of recalled from ER triage doctor by RN are reflective of an initial nursing assessment, however, is not reflective of my full history and physical exam that was personally taken and clarified. Consequentially, this preceding description of symptoms, which may include the patient's categorized chief complaint in the EMR, do not reflect my personal clinical impression, and the ultimate description of history of present illness and patient stated complaints should be deferred to this section of the note. Unless stated otherwise or congruent with this section of the note, additional signs, symptoms, or incongruence should be interpreted as inaccurate with my clinical impression. Related Data Home Medications ?Medication ?Instructions ?Recorded ?Confirmed citalopram 10 mg tablet 10 mg PO DAILY 09/16/24 01/03/25 cyanocobalamin (vitamin B-12) 1,000 mcg IM MONTHLY 09/16/24 01/03/25 1,000 mcg/mL injection solution cyclobenzaprine 5 mg tablet 5 mg PO DAILY 09/16/24 01/03/25 dulaglutide 1.5 mg/0.5 mL 1.5 mg SQ WEEKLY 09/16/24 01/03/25 subcutaneous pen injector (Trulicity) ethacrynic acid 25 mg tablet 25 mg PO BID 09/16/24 01/03/25 levothyroxine 25 mcg tablet 25 mcg PO DAILYDM 09/16/24 01/03/25 (Synthroid) rosuvastatin 20 mg tablet 20 mg PO DAILY 09/16/24 01/03/25 gabapentin 300 mg capsule 600 mg PO HS 12/04/24 01/03/25 ranolazine 1,000 mg 1,000 mg PO BID 12/10/24 01/03/25 tablet,extended release,12 hr Previous Rx's ?Medication ?Instructions ?Recorded aspirin 81 mg tablet,delayed 81 mg PO DAILY #30 tabs 09/20/24 release (Adult Aspirin Regimen) rivaroxaban 2.5 mg tablet (Xarelto) 2.5 mg PO BID #60 tabs 09/20/24 bisoprolol fumarate 5 mg tablet 5 mg PO DAILY #30 tabs 12/29/24 clopidogrel 75 mg tablet (Plavix) 75 mg PO DAILY #30 tabs 12/29/24 Allergies Allergy/AdvReac Type Severity Reaction Status Date / Time codeine (CODEINE) Allergy Severe Unknown Verified 01/03/25 09:01 allergy reaction Corticosteroids Allergy Unknown Unknown Verified 01/03/25 09:01 (Glucocorticoids) allergy (CORTICOSTEROIDS reaction (GLUCOCORTICOIDS)) dexamethasone (DEXAMETHASONE) Allergy Unknown Unknown Verified 01/03/25 09:01 allergy reaction erythromycin base Allergy Unknown I-RASH Verified 01/03/25 09:01 (ERYTHROMYCIN BASE) fexofenadine (FEXOFENADINE) Allergy Unknown UNKNOWN I Verified 01/03/25 09:01 DONT DO GOOD WITH DECONGESTANTS hydroxyzine (HYDROXYZINE) Allergy Unknown UNKNOWN Verified 01/03/25 09:01 loratadine (LORATADINE) Allergy Unknown Unknown Verified 01/03/25 09:01 allergy reaction nitrofurantoin Allergy Unknown Unknown Verified 01/03/25 09:01 (NITROFURANTOIN) allergy reaction Penicillins (PENICILLINS) Allergy Unknown Unknown Verified 01/03/25 09:01 allergy reaction pseudoephedrine Allergy Unknown Unknown Verified 01/03/25 09:01 (PSEUDOEPHEDRINE) allergy reaction Sulfa (Sulfonamide Allergy Unknown Unknown Verified 01/03/25 09:01 Antibiotics) (SULFA allergy (SULFONAMIDE ANTIBIOTICS)) reaction furosemide Allergy Rash Verified 01/03/25 09:01 spironolactone Allergy Unknown Verified 01/03/25 09:01 allergy reaction dapagliflozin (From [facility]) AdvReac Severe Unknown Verified 01/03/25 09:01 allergy reaction PFSH PFS Disclaimer: The information contained in this section may have been updated after the patient was seen, as this information can be updated by other users. Medical History Syncopal episodes Abnormal nuclear cardiac imaging test History of CT scan of brain History of MRI of brain and brain stem Angina pectoris Dilatation of thoracic aorta Abdominal pain Crohn's disease Multiple thyroid nodules Paranoia Tinnitus Impacted cerumen, right ear Hypothyroidism Asthma Dyspnea on exertion Stopped smoking with greater than 20 pack year history Nodule of left lung Lung nodule Abnormal chest x-ray Pneumonia Headache History of melanoma Lymphadenopathy Arthritis GERD (gastroesophageal reflux disease) Cancer Former smoker Hypertension Diabetes Dyspareunia in female Vaginal atrophy Early satiety Claudication Heart murmur Family history of ischemic heart disease Father-CABG @ 60 Mother- valve replacement @ 62 Brother-CAD with stent Former smoker TIM (obstructive sleep apnea) Mild, declined treatment Melanoma Disorder of thyroid DM2 (diabetes mellitus, type 2) HLD (hyperlipidemia) HTN (hypertension) CAD (coronary artery disease) Exposure to COVID-19 virus Urticaria Adverse drug effect Right ankle sprain Surgical History H/O arthroscopy of left knee H/O bilateral mastectomy History of hysterectomy with bilateral oophorectomy Family History Father Cancer Coronary artery disease Mother Diabetes Stroke Brother Coronary artery disease Heart attack Other Hyperlipidemia Hypertension Social History Smoking Status: Never smoker years smoked: 20 smoking status stop date: 1997 second hand exposure: No alcohol intake: never counseling given: No substance use type: denies use counseling given: No current occupational status: employed Travel in the last 8 weeks: None adopted: No caregiver/support person: No foster care: No household members: spouse housing: house marital status: number of children: 0 education level: college current occupation: [employer] Hx Recent Travel: No caffeine: No physical activity: none gregory/lutheran: Alevism special gregory needs: No working smoke detector in home: Yes fire extinguisher in home: No carbon monox detector in home: Yes firearms in home: Yes firearms unloaded and locked: Yes do you feel safe at home: Yes victim of physical abuse: No victim of emotional abuse: No victim of sexual abuse: No would you like helpful sources: No Have you lived/traveled outside [place] in past 30 days?: No Contact w/someone who lives/traveled outside US past 30 days?: No Exposure to someone with infectious disease in past 14 days?: No Do you have a fever (greater than 100.4 F or 38 C)?: No Have you tested positive for COVID-19: No Exposed to someone with COVID-19 in past 14 days?: No Do you have a sore throat?: No Do you have a cough?: No Do you have any weakness?: No Do you have any diarrhea?: No Are you experiencing any unusual bleeding?: No Do you have any muscle aches/pain?: No Do you have any abdominal pain?: No Are you experiencing loss of taste or smell?: No Other Medical History Have you received the Flu Vaccine for this season: No Have you received the Pneumonia Vaccine: No ROS Obtained: Yes All systems reviewed & no additional complaints except as documented Physical Exam General General appearance: alert and in no apparent distress Comment: Fatigued appearing Eye Eye exam: Present normal appearance, PERRL and EOMI ENT ENT exam: Present mucous membranes moist Neck Neck exam: Present trachea midline Chest Chest inspection: Present normal inspection and symmetric chest wall rise Respiratory Respiratory exam: Present normal lung sounds bilaterally; Absent respiratory distress, wheezes, stridor, accessory muscle use or prolonged expiratory phase Cardiovascular Cardiovascular exam: Present regular rate, normal rhythm and other (Pulses equal and symmetric in upper and lower extremities) Abdominal Exam Abdominal exam: Present soft; Absent distention, tenderness, guarding, rebound or rigidity Extremities Exam Extremities exam: Absent edema Neurological Exam Neurological exam: Present alert, oriented X3 and CN II-XII intact; Absent motor sensory deficit Skin Skin exam: Present warm and dry; Absent cyanosis, diaphoresis or pallor HEART Score HEART Score HEART Score assessment performed?: Yes History (anamnesis): Moderately suspicious ECG: Normal Age: 45-65 years Risk factors: 3 or more risk factors Troponin: </= normal limit HEART Score: 4 Critical Care Critical Care Time Critical Care Time: Yes (cardiac) Attestation: On 01/03/25, the high probability of a clinically significant, sudden or life threatening deterioration of the following system(s) required my full and direct attention, intervention and personal management. The time I documented below is in addition to time spent performing reported procedures but includes the following listed in this critical care notation. Total Time Total Critical Care Time: 35 Medical Decision Making Medical Records Medical records reviewed: Yes I reviewed the patient's medical records. Nate Inquiry Pt receiving controlled substance: No Nate was queried for this patient: No Vital Signs Vital Signs: 01/03/25 09:14 01/03/25 09:23 01/03/25 09:25 Temperature 98.3 F Temperature Source Oral Pulse Rate 69 66 Pulse Rate [Left Radial] 75 Respiratory Rate 20 17 15 Blood Pressure 63/38 L 80/51 L Blood Pressure [Right Arm] 117/56 L Blood Pressure Mean Blood Pressure Mean [Right Arm] 76 02 Sat by Pulse Oximetry 89 L 96 99 Oxygen Delivery Method Room Air Room Air Room Air Oxygen Flow Rate (LPM) 01/03/25 09:29 01/03/25 09:30 01/03/25 09:35 Temperature Temperature Source Pulse Rate 65 65 66 Pulse Rate [Left Radial] Respiratory Rate 23 15 17 Blood Pressure 92/47 L 94/41 L 102/56 L Blood Pressure [Right Arm] Blood Pressure Mean Blood Pressure Mean [Right Arm] 02 Sat by Pulse Oximetry 93 L 95 95 Oxygen Delivery Method Room Air Room Air Room Air Oxygen Flow Rate (LPM) 01/03/25 09:40 01/03/25 10:00 01/03/25 10:05 Temperature Temperature Source Pulse Rate 65 65 66 Pulse Rate [Left Radial] Respiratory Rate 14 15 13 Blood Pressure 107/47 L 115/52 L 115/55 L Blood Pressure [Right Arm] Blood Pressure Mean Blood Pressure Mean [Right Arm] 02 Sat by Pulse Oximetry 100 100 98 Oxygen Delivery Method Nasal Cannula Nasal Cannula Nasal Cannula Oxygen Flow Rate (LPM) 2 2 2 01/03/25 10:10 01/03/25 10:15 01/03/25 10:20 Temperature Temperature Source Pulse Rate 65 66 65 Pulse Rate [Left Radial] Respiratory Rate 13 13 16 Blood Pressure 109/49 L 110/53 L 113/55 L Blood Pressure [Right Arm] Blood Pressure Mean Blood Pressure Mean [Right Arm] 02 Sat by Pulse Oximetry 97 99 97 Oxygen Delivery Method Nasal Cannula Nasal Cannula Nasal Cannula Oxygen Flow Rate (LPM) 2 2 2 01/03/25 10:25 01/03/25 10:30 01/03/25 10:35 Temperature Temperature Source Pulse Rate 65 66 66 Pulse Rate [Left Radial] Respiratory Rate 24 15 16 Blood Pressure 114/59 L 120/60 129/62 Blood Pressure [Right Arm] Blood Pressure Mean 75 Blood Pressure Mean [Right Arm] 02 Sat by Pulse Oximetry 100 100 98 Oxygen Delivery Method Nasal Cannula Nasal Cannula Oxygen Flow Rate (LPM) 2 2 01/03/25 10:40 01/03/25 10:45 01/03/25 10:50 Temperature Temperature Source Pulse Rate 65 65 65 Pulse Rate [Left Radial] Respiratory Rate 15 15 15 Blood Pressure 120/61 131/65 124/64 Blood Pressure [Right Arm] Blood Pressure Mean 83 77 85 Blood Pressure Mean [Right Arm] 02 Sat by Pulse Oximetry 97 97 97 Oxygen Delivery Method Oxygen Flow Rate (LPM) 01/03/25 10:55 01/03/25 11:00 01/03/25 11:05 Temperature Temperature Source Pulse Rate 64 66 66 Pulse Rate [Left Radial] Respiratory Rate 13 14 14 Blood Pressure 134/66 116/57 L 119/60 Blood Pressure [Right Arm] Blood Pressure Mean 83 74 72 Blood Pressure Mean [Right Arm] 02 Sat by Pulse Oximetry 97 99 99 Oxygen Delivery Method Oxygen Flow Rate (LPM) 01/03/25 11:10 01/03/25 11:15 01/03/25 11:20 Temperature Temperature Source Pulse Rate 63 66 66 Pulse Rate [Left Radial] Respiratory Rate 13 12 15 Blood Pressure 124/60 116/62 132/56 L Blood Pressure [Right Arm] Blood Pressure Mean 81 74 Blood Pressure Mean [Right Arm] 02 Sat by Pulse Oximetry 97 97 97 Oxygen Delivery Method Nasal Cannula Oxygen Flow Rate (LPM) Lab Data Labs: Lab Results 01/03/25 09:19: WBC 6.3, RBC 4.42, Hgb 13.2, Hct 38.2, MCV 86.4, MCH 29.9, MCHC 34.6, RDW 13.1, Plt Count 342, MPV 10.7 H, Neut % (Auto) 64.0, Lymph % (Auto) 25.9, White % (Auto) 6.5, Eos % (Auto) 2.2, Baso % (Auto) 0.5, Neut # (Auto) 4.0, Lymph # (Auto) 1.6, White # (Auto) 0.4, Eos # (Auto) 0.1, Baso # (Auto) 0.0, PT 10.8, INR 0.98, APTT 25.1, Sodium 139, Potassium 4.0, Chloride 106, Carbon Dioxide 27, Anion Gap 10.0, BUN 13, Creatinine 0.90 D, Estimated Creat Clear 85, Estimated GFR 64, Est GFR ( Amer) 77 D, Glucose 134 H, Calcium 9.3, Magnesium 1.8, Total Bilirubin 0.8, AST 24, ALT 17, Alkaline Phosphatase 69, Troponin I < 0.01, NT-Pro-B Natriuret Pep 81.2, Total Protein 6.0 L, Albumin 3.9, Globulin 2.1, Albumin/Globulin Ratio 1.9 H, TSH 6.18 H, Thyroxine (T4) 10.2, Plasma/Serum Alcohol < 10 01/03/25 09:22: SARS-CoV-2 (PCR) Not detected, Influenza A Untype (PCR) Not detected, Influenza Type B (PCR) Not detected 01/03/25 09:26: VBG pH 7.43 H, VBG pCO2 36.6, VBG pO2 86.1 H, VBG HCO3 24.2, VBG Total CO2 25.3, VBG O2 Saturation 95.6 H, VBG Base Excess 0.4, VBG Lactic Acid 1.3 01/03/25 12:00: Troponin I < 0.01 01/03/25 09:19 01/03/25 09:19 Response Orders (Tests/Meds): ED MEDICATIONS Discontinued Medications Generic Name Dose Route Start Last Admin Trade Name Magedq PRN Reason Stop Dose Admin Aspirin 324 mg 01/03/25 09:24 01/03/25 09:58 Aspirin 81mg Chewable Tablet PO 01/03/25 09:25 324 mg ONCE ONE Administration Lactated Ringer's 1,000 mls @ 999 mls/hr 01/03/25 09:24 01/03/25 09:44 Lactated Ringer's 1000 Ml Bag IV 01/03/25 10:24 999 mls/hr .Q1H1M ONE Administration Iopamidol 80 ml 01/03/25 09:49 01/03/25 09:50 Iopamidol-370 (76%);100ml Bottle IV 01/03/25 09:50 80 ml ONCE ONE Administration Sodium Chloride 10 ml 01/03/25 09:49 01/03/25 09:49 Sodium Chloride 0.9% 10ml Syr (Rad Only) IV 01/03/25 09:50 10 ml ONCE ONE Administration Sodium Chloride 50 ml 01/03/25 09:49 01/03/25 09:49 0.9 % Sodium Chloride 50 Ml Vial IV 01/03/25 09:50 50 ml ONCE ONE Administration ORDERS Category Date Time Status CT angio abdomen pelvis Stat Cat Scan 01/03/25 09:24 Completed CTA Chest [CT angio chest - dissection] Stat Cat Scan 01/03/25 09:24 Completed POCUS Point of Care (ER Only) Stat Exams 01/03/25 09:25 Completed XR chest portable Stat Exams 01/03/25 09:25 Completed Complete Blood Count Auto Diff Stat Lab 01/03/25 09:19 Completed Comprehensive Metabolic Panel Stat Lab 01/03/25 09:19 Completed Ethanol [Ethyl Alcohol] Stat Lab 01/03/25 09:19 Completed Magnesium Stat Lab 01/03/25 09:19 Completed NT Pro Brain Natriuretic Pep. Stat Lab 01/03/25 09:19 Completed PT INR [Prothrombin Time INR] Stat Lab 01/03/25 09:19 Completed PTT [Activated Partial Thrombo Time] Stat Lab 01/03/25 09:19 Completed Rapid PCR Covid and Flu A/B Stat Lab 01/03/25 09:22 Completed T4 (Thyroxine) Stat Lab 01/03/25 09:19 Completed TSH [Thyroid Stimulating Hormone] Stat Lab 01/03/25 09:19 Completed Troponin I Q3H Lab 01/03/25 12:00 Completed Troponin I Q3H Lab 01/03/25 15:30 Ordered Troponin I Stat Lab 01/03/25 09:19 Completed Venous Blood Gas Stat RT 01/03/25 09:26 Completed MDM Narrative Medical Decision Narrative: 59-year-old female history of hypertension, hyperlipidemia, type 2 diabetes, PAD on Xarelto, mesenteric artery stenosis and stenting, CAD status post stenting (last stented in left main coronary artery on 12/29/2024), thoracic aortic and rhythm presenting with syncopal episode. Patient was seen in clinic cardiology just prior to arrival. While she was being registered, stated I feel like I am about to go out, and then syncopized. Patient was brought to the emergency department for further evaluation. Just before passing out, patient states she had no chest pain or palpitations, but just felt lightheaded, nauseated, hot, and had tunnel vision. No seizure-like activity afterward. No postictal period. History obtained the patient and cardiology staff. It should be noted that patient recently had cardiac catheterization and stenting, which is likely complicating care. History was obtained via conversation with patient and cardiology staff. On arrival, patient hemodynamically stable, alert, oriented x4, appropriate, GCS 15, moving all extremities spontaneously, pupils equal and reactive to light. Full physical exam performed and significant for fatigued appearing female in no acute distress. Answering questions appropriately. NIHSS is 0. Pulses equal and symmetric in upper and lower extremities. No lower extremity edema. Cardiopulmonary exam within normal limits with no murmurs gallops or rubs, no focal breath sounds abnormalities. Differential includes ACS, IN, vasovagal, orthostatic, metabolic abnormality, endocrinologic abnormality, dissection, PE, among others. Patient was given 324 mg aspirin, fluids for symptomatic management and correction of underlying abnormalities. Patient placed on continuous cardiac monitoring and continuous pulse ox with initial blood pressure 117/56, heart rate 75, saturation 91 % on room air. Independent interpretation of EKG shows low voltage QRS sinus rhythm 74 bpm with [place] interval 161, QRS 86, QTc 454. No acute ischemic change. Workup independently interpreted and significant for nonactionable hematologic labs or VBG. Initial troponin negative. On independent interpretation of imaging, no acute abnormality about the chest abdomen and pelvis. See radiology read for full review of final results. Heart score 4. Reevaluation, patient states she is feeling much better after fluids and has no current symptoms. Patient was placed in observation beginning at 945 in order to rule out evolving IN with delta troponin and determine need for admission versus home-going. The patient was provided meds, serial exams, cardiac monitoring while awaiting results. Independent interpretation of results demonstrated negative delta troponin. On reevaluation, patient resting heavily ready to go home. At this time, I feel patient is appropriate for discharge. Total observation time 3.5 hours. Prolonged discussion had with patient and significant other. Patient has recently had extensive cardiac workup, stenting, cardiac catheterization, echo, etc. Currently has heart monitor in place. Recommended patient be admitted for high risk syncope, however she states that she feels better and is willing to go home. This was after thorough discussion of risks and benefits and honestly, I feel she is appropriate to go home. Has appropriate contact with others, cardiology, ability to return in case of emergency, etc. Because patient at baseline without signs or symptoms of clinical decompensation, deemed appropriate for discharge. Results were relayed to patient who voiced understanding and were agreeable to outpatient management and follow up. I discussed my clinical impression with patient and answered all questions. At this time, the evidence for any other entities in the differential is insufficient to warrant any further testing or ED observation. This was explained as well. Advisory was given that persistent or worsening symptoms require further evaluation. I confirmed the understanding of this discussion. 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 Electronic cash applications manager of the spoken language may permit errors. Although I have reviewed the note, some errors may still exist.
[2025-01-03 09:38] LABS: Chloride 106 mmol/L (98-107)
--- NOTE | 2025-01-03 09:38 | PC.NURSE ---
after triage pt bp dropped to 63/38, ivf bouls was initiated per protocol as well as pt placed on 2L of O2 via nasal cannula bc room air sat was 89%, pt had second iv started and second bag of iv fluids and pressure came up to 80/51, and has trended upward since
[2025-01-03 09:39] LABS: Albumin Level 3.9 g/dl (3.5-5.0); Sodium 139 mmol/L (136-145)
[2025-01-03 09:39] LABS: VBG PH 7.43 mmol/L (7.31-7.41)
[2025-01-03 09:40] LABS: Lactate Venous 1.3 mmol/L (0.4-2.0); VBG Base Excess 0.4 mmol/L (-2.4-2.3); VBG HCO3 24.2 mmol/L (23-30); VBG Oxygen Saturation 95.6 % (50-70); VBG PCO2 36.6 mmol/L (35-51); VBG PO2 86.1 mmol/L (28-40); VBG Total CO2 25.3 mmol/L (23-27)
[2025-01-03 09:41] LABS: Blood Urea Nitrogen 13 mg/dl (7-17); Carbon Dioxide 27 mmol/L (22.0-30.0); Creatinine Clearance Estimated 85 mL/min (50-200); Estimated Glomerular Filt Rate 64 ml/min (>60); GFR (African American) 77 ML/MIN (>60)
[2025-01-03 09:42] LABS: Alanine Aminotransferase 17 U/L (12-78); Albumin/Globulin Ratio 1.9 (1.1-1.8); Alkaline Phosphatase 69 U/L (38-126); Aspartate Amino Transferase 24 U/L (14-36); Bilirubin,Total 0.8 mg/dl (0.2-1.3); Calcium 9.3 mg/dl (8.4-10.2); Globulin 2.1 g/dL (1.3-3.2); Glucose 134 mg/dl (74-100); Magnesium 1.8 mg/dl (1.6-2.3)
[2025-01-03 09:43] LABS: Activated Partial Thrombo Time 25.1 seconds (22.5-28.5); INR 0.98 (0.9-1.1); Prothrombin Time 10.8 seconds (9.2-12.1)
--- NOTE | 2025-01-03 09:43 | PC.NURSE ---
ROUNDED ON THE PT. THE PT VOICES THAT SHE DOES NOT NEED ANYTHING AT THIS TIME. CALL LIGHT IS WITHIN REACH OF THE PT.
[2025-01-03] MEDS: LACTATED RINGERS 1000ML 1,000 ML 999 ML IV (09:44)
[2025-01-03] MEDS: 0.9 % SODIUM CHLORIDE 50 ML VIAL IV (09:49)
[2025-01-03] MEDS: SODIUM CHLORIDE 0.9% 10ML SYR (RAD ONLY) 10 ML IV (09:49)
[2025-01-03] MEDS: IOPAMIDOL-370 (76%);100ML BOTTLE 80 ML IV (09:50)
[2025-01-03 09:53] LABS: NT Pro Brain Natriuretic Pep. 81.2 pg/mL (0-125)
[2025-01-03] MEDS: ASPIRIN 81MG CHEWABLE TABLET 324 MG PO (09:58)
[2025-01-03 09:59] LABS: T4 (Thyroxine) 10.2 ug/dl (5.53-11.0)
[2025-01-03 10:02] LABS: Ethyl Alcohol < 10 mg/dl (0-10); Troponin I < 0.01 ng/ml (0.00-0.034)
[2025-01-03 10:12] LABS: Thyroid Stimulating Hormone 6.18 uIU/mL (0.465-4.68)
--- NOTE | 2025-01-03 10:37 | PC.NURSE ---
ROUNDED ON THE PT. THE PT VOICES THAT SHE DOES NOT NEED ANYTHING AT THIS TIME. CALL LIGHT IS WITHIN REACH OF THE PT. FAMILY MEMBERS ARE PRESENT AT THE BEDSIDE.
--- NOTE | 2025-01-03 11:22 | PC.NURSE ---
ROUNDED ON THE PT. THE PT VOICES THAT SHE DOES NOT NEED ANYTHING AT THIS TIME. CALL LIGHT IS WITHIN REACH OF THE PT. IS PRESENT AT THE BEDSIDE.
[2025-01-03 12:53] LABS: Troponin I < 0.01 ng/ml (0.00-0.034)
== END 2025-01-03 13:35 | disposition home or self-care (01) ==
PROVIDERS: Emergency Provider Emergency Medicine; PCP Family Medicine
DX: R55 Syncope and collapse (principal)
CPT/HCPCS: 71045; 71275; 74174; 80053; 80320; 82803; 83735; 83880; 84436; 84443; 84484; 85025; 85610; 85730; 87636; 93005; 96360; 99291; G0480; J7120; Q9967

== ENCOUNTER 2025-01-17 13:05 | Outpatient (RCR) | payer BC, SELFPAY | END 2025-04-18 11:00 | disposition home or self-care (01) | LOC: CR 13:05 | PROVIDERS: Visit Provider Internal Medicine | DX: Z04.89 Encounter for examination and observation for other specified reasons (principal) | CPT/HCPCS: 93798 ==

== ENCOUNTER 2025-01-24 10:10 | Outpatient (CLI) | payer BC, SELFPAY ==
[2025-01-24 11:21] LABS: Chloride 106 mmol/L (98-107); Potassium 3.6 mmoL/L (3.5-5.1); Sodium 139 mmol/L (136-145)
[2025-01-24 11:24] LABS: Anion Gap 5.6 mEq/L (5-15); Blood Urea Nitrogen 9 mg/dl (7-17); Calcium 9.1 mg/dl (8.4-10.2); Carbon Dioxide 31 mmol/L (22.0-30.0); Estimated Glomerular Filt Rate 85 ml/min (>60); GFR (African American) 103 ML/MIN (>60); Glucose 99 mg/dl (74-100)
[2025-01-24 11:34] LABS: NT Pro Brain Natriuretic Pep. 275 pg/mL (0-125)
== END 2025-01-24 23:59 | disposition home or self-care (01) ==
LOC: LAB 10:11
PROVIDERS: PCP Family Medicine; Visit Provider Nurse Practitioner Family
DX: R93.1 Abnormal findings on diagnostic imaging of heart and coronary circulation (principal); I10 Essential (primary) hypertension; E78.2 Mixed hyperlipidemia; I25.10 Atherosclerotic heart disease of native coronary artery without angina pectoris; I73.9 Peripheral vascular disease, unspecified
CPT/HCPCS: 36415; 80048; 83880

== ENCOUNTER 2025-01-31 10:56 | Outpatient (CLI) | payer BC, SELFPAY ==
--- NOTE | 2025-01-31 11:15 | CA_ITS ---
FINAL REPORT CLINICAL HISTORY: Varicosities, pain in left medial ankle COMPARISON: None FINDINGS: DUPLEX VENOUS SONOGRAPHY OF THE LEFT LOWER EXTREMITY Multiple transverse and longitudinal scans were performed of the femoropopliteal deep venous system, with augmentation and compression maneuvers. HISTORY: Pain FINDINGS: Normal phasic flow was noted in the visualized deep venous system. No intraluminal increased echogenicity is noted to suggest thrombus. There is normal compression and augmentation of the venous structures. No abnormal venous collaterals are seen. IMPRESSION: No evidence of deep venous thrombosis of the left lower extremity. Reviewed, Interpreted and Dictated by Krista Mcintyre MD Transcribed by Ana Araujo Authenticated and [facility]
== END 2025-01-31 23:59 | disposition home or self-care (01) ==
LOC: RT 10:56
PROVIDERS: PCP Family Medicine; Visit Provider Nurse Practitioner Family
DX: R60.0 Localized edema (principal)
CPT/HCPCS: 93971

== ENCOUNTER 2025-02-28 10:19 | Outpatient (CLI) | payer BC, SELFPAY ==
[2025-02-28 11:14] LABS: Blood Urea Nitrogen 14 mg/dl (7-17); Calcium 9.3 mg/dl (8.4-10.2); Carbon Dioxide 30 mmol/L (22.0-30.0); Chloride 108 mmol/L (98-107); Estimated Glomerular Filt Rate 85 ml/min (>60); GFR (African American) 103 ML/MIN (>60); Glucose 98 mg/dl (74-100); Sodium 139 mmol/L (136-145)
[2025-02-28 11:22] LABS: NT Pro Brain Natriuretic Pep. 210 pg/mL (0-125)
== END 2025-02-28 23:59 | disposition home or self-care (01) ==
LOC: LAB 10:19
PROVIDERS: PCP Family Medicine; Visit Provider Nurse Practitioner Family
DX: I11.9 Hypertensive heart disease without heart failure (principal); I25.10 Atherosclerotic heart disease of native coronary artery without angina pectoris; E78.5 Hyperlipidemia, unspecified
CPT/HCPCS: 36415; 80048; 83735; 83880

== ENCOUNTER 2025-03-21 09:53 | Outpatient (CLI) | payer BC, SELFPAY ==
--- OUTSIDE RECORDS SUMMARY | 2025-03-21 09:56 | XMS_ITS | Data Portability ---
Author Organization DONN NITHYA Fuentes [facility] Address [address] [facility] [place] [address] Care Team Providers Care Wool Supplier Name Role Phone MARTINE RAYO General Surgeon MALATHI KYLE Prop Worker [phone] MELCHOR ALLEN Primary Care Provider [phone] Assessment Encounter Date Assessment Date Assessment LastModified by Organization Details LastModified Time 09/30/2021 09/30/2021 Follow up yearly jose Not availab le 09/19/2021 07:03:52 11/14/2021 11/14/2021 1. Single vessel coronary artery disease s/p stent to proximal LAD with overlapping CROW April 2019 (Dr Camarena). Chronic problem, stable without angina. 2. Peripheral arterial disease s/p stenting to celiac artery 07/2021 (Dr. Encinas) On Xarelto 2.5mg BID. Followed by Romeo (Median Arcuate Ligament Syndrome) 3. Left subclavian stenosis with steal s/p stenting of left subclavian artery 07/2021 (Dr Encinas) Chronic problem, stable. We will schedule for carotid duplex at next office visit. 4. Hypertension. Chronic problem, blood pressure a little low in the office today. 5. Dyslipidemia -chronic problem, managed with rosuvastatin 20 mg. Lipid panel from October 2020 showed LDL 68. Recommend repeat lipid panel goal LDL <70 6. Type 2 DM Chronic problem, uncontrolled. Recent A1c 7.4%. Needs intensification of diabetes management to prevent further progression of her vascular disease. RTC 12 months with carotid duplex, check BP in both arms. [email or web address] Not available 11/14/2021 11:10:10 07/28/2022 07/28/2022 Follow up yearly [email or web address] Not availab le 05/27/2022 10:30:54 07/27/2023 07/27/2023 Follow up yearly jose Not availab le 07/26/2023 13:21:00 10/23/2024 10/23/2024 Follow up yearly [email or web address] Not avai lable 10/23/2024 11:56:25 Plan of Treatment Reminders Order Date Submit Date Provider Last Modified By Organization Details Last Modified Time Details Appointments DERMATOLO GY VISIT 2024 11:00A M VEENA BRAGG MD Not available Not available Not available Lab surgical pathology study 2022 023 [facility], [address] [place] [address], [phone], 07/29/2023 08:19:03 Referral None recorded. Procedures None recorded. Surgeries None recorded. Imaging None recorded. Medication Orders triamcino lone acetonide 0.1 % topical cream 2023 024 [id number], [address], [phone], 10/23/2024 12:53:20 Patient TargetsNo targets recorded. Patient Instructions Encounter Date Encounter Id Patient Instructions Last Modified By Organization Details Last Modified Time 09/30/2021 [id number] Education: We discussed the potential diagnostic options, options for further evaluation and treatments, and the risks and benefits of each. jose Not available 09/19/2021 07:03:52 11/14/2021 [id number] high cholesterol : care instructions [email or web address] Not available 11/14/2021 11:11:53 07/28/2022 [id number] Education: We discussed the potential diagnostic options, options for further evaluation and treatments, and the risks and benefits of each. [email or web address] Not available 05/27/2022 10:30:59 07/27/2023 [id number] Education: We discussed the potential diagnostic options, options for further evaluation and treatments, and the risks and benefits of each. jose Not available 07/26/2023 13:21:00 10/23/2024 [id number] Education: We discussed the potential diagnostic options, options for further evaluation and treatments, and the risks and benefits of each. [email or web address] Not available 10/23/2024 11:56:25 Reason for Referral None Reported. Results Created Date Observation Date Name Description Value Unit Range Abnormal Flag Note LastModifiedBy Organization Detail LastModifiedTime 07/27/20 23 07/27/2023 SURGI KARSON surgical SEE BELOW normal Depar tment of Patho logy Surgi karson Patho logy Repor t NAME: EDGARDO KATZ PATH. :SC-2 Copy to: Diagn osis: Left upper scapu la: Benig n kerat osis. SOURC E OF SPECI MEN: SKIN BIOPS Y, LEFT UPPER SCAPU LA CLINI KARSON INFOR MATIO N: SPECI MEN COLLE CTION NOTES : ? CA D 48.5 Gross Descr iptio n: Recei masha in forma mariajose label ed with the patie nt's name and desig nated as left upper scapu la is a shave biops y of skin (1.0 x 0.8 x 0.1 cm). The epide rmal surfa ce is diffu sely sanz-b rown and mottl ed with a centr al pale white area measu ring 0.4 x 0.4 cm. The justine n is inked blue. The speci men is quadr isect ed and entir isrrael submi tted in one casse tte. JAB 07/27 02:44 PM Micro scopi c Descr iptio n: Initi al as well as multi ple addit ional step level s secti ons of the shave biops y demon strat e acant hosis of the epide rmis with hyper granu losis and overl alison altagracia ct hyper kerat osis. The subja cent dermi s shows brisk periv ascul ar chron ic infla mmati on and incre ased fibro sis with subtl e featu res sugge stive of a derma tofib shyanne. No malig gerald is seen. UIL RODRIGUEZ M.D. Sera d Out Date: 07/29 08:18 Page 1 of 1 Not Available [facility] [address] [facility], [place], [address], 07/29/2023 08:19:03 11/18/19 22 11/14/2021 chelsi pitt am No observ ation record ed. [email or web address] Not Available 11/18 08:38:59 Result Notes None recorded. Problems Name Problem SNOMED Code Status Onset Date Resolution Date Notes Provider Name and Address Organization Details Recorded Time Paresthes ia of skin Active 2015 From Automated Load;Prov ider: Catina Blakely;Sta tus: Active Not Available [facility] 17:46:45 Melanoma in situ of lower limb 760569703 Active 2015 From Automated Load;Prov ider: Catina Blakely;Sta tus: Active Not Available [facility] 17:46:45 Syncope and collapse 284193430 Active 2015 From Automated Load;Prov ider: Catina Blakely;Sta tus: Active Not Available [facility] 17:46:45 Obstructi ve sleep apnea syndrome 25024805 Active 2015 From Automated Load;Prov ider: Catina Blakely;Sta tus: Active Not Available [facility] 17:46:45 Asthenia 98645401 Active 2015 From Automated Load;Prov ider: Catina Blakely;Sta tus: Active Not Available [facility] 17:46:45 Senile hyperkera tosis 129832883 Active 2015 From Automated Load;Prov ider: Veena Bragg;St atus: Active Not Available [facility] 17:46:45 Neoplasm of uncertain behavior of skin 60349566 Active 2015 From Automated Load;Prov ider: Veena Bragg;St atus: Active Not Available [facility] 17:46:45 Coronary arteriosc lerosis in [place] artery 99133484876 07 Active 2015 From Automated Load;Prov ider: Jolly Camarena;Stat us: Active Not Available [facility] 17:46:45 Hyperlipi demia 66972488 Active 2015 From Automated Load;Prov ider: Jolly Camarena;Stat us: Active Not Available [facility] 17:46:45 Hemangiom a 040164158 Active 2015 From Automated Load;Prov ider: Neto Shah; Status: Active Not Available [facility] 17:46:45 Neoplasti c disease 20855042 Active 2015 From Automated Load;Prov ider: Neto Shah; Status: Active Not Available [facility] 17:46:45 Headache 92431144 Active 2015 From Automated Load;Prov ider: Catina Blakely;Sta tus: Active Not Available [facility] 17:46:45 Long-term current use of antiplate let drug 28002295408 4101 Active 2019 Not Available [facility] 17:46:45 Problem Notes None recorded. Procedures Surgical History Date Name Laterality Status Provider Name and Address Organization Details Recorded Time 10/23/20 24 Destruction BN Lesions completed Berenice Chao [facility] 10/23/2024 12:32:15 07/27/20 23 Shave Lesion; trunk, arm, leg completed VEENA BRAGG MD [address] [place] [address], [phone], [facility] 08/01/2023 22:10:31 07/27/20 23 Destruction BN Lesions completed Darline Keys [facility] 07/27/2023 10:51:01 11/05/20 22 anal fistulectomy completed Madelaine Bailey [facility] 11/12/2022 08:35:59 11/14/19 EKG completed LUIS AN MD [address] [place] [address], [phone], [facility] 11/14/2021 11:07:28 09/30/20 21 Destruction BN Lesions completed Darline Keys [facility] 09/30/2021 11:50:05 08/22/20 20 Stress Test - [place] [address] [place] [address], [phone], [facility] 08/22/2020 16:12:57 08/04/20 19 Biopsy Skin Lesion; [place] [address] [place] [address], [phone], [facility] 08/04/2019 13:37:01 04/12/20 19 Cardiac Catheterization completed JOLLY CAMARENA MD [address] [place] [address], [phone], [facility] 04/12/2019 09:21:57 04/10/20 19 Biopsy Skin Lesion; Tangential completed Enid Domínguez [facility] 04/10/2019 11:22:14 04/04/20 19 Stress Test - Nuclear completed JOLLY CAMARENA MD [address] [place] [address], [phone], [facility] 04/04/2019 11:01:47 09/21/20 18 Biopsy Skin Lesion; Tangential completed Enid Domínguez [facility] 09/21/2018 15:42:56 09/21/20 18 Injection, Intralesional completed GENIE RANDHAWA PA-C [address] [place] [address], [phone], [facility] 09/21/2018 16:00:40 09/07/20 17 Shave Lesion; trunk, arm, leg completed VEENA BRAGG MD [address] [place] [address], [phone], [facility] 2017 21:28:25 05/26/20 17 Cholecystectomy completed Rebeca Davis [facility] 06/28/2017 11:27:49 05/26/20 17 Other completed Eryn Martinez [facility] 02/01/2020 10:29:14 05/23/20 17 Other completed Eryn Martinez [facility] 02/01/2020 10:29:14 03/29/20 17 Destruction BN Lesions completed Darline Keys [facility] 03/29/2017 11:23:21 02/06/20 14 Cardiac Catheterization completed Rebeca [facility] 06/23/2017 15:47:15 11/08/19 10 Hysterectomy/revise vagina completed Rebeca [facility] 06/23/2017 15:47:36 11/08/19 10 Other completed Rebeca [facility] 06/23/2017 15:48:36 12/09/19 09 [facility] 15:46:34 11/08/18 83 [facility]2017 15:46:49 Other completed Rebeca [facility] 06/23/2017 15:47:00 Other completed Rebeca [facility] 06/23/2017 15:48:46 Imaging Results Imaging Date Name Status LastModified by Organization Details LastModified Time 11/14/2021 electrocardiogram completed [email or web address] Informa tion not available 11/18/2021 08:38:59 Procedure Notes None recorded. Medical Equipment None Reported. Allergies Allergen ID Allergen Name Allergen Category Reaction Reaction Severity Criticality Documentation Date Start Date Code Code System Note Provider Name and Address Organization Details Recorded Time 745371 Substance with sulfonami de structure and antibacte rial mechanism of action (substanc e) medicatio n Not available Not available Not available 10/01/20162008 45498 8003 SNOMED Comme nt: Creat ed By: Arthur chandlerCre ated Date: 009 1:56: 53 PM; Not Available [facility] 6 10:14:08 477196 E-Mycin medicatio n rash Not available Not available 10/01/2016200960 8 RxNorm React ion: RASH; Comme nt: Creat ed By: Paty chandlerCre ated Date: 2009 11:43 :02 AM; Not Available [facility] 6 13:01:26 704235 Levaquin medicatio n Not available Not available Not available 10/01/20162011 96197 2 RxNorm Comme nt: Creat ed By: Amee Ramírez ca;Cr eated Date: 2011 9:17: 29 AM; Not Available [facility] 6 13:01:26 450634 Product containin g penicilli n (product) medicatio n Not available Not available Not available 10/02/20162008 70030 8001 SNOMED Comme nt: Creat ed By: Arthur goff;Cre ated Date: 1:56: 42 PM; Not Available [facility] 6 03:46:42 345870 Benadryl medicatio n Not available Not available Not available 10/02/20162008 17256 7 RxNorm Comme nt: Creat ed By: Arthur goff;Cre ated Date: 1:57: 32 PM; Not Available [facility] 6 03:46:42 980364 codeine medicatio n Not available Not available Not available 10/02/20162008 2670 RxNorm Comme nt: Creat ed By: Arthur goff;Cre ated Date: 1:57: 04 PM; Not Available [facility] 6 08:24:21 [id number] spironola ctone medicatio n rash Not available Not available 10/23/2024 9997 [facility] 12:24:35 Medications Name Sig Start Date Stop Date Status Note LastModified by Organization Details LastModified Time furosemid e 40 mg tablet Take 1 tablet every day by oral route. 07/27 completed Not Available Not Available Not Available metformin 500 mg tablet Take 1 tablet twice a day by oral route. 07/27 completed Not Available Not Available Not Available Vitamin B-12 1,000 mcg/mL injection solution Every 2 weeks active Duration : 10 days;Maged quency: Every 2wks;Med ication Descript ion: cyanocob alamin; Dosage:1 ; Route:in jectable ; refills: 0; Quantity :30 solution Not Available Not Available Not Available atorvasta tin 20 mg tablet Daily 03/31 completed Frequenc y: daily;Me dication Descript ion: atorvast atin; Dosage:1 ; Route:or al; refills: 3; Quantity :90 tablet Not Available Not Available Not Available desoximet asone 0.25 % topical cream APPLY A THIN LAYER TO THE AFFECTED AREA(S) BY TOPICAL ROUTE 2 TIMES PER DAY ; RUB IN GENTLY AND COMPLETE LY 08/19 completed Not Available Not Available Not Available Celestone Soluspan 6 mg/mL suspensio n for injection celeston e 9 mg/ml 11/07 completed Not Available Not Available Not Available clopidogr el 75 mg tablet Take 1 tablet every day by oral route. 02/27 completed Not Available Not Available Not Available aspirin 81 mg tablet,de layed release TAKE 2 TABLETS DAILY 2020 active Not Available Not Available Not Avai lable triamcino lone acetonide 0.1 % topical cream APPLY A THIN LAYER TO THE AFFECTED AREA(S) BY TOPICAL ROUTE 2 TIMES PER DAY 2023 active Not Available Not Available Not Avai lable Nitrostat 0.4 mg sublingua l tablet As Directed 2018 active Instruct ions: 1 sublingu al for chest pain repeat every 5 minutes x 3 if needed.; Frequenc y: as direct.; Medicati on Descript ion: nitrogly cerin; Dosage:a s directed ; Route:lopez blingual ; refills: 11; Quantity :25 tablet Not Available Not Available Not Available MetroCrea m 0.75 % topical Prn 11/07 completed Frequenc y: bid;Medi cation Descript ion: metronid azole topical; Dosage:a s directed ; Route:to pical; refills: 3; Quantity :60gm x 3 cream Not Available Not Available Not Available Neurontin 100 mg capsule 3 Every night at bedtime 04/10 completed Duration : 30 days;Ins truction s: 2-3 caps qhs;Freq uency: qhs;Medi cation Descript ion: gabapent in; Dosage:a s directed ; Route:or al; refills: 11; Quantity :90 capsule Not Available Not Available Not Available fluocinon rabia 0.05 % topical cream As needed 08/19 completed Frequenc y: prn;Medi cation Descript ion: fluocino nide topical; Route:to pical; refills: 0 Not Available Not Available Not Available spironola ctone 50 mg tablet Take 1 tablet every day by oral route. active pt no longer taking Not Available Not Available Not Available rosuvasta tin 20 mg tablet TAKE 1 TABLET DAILY 2019 active Not Available Not Available Not Avai lable Motrin 05/12 completed Medicati on Descript ion: ibuprofe n; Route:or al; refills: 0 Not Available Not Available Not Available Tylenol active Medicati on Descript ion: acetamin ophen; Route:or al; refills: 0 Not Available Not Available Not Available cyclobenz aprine active Not Available Not Available Not Available Vitamin D3 Daily 07/04 completed Frequenc y: daily;Me dication Descript ion: cholecal ciferol; Dosage:1 ; Route:or al; refills: 0 Not Available Not Available Not Available gabapenti n 600mg Q PM active Not Available Not Available No t Available ranolazin e active Not Available Not Available Not Available Janumet 50 mg-1,000 mg tablet Take 1 tablet every day by oral route. 07/27 completed Not Available Not Available Not Available diclofena c 1 % topical gel APPLY 2 GRAMS TO THE AFFECTED AREA(S) BY TOPICAL ROUTE 4 TIMES PER DAY 11/14 completed Not Available Not Available Not Available prasugrel HCl 10 mg tablet 1 TABLET DAILY 11/28 completed Patient unable to afford cost, changed to Clopidog rel Not Available Not Available Not Available levothyro xine 50 mcg capsule Take 1 capsule every day by oral route. active Not Available Not Available No t Available Probiotic qd 04/10 completed Not Available Not Available Not Available Xarelto 20 mg tablet Take 1 tablet every day by oral route. active Not Available Not Available No t Available Trulicity 0.75 mg/0.5 mL subcutane ous pen injector Inject by subcutan eous route. active Not Available Not Available No t Available Xigduo XR 5 mg-1,000 mg tablet,ex tended release Take 1 tablet every day by oral route. 03/31 completed Not Available Not Available Not Available metoprolo l succinate ER 25 mg capsule sprinkle, ext. release 24 hr Take 1 capsule every day by oral route. active Not Available Not Available No t Available Vitals Date Recorded Body weight Respiratory rate Oxygen saturation Oxygen saturation in Arterial blood by Pulse oximetry Systolic blood pressure Diastolic blood pressure Provider Name and Address Organization Details Last Updated DateTime 2 21858.7 4 g 16 /min 98 % 98 % 100 mm[Hg] 60 mm[Hg] Heide Kelly [facility] 2 10:09:05 Social History Question Answer Notes LastModified by [employer] Details LastModified Time Tobacco Smoking Status [facility] 11/07/2019 11:19:58 How Much Tobacco Do You Chew? None Information not available 11/07/2019 Marital Status Informatio n not available 11/07/2019 What Was The Date Of Your Most Recent Tobacco Screening? 08/19/2020 [email or web address] Information not available 08/19/2020 How Much Tobacco Do You Smoke? 2 PPD Information not available 11/07/2019 How Many Years Have You Smoked Tobacco? 20 Information not available 11/07/2019 Sex: Female Functional Status Question Answer Note LastModified by [employer] Details LastModified Time Do you or have you ever used smokeless tobacco? 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 Never used electronic cigarettes Information not available 11/07/2019 Mental Status None recorded. Family History Relationship Description Onset Age of this Age Resolved Age Notes LastModified by Organization Details LastModified Time Unspecified Relation Family history of malignant neoplasm Not available 2019 10:28:08 Mother Diabetes mellitus Not available 2016 15:43:36 Paternal Uncle Diabetes mellitus Not available 2016 15:43:36 Medical History Condition Response Atrial Fibrillation N Thyroid Disease N Lung Disease N Nervous Illness N Vascular Disease N Varicose Veins Y Autoimmune disease Y Hiatal hernia N Cancer N Melanoma Y Stroke N High Cholesterol Y Skin Cancer Y Squamous Cell Carcinoma Y Black Lung N Thyroid Problems N Acne N Skin Problems N Ulcers N Other Skin Condition Y Diabetes N Rheumatic Fever N Bleeding Disorder N Tuberculosis N AIDS/HIV N Hyperlipidemia Y Eczema N Asthma N Peripheral Vascular Disease N Basal Cell Carcinoma N Jaundice N Warfarin Management N Heart Disease N Hypertension Y Gynecological HistoryNo gynecological history recorded. Obstetrics History GPAL:G 0 P 0 0 0 0 Past Encounters Encounter ID Performer Location Encounter Start Date Encounter Closed Date Diagnosis/Indication Diagnosis SNOMED-CT Code Diagnosis ICD10 Code Diagnosis Note [id number] MD WINDY [facility]ER [facility] [address] [place] [address] 03/29/2017 11:01:36 03/29/2017 15:56:27 History of malignant melanoma of the skin 1316249573 08 Z85.820 Status post MM on left anterior thigh 0.2 mm in March 2009 - doing well [place] 086279942 L81.4 reassuranc e, several dark but doubt cancer Hemangioma 820223236 D18 .00 left lower areola-- watch and reassuranc e Senile hyperkeratosis 39 1194270 L82.1 reassuranc e Inflamed s eborrheic keratosis 983735553 L82.0 LN x 1 Multiple b enign melanocytic nevi 137400967 D22.9 reassuranc e - will continue to monitor for changes Onychomycosis 715463402 B35.1 reassuranc e - discussed treatment options - will wait on any treatment [id number] JOLLY CAMARENA MD CARDIOLOG Y [facility] [address] [place] [address] 06/28/2017 10:22:58 06/28/2017 12:28:34 Hyperlipidemia 31963304 E78.5 Management of this problem was reviewed with the patient. No changes recommende d, status for this problem is stable at this time. Coronary arteriosclerosis in [place] artery 7126205336 107 I25.10 Noncritica l CAD demonstrat ed catheteriz ation. Suggest risk factor therapy with statins and low-dose aspirin. [id number] MD W[facility]Y [facility] [address] [place] [address] 09/07/2017 10:09:29 09/10/2017 10:52:33 History of malignant melanoma of the skin 9779146521 08 Z85.820 Status post MM on left anterior thigh 0.2 mm in March 2009 - doing well [place] 051090428 L81.4 reassuranc e, several dark Senile hyperkeratosis 39 8711673 L82.1 reassuranc e 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 96591795 D48.5 ?ISKRight upper lateral ankleShave removal and base destroyed with ED [id number] MD W[facility]Y [facility] [address] [place] [address] 04/05/2018 10:52:35 04/05/2018 13:09:39 History of malignant melanoma of the skin 3208818135 08 Z85.820 Status post MM on left anterior thigh 0.2 mm in March 2009 - doing well [place] 847842062 L81.4 reassuranc e, several dark but doubt cancer Hemangioma 221083671 D18 .00 left lower areola-- watch and reassuranc e Senile hyperkeratosis 39 2898297 L82.1 reassuranc e Multiple b enign melanocytic nevi 764016480 D22.9 reassuranc e - will continue to monitor for changes Verruca vulgaris 1541520 3 B07.9 PW--declin es tx today Reassuranc e and education regarding the disorder and options. [id number] JOLLY CAMARENA MD CARDIOLOG Y [facility] [address] [place] [address] [place] [address] 07/04/2018 10:08:24 07/04/2018 11:34:40 Hyperlipidemia 36058599 E78.5 Management of this problem was reviewed with the patient. No changes recommende d, status for this problem is stable at this time. Coronary arteriosclerosis in [place] artery 8052059039 107 I25.10 Noncritica l CAD demonstrat ed catheteriz ation. Suggest risk factor therapy with statins and low-dose aspirin. [id number] MARY LOU [facility]Y [facility] [address] [place] [address] 09/21/2018 15:20:55 09/22/2018 08:32:53 Neoplasm of uncertain behavior of skin 99042865 D48.5 MID LOWER ABDOMEN R/O ANGIOMA VS OTHER SHAVE BIOPSY SEE PROCEDURE NOTE WOUND CARE INSTRUCTIO NS PROVIDED F/U PER PATH O/W SCHEDULED FOR ANNUAL FSE OR SOONER IF NEEDED Lichen sim plex chronicus 73117370 L28.0 INJECTED IL KENALOG 5MG/ML X 0.1 CC'S INTO 1 LESION ON MID LOWER ABD; PT TOLERATED WELL D/C MANIPULATI ON F/U IF DOES NOT RESOLVE [id number] JOLLY CAMARENA MD CARDIOLOG Y [facility] [address] [place] [address] 03/31/2019 08:53:04 03/31/2019 09:42:39 Hyperlipidemia 03225327 E78.5 Management of this problem was reviewed with the patient. No changes recommende d, status for this problem is stable at this time. Coronary arteriosclerosis in [place] artery 0680650508 107 I25.10 Noncritica l CAD demonstrat ed catheteriz ation.Rece nt episode of chest discomfort suggestive of possible ischemia and therefore I recommend a treadmill nuclear stress test prior to proceeding with any other planned vascular procedures . Preoperati ve cardiovascular examination [id number] Z01.810 If nuclear stress test is okay the patient may proceed with planned abdominal vascular repair. [id number] JOLLY CAMARENA MD [facility] [address] [place] [address] 04/04/2019 07:43:26 04/04/2019 11:25:21 [id number] VEENA BRAGG MD [facility] [address] [place] [address] 04/10/2019 10:01:20 04/10/2019 12:57:13 History of malignant melanoma of the skin 3095254137 08 Z85.820 Status post MM on left anterior thigh 0.2 mm in March 2009 - doing well [place] 931473301 L81.4 reassuranc e, several dark but doubt cancer Hemangioma 107159016 D18 .00 left lower areola-- watch and reassuranc e Senile hyperkeratosis 39 7051504 L82.1 reassuranc e Multiple b enign melanocytic nevi 035688920 D22.9 reassuranc e - will continue to monitor for changes Verruca vulgaris 3609304 3 B07.9 PW--declin es tx today Reassuranc e and education regarding the disorder and options. Insect bite - wound 9684 24903 T14.8XXA Injection given by DEV Wall 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 52731987 D48.5 BCCLeft nasal tipShave bx and base destroyed with ED Dermatofibroma 736917064 D23.9 reassuranc e [id number] JOLLY CAMARENA MD CARD[facility] [address] [place] [address] 05/12/2019 09:16:01 05/12/2019 10:07:28 Preoperative cardiovascular examination 981873079 Z01.810 She is doing well following coronary interventi on and is cleared to proceed with mesenteric stent. Dual antiplatel et therapy should be continued. Coronary arteriosclerosis in [place] artery 8025855892 107 I25.10 Noncritica l CAD demonstrat ed catheteriz ation.Rece nt episode of chest discomfort suggestive of possible ischemia and therefore I recommend a treadmill nuclear stress test prior to proceeding with any other planned vascular procedures . Hyperlipidemia 60833172 E78.5 Management of this problem was reviewed with the patient. No changes recommende d, status for this problem is stable at this time.Targe t LDL cholestero l is in the 70s. Long-term current use of antiplatelet drug 1575427805 64191 Z79.02 DAPT.No symptoms of bleeding or any evidence of anticoagul ant toxicity. Periodic CBC recommende d. [id number] VEENA BRAGG MD [facility] [address] [place] [address] 08/04/2019 07:51:31 08/04/2019 13:55:02 History of malignant melanoma of the skin 4068164520 08 Z85.820 Status post MM on left anterior thigh 0.2 mm in March 2009 - doing well [place] 125629506 L81.4 reassuranc e, several dark but doubt cancer Scab of skin 591306390 L 98.8 left lateral chest - ? insect bite or puncture wound Reassuranc e and education regarding the disorder and options. 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 97157172 D48.5 left lower chest - 3 mm punch biopsy--? GA, EAC, other Left anterior ear canal has a think 3 mm pink crust. - watch for now - if worsens will see ENT [id number] VEENA BRAGG MD [facility] [address] [place] [address] 10/27/2019 08:30:55 10/27/2019 13:39:22 History of malignant melanoma of the skin 1500706993 08 Z85.820 Status post MM on left anterior thigh 0.2 mm in March 2009 - not examined today [place] 374376369 L81.4 reassuranc e, several dark but doubt cancer Granuloma annulare 38378 009 L92.0 Per prev bx ? Reaction to breast implants Discussed [facility] [id number] JOLLY CAMARENA MD CARDIOLOG Y [address] [address] 11/07/2019 11:09:11 11/07/2019 11:40:08 Coronary arteriosclerosis in [place] artery 7938882448 107 I25.10 Noncritica l CAD demonstrat ed catheteriz ation.Rece nt episode of chest discomfort suggestive of possible ischemia and therefore I recommend a treadmill nuclear stress test prior to proceeding with any other planned vascular procedures . Hyperlipidemia 97304058 E78.5 Management of this problem was reviewed with the patient. No changes recommende d, status for this problem is stable at this time.Targe t LDL cholestero l is in the 70s. Long-term current use of antiplatelet drug 9154481844 15508 Z79.02 DAPT.No symptoms of bleeding or any evidence of anticoagul ant toxicity. Periodic CBC recommende d. [id number] JOLLY CAMARENA MD CARDIOLOG Y [place] [address] [address] 02/28/2020 11:30:58 02/28/2020 11:43:08 Coronary arteriosclerosis in [place] artery 3981732682 107 I25.10 Noncritica l CAD demonstrat ed catheteriz ation.Rece nt episode of chest discomfort suggestive of possible ischemia and therefore I recommend a treadmill nuclear stress test prior to proceeding with any other planned vascular procedures . Hyperlipidemia 47798017 E78.5 Management of this problem was reviewed with the patient. No changes recommende d, status for this problem is stable at this time.Targe t LDL cholestero l is in the 70s. Long-term current use of antiplatelet drug 1533149620 57746 Z79.02 DAPT.No symptoms of bleeding or any evidence of anticoagul ant toxicity. Periodic CBC recommende d.In April she will reach one year anniversar y of her stent. I advise discontinu ation of clopidogre l at that time any increasing aspirin to 162 mg daily.Elec tronic prescripti on sent to patient's pharmacy. [id number] VEENA BRAGG MD [facility] [address] [place] [address] 04/09/2020 10:16:57 04/09/2020 11:09:25 History of malignant melanoma of the skin 9050948016 08 Z85.820 Status post MM on left anterior thigh 0.2 mm in March 2009 - doing well [place] 689243856 L81.4 reassuranc e, several dark but doubt cancer Hemangioma 272455514 D18 .00 left lower areola-- watch and reassuranc e Senile hyperkeratosis 39 3557385 L82.1 reassuranc e Multiple b enign melanocytic nevi 258703656 D22.9 reassuranc e - will continue to monitor for changes Dermatofibroma 774279882 D23.9 reassuranc e Granuloma annulare 79902 009 L92.0 Per prev bx extensive but ? milder per pt Discussed Kenalog [place] Triamcinol one caused irritation hold IM--has DM No treatment for now Patient has crohns and Fibromyalg ia consider Humira if worse [id number] JOLLY CAMARENA MD [facility] [address] [address] 08/19/2020 14:19:11 08/19/2020 16:08:04 Coronary arteriosclerosis in [place] artery 8941333785 107 I25.119 Noncritica l CAD demonstrat ed catheteriz ation.Rece nt episode of chest discomfort suggestive of possible ischemia and therefore I recommend a treadmill nuclear stress Hyperlipidemia 69166186 E78.5 Management of this problem was reviewed with the patient. No changes recommende d, status for this problem is stable at this time.Targe t LDL cholestero l is in the 70s. Long-term current use of antiplatelet drug 4334649147 75528 Z79.02 DAPT.No symptoms of bleeding or any evidence of anticoagul ant toxicity. Periodic CBC recommende d.In April she will reach one year anniversar y of her stent. I advise discontinu ation of clopidogre l at that time any increasing aspirin to 162 mg daily.Elec tronic prescripti on sent to patient's pharmacy. [id number] JOLLY CAMARENA MD [facility] [address] [address] 08/22/2020 12:12:08 08/23/2020 08:30:37 [id number] VEENA BRAGG MD [facility] [address] [place] [address] 06/02/2021 11:38:24 06/02/2021 12:09:53 History of malignant melanoma of the skin 6696042077 08 Z85.820 Status post MM on left anterior thigh 0.2 mm in March 2009 - doing well [place] 266960089 L81.4 reassuranc e, several dark but doubt cancerReco mmended Equate Ultra Sunscreen 30+ and sun protecting hats/cloth ing Hemangioma 324182102 D18 .00 left lower areola-- watch and reassuranc e Senile hyperkeratosis 39 4510081 L82.1 reassuranc e Multiple b enign melanocytic nevi 254025137 D22.9 reassuranc e - will continue to monitor for changes Dermatofibroma 232666013 D23.9 reassuranc e 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 16453931 D48.5 right lower medial leg and left lower ochoa - 3 mm crust - watch for another month may be simple abrasions Senile purpura 04578437 D69.2 Reassuranc e and education regarding the disorder and options. [id number] VEENA BRAGG MD [facility] [address] [place] [address] 09/30/2021 11:35:58 09/30/2021 12:32:20 Lipoma 62910729 D17.9 hx confirmed with U/Spt is seeing Dr. Wal[place] ([facility] [place] today and will ask him about removal - on ASAthis might need to be removed before her knee replacemen tsmaller on left pubic triangle Inflamed s eborrheic keratosis 970340903 L82.0 LN x 1 History of malignant melanoma of the skin 9578248501 08 Z85.820 Status post MM on left anterior thigh 0.2 mm in March 2009 - doing well [place] 639784937 L81.4 reassuranc eRecommend ed Equate Ultra Sunscreen 30+ and sun protecting hats/cloth ing Hemangioma 480220390 D18 .00 left lower areola-- watch and reassuranc e Senile hyperkeratosis 39 2387781 L82.1 reassuranc e [id number] LUIS AN MD CARDIOLOG [facility] [address] [address] 11/14/2021 09:51:52 11/14/2021 11:03:01 Coronary arteriosclerosis in [place] artery 3940714943 107 I25.119 Hyperlipidemia 27298811 E78.5 Preoperati ve cardiovascular examination 186614095 Z01.810 She is able to meet a workload of 4 METs without any symptoms. She does not have significan t valvular disease, heart failure or arrhythmia at today's examinatio n. Her estimated risk for Perioperat loretta Myocardial Infarction or Cardiac Arrest is low (0.13%).Gu stefan et al, Circulatio n. 2010Jun 02;124(4): 381-7.Per current ACC/AHA recommenda tions, no further testing is required for patients that are at low risk for cardiovasc ular complicati ons. I have recommende d that she continue taking low-dose aspirin given her extensive vascular history. She should hold her rivaroxaba n for 3 days prior to surgical procedures , and restart the evening after her surgery. [id number] VEENA BRAGG MD [facility] [address] [place] [address] 07/28/2022 15:10:54 07/28/2022 15:50:51 History of malignant melanoma of the skin 5706124148 08 Z85.820 Status post MM on left anterior thigh 0.2 mm in March 2009 - doing well [place] 095414466 L81.4 reassuranc eRecommend ed Equate Ultra Sunscreen 30+ and sun protecting hats/cloth ing Senile hyperkeratosis 39 2216431 L82.1 reassuranc e Eruption 272695595 R21 Moderate on abdomen and flanksddx - med reaction from Lasix vs urticaria vs morphea vs GApt has had extensive GA in past - bx provenDisc ussed Kenalog [place] vs BX Triamcinol one caused irritation in past hold IM--has DMPt has stopped LasixNo treatment for now--will see if rash changes Patient has crohns and Fibromyalg ia consider Humira if worsephoto s taken today [place] 467183360 L72.0 reassuranc e [id number] VEENA BRAGG MD [facility] [address] [place] [address] 07/27/2023 10:31:55 07/27/2023 11:05:46 History of malignant melanoma of the skin 6094546781 08 Z85.820 Status post MM on left anterior thigh 0.2 mm in March 2009 - doing well [place] 993777048 L81.4 reassuranc eRecommend ed Equate Ultra Sunscreen 30+ and sun protecting hats/cloth ing Senile hyperkeratosis 39 2536511 L82.1 reassuranc e [place] 366724303 L72.0 reassuranc e Inflamed s eborrheic keratosis 138677661 L82.0 LN x 1 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 89395563 D48.5 r/o KARSON upper scapulahx bled profuselys have removal and base destroyed with ED [id number] VEENA BRAGG MD [facility] [address] [place] [address] 10/23/2024 11:45:29 10/23/2024 12:37:36 History of malignant melanoma of the skin 0611666457 08 Z85.820 Status post MM on left anterior thigh 0.2 mm in March 2009 - doing well [place] 056346733 L81.4 Reassuranc eRecommend ed Equate Ultra Sunscreen 30+ and sun protecting hats/cloth ing Senile hyperkeratosis 39 1973726 L82.1 Reassuranc e Inflamed s eborrheic keratosis 033814436 L82.0 LN x 8 Hemangioma 327171326 D18 .00 Reassuranc eLeft lower areola - no change per pt, cont to monitor Multiple b enign melanocytic nevi 683538802 D22.9 Reassuranc e 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 vs contact derm vs DH vs otherLow back unremarkab leDiscusse d dx and tx optionsSta rt TAC BID x2 wks, then taper as tolerated Health Concerns Section Related Observation LastModified by Organization Detai ls LastModified Time None Recorded Concern Status LastModified by Organization Details LastModified Time None Recorded Advance Directives Directive None Recorded Payers Insurance Date Sequence Insurance Name Policy Number Policy Brady Covered Member ID Brady Member ID Guarantor Name 07/27/2023 2 [facility] PL[facility]-ND (MEDICAID REPLACEMENT - HMO) [place] Sydnie Alejandra [id number] Sydnie Dewey Justyn 07/27/2023 2 [place] [place] FFS/TRADITIONA L Sydnie Alejandra [id number] Sydnie Dewey Justyn 07/27/2023 1 [facility] [id number] Sydnie Alejandra [id number] Sydnie Dewey Justyn 10/27/2024 1 [place] [employer] [place] [employer] [place] ([place]) [id number] Sydnie Alejandra [id number] Sydnie Alejandra Notes Date Note Type Note Provider Name and Address Organization Details Recorded Time 09/30/2021 text/html Established [facility] patient has Crohns and fibromyalgia Monitor: MM - on left anterior thigh 0.2 mm in March 2009 LOCATION: left posterior leg - ? lipomaDURATION: 20 + yearsSYMPTOMS: biggerTREATMENTS: US - proven ck left shoulder x few years (+) just wants reassurance left pelvic triangle(+) knot x years Denies any other new, changing, or bleeding lesions, or other rashes, feels {{well * not well}},in a good mood and has {{no * a positive}} family history of melanoma. VEENA BRAGG MD [facility] [place], [address], [place] [facility] 09/30/2021 12:24:38 11/14/2021 text/html CARDIOVASCULAR HISTORY:# Coronary artery disease s/p stent to proximal LAD with overlapping CROW.a. Cath 04/12/2019: Synergy 2.75 x 24 with a second overlapping Synergy 2.75 x 12mm CROW . Cath findings:Normal LV wall motion and EFLM: Angiographically normalLAD: proximal lesion of 95%. The rest of the vessel shows no significant obstruction.LCx: Dominant vessel, free of significant obstruction.RCA: Non-dominant vessel, free of significant obstruction. # Peripheral arterial disease s/p stenting to celiac artery 07/2021 (Dr. Encinas)a. 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 11/14/2021:6 month office visit regarding ASCVD.Former patient of Dr Jolly Camarena, lives in [place], [place]. She reports that her overall health has been stable, and has no new cardiovascular concerns.She has not noted any exertional chest pain since last visit.No edema. No palpitations.She has been having some problems with with her left knee, and is scheduled to meet with Dr. Mueller on November 20 with potential knee replacement on the . She tells me that she thinks this may be delayed because she also has a lipoma behind the left knee which she thinks is causing some of her symptoms and may need to be removed prior to knee arthroplasty. Her EKG today demonstrates normal sinus rhythm at a rate of 76 bpm.Mild right axis deviation at 101 deg with nonspecific T wave abnormality.QRS duration 80 ms, QTC 443 ms. Of note, she had an ischemic evaluation performed 08/22/2020.1. Normal myocardial perfusion without evidence of Ischemia by ECG and Nuclear criteria .2. Normal systolic cardiac function. LVEF 71% Despite this normal study, she underwent coronary angiography on 12/10/[address] Olivier Encinas. I reviewed his catheterization report. Her coronary anatomy was unchanged from previous, and the stented segment was widely patent without evidence of in-stent restenosis.See scanned documents for copy of 2020 cath report. I have also personally reviewed recent lab work drawn on 08/18/2021: CBC: 14.6/43.2, platelets 387 BMP: Creatinine 0.6, EGFR 103 10/30/2020 lipid panel: 153/72/68 A1c: 7.4% LUIS AN MD [address] [place] [address], [phone], [facility] 11/14/2021 11:11:57 07/28/2022 text/html Established [facility] Patient has Crohns and fibromyalgia and DM Monitor: MM - on left anterior thigh 0.2 mm in March 2009 LOCATION: rash on abdomenDURATION: x monthsSYMPTOMS: itchyTREATMENTS: she was given a high dose of benadryl yesterday for her heart cath check face Denies any other new, changing, or bleeding lesions, or other rashes, feels {{well * not well}},in a good mood and has {{no * a positive}} family history of melanoma. VEENA BRAGG MD [address] [place] [address], [phone], [facility] 07/28/2022 17:03:15 07/27/2023 text/html Established [facility] Patient has Crohns and fibromyalgia and DM Monitor: MM - on left anterior thigh 0.2 mm in March 2009 LOCATION: right cheek, posterior hairline, shoulderDURATION: x monthsSYMPTOMS: L post shoulder - bleedsTREATMENTS: none Denies any other new, changing, or bleeding lesions, or other rashes, feels {{well * not well}},in a good mood and has {{no * a positive}} family history of melanoma. VEENA BRAGG MD [address] [place] [address], [phone], [facility] 08/01/2023 22:11:18 10/23/2024 text/html Established [facility] Patient has Crohns and fibromyalgia and DM Monitor: MM - on left anterior thigh 0.2 mm in March 2009LOCATION: Lt forehead DURATION: x6 month SYMPTOMS: None TREATMENTS: None Pt presents for annual FSE today. Check Lt breast, Lt hip, legs, back, chest. Pt is on ASA, XareltoNo issues healing, scarring Denies any other new, changing, or bleeding lesions, or other rashes, feels {{well * not well}},in a good mood and has {{no * a positive}} family history of melanoma. VEENA BRAGG MD [address] [place], [address], [facility] 10/23/2024 12:53:41 OBGyn Episode No OBEpisode recorded.
[2025-03-21 11:00] LABS: Anion Gap 6.2 mEq/L (5-15); Blood Urea Nitrogen 16 mg/dl (7-17); Calcium 9.2 mg/dl (8.4-10.2); Carbon Dioxide 27 mmol/L (22.0-30.0); Chloride 106 mmol/L (98-107); Estimated Glomerular Filt Rate 85 ml/min (>60); GFR (African American) 103 ML/MIN (>60); Glucose 132 mg/dl (74-100); Potassium 4.2 mmoL/L (3.5-5.1); Sodium 135 mmol/L (136-145)
== END 2025-03-21 23:59 | disposition home or self-care (01) ==
LOC: LAB 09:54
PROVIDERS: PCP Family Medicine; Visit Provider Nurse Practitioner Family
DX: I11.9 Hypertensive heart disease without heart failure (principal); I25.10 Atherosclerotic heart disease of native coronary artery without angina pectoris
CPT/HCPCS: 36415; 80048

== ENCOUNTER 2025-04-25 12:49 | Outpatient (CLI) | payer BC, SELFPAY ==
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
--- OUTSIDE RECORDS SUMMARY | 2025-04-25 12:52 | XMS_ITS | Clinical Summary ---
Author Organization [facility] Address [address] [place] [address] Care Team Providers Care Cuff Turner Name Role Phone Unavailable Primary Care Provider Unavailabl e Social History Tobacco Use Types Packs/Day Years Used Date Smoking Tobacco: Never Assessed Comments Unknown Sex and Gender Information Value Date Recorded Sex Assigned at Not on file Legal Sex Female 8:51 PM EDT Gender Identity Not on file Sexual Orientation Not on file Plan of Treatment Health Maintenance Due Date Last Done Comments [facility]-Depression Screening 1965 [facility]-Infant/Child/Adol SDOH Screenings 1965 [facility]- SDOH Screenings 1982 [facility]-Adult SDOH Screenings 1982 [facility]-Pap Smear 10/20/2003 10/20/2000 [facility]-Cervical Cancer Screening 10/20/2005 [facility]-HPV/Cotest 10/20/2005 10/20/2000 CT Colonography 2009 Colonoscopy 2009 FIT-DNA 2009 FIT 2009 FOBT 2009 Sigmoidoscopy 2009 [facility]-Colorectal Cancer Screening 2009 [facility]-Pneumococcal Vaccine: 50+ Years (2 of 2 - PCV) 02/28/2020 02/27/2019 [facility]-DTaP,Tdap,and Td Vaccines (2 - Td or Tdap) 04/27/2023 04/27/2013 [id number]-87 Vaccine ( season) 2024 01/19/2021, 12/22/2020 [facility]-Influenza Vaccine (Season Ended) 2025 10/08/2022, 08/20/2021, 08/27/2020, Additional history exists [facility]-RSV Vaccine: 60+ Years or (1 - 1-dose 75+ series) 2039 [facility]-Hepatitis A Vaccines Aged Out 02/27/2019, 08/08 No longer eligible based on patient's age to complete this topic [facility]-Zoster Vaccines Completed 03/19/2022, HPV Vaccines Aged Out No longer eligi ble based on patient's age to complete this topic [facility]-HIB Vaccines Aged Out No longer e ligible based on patient's age to complete this topic [facility]-IPV Vaccines Aged Out No longer e ligible based on patient's age to complete this topic [facility]-Rotavirus Vaccines Aged Out No lo nger eligible based on patient's age to complete this topic Procedures Procedure Name Priority Date/Time Associated Diagnosis Comments CYTO DATA CONVERSION Routine 10/20/2000 12:00 AM EST from Last 3 Months or Most Recently Relevant to Health Maintenance Results * (ABNORMAL) Cytology (10/20/2000 12:00 AM EST) 10/20/2000 10/21/2000 9:5 5 AM EST Narrative [facility] - 11/05/2000 12:51 PM EST [facility] MR #: [id number] [facility] CODIE ALEJANDRA [place], [place] [address] 1965 (Age: 35) FW Collect Date: 10/20/2000 00:00 Receipt Date: 10/21/2000 09:55 Page 1 DEPARTMENT OF PATHOLOGY AND LABORATORY MEDICINE CYTOPATHOLOGY REPORT Email: [email or web address] ATTENDING MD/Practitioner: Elma Talley MD Service: [facility] Location: [facility] Reported: 11/05/2000 12:51 Collected: 10/20/2000 00:00 INTERPRETATION THIN PREP (CERVICAL/VAGINAL): ATYPICAL SQUAMOUS CELLS OF UNDETERMINED SIGNIFICANCE. SATISFACTORY FOR INTERPRETATION. SUGGEST REPEAT PAP IN 4-6 MONTHS, CLINICALLY INDICATED. Electronically Signed Out MAY Natarajan (ASCP) Elsie Jean MD Cervical cytology is a screening test primarily for squamous cancers and precursors and has associated false negative and positive results. New technologies such as liquid based sampling may decrease but will not eliminate all false negative results. Regular screening and follow-up of unexplained clinical signs and symptoms are recommended to minimize false negative results. Please see the ASCCP website (www.asccp.org) for followup recommendations. If HPV testing was requested, correlation with the results is suggested (please call Microbiology at [phone] for results). CLINICAL INFORMATION: Menstrual History: Cyclic Date of Last Menstrual Period: 12 3 00 SPECIMEN DESCRIPTION: A: THIN PREP (CERVICAL/VAGINAL) THIN PREP PROCESS CELLULAR ENHANCEMENT ICD: 795.0 ABNORMAL PAP SMEAR CERVIX, NONSPECIFIC V72.3 GYNECOLOGICAL EXAMINATION F: A; THIN SCRN 87213, 58030 C\V (PO) SNOMED CODES: A; [id number] In cases where a pathologist has signed out the report, the service has been rendered in part by a resident. The signing pathologist has performed and is responsible for the reported pathologic evaluation. us Historical Provider MD LAB PATHOLOGY ORDERABLES Final Result Skai from Last 3 Months or Most Recently Relevant to Health Maintenance Insurance GREG
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
--- OUTSIDE RECORDS SUMMARY | 2025-04-25 12:53 | XMS_ITS | Data Portability ---
Author Organization DONN NITHYA Fuentes [place] [facility] Address [address] [facility] [address] [place] [address] Care Team Providers Care Pinion Sorter Name Role Phone MARTINE RAYO General Surgeon MALATHI KYLE Division Field Inspector MECLHOR ALLEN Primary Care Provider Assessment Encounter Date Assessment Date Assessment LastModified [...] carotid duplex, check BP in both arms. [email or web address] Not available 11/14/2021 11:10:10 07/28/2022 07/28/2022 Follow up yearly [email or web address] Not availab le 05/27/2022 10:30:54 07/27/2023 07/27/2023 Follow up yearly jose Not availab le 07/26/2023 13:21:00 10/23/2024 10/23/2024 Follow up yearly [email or web address] Not avai lable 10/23/2024 11:56:25 Plan of Treatment Reminders Order Date Submit Date Provider Last Modified By Organization Details Last Modified Time Details Appointments DERMATOLO GY VISIT 2024 11:00A M VEENA BRAGG MD Not available Not available Not available Lab surgical pathology study 2022 023 [facility], [address] [place] [address], [phone], 07/29/2023 08:19:03 Referral None recorded. Procedures None recorded. Surgeries None recorded. Imaging None recorded. Medication Orders triamcino lone acetonide 0.1 % topical cream 2023 024 [place] [id number], [address], [phone], 10/23/2024 12:53:20 Patient TargetsNo targets recorded. Patient Instructions Encounter Date Encounter Id Patient Instructions Last Modified By Organization Details Last Modified Time 09/30/2021 [id number] Education: We discussed the potential diagnostic options, options for further evaluation and treatments, and the risks and benefits of each. jose Not available 09/19/2021 07:03:52 11/14/2021 [id number] high cholesterol : care instructions [email or web address] Not available 11/14/2021 11:11:53 07/28/2022 [id number] Education: We discussed the potential diagnostic options, options for further evaluation and treatments, and the risks and benefits of each. [email or web address] Not available 05/27/2022 10:30:59 07/27/2023 [id number] Education: We discussed the potential diagnostic options, options for further evaluation and treatments, and the risks and benefits of each. jose Not available 07/26/2023 13:21:00 10/23/2024 [id number] Education: We discussed the potential diagnostic options, options for further evaluation and treatments, and the risks and benefits of each. [email or web address] Not available 10/23/2024 11:56:25 Reason for Referral [...] tofib shyanne. No malig gerald is seen. ULI RODRIGUEZ M.D. Sera d Out Date: 07/29 08:18 Page 1 of 1 Not Available [facility] [address] [facility], [place], [address], 07/29/2023 08:19:03 11/18/19 22 11/14/2021 chelsi pitt am No observ ation record ed. [email or web address] Not Available 11/18 08:38:59 Result Notes None recorded. Problems Name Problem SNOMED Code Status Onset Date Resolution Date Notes Provider Name and Address Organization Details Recorded Time Paresthes ia of skin Active 2015 From Automated Load;Prov ider: Catina Blakely;Sta tus: Active Not Available [facility] 17:46:45 Melanoma in situ of lower limb 687354207 Active 2015 From Automated Load;Prov ider: Catina Blakely;Sta tus: Active Not Available [facility] 17:46:45 Syncope and collapse 676332428 Active 2015 From Automated Load;Prov ider: Catina Blakely;Sta tus: Active Not Available [facility] 17:46:45 Obstructi ve sleep apnea syndrome 33678312 Active 2015 From Automated Load;Prov ider: Catina Blakely;Sta tus: Active Not Available [facility] 17:46:45 Asthenia 13725627 Active 2015 From Automated Load;Prov ider: Catina Blakely;Sta tus: Active Not Available [facility] 17:46:45 Senile hyperkera tosis 790979988 Active 2015 From Automated Load;Prov ider: Veena Bragg;St atus: Active Not Available [facility] 17:46:45 Neoplasm of uncertain behavior of skin 83857539 Active 2015 From Automated Load;Prov ider: Veena Bragg;St atus: Active Not Available [facility] 17:46:45 Coronary arteriosc lerosis in pala artery 91477501788 07 Active 2015 From Automated Load;Prov ider: Jolly Camarena;Stat us: Active Not Available [facility] 17:46:45 Hyperlipi demia 32974281 Active 2015 From Automated Load;Prov ider: Jolly Camarena;Stat us: Active Not Available [facility] 17:46:45 Hemangiom a 264140507 Active 2015 From Automated Load;Prov ider: Neto Shah; Status: Active Not Available [facility] 17:46:45 Neoplasti c disease 27460729 Active 2015 From Automated Load;Prov ider: Neto Shah; Status: Active Not Available [facility] 17:46:45 Headache 77737505 Active 2015 From Automated Load;Prov ider: Catina Blakely;Sta tus: Active Not Available [facility] 17:46:45 Long-term current use of antiplate let drug 36587010919 4101 Active 2019 Not Available [facility] 17:46:45 Problem Notes None recorded. Procedures Surgical History Date Name Laterality Status Provider Name and Address Organization Details Recorded Time 10/23/20 24 Destruction BN Lesions completed Berenice Chao [facility] 10/23/2024 12:32:15 07/27/20 23 Shave Lesion; trunk, arm, leg completed VEENA BRAGG MD [address] [place] [address], [phone], [facility] 08/01/2023 22:10:31 07/27/20 23 Destruction BN Lesions completed Darline Keys [facility] 07/27/2023 10:51:01 11/05/20 22 anal fistulectomy completed Madelaine Bailey [facility] 11/12/2022 08:35:59 11/14/19 EKG completed LUIS AN MD [address] [place] [address], [phone], [facility] 11/14/2021 11:07:28 09/30/20 21 Destruction BN Lesions completed Darline Keys [facility] 09/30/2021 11:50:05 08/22/20 20 Stress Test - [place] [address] [place] [address], [phone], [facility] 08/22/2020 16:12:57 08/04/20 19 Biopsy Skin Lesion; [place] [address] [place] [address], [phone], [facility] 08/04/2019 13:37:01 04/12/20 19 Cardiac Catheterization completed JOLLY CAMARENA MD [address] [place] [address], [phone], [facility] 04/12/2019 09:21:57 04/10/20 19 Biopsy Skin Lesion; Tangential completed Enid Domínguez [facility] 04/10/2019 11:22:14 04/04/20 19 Stress Test - Nuclear completed JOLLY CAMARENA MD [address] [place] [address], [phone], [facility] 04/04/2019 11:01:47 09/21/20 18 Biopsy Skin Lesion; Tangential completed Enid Domínguez [facility] 09/21/2018 15:42:56 09/21/20 18 Injection, Intralesional completed GENIE RANDHAWA PA-C [address] [place] [address], [phone], [facility] 09/21/2018 16:00:40 09/07/20 17 Shave Lesion; trunk, arm, leg completed VEENA BRAGG MD [address] [place] [address], [phone], [facility] 2017 21:28:25 05/26/20 17 Cholecystectomy completed Rebeca Davis [facility] 06/28/2017 11:27:49 05/26/20 17 Other completed Eryn Martinez [facility] 02/01/2020 10:29:14 05/23/20 17 Other completed Eryn Martinez [facility] 02/01/2020 10:29:14 03/29/20 17 Destruction BN Lesions completed Darline Keys [facility] 03/29/2017 11:23:21 02/06/20 14 Cardiac Catheterization completed Rebeca [facility] 06/23/2017 15:47:15 11/08/19 10 Hysterectomy/revise vagina completed Rebeca [facility] 06/23/2017 15:47:36 11/08/19 10 Other completed Rebeca [facility] 06/23/2017 15:48:36 12/09/19 09 Other completed Rebeca [facility] 06/23/2017 15:46:34 11/08/18 83 Other completed Rebeca [facility] 06/23/2017 15:46:49 Other completed Rebeca [facility] 06/23/2017 15:47:00 Other completed Rebeca [facility] 06/23/2017 15:48:46 Imaging Results None recorded. Procedure Notes None recorded. Medical Equipment None Reported. Allergies Allergen ID Allergen Name Allergen Category Reaction Reaction Severity Criticality Documentation Date Start Date Code Code System Note Provider Name and Address Organization Details Recorded Time 136206 Substance with sulfonami de structure and antibacte rial mechanism of action (substanc e) medicatio n Not available Not available Not available 10/01/20162008 33161 8003 SNOMED Comme nt: Creat ed By: Arthur chandlerCre ated Date: 009 1:56: 53 PM; Not Available [facility] 6 10:14:08 858546 E-Mycin medicatio n rash Not available Not available 10/01/2016200960 8 RxNorm React ion: RASH; Comme nt: Creat ed By: Paty chandlerCre ated Date: 2009 11:43 :02 AM; Not Available [facility] 6 13:01:26 101564 Levaquin medicatio n Not available Not available Not available 10/01/20162011 49817 2 RxNorm Comme nt: Creat ed By: Amee Ramírez ca;Cr eated Date: 2011 9:17: 29 AM; Not Available [facility] 6 13:01:26 923015 Product containin g penicilli n (product) medicatio n Not available Not available Not available 10/02/20162008 58321 8001 SNOMED Comme nt: Creat ed By: Arthur goff;Cre ated Date: 1:56: 42 PM; Not Available [facility] 6 03:46:42 569218 Benadryl medicatio n Not available Not available Not available 10/02/20162008 34205 7 RxNorm Comme nt: Creat ed By: Arthur goff;Cre ated Date: 1:57: 32 PM; Not Available [facility] 6 03:46:42 741944 codeine medicatio n Not available Not available Not available 10/02/20162008 2670 RxNorm Comme nt: Creat ed By: Arthur goff;Cre ated Date: 1:57: 04 PM; Not Available [facility] 6 08:24:21 046415 spironola ctone medicatio n rash Not available Not available 10/23/2024 9997 RxNorm [facility] 12:24:35 Medications Name Sig Start Date Stop [...] Address Organization Details Last Updated DateTime 2 96351.7 4 g 16 /min 98 % 98 % 100 mm[Hg] 60 mm[Hg] Heide Kelly [facility] 2 10:09:05 Social History Question Answer Notes LastModified by [employer] Details LastModified Time Tobacco Smoking Status Former Smoker [facility] 11/07/2019 11:19:58 How Much Tobacco Do You Chew? None Information not available 11/07/2019 Marital Status Informatio n not available 11/07/2019 What Was The Date Of Your Most Recent Tobacco Screening? 08/19/2020 [email or web address] Information not available 08/19/2020 How Much Tobacco Do You Smoke? 2 PPD Information not available 11/07/2019 How Many Years Have You Smoked Tobacco? 20 Information not available 11/07/2019 Sex: Female Functional Status Question Answer Note LastModified by Organizat [employer] Details LastModified Time Do you or have you ever used smokeless tobacco? Never used smokeless tobacco Information not available 11/07/2019 What is your occupation? [employer] Information not available 06/23/2017 Do you or have you ever used e-cigarettes or vape? Never used electronic cigarettes Information not available 11/07/2019 Mental Status None recorded. Family History Relationship Description Onset Age of this Age Resolved Age Notes LastModified by Organization Details LastModified Time Unspecified Relation Family history of malignant neoplasm [email or web address] Not available 2019 10:28:08 Mother Diabetes mellitus Not available 2016 15:43:36 Paternal Uncle Diabetes mellitus Not available 2016 15:43:36 Medical History Condition Response Thyroid Disease N Squamous Cell Carcinoma Y Atrial Fibrillation N Black Lung N Thyroid Problems N Lung Disease N Acne N Skin Problems N Nervous Illness N Vascular Disease N Ulcers N Other Skin Condition Y Varicose Veins Y Diabetes N Rheumatic Fever N Autoimmune disease Y Bleeding Disorder N Hiatal hernia N Tuberculosis N AIDS/HIV N Hyperlipidemia Y Eczema N Cancer N Stroke N Melanoma Y Asthma N Peripheral Vascular Disease N Basal Cell Carcinoma N Jaundice N Warfarin Management N High Cholesterol Y Skin Cancer Y Heart Disease N Hypertension Y Gynecological HistoryNo gynecological history recorded. Obstetrics History GPAL:G 0 P 0 0 0 0 Past Encounters Encounter ID Performer Location Encounter Start Date Encounter Closed Date Diagnosis/Indication Diagnosis SNOMED-CT Code Diagnosis ICD10 Code Diagnosis Note [id number] MD WINDY BUTLER [facility] [address] [place] [address] 03/29/2017 11:01:36 03/29/2017 15:56:27 History of malignant melanoma of the skin 4381899310 08 Z85.820 Status post MM on left anterior thigh 0.2 mm in March 2009 - doing well [place] 610755377 L81.4 reassuranc e, several dark but doubt cancer Hemangioma 749114402 D18 .00 left lower areola-- watch and reassuranc e Senile hyperkeratosis 39 9663647 L82.1 reassuranc e Inflamed s eborrheic keratosis 360751111 L82.0 LN x 1 Multiple b enign melanocytic nevi 797674656 D22.9 reassuranc e - will continue to monitor for changes Onychomycosis 433958043 B35.1 reassuranc e - discussed treatment options - will wait on any treatment [id number] JOLLY CAMARENA MD CARDIOLOG Y [facility] [address] [place] [address] [place] [address] 06/28/2017 10:22:58 06/28/2017 12:28:34 Hyperlipidemia 51470150 E78.5 Management of this problem was reviewed with the patient. No changes recommende d, status for this problem is stable at this time. Coronary arteriosclerosis in pala artery 8748364183 107 I25.10 Noncritica l CAD demonstrat ed catheteriz ation. Suggest risk factor therapy with statins and low-dose aspirin. [id number] MD WINDY BUTLER [address] [place] [address] 09/07/2017 10:09:29 09/10/2017 10:52:33 History of malignant melanoma of the skin 4171760953 08 Z85.820 Status post MM on left anterior thigh 0.2 mm in March 2009 - doing well [place] 636524940 L81.4 reassuranc e, several dark Senile hyperkeratosis 39 4327597 L82.1 reassuranc e 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 17557389 D48.5 ?ISKRight upper lateral ankleShave removal and base destroyed with ED [id number] VEENA BRAGG MD [facility]ER[facility]OLO [facility] [address] [place] [address] 04/05/2018 10:52:35 04/05/2018 13:09:39 History of malignant melanoma of the skin 3958431160 08 Z85.820 Status post MM on left anterior thigh 0.2 mm in March 2009 - doing well [place] 897433328 L81.4 reassuranc e, several dark but doubt cancer Hemangioma 127550118 D18 .00 left lower areola-- watch and reassuranc e Senile hyperkeratosis 39 1708460 L82.1 reassuranc e Multiple b enign melanocytic nevi 949769135 D22.9 reassuranc e - will continue to monitor for changes Verruca vulgaris 7752015 3 B07.9 PW--declin es tx today Reassuranc e and education regarding the disorder and options. [id number] JOLLY CAMARENA MD CARDIOLOG Y [facility] [address] [place] [address] 07/04/2018 10:08:24 07/04/2018 11:34:40 Hyperlipidemia 56997227 E78.5 Management of this problem was reviewed with the patient. No changes recommende d, status for this problem is stable at this time. Coronary arteriosclerosis in pala artery 4505475971 107 I25.10 Noncritica l CAD demonstrat ed catheteriz ation. Suggest risk factor therapy with statins and low-dose aspirin. [id number] GENIE RANDHAWA PA-C [facility] [address] [place] [address] 09/21/2018 15:20:55 09/22/2018 08:32:53 Neoplasm of uncertain behavior of skin 21202110 D48.5 MID LOWER ABDOMEN R/O ANGIOMA VS OTHER SHAVE BIOPSY SEE PROCEDURE NOTE WOUND CARE INSTRUCTIO NS PROVIDED F/U PER PATH O/W SCHEDULED FOR ANNUAL FSE OR SOONER IF NEEDED Lichen sim plex chronicus 14361442 L28.0 INJECTED IL KENALOG 5MG/ML X 0.1 CC'S INTO 1 LESION ON MID LOWER ABD; PT TOLERATED WELL D/C MANIPULATI ON F/U IF DOES NOT RESOLVE [id number] JOLLY CAMARENA MD CARDIOLOG Y OR [facility] CL[facility] [address] [place] [address] 03/31/2019 08:53:04 03/31/2019 09:42:39 Hyperlipidemia 95964289 E78.5 Management of this problem was reviewed with the patient. No changes recommende d, status for this problem is stable at this time. Coronary arteriosclerosis in pala artery 6254915500 107 I25.10 Noncritica l CAD demonstrat ed catheteriz ation.Rece nt episode of chest discomfort suggestive of possible ischemia and therefore I recommend a treadmill nuclear stress test prior to proceeding with any other planned vascular procedures . Preoperati ve cardiovascular examination 882371173 Z01.810 If nuclear stress test is okay the patient may proceed with planned abdominal vascular repair. [id number] JOLLY CAMARENA MD [facility] [address] [place] [address] 04/04/2019 07:43:26 04/04/2019 11:25:21 [id number] VEENA BRAGG MD [facility]ERMATOLO [facility] [address] [place] [address] 04/10/2019 10:01:20 04/10/2019 12:57:13 History of malignant melanoma of the skin 7614428137 08 Z85.820 Status post MM on left anterior thigh 0.2 mm in March 2009 - doing well [place] 551086377 L81.4 reassuranc e, several dark but doubt cancer Hemangioma 507506933 D18 .00 left lower areola-- watch and reassuranc e Senile hyperkeratosis 39 6183527 L82.1 reassuranc e Multiple b enign melanocytic nevi 849876374 D22.9 reassuranc e - will continue to monitor for changes Verruca vulgaris 3183779 3 B07.9 PW--declin es tx today Reassuranc e and education regarding the disorder and options. Insect bite - wound 3150 08561 T14.8XXA Injection given by [facility], RN 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 43496114 D48.5 BCCLeft nasal tipShave bx and base destroyed with ED Dermatofibroma 254554833 D23.9 reassuranc e [id number] JOLLY CAMARENA MD [facility] [address] [place] [address] 05/12/2019 09:16:01 05/12/2019 10:07:28 Preoperative cardiovascular examination 854638957 Z01.810 She is doing well following coronary interventi on and is cleared to proceed with mesenteric stent. Dual antiplatel et therapy should be continued. Coronary arteriosclerosis in pala artery 4967302429 107 I25.10 Noncritica l CAD demonstrat ed catheteriz ation.Rece nt episode of chest discomfort suggestive of possible ischemia and therefore I recommend a treadmill nuclear stress test prior to proceeding with any other planned vascular procedures . Hyperlipidemia 75979716 E78.5 Management of this problem was reviewed with the patient. No changes recommende d, status for this problem is stable at this time.Targe t LDL cholestero l is in the 70s. Long-term current use of antiplatelet drug 7673959482 47560 Z79.02 DAPT.No symptoms of bleeding or any evidence of anticoagul ant toxicity. Periodic CBC recommende d. [id number] MD WINDY BUTLER [facility] [address] [place] [address] 08/04/2019 07:51:31 08/04/2019 13:55:02 History of malignant melanoma of the skin 6962919034 08 Z85.820 Status post MM on left anterior thigh 0.2 mm in March 2009 - doing well [place] 822546474 L81.4 reassuranc e, several dark but doubt cancer Scab of skin 890799994 L 98.8 left lateral chest - ? insect bite or puncture wound Reassuranc e and education regarding the disorder and options. 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 74581333 D48.5 left lower chest - 3 mm punch biopsy--? GA, EAC, other Left anterior ear canal has a think 3 mm pink crust. - watch for now - if worsens will see ENT [id number] MD WINDY BUTLER [facility] [address] [place] [address] 10/27/2019 08:30:55 10/27/2019 13:39:22 History of malignant melanoma of the skin 4477666203 08 Z85.820 Status post MM on left anterior thigh 0.2 mm in March 2009 - not examined today [place] 190791584 L81.4 reassuranc e, several dark but doubt cancer Granuloma annulare 05414 009 L92.0 Per prev bx ? Reaction to breast implants Discussed [facility] [id number] JOLLY CAMARENA MD CARDIOLOG Y [address] [place] [address] 11/07/2019 11:09:11 11/07/2019 11:40:08 Coronary arteriosclerosis in pala artery 0267227933 107 I25.10 Noncritica l CAD demonstrat ed catheteriz ation.Rece nt episode of chest discomfort suggestive of possible ischemia and therefore I recommend a treadmill nuclear stress test prior to proceeding with any other planned vascular procedures . Hyperlipidemia 86281911 E78.5 Management of this problem was reviewed with the patient. No changes recommende d, status for this problem is stable at this time.Targe t LDL cholestero l is in the 70s. Long-term current use of antiplatelet drug 5870394076 93167 Z79.02 DAPT.No symptoms of bleeding or any evidence of anticoagul ant toxicity. Periodic CBC recommende d. [id number] JOLLY CAMARENA MD CARDIOLOG Y [address],[facility] FLOOR [place] [address] 02/28/2020 11:30:58 02/28/2020 11:43:08 Coronary arteriosclerosis in pala artery 0011861982 107 I25.10 Noncritica l CAD demonstrat ed catheteriz ation.Rece nt episode of chest discomfort suggestive of possible ischemia and therefore I recommend a treadmill nuclear stress test prior to proceeding with any other planned vascular procedures . Hyperlipidemia 86367424 E78.5 Management of this problem was reviewed with the patient. No changes recommende d, status for this problem is stable at this time.Targe t LDL cholestero l is in the 70s. Long-term current use of antiplatelet drug 4079654161 58652 Z79.02 DAPT.No symptoms of bleeding or any evidence of anticoagul ant toxicity. Periodic CBC recommende d.In April she will reach one year anniversar y of her stent. I advise discontinu ation of clopidogre l at that time any increasing aspirin to 162 mg daily.Elec tronic prescripti on sent to patient's pharmacy. [id number] VEENA BRAGG MD DERMATOLO [facility] [address] [place] [address] 04/09/2020 10:16:57 04/09/2020 11:09:25 History of malignant melanoma of the skin 9196794074 08 Z85.820 Status post MM on left anterior thigh 0.2 mm in March 2009 - doing well [place] 058635782 L81.4 reassuranc e, several dark but doubt cancer Hemangioma 705382016 D18 .00 left lower areola-- watch and reassuranc e Senile hyperkeratosis 39 6887228 L82.1 reassuranc e Multiple b enign melanocytic nevi 273201778 D22.9 reassuranc e - will continue to monitor for changes Dermatofibroma 920440920 D23.9 reassuranc e Granuloma annulare 28798 009 L92.0 Per prev bx extensive but ? milder per pt Discussed Kenalog [place] Triamcinol one caused irritation hold IM--has DM No treatment for now Patient has crohns and Fibromyalg ia consider Humira if worse [id number] JOLLY CAMARENA MD CARDIOLOG Y [facility] [address] [address] 08/19/2020 14:19:11 08/19/2020 16:08:04 Coronary arteriosclerosis in pala artery 9477571208 107 I25.119 Noncritica l CAD demonstrat ed catheteriz ation.Rece nt episode of chest discomfort suggestive of possible ischemia and therefore I recommend a treadmill nuclear stress Hyperlipidemia 23966844 E78.5 Management of this problem was reviewed with the patient. No changes recommende d, status for this problem is stable at this time.Targe t LDL cholestero l is in the 70s. Long-term current use of antiplatelet drug 7686585508 71322 Z79.02 DAPT.No symptoms of bleeding or any evidence of anticoagul ant toxicity. Periodic CBC recommende d.In April she will reach one year anniversar y of her stent. I advise discontinu ation of clopidogre l at that time any increasing aspirin to 162 mg daily.Elec tronic prescripti on sent to patient's pharmacy. [id number] JOLLY CAMARENA MD [facility] [address] [place] [address] [place] [address] 08/22/2020 12:12:08 08/23/2020 08:30:37 [id number] MD [facility] [facility] [address] [place] [id number] 06/02/2021 11:38:24 06/02/2021 12:09:53 History of malignant melanoma of the skin [id number] 08 Z85.820 Status post MM on left anterior thigh 0.2 mm in March 2009 - doing well [place] 762902298 L81.4 reassuranc e, several dark but doubt cancerReco mmended Equate Ultra Sunscreen 30+ and sun protecting hats/cloth ing Hemangioma 507500321 D18 .00 left lower areola-- watch and reassuranc e Senile hyperkeratosis 39 7769504 L82.1 reassuranc e Multiple b enign melanocytic nevi 881734328 D22.9 reassuranc e - will continue to monitor for changes Dermatofibroma 741471389 D23.9 reassuranc e 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 47818629 D48.5 right lower medial leg and left lower ochoa - 3 mm crust - watch for another month may be simple abrasions Senile purpura 85318806 D69.2 Reassuranc e and education regarding the disorder and options. [id number] MD WINDY BUTLER [address] [place] [id number] 09/30/2021 11:35:58 09/30/2021 12:32:20 Lipoma 49992220 D17.9 hx confirmed with U/Spt is seeing Dr. Walters ([facility] surgeon) today and will ask him about removal - on ASAthis might need to be removed before her knee replacemen tsmaller on left pubic triangle Inflamed s eborrheic keratosis 493396331 L82.0 LN x 1 History of malignant melanoma of the skin [id number] 08 Z85.820 Status post MM on left anterior thigh 0.2 mm in March 2009 - doing well [place] 909168850 L81.4 reassuranc eRecommend ed Equate Ultra Sunscreen 30+ and sun protecting hats/cloth ing Hemangioma 489461785 D18 .00 left lower areola-- watch and reassuranc e Senile hyperkeratosis 39 5832409 L82.1 reassuranc e [id number] LUIS AN MD [facility] [address] [address] 11/14/2021 09:51:52 11/14/2021 11:03:01 Coronary arteriosclerosis in pala artery 0969175316 107 I25.119 Hyperlipidemia 63521948 E78.5 Preoperati ve cardiovascular examination 678764049 Z01.810 She is able to meet a [...] and restart the evening after her surgery. [id number] VEENA BRAGG MD [facility] [address] [place] [address] 07/28/2022 15:10:54 07/28/2022 15:50:51 History of malignant melanoma of the skin 6569952183 08 Z85.820 Status post MM on left anterior thigh 0.2 mm in March 2009 - doing well [place] 525456881 L81.4 reassuranc eRecommend ed Equate Ultra Sunscreen 30+ and sun protecting hats/cloth ing Senile hyperkeratosis 39 0346850 L82.1 reassuranc e Eruption 464103015 R21 Moderate on abdomen and flanksddx - [...] Humira if worsephoto s taken today Milia 531133409 L72.0 reassuranc e [id number] VEENA BRAGG MD [facility] [address] [place] [id number] 07/27/2023 10:31:55 07/27/2023 11:05:46 History of malignant melanoma of the skin 0020460968 08 Z85.820 Status post MM on left anterior thigh 0.2 mm in March 2009 - doing well [place] 887213491 L81.4 reassuranc eRecommend ed Equate Ultra Sunscreen 30+ and sun protecting hats/cloth ing Senile hyperkeratosis 39 7580379 L82.1 reassuranc e Milia 762361010 L72.0 reassuranc e Inflamed s eborrheic keratosis 534873329 L82.0 LN x 1 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 r/o KARSON upper scapulahx bled profuselys have removal and base destroyed with ED [id number] VEENA BRAGG MD [facility] [address] [place] [address] 10/23/2024 11:45:29 10/23/2024 12:37:36 History of malignant melanoma of the skin 2513929461 08 Z85.820 Status post MM on left anterior thigh 0.2 mm in March 2009 - doing well [place] 042209336 L81.4 Reassuranc eRecommend ed Equate Ultra Sunscreen 30+ and sun protecting hats/cloth ing Senile hyperkeratosis 39 0257853 L82.1 Reassuranc e Inflamed s eborrheic keratosis 877333523 L82.0 LN x 8 Hemangioma 875256508 D18 .00 Reassuranc eLeft lower areola - no change per pt, cont to monitor Multiple b enign melanocytic nevi 999406753 D22.9 Reassuranc e 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 derm vs DH vs [...] Brady Member ID Guarantor Name 07/27/2023 2 [facility] [id number] Sydnie Alejandra [id number] Sydnie Alejandra 07/27/2023 2 MEDICAID-[facility] HEALTH CHOICES - FFS/TRADITIONA L Sydnie Alejandra [id number] Sydnie Alejandra 07/27/2023 1 [facility] [id number] Sydnie Saucedoill [id number] Sydnie Dewey Justyn 10/27/2024 1 [place] [id number] Sydnie Alejandra [id number] Sydnie Alejandra Notes Date Note Type Note [...] or bleeding lesions, or other rashes, feels well ,in a good mood and has no family history of melanoma. VEENA BRAGG MD [address] [place], [address], [facility] 09/30/2021 12:24:38 11/14/2021 text/html CARDIOVASCULAR HISTORY:# Coronary [...] patient of Dr Jolly Camarena, lives in [place], [place]. She reports that her overall health [...] panel: 153/72/68 A1c: 7.4% LUIS AN MD [address] [place], [address], [facility] 11/14/2021 11:11:57 07/28/2022 text/html Established [facility] Patient has Crohns and fibromyalgia and DM Monitor: MM - on left anterior thigh 0.2 mm in March 2009 LOCATION: rash on abdomenDURATION: x monthsSYMPTOMS: itchyTREATMENTS: she was given a high dose of benadryl yesterday for her heart cath check face Denies any other new, changing, or bleeding lesions, or other rashes, feels well ,in a good mood and has no family history of melanoma. VEENA BRAGG MD [address] [place] [address] [place], [address], [facility] 07/28/2022 17:03:15 07/27/2023 text/html Established [facility] Patient has Crohns and fibromyalgia and DM Monitor: MM - on left anterior thigh 0.2 mm in March 2009 LOCATION: right cheek, posterior hairline, shoulderDURATION: x monthsSYMPTOMS: L post shoulder - bleedsTREATMENTS: none Denies any other new, changing, or bleeding lesions, or other rashes, feels well ,in a good mood and has no family history of melanoma. VEENA BRAGG MD [address] [place], [address], [facility] 08/01/2023 22:11:18 10/23/2024 text/html Established [facility] ent Patient has Crohns and fibromyalgia and DM Monitor: MM - on left anterior thigh 0.2 mm in March 2009LOCATION: Lt forehead DURATION: x6 month SYMPTOMS: None TREATMENTS: None Pt presents for annual FSE today. Check Lt breast, Lt hip, legs, back, chest. Pt is on ASA, XareltoNo issues healing, scarring Denies any other new, changing, or bleeding lesions, or other rashes, feels well ,in a good mood and has no family history of melanoma. VEENA BRAGG MD [address] [place] [address] [place], [address], [facility] 10/23/2024 12:53:41 OBGyn Episode No OBEpisode recorded.
--- NOTE | 2025-04-25 12:54 | US_ITS ---
FINAL REPORT TECHNIQUE: Real-time grayscale and color ultrasound of the thyroid was performed. CLINICAL HISTORY: history of thryoid nodules COMPARISON: 04/24/2024 FINDINGS: The thyroid gland measures 3.8 x 1.3 x 1.0 cm on the right and 2.4 x 0.8 x 0.8 cm on the left. The isthmus measures 3 mm. The parenchyma is unremarkable . Nodules: There are multiple subcentimeter hypoechoic nodules bilaterally probably representing multinodular goiter. The previously noted 1.0 cm lesion posteriorly on the right is not seen on today's exam. IMPRESSION: Probable multinodular goiter. Previously noted 1 cm lesion on the right not seen today. No further follow-up required per TI-RADS criteria. Reviewed, Interpreted and Dictated by Cali Berry MD Transcribed by Tamie Martinez Authenticated and [facility]
== END 2025-04-25 23:59 | disposition home or self-care (01) ==
LOC: RAD 12:49
PROVIDERS: PCP Family Medicine; Visit Provider Nurse Practitioner
DX: E07.89 Other specified disorders of thyroid (principal); E03.9 Hypothyroidism, unspecified; Z86.39 Personal history of other endocrine, nutritional and metabolic disease
CPT/HCPCS: 76536

== ENCOUNTER 2025-04-30 09:24 | Outpatient (CLI) | payer BC, SELFPAY ==
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
--- OUTSIDE RECORDS SUMMARY | 2025-04-30 09:36 | XMS_ITS | Encounter Summary ---
Author Organization [employer] Address [address] [place] [address] Care Team Providers Care Disintegrator Operator Name Role Phone Unavailable Primary Care Provider Unavailabl e Encounter Details Date Type Department Care Team (Late st Contact Info) Description 04/12/2019 Transcribed Document [facility] Family Medicine [address] [place] [address] ProviderDevorah MD [address] [place] [address] Social History Tobacco Use Types Packs/Day Years Used Date Smoking Tobacco: Never Assessed Comments Unknown Sex and Gender Information Value Date Recorded Sex Assigned at Female 05/05/2022 3:36 PM CDT Legal Sex Female 3:36 PM CDT Gender Identity Female 05/05/2022 3:36 PM CDT Sexual Orientation Not on file documented as of this encounter Miscellaneous Notes * Cerner Conversion Note - Historical ProviderMD - 04/12/2019 7:03 AM CDT Pre Procedure Adult Entered On: 04/12/2019 7:09 EDT Performed On: 04/12/2019 7:03 EDT by PATRICIA GARCIAS, RN Height and Weight, Clinical Dosing Height Source : Stated Height Entry Format : [place] Height, Feet : 5 ft(Converted to: 152 cm, 60 Inch) Height, Inches : 6 Inch(Converted to: 0 ft 6 Inch, 15.24 cm) Clinical Height : 167.64 cm Weight Source : Standing scale Weight Entry Format : [place] Clinical Dosing Weight : 100 kg Weight, Pounds : 220 lb Body Surface Area (BSA) : 2.08 m2 Body Mass Index : 35.6 kg/m2 (HI) [place] Body Weight : 59 kg PATRICIA GARCIAS, RN - 04/12/2019 7:03 EDT Health Histories Smoking Status : Former smoker, quit more than 30 days ago Smokeless Tobacco Status : Never PATRICIA GARCIAS RN - 04/12/2019 7:03 EDT Social History (As Of: 04/12/2019 07:09:07 EDT) Tobacco: Smoking Status Former smoker. Years of Use: 20. Packs/Tins Daily: 2. Used Tobacco, but Quit Yes. Last Used: 1997. (Last Updated: 12/14/2013 06:52:38 EST by LEONOR GONZALEZ RN) Alcohol: Alcohol Use History No. (Last Updated: 04/12/2019 07:04:17 EDT by PATRICIA GARCIAS, RN) Substance Abuse: Drug Use Hx: No. (Last Updated: 04/12/2019 07:04:20 EDT by PATRICIA GARCIAS, RN) Infectious Disease History Infectious Disease History : Chicken pox/Shingles, Influenza Fever/Chills Last 48 Hours : No Travel To Regions with Travel Advisories : No Travel Outside [place] Within Last 30 Days : No Contact With Traveler to Advisory Region : No Tuberculosis Symptoms : None PATRICIA GARCIAS RN - 04/12/2019 7:03 EDT Anesthesia/Transfusion History Family History of Anesthesia Reaction : No prior transfusion(s) Blood Transfusion Acceptable to Patient : Yes Transfusion History : Prior anesthesia without reaction Family History of Anesthesia Reaction : None PATRICIA GARCIAS RN - 04/12/2019 7:03 EDT Functional Assessment Living Situation : Home Patient Lives With : Spouse Current Home Treatments : Blood glucose monitoring PATRICIA GARCIAS RN - 04/12/2019 7:03 EDT Psychosocial History Currently in Unsafe Situation : No Tried to Harm Yourself in the Past? : No Thoughts of Harming/Killing Yourself : No PATRICIA GARCIAS RN - 04/12/2019 7:03 EDT Advance Directive Patient has Advance Directive *Q : Yes, Advance Directive not with the patient Advance Directive Type : Living will Copy Advance Directive Verified/on Chart : No PATRICIA GARCIAS RN - 04/12/2019 7:03 EDT Teaching/Learning Assessment Barriers To Learning : None evident Individuals Taught : Patient, Spouse Readiness to Learn : Cooperative Baseline Knowledge of Topic : Limited Readiness to Learn : Demonstration, Explanation Learning Style Preferences Patient : None Learning Style Preferences Family : None PATRICIA GARCIAS RN - 04/12/2019 7:03 EDT Education Topics, Periop Preadmission Perioperative Education Grid Arrival Time/Place : Verbalizes understanding, Returns demonstration CAUTI : Verbalizes understanding, Returns demonstration Central Lines : Verbalizes understanding, Returns demonstration CHG Preoperative Bathing/Cloths : Verbalizes understanding, Returns demonstration Falls : Verbalizes understanding, Returns demonstration Incentive Spirometry : Verbalizes understanding, Returns demonstration Infection Control : Verbalizes understanding, Returns demonstration IV's : Verbalizes understanding, Returns demonstration NPO Status/Directions : Verbalizes understanding, Returns demonstration Pain Management : Verbalizes understanding, Returns demonstration Postoperative Care Preparations : Verbalizes understanding, Returns demonstration Preprocedure Preparations : Verbalizes understanding, Returns demonstration Preprocedure Tests/Labs : Verbalizes understanding, Returns demonstration Remove Body Piercings : Verbalizes understanding, Returns demonstration Responsible Adult : Verbalizes understanding, Returns demonstration Take/Hold Medications Pre-Procedure : Verbalizes understanding, Returns demonstration Other : Verbalizes understanding, Returns demonstration PATRICIA GARCIAS RN - 04/12/2019 7:03 EDT General Info Arrived From : Home Mode of Arrival on Unit : Ambulatory Legal Guardian : Spouse Support Person/Patient Data Control Clerk Supervisor : Yes Support Person/Pt Rep Name : Lyle Alejandra , spouse Support Person/Pt Rep Contact Information : [phone] Want Family/Rep/Phys Notified of Admit : No Emergency Contact #1 : see above Emergency Contact #1 Phone Number : na Emergency Contact #1 Relationship : na Emergency Contact #2 : none Emergency Contact #2 Phone Number : na Emergency Contact #2 Relationship : na Primary Language : Senegalese Communication Barrier : None PATRICIA GARCIAS, RN - 04/12/2019 7:03 EDT Vital Measurements Temperature Source : Temporal artery scanning Temperature Mode : Fahrenheit Temperature, Fahrenheit : 97.8 Deg F Clinical Temperature, C : 36.6 Deg C Peripheral Pulse Rate : 74 bpm Systolic Blood Pressure : 139 mmHg Diastolic Blood Pressure : 65 mmHg Oxygen Saturation : 95 % Oxygen Therapy Mode : Room air PATRICIA GARCIAS RN - 04/12/2019 7:03 EDT Sleep Apnea Risk Assmt Hx of Obstructive Sleep Apnea Diagnosis : No Snore Loudly : No Tired, Fatigued, or Sleepy During Day : No Observed Stopping Breathing During Sleep : No Have/Are Being Treated for Hypertension : No BMI Greater Than 35 kg/m2 : No Age over 50 Years Old : Yes Neck Circumference Greater Than 40 cm : No Gender Male : No STOP-BANG Sleep Apnea Risk Level Score : 1 Sleep Apnea Risk Comment : pt states she has been told she has a mild case but chooses not to use a sleep apnea machine PATRICIA GARCIAS RN - 04/12/2019 7:03 EDT Grayson Scale Grayson Sensory Perception : No impairment Grayson Moisture : Rarely moist Grayson Activity : Walks occasionally Grayson Mobility : No limitation Grayson Nutrition : Adequate Grayson Friction and Shear : No apparent problem Grayson Score : 21 PATRICIA GARCIAS RN - 04/12/2019 7:03 EDT Oxygen Therapy Oxygen Therapy Mode : Room air PATRICIA GARCIAS RN - 04/12/2019 7:03 EDT Pain Assessment Pain Assessment : Initial assessment Pain Scale Used : 0-10 Scale PATRICIA GARCIAS RN - 04/12/2019 7:03 EDT Fall Risk Scales ABCs Fall Injury Risk Identification : None CAPUTO Hx Falls Immediate/Within 3 Months : Yes Caputo Secondary Diagnosis : No CAPUTO Use of Ambulatory Aid : None CAPUTO IV Therapy or IV Access : Yes Caputo Gait/Transferring : Normal, bedrest, immobile Caputo Mental Status : Oriented to own ability Caputo Fall Risk Score : 45 CAPUTO Fall Scale Risk Level : 25-45 Medium Risk [place] Fall Interventions : Adequate lighting, Bed in low position, Call device within reach, Non-slip footwear, Personal items within reach, Room free of clutter/spills, Wheels locked, Wires/Cords secured PATRICIA GARCIAS, RN - 04/12/2019 7:03 EDT Valuables and Belongings Valuables and Belongings : Clothing, Jewelry, Personal devices, Personal items, No comfort items, No assistive devices, No respiratory devices Clothing : Common streetwear Clothing Disposition : Bedside Personal Device Disposition : With patient, Declines to send to security/safe Jewelry : Ring Jewelry Disposition : With patient, Declines to send to security/safe Personal Devices : Glasses Personal Items : Cell phone, Wallet Personal Items Disposition : Bedside, With family, Declines to send to security/safe Belongings Sent Home With : spouse, Corkie Belongings Disposition Comment : pt denies having any valuables that need locked in hospital safe PATRICIA GARCIAS, DEV - 04/12/2019 7:03 EDT Pain Scale Intensity : 0 PATRICIA GARCIAS RN - 04/12/2019 7:03 EDT Image 4 - Images currently included in the form version of this document have not been included in the text rendition version of the form. documented in this encounter Plan of Treatment Not on file documented as of this encounter Visit Diagnoses Not on filedocumented in this encounter
--- OUTSIDE RECORDS SUMMARY | 2025-04-30 09:36 | XMS_ITS | Clinical Summary ---
Author Organization [employer] Address [address] [place] [address] Care Team Providers Care Club Licensee Name Role Phone Unavailable Primary Care Provider Unavailabl e Social History Tobacco Use Types Packs/Day Years Used Date Smoking Tobacco: Never Assessed Comments Unknown Sex and Gender Information Value Date Recorded Sex Assigned at Female 05/05/2022 3:36 PM CDT Legal Sex Female 3:36 PM CDT Gender Identity Female 05/05/2022 3:36 PM CDT Sexual Orientation Not on file Plan of Treatment Not on file
--- OUTSIDE RECORDS SUMMARY | 2025-04-30 09:36 | XMS_ITS | Encounter Summary ---
Author Organization [employer] Address [address] [place] [address] Care Team Providers Care Mobile Development Manager Name Role Phone Unavailable Primary Care Provider Unavailabl e Encounter Details Date Type Department Care Team (Late st Contact Info) Description 04/12/2019 Transcribed Document [facility] [place] Family Medicine [address] [place] [address] ProviderDevorah MD [address] [place] [address] Social History Tobacco Use Types Packs/Day Years Used Date Smoking Tobacco: Never Assessed Comments Unknown Sex and Gender Information Value Date Recorded Sex Assigned at Female 05/05/2022 3:36 PM CDT Legal Sex Female 3:36 PM CDT Gender Identity Female 05/05/2022 3:36 PM CDT Sexual Orientation Not on file documented as of this encounter Miscellaneous Notes * Cerner Conversion Note - Devorah ProviderMD - 04/12/2019 9:14 AM CDT Admission History, Adult Entered On: 04/12/2019 9:15 EDT Performed On: 04/12/2019 9:14 EDT by Monico Steele Rn Advance Directive Patient has Advance Directive *Q : Yes, Advance Directive not with the patient Advance Directive Type : Living will Copy Advance Directive Verified/on Chart : No Monico Steele Rn - 04/12/2019 9:14 EDT Anesthesia/Transfusion History Family History of Anesthesia Reaction : No prior transfusion(s) Blood Transfusion Acceptable to Patient : Yes Transfusion History : Prior anesthesia without reaction Family History of Anesthesia Reaction : None Monico Steele Rn - 04/12/2019 9:14 EDT Functional Assessment Living Situation : Home Patient Lives With : Spouse CAPUTO Hx Falls Immediate/Within 3 Months : Yes Current Home Treatments : Blood glucose monitoring Monico Steele Rn - 04/12/2019 9:14 EDT General Info Arrived From : Home Mode of Arrival on Unit : Ambulatory Legal Guardian : Spouse Support Person/Patient External Grinder : Yes Support Person/Pt Rep Name : Lyle Alejandra spouse Support Person/Pt Rep Contact Information : [phone] Want Family/Rep/Phys Notified of Admit : No Emergency Contact #1 : see above Emergency Contact #1 Phone Number : na Emergency Contact #1 Relationship : na Emergency Contact #2 : none Emergency Contact #2 Phone Number : na Emergency Contact #2 Relationship : na Primary Language : New Zealander Communication Barrier : None Monico Steele Rn - 04/12/2019 9:14 EDT Fall Risk Scales ABCs Fall Injury Risk Identification : Coagulation ABC Fall Injury Risk : Moderate to high injury risk Injury Moderate to High Risk Interventions : Specialty low bed, Transport methods appropriate to patient CAPUTO Hx Falls Immediate/Within 3 Months : No Caputo Secondary Diagnosis : Yes CAPUTO Use of Ambulatory Aid : None CAPUTO IV Therapy or IV Access : Yes Caputo Gait/Transferring : Normal, bedrest, immobile Caputo Mental Status : Oriented to own ability Acputo Fall Risk Score : 35 CAPUTO Fall Scale Risk Level : 25-45 Medium Risk Warriormine Fall Interventions : Adequate lighting, Assistive devices within reach, Bed in low position, Call device within reach, Hourly comfort/safety rounds, Non-slip footwear, Personal items within reach, Reinforced to call for assistance before getting out of bed, Room free of clutter/spills, Upper side-rails up, Wheels locked, Wires/Cords secured Fall Moderate to High Risk Interventions : Transport methods appropriate to patient Monico Steele Rn - 04/12/2019 9:14 EDT Fall Risk Education Grid Alarms : Verbalizes understanding Assistive Equipment Use : Verbalizes understanding Bed Height/Stabilization : Verbalizes understanding Call light use : Verbalizes understanding Door Open : Verbalizes understanding Environmental Management : Verbalizes understanding Eyeglasses Use : Verbalizes understanding Fall Community Resources : Verbalizes understanding Fall Contract/Letter : Verbalizes understanding Fall Prevention in the Home : Verbalizes understanding Fall Prevention Protocol : Verbalizes understanding Hearing Aid Use : Verbalizes understanding Home Risk Assessment : Verbalizes understanding Need Constant Observation : Verbalizes understanding Night Light Use : Verbalizes understanding Nonskid Footwear Use : Verbalizes understanding Notification of Staff When Leaving : Verbalizes understanding Orthostatic Hypotension Precautions : Verbalizes understanding Personal Article Availability : Verbalizes understanding Prevention Responsibility Family : Verbalizes understanding Prevention Responsibility Patient : Verbalizes understanding Risk Alert Methods : Verbalizes understanding Risk Factors : Verbalizes understanding Safety Aids : Verbalizes understanding Siderails use/risks : Verbalizes understanding Special Assistive Devices : Verbalizes understanding Staff Responsiveness : Verbalizes understanding Symptom Identification & Action Plan *Q : Verbalizes understanding Symptom Reporting : Verbalizes understanding Toileting Schedule : Verbalizes understanding Transfer/Mobility Techniques : Verbalizes understanding Urinal/Bedpan Availability : Verbalizes understanding Wait for Assistance : Verbalizes understanding Wheelchair Safety : Verbalizes understanding Monico Steele Rn - 04/12/2019 9:14 EDT Barriers to Learning : None evident Learning Style Preferences Family : None Learning Style Preferences Patient : None Fall Risk Scale Calc Temp : 0 Monico Steele Rn - 04/12/2019 9:14 EDT Health Histories Smoking Status : Former smoker, quit more than 30 days ago Smokeless Tobacco Status : Never Monico Steele Rn - 04/12/2019 9:14 EDT Social History (As Of: 04/12/2019 09:15:57 EDT) Tobacco: Smoking Status Former smoker. Years of Use: 20. Packs/Tins Daily: 2. Used Tobacco, but Quit Yes. Last Used: 1997. (Last Updated: 12/14/2013 06:52:38 EST by LEONOR GONZALEZ RN) Alcohol: Alcohol Use History No. (Last Updated: 04/12/2019 07:04:17 EDT by PATRICIA GARCIAS, RN) Substance Abuse: Drug Use Hx: No. (Last Updated: 04/12/2019 07:04:20 EDT by PATRICIA GARCIAS, RN) Height and Weight, Clinical Dosing Height Source : Stated Height Entry Format : Dafter Height, Feet : 5 ft(Converted to: 152 cm, 60 Inch) Height, Inches : 6 Inch(Converted to: 0 ft 6 Inch, 15.24 cm) Clinical Height : 167.64 cm Weight Source : Standing scale Weight Entry Format : Dafter Clinical Dosing Weight : 100 kg Weight, Pounds : 220 lb Body Surface Area (BSA) : 2.08 m2 Body Mass Index : 35.6 kg/m2 (HI) [place] Body Weight : 59 kg Monico Steele Rn - 04/12/2019 9:14 EDT Infectious Disease History Infectious Disease History : Chicken pox/Shingles, Influenza Fever/Chills Last 48 Hours : No Travel To Regions with Travel Advisories : No Travel Outside [place] Within Last 30 Days : No Contact With Traveler to Advisory Region : No Tuberculosis Symptoms : None Monico Steele Rn - 04/12/2019 9:14 EDT Influenza Vaccine Asmt, Adult Previous Vaccines from Immunization Schedule : No qualifying data available. Influenza Immunization, Current Season : Outside of influenza season Monico Steele Rn - 04/12/2019 9:14 EDT Pneumococcal Vaccine Previous Vaccines from Immunization Schedule : No qualifying data available. Pneumonia Immunization Received : Yes Monico Steele Rn - 04/12/2019 9:14 EDT Nutrition History Eating Poorly Due to Decreased Appetite : No Unplanned Weight Loss in Past 3-6 Months : No Malnutrition Screening Tool Total(mal) : 0 Malnutrition Screening Tool Risk Level : Patient not at risk Monico Steele Rn - 04/12/2019 9:14 EDT Psychosocial History Currently in Unsafe Situation : No Tried to Harm Yourself in the Past? : No Thoughts of Harming/Killing Yourself : No Monico Steele Rn - 04/12/2019 9:14 EDT Sleep Apnea Risk Assmt Hx of [...] not to use a sleep apnea machine Monico Steele Rn - 04/12/2019 9:14 EDT Valuables and Belongings Valuables and Belongings [...] security/safe Belongings Sent Home With : spouse, Lyle Belongings Disposition Comment : pt denies having any valuables that need locked in hospital Monico Mendez Rn - 04/12/2019 9:14 EDT Electronically signed by [facility], [facility] Conversion Neon Light Installer Cerner at 02/26/2023 1:00 PM CDT documented in this encounter Plan of Treatment Not on file documented as of this encounter Visit Diagnoses Not on filedocumented in this encounter
--- OUTSIDE RECORDS SUMMARY | 2025-04-30 09:36 | XMS_ITS | Encounter Summary ---
Author Organization [employer] Address [address] [place] [address] Care Team Providers Care Half Section Ironer Name Role Phone Unavailable Primary Care Provider Unavailabl e Encounter Details Date Type Department Care Team (Late st Contact Info) Description 04/12/2019 Transcribed Document [facility] [place] [address] [place] [address] ProviderDevorah MD [address] [place] [address] Social History Tobacco Use Types [...] Conversion Note - Devorah ProviderMD - 04/12/2019 8:00 PM CDT Pain Assessment Entered On: 04/12/2019 23:15 EDT Performed On: 04/12/2019 21:45 EDT by KEIKO PERERA RN Intervention Information: acetaminophen-HYDROcodone Performed by KEIKO PERERA RN on 04/12/2019 20:45:00 EDT acetaminophen-HYDROcodone,1Tab Oral,Pain (Moderate 4-6) Pain Assessment Pain Assessment : Follow-up assessment Pain Improved by Intervention : Yes KEIKO PERERA RN - 04/12/2019 23:15 EDT Electronically signed by Yudi Larkin Conversion Administrative Operations Coordinator Cerner at 02/26/2023 1:10 PM CDT documented in this encounter Plan of Treatment Not on file documented as of this encounter Visit Diagnoses Not on filedocumented in this encounter
--- OUTSIDE RECORDS SUMMARY | 2025-04-30 09:36 | XMS_ITS | Encounter Summary ---
Author Organization [employer] Address [address] [place] [address] Care Team Providers Care Correctional Supply Supervisor Name Role Phone Unavailable Primary Care Provider Unavailabl e Encounter Details Date Type Department Care Team (Late st Contact Info) Description 04/12/[address] [facility] [place] Family Medicine [facility] [place] [address] ProviderDevorah MD [address] [place] [address] Social History Tobacco Use Types [...] Conversion Note - Devorah ProviderMD - 04/12/2019 8:48 AM CDT DATE OF PROCEDURE: 04/12/2019 PROCEDURE: 1. Left heart catheterization. 2. Left ventriculography. 3. Selective coronary arteriography. 4. Stent placement, left anterior descending. 5. Right iliac angiogram. INDICATION: Abnormal cardiac imaging study with angina. DESCRIPTION OF PROCEDURE: RFA 5-Slovak sheath, 5-Slovak Wilner multipack for diagnostic study. Exchange of 6-sheath and CLS guiding catheter. A long Milwaukee wire was deployed. The patient received intracoronary nitroglycerin as well as prasugrel and aspirin per protocol. Angiomax initiated. Lesion traversed with Milwaukee wire and directly stented utilizing a Synergy 2.75 x 24 and then it was noted that there was inadequate distal coverage and a second overlapping Synergy 2.75 x 12 was placed. Final results were excellent. Angiography of the right iliac showed that the entry point was free of any side vessels and therefore an Angio-Seal was deployed. Adverse events, none. FINDINGS: Left ventricular pressure, 166/18; aortic pressure, 166/90. No gradient across the aortic valve. Left ventriculogram: Normal left ventricle, normal ejection fraction. Left coronary artery: Left coronary artery consists of a normal left main dividing into an LAD and circumflex. The LAD has a very tight proximal lesion of 95%. The rest of the vessel shows no significant obstruction. The lesion is somewhat longer in length, probably 20 mm. The circumflex is a dominant vessel free of significant obstruction, gives rise to two sizable marginals and two distal posterolateral branches. Right coronary artery: The RCA is a nondominant vessel free of significant obstruction. IMPRESSION: 1. Severe single-vessel coronary artery disease. 2. Successful stent placement. 3. Normal left heart function, hemodynamics. Monico Camarena M.D. Dict: 04/12/2019 08:48:14 Trans: 04/12/2019 09:48:50 CC1: Monico Camarena M.D. documented in this encounter Plan of Treatment Not on file documented as of this encounter Visit Diagnoses Not on filedocumented in this encounter
--- OUTSIDE RECORDS SUMMARY | 2025-04-30 09:36 | XMS_ITS | Clinical Summary ---
Author Organization [facility] Address [address] [place] [address] Care Team Providers Care Needle Loom Weaver Name Role Phone Unavailable Primary Care Provider [...] (2 - Td or Tdap) 04/27/2023 04/27/2013 [id number] Vaccine ( season) 2024 01/19/2021, 12/22/2020 UKY-Influenza [...] Narrative SUNQUEST - 11/05/2000 12:51 PM EST [facility] MR #: [id number] [facility] CODIE [place]JAN[place]A [place], [place] [address] 1965 (Age: 35) FW Collect Date: 10/20/2000 00:00 Receipt Date: 10/21/2000 09:55 Page 1 DEPARTMENT OF PATHOLOGY AND LABORATORY MEDICINE CYTOPATHOLOGY REPORT Email: [email or web address] [phone] ATTENDING MD/Practitioner: Elma Talley MD Service: [facility] [place] [facility] [place]: 11/05/2000 12:51 Collected: 10/20/2000 00:00 INTERPRETATION [...] results is suggested (please call Microbiology at [phone] for results). CLINICAL INFORMATION: Menstrual History: Cyclic Date of Last Menstrual Period: 12 3 00 SPECIMEN DESCRIPTION: A: THIN PREP (CERVICAL/VAGINAL) THIN PREP PROCESS CELLULAR ENHANCEMENT ICD: 795.0 ABNORMAL PAP SMEAR CERVIX, NONSPECIFIC V72.3 GYNECOLOGICAL EXAMINATION F: A; THIN SCRN [id number], [id number] C\V (PO) SNOMED CODES: A; [id number] In cases where a pathologist has signed out the report, the service has been rendered in part by a resident. The signing pathologist has performed and is responsible for the reported pathologic evaluation. us Historical Provider MD LAB PATHOLOGY ORDERABLES Final Result e[employer]Way from Last 3 Months or Most Recently Relevant to Health Maintenance Insurance GREG
--- OUTSIDE RECORDS SUMMARY | 2025-04-30 09:36 | XMS_ITS | Encounter Summary ---
Author Organization [employer] Address [address] [place] [address] Care Team Providers Care Extension Course Coordinator Name Role Phone Unavailable Primary Care Provider Unavailabl e Encounter Details Date Type Department Care Team (Late st Contact Info) Description 04/12/2019 Transcribed Document [facility] [place] [place] [address] [place] [address] ProviderDevorah MD [address] [place] [address] Social History Tobacco Use Types Packs/Day Years Used Date Smoking Tobacco: Never Assessed Comments Unknown Sex and Gender Information Value Date Recorded Sex Assigned at Female 05/05/2022 3:36 PM CDT Legal Sex Female 3:36 PM CDT Gender Identity Female 05/05/2022 3:36 PM CDT Sexual Orientation Not on file documented as of this encounter Miscellaneous Notes * Cerner Conversion Note - Devorah Brown MD - 04/12/2019 11:13 AM CDT Patient: CODIE ALEJANDRA Age: 53 years Sex: Female : 1965 Associated Diagnoses: None Author: JOLLY FORBES MD-CAR CARDIOLOGY NOTE: Cardiac catheterization performed without incident. Cardiac ejection fraction was normal. She was found to have a proximal stenosis of the left anterior descending coronary artery of 95% which was repaired with overlapping drug-eluting stent with excellent result. Cardiac ejection fraction in the other coronary arteries were unremarkable. She will be discharged on prasugrel, aspirin and rosuvastatin. Follow-up appointment planned with me for one month. I feel she can proceed with stent to the mesenteric artery at any time. Aspirin and prasugrel should not be stopped for one year. Prerscriptions sent via [employer]. documented in this encounter Plan of Treatment Not on file documented as of this encounter Visit Diagnoses Not on filedocumented in this encounter
--- OUTSIDE RECORDS SUMMARY | 2025-04-30 09:37 | XMS_ITS | Encounter Summary ---
Author Organization [employer] 2014[employer] Address [address] [place] [address] Care Team Providers Care Mirror Painter Name Role Phone Unavailable Primary Care Provider Unavailabl e Encounter Details Date Type Department Care Team (Late st Contact Info) Description 04/13/2019 Transcribed Document [facility] [place] [address] [place] [address] ProviderDevorah MD [address] [place] [address] Social History Tobacco Use Types [...] Cerner Conversion Note - Devorah ProviderMD - 04/13/2019 8:14 AM CDT Patient: CODIE ALEJANDRA Age: 53 years Sex: Female : 1965 Associated Diagnoses: None Author: MARTIN DUNN APRN [facility] CARDIOLOGY PROGRESS NOTE: DIAGNOSIS: 1. CAD 2. Mesenteric artery stenosis SUBJECTIVE: no complaints Vitals Signs (last 24 hrs) Last Charted Minimum Maximum Temp 97 (APR 13 03:30) L 96.5 (APR 12 18:10) 98.2 (APR 12 23:00) Mon HR 67 (APR 13 03:30) 65 (APR 12 10:15) 72 (APR 12 12:00) Resp Rate 16 (APR 13 03:30) 16 (APR 12 09:13) 18 (APR 12 09:15) SBP 121 (APR 13 03:30) 121 (APR 13 03:30) H 157 (APR 12 18:10) DBP 66 (APR 13 03:30) L 54 (APR 12 23:00) 77 (APR 12 09:13) MAP 80 (APR 13 03:30) 72 (APR 12 23:00) 113 (APR 12 09:45) SpO2 97 (APR 12 18:10) 95 (APR 12 09:30) 98 (APR 12 10:30) Clinical Weight CLINICALWEIGHT: 100 kg (04/12/19 09:14:00) [place] Body Weight: 59 kg (04/12/19 09:14:00) Intake & Output Totals Last 24 Hours (7a-7a) Intake (1 Events) Oral Intake (240 mL) Output (1 Events) Urine Voided (Volume) (300 mL) Input Total: 240 mL Output Total: 300 mL Balance: -60 mL TELE: NSR 73 Blood Gases (Current Encounter/Past 24 Hours) No Blood Gas Results Found (Past 24 Hours) Labs (Last four charted values) Plt 335 (APR 12) Na 140 (APR 13) K 3.6 (APR 13) Cl 105 (APR 13) CO2 31 (APR 13) BUN 17 (APR 13) Cr 0.80 (APR 13) Glu R H 148 (APR 13) Ca 9.1 (APR 13) EXAM: Alert & Oriented, No apparent distress. HEAD&NECK: No JVD, No carotid bruit, No masses CORONARY: RRR, S1/S2, No murmurs LUNGS: CTA/B, No rhonchi, No wheeze ABDOMEN: Soft, Non-tender, Positive Bowel sounds EXTREMITIES: No edema, No cyanosis, Pedal pulses palpable, Rt. no hematoma IMPRESSION/PLAN: 1. CAD 04/12/2019 C CROW LAD DAPT- prasugrel, ASA x1 year statin 2. Mesenteric artery stenosis cardiac workup in preparation for intervention 3. HLP statin Discharge home with follow up with Dr Camarena one month Dictation #[id number] Electronically signed by Trae, [facility] Conversion General Freight Agent Cerner at 02/26/2023 12:52 PM CDT documented in this encounter Plan of Treatment Not on file documented as of this encounter Visit Diagnoses Not on filedocumented in this encounter
--- OUTSIDE RECORDS SUMMARY | 2025-04-30 09:37 | XMS_ITS | Data Portability ---
Author Organization [facility]N [facility] Address [address] [place] [address] Care Team Providers Care Client Solutions Manager Name Role Phone MARTINE RAYO General Surgeon MALATHI KYLE [employer] Supervisor MELCHOR ALLEN Primary Care Provider Assessment Encounter Date [...] carotid duplex, check BP in both arms. [email or web address] Not available 11/14/2021 11:10:10 07/28/2022 07/28/2022 Follow up yearly [email or web address] Not availab le 05/27/2022 10:30:54 07/27/2023 07/27/2023 Follow up yearly jose Not availab le 07/26/2023 13:21:00 10/23/2024 10/23/2024 Follow up yearly [email or web address] Not avai lable 10/23/2024 11:56:25 Plan of Treatment Reminders Order Date Submit Date Provider Last Modified By Organization Details Last Modified Time Details Appointments DERMATOLO GY VISIT 2024 11:00A M VEENA BRAGG MD Not available Not available Not available Lab surgical pathology study 2022 023 [facility], [address] [place] [address], [phone], 07/29/2023 08:19:03 Referral None recorded. Procedures None recorded. Surgeries None recorded. Imaging None recorded. Medication Orders triamcino lone acetonide 0.1 % topical cream 2023 024 [place] [id number], [address], [phone], 10/23/2024 12:53:20 Patient TargetsNo targets recorded. Patient Instructions Encounter Date Encounter Id Patient Instructions Last Modified By Organization Details Last Modified Time 09/30/2021 [id number] Education: We discussed the potential diagnostic options, options for further evaluation and treatments, and the risks and benefits of each. jose Not available 09/19/2021 07:03:52 11/14/2021 [id number] high cholesterol : care instructions [email or web address] Not available 11/14/2021 11:11:53 07/28/2022 [id number] Education: We discussed the potential diagnostic options, options for further evaluation and treatments, and the risks and benefits of each. [email or web address] Not available 05/27/2022 10:30:59 07/27/2023 [id number] Education: We discussed the potential diagnostic options, options for further evaluation and treatments, and the risks and benefits of each. jose Not available 07/26/2023 13:21:00 10/23/2024 [id number] Education: We discussed the potential diagnostic options, options for further evaluation and treatments, and the risks and benefits of each. [email or web address] Not available 10/23/2024 11:56:25 Reason for Referral None Reported. Results Created Date Observation Date Name Description Value Unit Range Abnormal Flag Note LastModifiedBy Organization Detail LastModifiedTime 07/27/20 23 07/27/2023 SURGI KARSON surgical SEE BELOW normal Depar tment of Patho logy Surgi karson Patho logy Repor t NAME: EDGARDO KATZ PATH. :RI-2 Copy to: Diagn osis: Left upper scapu [...] shyanne. No malig gerald is seen. ULI Papo MCCAIN Out Date: 07/29 08:18 Page 1 of 1 Not Available [facility] [address] [place] [address], [place], [address], 07/29/2023 08:19:03 11/18/19 22 11/14/2021 chelsi pitt am No observ ation record ed. [email or web address] Not Available 11/18 08:38:59 Result Notes None recorded. Problems Name Problem SNOMED Code Status Onset Date Resolution Date Notes Provider Name and Address Organization Details Recorded Time Paresthes ia of skin Active 2015 From Automated Load;Prov ider: Catina Blakely;Sta tus: Active Not Available [facility] 17:46:45 Melanoma in situ of lower limb 412009879 Active 2015 From Automated Load;Prov ider: Catina Blakely;Sta tus: Active Not Available [facility] 17:46:45 Syncope and collapse 581723904 Active 2015 From Automated Load;Prov ider: Catina Blakely;Sta tus: Active Not Available [facility] 17:46:45 Obstructi ve sleep apnea syndrome 69543853 Active 2015 From Automated Load;Prov ider: Catina Blakely;Sta tus: Active Not Available [facility] 17:46:45 Asthenia 95445642 Active 2015 From Automated Load;Prov ider: Catina Blakely;Sta tus: Active Not Available [facility] 17:46:45 Senile hyperkera tosis 063375477 Active 2015 From Automated Load;Prov ider: Veena Bragg;St atus: Active Not Available [facility] 17:46:45 Neoplasm of uncertain behavior of skin 85485237 Active 2015 From Automated Load;Prov ider: Veena Bragg;St atus: Active Not Available [facility] 17:46:45 Coronary arteriosc lerosis in [place] artery 95868011188 07 Active 2015 From Automated Load;Prov ider: Jolly Camarena;Stat us: Active Not Available [facility] 17:46:45 Hyperlipi demia 15779928 Active 2015 From Automated Load;Prov ider: Jolly Camarena;Stat us: Active Not Available [facility] 17:46:45 Hemangiom a 165421609 Active 2015 From Automated Load;Prov ider: Neto Shah; Status: Active Not Available [facility] 17:46:45 Neoplasti c disease 12538357 Active 2015 From Automated Load;Prov ider: Neto Shah; Status: Active Not Available [facility] 17:46:45 Headache 70518592 Active 2015 From Automated Load;Prov ider: Catina Blakely;Sta tus: Active Not Available [facility] 17:46:45 Long-term current use of antiplate let drug 66116210055 4101 Active 2019 Not Available [facility] 17:46:45 Problem Notes None recorded. Procedures Surgical History Date Name Laterality Status Provider Name and Address Organization Details Recorded Time 10/23/20 24 Destruction BN Lesions completed Berenice Chao [facility] 10/23/2024 12:32:15 07/27/20 23 Shave Lesion; trunk, arm, leg completed VEENA BRAGG MD [address] [place] [address] [place], [address], [facility] 08/01/2023 22:10:31 07/27/20 23 Destruction BN Lesions completed Darline Keys [facility] 07/27/2023 10:51:01 11/05/20 22 anal fistulectomy completed Madelaine Bailey [facility] 11/12/2022 08:35:59 11/14/19 22 EKG completed LUIS AN MD [address] [place], [address], [facility] 11/14/2021 11:07:28 09/30/20 21 Destruction BN Lesions completed Darline Keys [facility] 09/30/2021 11:50:05 08/22/20 20 Stress Test - Nuclear completed JOLLY CAMARENA MD [address] [place] [address], [phone], [facility] 08/22/2020 16:12:57 08/04/20 19 Biopsy Skin Lesion; Punch completed VEENA BRAGG MD [address] [place] [address], [phone], [facility] 08/04/2019 13:37:01 04/12/20 19 Cardiac Catheterization completed JOLLY CAMARENA MD [address] [place] [address], [phone], [facility] 04/12/2019 09:21:57 04/10/20 19 Biopsy Skin Lesion; Tangential completed Enid Domínguez [facility] 04/10/2019 11:22:14 04/04/20 19 Stress Test - Nuclear completed JOLLY CAMARENA MD [address] [place] [address], [phone], [facility] 04/04/2019 11:01:47 09/21/20 18 Biopsy Skin Lesion; Tangential completed Enid Domínguez [facility] 09/21/2018 15:42:56 09/21/20 18 Injection, Intralesional completed GENIE RANDHAWA PA-C [address] [place] [address], [phone], [facility] 09/21/2018 16:00:40 09/07/20 17 Shave Lesion; trunk, arm, leg completed VEENA BRAGG MD [address] [place] [address], [phone], [facility] 2017 21:28:25 05/26/20 17 Cholecystectomy completed Rebeca Davis [facility] 06/28/2017 11:27:49 05/26/20 17 Other completed Eryn Martinez [facility] 02/01/2020 10:29:14 05/23/20 17 Other completed Eryn Martinez [facility] 02/01/2020 10:29:14 03/29/20 17 Destruction BN Lesions completed Darline Keys [facility] 03/29/2017 11:23:21 12/14/19 14 Cardiac Catheterization completed [facility] 06/23/2017 15:47:15 11/08/19 10 Hysterectomy/revise vagina completed Re[facility]a [facility] 06/23/2017 15:47:36 11/08/19 10 Other completed [facility] 06/23/2017 15:48:36 12/09/19 09 Other completed Rebec[facility] 06/23/2017 15:46:34 11/08/18 83 Other completed Rebec[facility] 06/23/2017 15:46:49 Other completed [facility] 06/23/2017 15:47:00 Other completed [facility] 06/23/2017 15:48:46 Imaging Results None recorded. Procedure Notes None recorded. Medical Equipment None Reported. Allergies Allergen ID Allergen Name Allergen Category Reaction Reaction Severity Criticality Documentation Date Start Date Code Code System Note Provider Name and Address Organization Details Recorded Time 546944 Substance with sulfonami de structure and antibacte rial mechanism of action (substanc e) medicatio n Not available Not available Not available 10/01/20162008 42964 8003 SNOMED Comme nt: Creat ed By: Arthur chandlerCre ated Date: 009 1:56: 53 PM; Not Available [facility] 6 10:14:08 [id number] E-Mycin medicatio n rash Not available Not available 10/01/2016200960 8 RxNorm React ion: RASH; Comme nt: Creat ed By: Paty chandlerCre ated Date: 2009 11:43 :02 AM; Not Available [facility] 6 13:01:26 512814 Levaquin medicatio n Not available Not available Not available 10/01/20162011 28311 2 RxNorm Comme nt: Creat ed By: Amee Ramírez ca;Cr eated Date: 2011 9:17: 29 AM; Not Available [facility] 6 13:01:26 207577 Product containin g penicilli n (product) medicatio n Not available Not available Not available 10/02/20162008 99570 8001 SNOMED Comme nt: Creat ed By: Arthur goff;Cre ated Date: 1:56: 42 PM; Not Available [facility] 6 03:46:42 556448 Benadryl medicatio n Not available Not available Not available 10/02/20162008 36212 7 RxNorm Comme nt: Creat ed By: Arthur goff;Cre ated Date: 009 1:57: 32 PM; Not Available [facility] 6 03:46:42 730007 codeine medicatio n Not available Not available Not available 10/02/20162008 2670 RxNorm Comme nt: Creat ed By: Arthur goff;Cre ated Date: 1:57: 04 PM; Not Available [facility] 6 08:24:21 539215 spironola ctone medicatio n rash Not available Not available 10/23/2024 9997 RxNorm Berenice cuevas [facility] 4 12:24:35 Medications Name Sig Start Date [...] Address Organization Details Last Updated DateTime 2 06513.7 4 g 16 /min 98 % 98 % 100 mm[Hg] 60 mm[Hg] Heide Kelly [facility] 2 10:09:05 Social History Question Answer Notes LastModified by Organizat [employer] Details LastModified Time Tobacco Smoking Status [facility] 11/07/2019 11:19:58 How Much Tobacco Do You Chew? None Information not available 11/07/2019 Marital Status Informatio n not available 11/07/2019 What Was The Date Of Your Most Recent Tobacco Screening? 08/19/2020 [email or web address] Information not available 08/19/2020 How Much Tobacco Do You Smoke? 2 PPD Information not available 11/07/2019 How Many Years Have You Smoked Tobacco? 20 Information not available 11/07/2019 Sex: Female Functional Status Question Answer Note LastModified by Organizat ion Details LastModified Time Do you or have you ever used smokeless tobacco? 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 Information not available 06/23/2017 Do you [...] available 2016 15:43:36 Medical History Condition Response Squamous Cell Carcinoma Y Atrial Fibrillation N Thyroid Disease N Black Lung N Thyroid Problems N Lung Disease N Acne N Skin Problems N Nervous Illness N Vascular Disease N Ulcers N Other Skin Condition Y Diabetes N Varicose Veins Y Rheumatic Fever N Autoimmune disease Y Bleeding Disorder N Hiatal hernia N Tuberculosis N AIDS/HIV N Hyperlipidemia Y Cancer N Eczema N Melanoma Y Stroke N Asthma N Peripheral Vascular Disease N Basal Cell Carcinoma N Jaundice N High Cholesterol Y Warfarin Management N Skin Cancer Y Heart Disease N Hypertension Y Gynecological HistoryNo gynecological history recorded. Obstetrics History GPAL:G 0 P 0 0 0 0 Past Encounters Encounter ID Performer Location Encounter Start Date Encounter Closed Date Diagnosis/Indication Diagnosis SNOMED-CT Code Diagnosis ICD10 Code Diagnosis Note [id number] MD WINDY BUTLER [address] [place] [address] 03/29/2017 11:01:36 03/29/2017 15:56:27 History of malignant melanoma of the skin 5606467795 08 Z85.820 Status post MM on left anterior thigh 0.2 mm in March 2009 - doing well [place] 291046490 L81.4 reassuranc e, several dark but doubt cancer Hemangioma 071700741 D18 .00 left lower areola-- watch and reassuranc e Senile hyperkeratosis 39 6985910 L82.1 reassuranc e Inflamed s eborrheic keratosis 566790562 L82.0 LN x 1 Multiple b enign melanocytic nevi 916428057 D22.9 reassuranc e - will continue to monitor for changes Onychomycosis 231982915 B35.1 reassuranc e - discussed treatment options - will wait on any treatment [id number] JOLLY CAMARENA MD CARDIOLOG Y [facility] [address] [place] [address] 06/28/2017 10:22:58 06/28/2017 12:28:34 Hyperlipidemia 66697395 E78.5 Management of this problem was reviewed with the patient. No changes recommende d, status for this problem is stable at this time. Coronary arteriosclerosis in [place] artery 5331872092 107 I25.10 Noncritica l CAD demonstrat ed catheteriz ation. Suggest risk factor therapy with statins and low-dose aspirin. [id number] MD WINDY BUTLER [address] [place] [address] 09/07/2017 10:09:29 09/10/2017 10:52:33 History of malignant melanoma of the skin 3459021797 08 Z85.820 Status post MM on left anterior thigh 0.2 mm in March 2009 - doing well [place] 234721913 L81.4 reassuranc e, several dark Senile hyperkeratosis 39 3498437 L82.1 reassuranc e 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 79819371 D48.5 ?ISKRight upper lateral ankleShave removal and base destroyed with ED [id number] VEENA BRAGG MD [facility] [address] [place] [address] 04/05/2018 10:52:35 04/05/2018 13:09:39 History of malignant melanoma of the skin 0240313834 08 Z85.820 Status post MM on left anterior thigh 0.2 mm in March 2009 - doing well [place] 932262006 L81.4 reassuranc e, several dark but doubt cancer Hemangioma 832753582 D18 .00 left lower areola-- watch and reassuranc e Senile hyperkeratosis 39 3455872 L82.1 reassuranc e Multiple b enign melanocytic nevi 497938794 D22.9 reassuranc e - will continue to monitor for changes Verruca vulgaris 7578417 3 B07.9 PW--declin es tx today Reassuranc e and education regarding the disorder and options. [id number] JOLLY CAMARENA MD CARDIOLOG Y [facility] [address] [place] [address] 07/04/2018 10:08:24 07/04/2018 11:34:40 Hyperlipidemia 73822259 E78.5 Management of this problem was reviewed with the patient. No changes recommende d, status for this problem is stable at this time. Coronary arteriosclerosis in [place] artery 8626817984 107 I25.10 Noncritica l CAD demonstrat ed catheteriz ation. Suggest risk factor therapy with statins and low-dose aspirin. [id number] GENIE RANDHAWA PA-C [facility] [address] [place] [address] 09/21/2018 15:20:55 09/22/2018 08:32:53 Neoplasm of uncertain behavior of skin 59005624 D48.5 MID LOWER ABDOMEN R/O ANGIOMA VS OTHER SHAVE BIOPSY SEE PROCEDURE NOTE WOUND CARE INSTRUCTIO NS PROVIDED F/U PER PATH O/W SCHEDULED FOR ANNUAL FSE OR SOONER IF NEEDED Lichen sim plex chronicus 51463461 L28.0 INJECTED IL KENALOG 5MG/ML X 0.1 CC'S INTO 1 LESION ON MID LOWER ABD; PT TOLERATED WELL D/C MANIPULATI ON F/U IF DOES NOT RESOLVE [id number] JOLLY CAMARENA MD [facility] [place] [facility] [address] [place] [address] 03/31/2019 08:53:04 03/31/2019 09:42:39 Hyperlipidemia 62176121 E78.5 Management of this problem was reviewed with the patient. No changes recommende d, status for this problem is stable at this time. Coronary arteriosclerosis in [place] artery 2801781744 107 I25.10 Noncritica l CAD demonstrat ed catheteriz ation.Rece nt episode of chest discomfort suggestive of possible ischemia and therefore I recommend a treadmill nuclear stress test prior to proceeding with any other planned vascular procedures . Preoperati ve cardiovascular examination 756994223 Z01.810 If nuclear stress test is okay the patient may proceed with planned abdominal vascular repair. [id number] JOLLY CAMARENA MD [facility] [address] [place] [address] 04/04/2019 07:43:26 04/04/2019 11:25:21 [id number] VEENA BRAGG MD [facility] [address] [place] [address] 04/10/2019 10:01:20 04/10/2019 12:57:13 History of malignant melanoma of the skin 9496576392 08 Z85.820 Status post MM on left anterior thigh 0.2 mm in March 2009 - doing well [place] 323896230 L81.4 reassuranc e, several dark but doubt cancer Hemangioma 696225590 D18 .00 left lower areola-- watch and reassuranc e Senile hyperkeratosis 39 8881050 L82.1 reassuranc e Multiple b enign melanocytic nevi 173654707 D22.9 reassuranc e - will continue to monitor for changes Verruca vulgaris 2003010 3 B07.9 PW--declin es tx today Reassuranc e and education regarding the disorder and options. Insect bite - wound 5291 69988 T14.8XXA Injection given by EDV Wall 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 78439540 D48.5 BCCLeft nasal tipShave bx and base destroyed with ED Dermatofibroma 103777217 D23.9 reassuranc e [id number] JOLLY CAMARENA MD CARDIOLOG Y [facility] [address] [place] [address] 05/12/2019 09:16:01 05/12/2019 10:07:28 Preoperative cardiovascular examination 693414198 Z01.810 She is doing well following coronary interventi on and is cleared to proceed with mesenteric stent. Dual antiplatel et therapy should be continued. Coronary arteriosclerosis in [place] artery 4780361289 107 I25.10 Noncritica l CAD demonstrat ed catheteriz ation.Rece nt episode of chest discomfort suggestive of possible ischemia and therefore I recommend a treadmill nuclear stress test prior to proceeding with any other planned vascular procedures . Hyperlipidemia 84907311 E78.5 Management of this problem was reviewed with the patient. No changes recommende d, status for this problem is stable at this time.Targe t LDL cholestero l is in the 70s. Long-term current use of antiplatelet drug 2380028293 26824 Z79.02 DAPT.No symptoms of bleeding or any evidence of anticoagul ant toxicity. Periodic CBC recommende d. [id number] MD WINDY BUTLER [address] [place] [address] 08/04/2019 07:51:31 08/04/2019 13:55:02 History of malignant melanoma of the skin 8084712920 08 Z85.820 Status post MM on left anterior thigh 0.2 mm in March 2009 - doing well [place] 607069244 L81.4 reassuranc e, several dark but doubt cancer Scab of skin 035966764 L 98.8 left lateral chest - ? insect bite or puncture wound Reassuranc e and education regarding the disorder and options. 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 50261523 D48.5 left lower chest - 3 mm punch biopsy--? GA, EAC, other Left anterior ear canal has a think 3 mm pink crust. - watch for now - if worsens will see ENT [id number] MD WINDY BUTLER [facility] [address] [place] [address] 10/27/2019 08:30:55 10/27/2019 13:39:22 History of malignant melanoma of the skin 6583678126 08 Z85.820 Status post MM on left anterior thigh 0.2 mm in March 2009 - not examined today [place] 403490286 L81.4 reassuranc e, several dark but doubt cancer Granuloma annulare 60561 009 L92.0 Per prev bx ? Reaction to breast implants Discussed [facility] [id number] JOLLY CAMARENA MD CARDIOLOG Y [address] [place] [address] 11/07/2019 11:09:11 11/07/2019 11:40:08 Coronary arteriosclerosis in [place] artery 4606162099 107 I25.10 Noncritica l CAD demonstrat ed catheteriz ation.Rece nt episode of chest discomfort suggestive of possible ischemia and therefore I recommend a treadmill nuclear stress test prior to proceeding with any other planned vascular procedures . Hyperlipidemia 78752860 E78.5 Management of this problem was reviewed with the patient. No changes recommende d, status for this problem is stable at this time.Targe t LDL cholestero l is in the 70s. Long-term current use of antiplatelet drug 9580615092 94959 Z79.02 DAPT.No symptoms of bleeding or any evidence of anticoagul ant toxicity. Periodic CBC recommende d. [id number] JOLLY CAMARENA MD CARDIOLOG Y [address] [place] [address] 02/28/2020 11:30:58 02/28/2020 11:43:08 Coronary arteriosclerosis in [place] artery 3595252736 107 I25.10 Noncritica l CAD demonstrat ed catheteriz ation.Rece nt episode of chest discomfort suggestive of possible ischemia and therefore I recommend a treadmill nuclear stress test prior to proceeding with any other planned vascular procedures . Hyperlipidemia 50584984 E78.5 Management of this problem was reviewed with the patient. No changes recommende d, status for this problem is stable at this time.Targe t LDL cholestero l is in the 70s. Long-term current use of antiplatelet drug 5493319711 97398 Z79.02 DAPT.No symptoms of bleeding or any evidence of anticoagul ant toxicity. Periodic CBC recommende d.In April she will reach one year anniversar y of her stent. I advise discontinu ation of clopidogre l at that time any increasing aspirin to 162 mg daily.Elec tronic prescripti on sent to patient's pharmacy. [id number] VEENA BRAGG MD [facility] [address] [place] [address] 04/09/2020 10:16:57 04/09/2020 11:09:25 History of malignant melanoma of the skin 7654885929 08 Z85.820 Status post MM on left anterior thigh 0.2 mm in March 2009 - doing well [place] 305209840 L81.4 reassuranc e, several dark but doubt cancer Hemangioma 288007973 D18 .00 left lower areola-- watch and reassuranc e Senile hyperkeratosis 39 1794542 L82.1 reassuranc e Multiple b enign melanocytic nevi 358483357 D22.9 reassuranc e - will continue to monitor for changes Dermatofibroma 246984482 D23.9 reassuranc e Granuloma annulare 35562 009 L92.0 Per prev bx extensive but ? milder per pt Discussed Kenalog [place] Triamcinol one caused irritation hold IM--has DM No treatment for now Patient has crohns and Fibromyalg ia consider Humira if worse [id number] JOLLY CAMARENA MD CARDIOLOG Y [facility] [address] [place] [address] 08/19/2020 14:19:11 08/19/2020 16:08:04 Coronary arteriosclerosis in [place] artery 2118834258 107 I25.119 Noncritica l CAD demonstrat ed catheteriz ation.Rece nt episode of chest discomfort suggestive of possible ischemia and therefore I recommend a treadmill nuclear stress Hyperlipidemia 91794175 E78.5 Management of this problem was reviewed with the patient. No changes recommende d, status for this problem is stable at this time.Targe t LDL cholestero l is in the 70s. Long-term current use of antiplatelet drug 4898970973 05287 Z79.02 DAPT.No symptoms of bleeding or any evidence of anticoagul ant toxicity. Periodic CBC recommende d.In April she will reach one year anniversar y of her stent. I advise discontinu ation of clopidogre l at that time any increasing aspirin to 162 mg daily.Elec tronic prescripti on sent to patient's pharmacy. [id number] JOLLY CAMARENA MD [facility] [address] [place] [address] [address] 08/22/2020 12:12:08 08/23/2020 08:30:37 [id number] VEENA BRAGG MD [place] [address] [place] [address] 06/02/2021 11:38:24 06/02/2021 12:09:53 History of malignant melanoma of the skin 6519158851 08 Z85.820 Status post MM on left anterior thigh 0.2 mm in March 2009 - doing well [place] 332533373 L81.4 reassuranc e, several dark but doubt cancerReco mmended Equate Ultra Sunscreen 30+ and sun protecting hats/cloth ing Hemangioma 608928585 D18 .00 left lower areola-- watch and reassuranc e Senile hyperkeratosis 39 5831693 L82.1 reassuranc e Multiple b enign melanocytic nevi 502884452 D22.9 reassuranc e - will continue to monitor for changes Dermatofibroma 156793155 D23.9 reassuranc e 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 44638893 D48.5 right lower medial leg and left lower ochoa - 3 mm crust - watch for another month may be simple abrasions Senile purpura 79118965 D69.2 Reassuranc e and education regarding the disorder and options. [id number] VEENA BRAGG MD DERMATFRANK [address] [place] [address] 09/30/2021 11:35:58 09/30/2021 12:32:20 Lipoma 27315639 D17.9 hx confirmed with U/Spt is seeing Dr. Walters ([facility] surgeon) today and will ask him about removal - on ASAthis might need to be removed before her knee replacemen tsmaller on left pubic triangle Inflamed s eborrheic keratosis 145260339 L82.0 LN x 1 History of malignant melanoma of the skin 5742720954 08 Z85.820 Status post MM on left anterior thigh 0.2 mm in March 2009 - doing well Lent[place] 182007105 L81.4 reassuranc eRecommend ed Equate Ultra Sunscreen 30+ and sun protecting hats/cloth ing Hemangioma 331552065 D18 .00 left lower areola-- watch and reassuranc e Senile hyperkeratosis 39 9301644 L82.1 reassuranc e [id number] LUIS AN MD CARDIOLOG Y EAST [address] [place] [address] 11/14/2021 09:51:52 11/14/2021 11:03:01 Coronary arteriosclerosis in [place] artery [id number] 107 I25.119 Hyperlipidemia 35812954 E78.5 Preoperati ve cardiovascular examination 833611668 Z01.810 She is able to meet a workload of 4 METs without any symptoms. She does not have significan t valvular disease, heart failure or arrhythmia at today's examinatio n. Her estimated risk for Perioperat loretta Myocardial Infarction or Cardiac Arrest is low (0.13%).Stewart aviles et al, Circulatio n. 2010Jun 02;124(4): 381-7.Per [...] and restart the evening after her surgery. [id number] VEENA BRAGG MD DERMATOLO GY EAST [address] [place] [address] 07/28/2022 15:10:54 07/28/2022 15:50:51 History of malignant melanoma of the skin 5477738889 08 Z85.820 Status post MM on left anterior thigh 0.2 mm in March 2009 - doing well [place] 251875148 L81.4 reassuranc eRecommend ed Equate Ultra Sunscreen 30+ and sun protecting hats/cloth ing Senile hyperkeratosis 39 1385167 L82.1 reassuranc e Eruption 675117343 R21 Moderate on abdomen and flanksddx - [...] Humira if worsephoto s taken today Milia 769329130 L72.0 reassuranc e [id number] VEENA BRAGG MD DERMATOLO GY EAST [address] [place] [address] 07/27/2023 10:31:55 07/27/2023 11:05:46 History of malignant melanoma of the skin 3115662327 08 Z85.820 Status post MM on left anterior thigh 0.2 mm in March 2009 - doing well [place] 393002158 L81.4 reassuranc eRecommend ed Equate Ultra Sunscreen 30+ and sun protecting hats/cloth ing Senile hyperkeratosis 39 4797251 L82.1 reassuranc e Milia 410506112 L72.0 reassuranc e Inflamed s eborrheic keratosis 667110845 L82.0 LN x 1 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 20815614 D48.5 r/o KARSON upper scapulahx bled profuselys have removal and base destroyed with ED [id number] VEENA BRAGG MD DERMATOLO GY E[facility] [address] [place] [address] 10/23/2024 11:45:29 10/23/2024 12:37:36 History of malignant melanoma of the skin 0533200501 08 Z85.820 Status post MM on left anterior thigh 0.2 mm in March 2009 - doing well [place] 208613961 L81.4 Reassuranc eRecommend ed Equate Ultra Sunscreen 30+ and sun protecting hats/cloth ing Senile hyperkeratosis 39 1684233 L82.1 Reassuranc e Inflamed s eborrheic keratosis 538670219 L82.0 LN x 8 Hemangioma 137501463 D18 .00 Reassuranc eLeft lower areola - no change per pt, cont to monitor Multiple b enign melanocytic nevi 130757185 D22.9 Reassuranc e 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 vs contact derm vs DH vs [...] Brady Member ID Guarantor Name 07/27/2023 2 [facility] (MEDICAID REPLACEMENT - H[place]) [id number] Sydnie Alejandra [id number] Sydnie Alejandra 07/27/2023 2 [place] CHO[place] - FFS/TRADITIONA L Sydnie Alejandra [id number] Sydnie Alejandra 07/27/2023 1 [facility] [id number] Sydnie Saucedoill [id number] Sydnie Dewey Justyn 10/27/2024 1 [place] [id number] 2 Sydnie Alejandra [id number] Sydnie Alejandra Notes Date Note Type Note [...] VEENA BRAGG MD [facility] [place], [address], [facility] 09/30/2021 12:24:38 11/14/2021 text/html CARDIOVASCULAR HISTORY:# Coronary [...] patient of Dr Jolly Camarena, lives in [place], [place]. She reports that her overall health [...] panel: 153/72/68 A1c: 7.4% LUIS AN MD [facility] [place], [address], [facility] 11/14/2021 11:11:57 07/28/2022 text/html Established jagdish ent [...] family history of melanoma. VEENA BRAGG MD [address] [place] [address] [place], [address], [facility] 07/28/2022 17:03:15 07/27/2023 text/html Established jagdish ent [...] family history of melanoma. VEENA BRAGG MD [address] [place] [address], [address], [facility] 08/01/2023 22:11:18 10/23/2024 text/html Established jagdish ent Patient has Crohns [...] family history of melanoma. VEENA BRAGG MD [address] [place] [address] [place], [address], [facility] 10/23/2024 12:53:41 OBGyn Episode No OBEpisode recorded.
--- OUTSIDE RECORDS SUMMARY | 2025-04-30 09:37 | XMS_ITS | Encounter Summary ---
Author Organization [employer] Address [address] [place] [address] Care Team Providers Care Reliner Name Role Phone Unavailable Primary Care Provider Unavailabl e Encounter Details Date Type Department Care Team (Late st Contact Info) Description 04/13/2019 Transcribed Document [facility] [place] [address] [place] [address] ProviderDevorah MD [address] [place] [address] Social History Tobacco Use Types [...] Conversion Note - Devorah Brown MD - 04/13/2019 8:38 AM CDT Patient Education Materials Follows: Coronary Angiogram With Stent Coronary angiogram with stent placement is a procedure to widen or open a narrow blood vessel of the heart (coronary artery). Arteries may become blocked by cholesterol buildup (plaques) in the lining of the wall. When a coronary artery becomes partially blocked, blood flow to that area decreases. This may lead to chest pain or a heart attack (myocardial infarction). A stent is a small piece of metal that looks like mesh or a spring. Stent placement may be done as treatment for a heart attack or right after a coronary angiogram in which a blocked artery is found. Let your health care provider know about: ??? Any allergies you have. ??? All medicines you are taking, including vitamins, herbs, eye drops, creams, and qxsn-bxe-obzneof medicines. ??? Any problems you or family members have had with anesthetic medicines. ??? Any blood disorders you have. ??? Any surgeries you have had. ??? Any medical conditions you have. ??? Whether you are or may be . What are the risks? Generally, this is a safe procedure. However, problems may occur, including: ??? Damage to the heart or its blood vessels. ??? A return of blockage. ??? Bleeding, infection, or bruising at the insertion site. ??? A collection of blood under the skin (hematoma) at the insertion site. ??? A blood clot in another part of the body. ??? Kidney injury. ??? Allergic reaction to the dye or contrast that is used. ??? Bleeding into the abdomen (retroperitoneal bleeding). What happens before the procedure? Staying hydrated Follow instructions from your health care provider about hydration, which may include: ??? Up to 2 hours before the procedure ? you may continue to drink clear liquids, such as water, clear fruit juice, black coffee, and plain tea. Eating and drinking restrictions Follow instructions from your health care provider about eating and drinking, which may include: ??? 8 hours before the procedure ? stop eating heavy meals or foods such as meat, fried foods, or fatty foods. ??? 6 hours before the procedure ? stop eating light meals or foods, such as toast or cereal. ??? 2 hours before the procedure ? stop drinking clear liquids. Ask your health care provider about: ??? Changing or stopping your regular medicines. This is especially important if you are taking diabetes medicines or blood thinners. ??? Taking medicines such as ibuprofen. These medicines can thin your blood. Do not take these medicines before your procedure if your health care provider instructs you not to. Generally, aspirin is recommended before a procedure of passing a small, thin tube (catheter) through a blood vessel and into the heart (cardiac catheterization). What happens during the procedure? An IV tube will be inserted into one of your veins. ??? You will be given one or more of the following: ? A medicine to help you relax (sedative). ? A medicine to numb the area where the catheter will be inserted into an artery (local anesthetic). ??? To reduce your risk of infection: ? Your health care team will wash or sanitize their hands. ? Your skin will be washed with soap. ? Hair may be removed from the area where the catheter will be inserted. ??? Using a guide wire, the catheter will be inserted into an artery. The location may be in your groin, in your wrist, or in the fold of your arm (near your elbow). ??? A type of X-ray (fluoroscopy) will be used to help guide the catheter to the opening of the arteries in the heart. ??? A dye will be injected into the catheter, and X-rays will be taken. The dye will help to show where any narrowing or blockages are located in the arteries. ??? A tiny wire will be guided to the blocked spot, and a balloon will be inflated to make the artery wider. ??? The stent will be expanded and will crush the plaques into the wall of the vessel. The stent will hold the area open and improve the blood flow. Most stents have a drug coating to reduce the risk of the stent narrowing over time. ??? The artery may be made wider using a drill, laser, or other tools to remove plaques. ??? When the blood flow is better, the catheter will be removed. The lining of the artery will grow over the stent, which stays where it was placed. This procedure may vary among health care providers and hospitals. What happens after the procedure? If the procedure is done through the leg, you will be kept in bed lying flat for about 6 hours. You will be instructed to not bend and not cross your legs. ??? The insertion site will be checked frequently. ??? The pulse in your foot or wrist will be checked frequently. ??? You may have additional blood tests, X-rays, and a test that records the electrical activity of your heart (electrocardiogram, or ECG). This information is not intended to replace advice given to you by your health care provider. Make sure you discuss any questions you have with your health care provider. Document Released: 04/30/2004 Document Revised: 06/24/2017 Document Reviewed: 05/30/2017 Elsevier Interactive Patient Education ? 2019 [employer] documented in this encounter Plan of Treatment Not on file documented as of this encounter Visit Diagnoses Not on filedocumented in this encounter
--- OUTSIDE RECORDS SUMMARY | 2025-04-30 09:37 | XMS_ITS | Encounter Summary ---
Author Organization [employer] Address [address] [place] [address] Care Team Providers Care Automatic Bandsaw Tender Name Role Phone Unavailable Primary Care Provider Unavailabl e Encounter Details Date Type Department Care Team (Late st Contact Info) Description 04/13/2019 Transcribed Document [facility] [place] [address] [place] [address] ProviderDevorah MD [address] [place] [address] Social History Tobacco Use Types [...] Conversion Note - Devorah ProviderMD - 04/13/2019 9:30 AM CDT Nursing Discharge Summary Entered On: 04/13/2019 9:31 EDT Performed On: 04/13/2019 9:30 EDT by Monico Steele [place] Pilot Documentation Discharge Date/Time : 04/13/2019 9:30 EDT Patient Disposition, General : Discharge Discharge To : Home with ambulatory/outpatient follow-up Mode Of Departure, General Discharge : Private vehicle Accompanied By, Discharge : Spouse IV Discontinued : Yes Medications Given to Patient : No Personal Belongings With Patient : Yes Pt's Own Supply of Medications Returned : No Prescriptions Given to Patient : Electronically sent Discharge Instructions Reviewed With, Opportunity For Questions Given : Patient, Spouse Patient Education Completed : Yes Teaching Method : Explanation, Printed materials Teaching Evaluation : Verbalizes understanding Monico Steele Rn - 04/13/2019 9:30 EDT documented in this encounter Plan of Treatment Not on file documented as of this encounter Visit Diagnoses Not on filedocumented in this encounter
--- OUTSIDE RECORDS SUMMARY | 2025-04-30 09:37 | XMS_ITS | Referral Summary ---
Author Organization [employer] Address [address] [place] [address] Care Team Providers Care Liquid Chlorine Operator Name Role Phone Unavailable Primary Care [...]
--- OUTSIDE RECORDS SUMMARY | 2025-04-30 09:37 | XMS_ITS | Encounter Summary ---
Author Organization [employer] Address [address] [place] [address] Care Team Providers Care Manganese Heater Name Role Phone Unavailable Primary Care Provider Unavailabl e Encounter Details Date Type Department Care Team (Late st Contact Info) Description 04/13/2019 Transcribed Document [facility] [place] [address] [place] [address] ProviderDevorah MD [address] [place] [address] Social History Tobacco Use Types [...] Note - Devorah Brown MD - 04/13/2019 8:32 AM CDT DATE OF ADMISSION: 04/12/2019 DATE OF DISCHARGE: 04/13/2019 DISCHARGE SUMMARY PRIMARY CARE PHYSICIAN: Christiano Garcia MD CARDIOLOGY: Monico Camarena MD DISCHARGE DIAGNOSES: 1. Coronary artery disease. 2. Mesenteric artery stenosis. 3. Hyperlipidemia. LABORATORY DATA: Sodium 140, potassium 3.6, chloride 105, carbon dioxide 30, glucose 148, BUN 17, creatinine 0.8. Hemoglobin 14.3, hematocrit 42.0. BRIEF HOSPITAL COURSE: The patient is a very pleasant 53-year-old female, who presented to clinic for a preoperative clearance in preparation for mesenteric artery stenosis intervention. The patient underwent treadmill Myoview, which had borderline baseline artifact with exercise and chest pain, which was reproduced, noting apical perfusion deficit with redistribution, borderline for ischemia. Left ventriculogram showed normal wall motion abnormality with an ejection fraction of 66%. The patient was referred for left heart catheterization. She underwent cardiac catheterization on 04/12/[address] Camarena. The study concluded that the patient had proximal stenosis of the left anterior descending coronary artery of 95%, which was repaired with an overlapping drug-eluting stent with excellent results. Her cardiac ejection fraction and the other coronaries were unremarkable. She was initiated on dual antiplatelet therapy with prasugrel and aspirin in addition to statin therapy. She was recommended to resume dual antiplatelet therapy for one year. She is cleared to undergo mesenteric artery stent placement at any time from a cardiac perspective. As the patient was observed overnight, she has had no complications. She is stable at this time. She is ready for discharge home. She was discharged home with instructions to follow up in one month with Dr. Camarena and to follow up with her surgeon as previously scheduled. DISCHARGE MEDICATIONS: 1. Janumet mg tablet at bedtime, to resume in a.m. 2. Aspirin 81 mg p.o. daily. 3. Vitamin B12, 1000 mcg p.o. every 2 weeks. 4. Fluocinonide topical 0.05% topical t.i.d. as needed. 5. Neurontin 600 mg p.o. q.h.s. 6. Flagyl topical 0.75% topical cream b.i.d. 7. Prasugrel 10 mg p.o. daily. 8. Crestor 20 mg p.o. q.h.s. Dictated By: Skye Salas APRN [employer] M.D. Dict: 04/13/2019 08:32:04 Trans: 04/14/2019 04:38:09 CC1: Dandre Anderson M.D. CC2: Christiano Garcia MD CC3: Monico Camarena MD documented in this encounter Plan of Treatment Not on file documented as of this encounter Visit Diagnoses Not on filedocumented in this encounter
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
--- OUTSIDE RECORDS SUMMARY | 2025-04-30 09:37 | XMS_ITS | Encounter Summary ---
Author Organization [employer] Address [address] [place] [address] Care Team Providers Care Marine Machinist Name Role Phone Unavailable Primary Care Provider Unavailabl e Encounter Details Date Type Department Care Team (Late st Contact Info) Description 04/13/2019 Transcribed Document [facility] [place] Family Medicine [address] [place] [address] ProviderDevorah MD [address] [place] [address] Social History Tobacco Use Types [...] Cerner Conversion Note - Historical ProviderMD - 04/13/2019 8:38 AM CDT Stroke/Warfarin Instructions Entered On: 04/13/2019 8:38 EDT Performed On: 04/13/2019 8:38 EDT by Monico Steele, Rn Stroke/Warfarin Instructions Stroke/TIA Discharge Ins : N/A Warfarin Discharge Ins : N/A Monico Steele Rn - 04/13/2019 8:38 EDT documented in this encounter Plan of Treatment Not on file documented as of this encounter Visit Diagnoses Not on filedocumented in this encounter
--- OUTSIDE RECORDS SUMMARY | 2025-04-30 09:37 | XMS_ITS | Encounter Summary ---
Author Organization [employer] Address [address] [place] [address] Care Team Providers Care Bradder Name Role Phone Unavailable Primary Care Provider Unavailabl e Encounter Details Date Type Department Care Team (Late st Contact Info) Description 04/13/2019 Transcribed Document [facility] Family Medicine [address] [place] [address] ProviderDevorah MD [address] [place] [address] Social History Tobacco Use Types [...] Conversion Note - Devorah ProviderMD - 04/13/2019 8:57 AM CDT [facility] [address] CODIE ALEJANDRA :1965 Visit Time:04/12/2019 Your Visit Summary Your Care Team Admitting Physician - JOLLY FORBES MD-CAR Attending Physician - JOLLY FORBES MD-CAR Primary Care Physician - MELCHOR ALLEN (REF)KATHARINE Referring Physician - JOLLY FORBES MD-CAR Your Diagnosis Abnormal result of other cardiovascular function study, Abnormal result of other cardiovascular function study, Cardiovascular stress test abnormal Angina pectoris Discharge Vitals Temperature 36.7 ??C Heart Rate (Monitored) 64 Respiratory Rate 18 Blood Pressure 129/67 What to do next Follow-Up Appointments Follow Up with JOLLY FORBES When Within 1 month Comments May 12 @ 9:30am Where: [address] [place] [phone] Business (1) Medications What How Much When Instructions Next Dose aspirin (aspirin 81 mg oral tablet, chewable) 1 Tablet(s) Oral Every Day cyanocobalamin (Vitamin B12) 1,000 Microgram(s) Oral Every Two Weeks fluocinonide topical (fluocinonide 0.05% topical cream) 1 Application(s) Topical Three Times A Day NEEDED gabapentin (Neurontin) 600 Milligram(s) Oral At Bedtime metformin-sitagliptin (Janumet 50 mg-1000 mg oral tablet) 1 Tablet(s) Oral At Bedtime metronidazole topical (MetroCream 0.75% topical cream) 1 Application(s) Topical Two Times A Day prasugrel 10 Milligram(s) Oral Every Day rosuvastatin (Crestor) 20 Milligram(s) Oral At Bedtime Take your medications faithfully. Do NOT skip medication. Do NOT stop taking medications without the direction of a physician. Carry a list of your medications with you at all times, and take this medication list with you to your first follow up visit. Report any side effects. Avoid herbal remedies unless discussed with your physician. As part of your treatment plan, your physician may have prescribed a limited course of a controlled substance. This medication may be given to help people with moderate or severe pain or for other medical conditions, but there are risks involved with treatment. Common side effects may include nausea, constipation, drowsiness, sweating, itching, dry mouth, and rash. More serious side effects may include cognitive and motor impairment, like problems with thinking, concentrating, alertness, and movement (e.g. slowed reflexes), and driving and operating heavy machinery can be dangerous. It is important for you to talk to your physician if you have these side effects or questions. These controlled substances can produce physical dependence and be habit-forming if taken for an extended period of time, which means that the body has gotten used to them and may experience withdrawal symptoms if they are abruptly stopped. Withdrawal symptoms can include runny nose, sweating, goose bumps, diarrhea, abdominal cramping, rapid heartbeat, difficulty sleeping, and nervousness. Please dispose of unused and medications per your retail pharmacy guidance. Allergies Benadryl Levaquin codeine dexamethasone erythromycin penicillin rutuss sulfADIAZINE Immunizations This Visit No Immunizations Found Education Materials Coronary Angiogram With Stent Coronary angiogram with [...] including vitamins, herbs, eye drops, creams, and [id number] medicines. ??? Any problems you or family [...] Up to 2 hours before the procedure ??? you may continue to drink clear liquids, such as water, clear fruit juice, black coffee, and plain tea. Eating and drinking restrictions Follow instructions from your health care provider about eating and drinking, which may include: ??? 8 hours before the procedure ??? stop eating heavy meals or foods such as meat, fried foods, or fatty foods. ??? 6 hours before the procedure ??? stop eating light meals or foods, such as toast or cereal. ??? 2 hours before the procedure ??? stop drinking clear liquids. Ask your health [...] 04/30/2004 Document Revised: 06/24/2017 Document Reviewed: 05/30/2017 [employer] Patient Education ?? 2019 [place]. Emergency Awareness and Preventative Care STROKE is an EMERGENCY Every Minute Counts Act FAST and Check for these signs: FACE Does the face look uneven? ARM Does one arm drift down? SPEECH Does their speech sound strange? TIME Call at any sign of stroke Stroke Risk Factors Atrial Fibrillation (irregular heartbeat) Diabetes Family history of stroke Heart Disease Heavy alcohol use High Blood Pressure High Cholesterol Physical inactivity and obesity Smoking Cigarette Smoking The facts are clear, cigarette smoking will shorten your life. Smoking can cause many illnesses along the way. As a healthcare provider, we recommend that you stop smoking. Assistance with quitting is available by contacting 4-372-BAIO-NOW. This is a free resource providing counseling, support, and referral. Or you may contact your personal physician. National Suicide Prevention Lifeline: The National Suicide Prevention Lifeline is a national network of local crisis centers that provides free and confidential emotional support to people in suicidal crisis or emotional distress 24 hours a day, 7 days a week. Don't Wait! Stop a Heart Attack Before it Starts What is a heart attack? A heart attack is damage or to a part of the heart from severely decreased or lack of blood flow to the heart. Over time, arteries can become narrow from the buildup of fat and cholesterol, which is called plaque. The plaque can rupture causing a blood clot to form. When the blood clot forms, the artery can become severely narrowed or completely blocked, causing a heart attack. Heart attack is the leading cause of in the [place]. 85% of muscle damage occurs within the first 2 hours. Delay in the recognition of heart attack symptoms increases the chances of . Know the early symptoms of a heart attack: Nausea Feeling of fullness in chest Jaw Pain Pain that travels down one or both arms Fatigue/being tired Anxiety Back Pain Chest pressure, squeezing, or discomfort Shortness of breath Sweating, or a cold sweat Feeling of impending doom There are unusual signs of a heart attack, too! Women, the elderly, and diabetics may present with atypical symptoms: Fainting/dizziness Weakness Confusion Risk Factors for a Heart Attack Some heart disease risk factors, such as age and family history, cannot be changed. Others, like smoking and lack of exercise, can be changed. Smoking High Cholesterol High Blood Pressure Family History Obesity Age Gender (Males are at higher risk) Lack of Exercise Diabetes Diet Stress Excessive Alcohol Intake If you or someone you know is experiencing the signs and symptoms of a heart attack, DON???T DELAY. Call immediately and seek help. If someone collapses, perform CPR! Do not attempt to drive if you are having symptoms of heart attack. Hands-Only CPR Why Hands-Only CPR? Hands-Only CPR has been shown to be as effective as conventional CPR for cardiac arrests that occur outside of a hospital. Survival depends on immediately receiving CPR from someone nearby. How do you perform Hands-Only CPR? There are two easy steps: Call if you see a teen or adult collapse Push hard and fast in the center of the chest at a beat of 100 beats per minute. Save a life! 4 WAYS TO GET AHEAD OF SEPSIS SEPSIS is a MEDICAL EMERGENCY. Time matters! Infections put you and your family at risk for a life-threatening condition called sepsis. Sepsis is the body's extreme response to an infection. It is life-threatening, and without timely treatment, sepsis can rapidly lead to tissue damage, organ failure, and . Sepsis happens when an infection you already have-in your skin, lungs, urinary tract or somewhere else-triggers a chain reaction throughout your body. 1 PREVENT INFECTIONS Take good care of chronic conditions. Talk to your doctor about getting the recommended vaccines. 2 PRACTICE GOOD HYGIENE Wash your hands frequently. Keep cuts or open sores clean and covered until they are healed. 3 KNOW THE SYMPTOMS Confusion or disorientation Shortness of breath High heart rate Fever, shivering, or feeling very cold Extreme pain or discomfort Clammy or sweaty skin 4 ACT FAST Get medical care IMMEDIATELY if you suspect sepsis or if you have an infection that is not getting better or is getting worse. To learn more about sepsis and how to prevent infections, visit www.cdc.gov/sepsis. Patient Portal Reminder: Be sure to sign up for the [facility] patient portal, which gives you 31/05 access to your medical information ??? including these discharge instructions ??? using your computer, smartphone, or tablet. Just go to [employer] to get started. Questions? Call . Test Results Laboratory or Other Results This Visit (last charted value for your 04/12/2019 visit) Hematology 04/12/19 07:10:00 Hemoglobin POC: 14.3 Gram/dL -- Normal range between ( 12.0 and 17.0 ) Hematocrit POC: 42.0 % -- Normal range between ( 38.0 and 51.0 ) 04/12/19 06:43:00 Platelet Count: 335 K/uL -- Normal range between ( 163 and 369 ) General Chemistry 04/13/19 06:16:00 Glucose POC2: 150 mg/dL -- Normal range between ( 70 and 110 ) Device Comment 1: Device Comment 1 04/13/19 04:15:00 Creatinine Level: 0.80 mg/dL -- Normal range between ( 0.55 and 1.02 ) Sodium Level: 140 mmol/L -- Normal range between ( 136 and 146 ) Potassium Level: 3.6 mmol/L -- Normal range between ( 3.5 and 5.1 ) Chloride Level: 105 mmol/L -- Normal range between ( 102 and 112 ) Carbon Dioxide Level: 31 mmol/L -- Normal range between ( 21 and 32 ) Anion Gap: 8 -- Normal range between ( 9 and 20 ) Bun/Creatinine: 21.2 -- Normal range between ( 8.0 and 20.0 ) Calcium Level: 9.1 mg/dL -- Normal range between ( 8.4 and 10.1 ) eGFR : >60 mL/min/1.73m2 eGFR NonAfrican: >60 mL/min/1.73m2 Glucose Level: 148 mg/dL -- Normal range between ( 74 and 106 ) Blood Urea Nitrogen: 17 mg/dL -- Normal range between ( 7 and 22 ) 04/12/19 07:10:00 Sodium POC: 141 mmol/L -- Normal range between ( 138 and 146 ) Ca Ioniz POC: 1.31 mmol/L -- Normal range between ( 1.12 and 1.32 ) Potassium POC: 3.9 mmol/L -- Normal range between ( 3.5 and 4.9 ) Creatinine POC: 0.6 mg/dL -- Normal range between ( 0.6 and 1.3 ) BUN POC: 16 mg/dL -- Normal range between ( 8 and 26 ) CO2 POC: 25.0 mmol/L -- Normal range between ( 24.0 and 29.0 ) Chloride POC: 103 mmol/L -- Normal range between ( 98 and 109 ) Glucose POC: 137 mg/dL -- Normal range between ( 70 and 105 ) Anion Gap POC: 18.0 mmol/L -- Normal range between ( 10.0 and 20.0 ) Patient Name:CODIE ALEJANDRA I have received and understand this information and was given the opportunity to ask questions. Patient/Comber Tender Name: Patient/Comber Tender Signature: Relationship to Patient: Clinician/Hospital Comber Tender Signature: Date: documented in this encounter Plan of Treatment Not on file documented as of this encounter Visit Diagnoses Not on filedocumented in this encounter
[2025-04-30 10:51] LABS: Thyroid Stimulating Hormone 2.73 uIU/mL (0.465-4.68)
== END 2025-04-30 23:59 | disposition home or self-care (01) ==
LOC: LAB 09:25
PROVIDERS: PCP Family Medicine; Visit Provider Otolaryngology
DX: E03.9 Hypothyroidism, unspecified (principal)
CPT/HCPCS: 36415; 84439; 84443

== ENCOUNTER 2025-05-14 07:58 | Outpatient (CLI) | payer BC, SELFPAY ==
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
--- OUTSIDE RECORDS SUMMARY | 2025-05-14 08:01 | XMS_ITS | Clinical Summary ---
Author Organization [facility] Address [address] [place] [address] Care Team Providers Care Scrapper Name Role Phone Unavailable Primary Care Provider [...] (2 - Td or Tdap) 04/27/2023 04/27/2013 [id number] Vaccine (3 - season) 2024 01/19/2021, 12/22/2020 UKY-Influenza Vaccine (#1) 07/09/202510/08, 08/20/2021, 08/27/2020, Additional history exists UKY-RSV Vaccine: [...] Narrative SUNQUEST - 11/05/2000 12:51 PM EST [facility] MR #: [id number] [facility] [place], [place] [address] 1965 (Age: 35) FW Collect Date: 10/20/2000 00:00 Receipt Date: 10/21/2000 09:55 Page 1 DEPARTMENT OF PATHOLOGY AND LABORATORY MEDICINE CYTOPATHOLOGY REPORT Email: [email or web address] beds at the [facility] [id number] ATTENDING MD/Practitioner: lEma Talley MD Service: [facility] [place] Location: [facility] [place] Reported: 11/05/2000 12:51 Collected: 10/20/2000 00:00 INTERPRETATION [...] results is suggested (please call Microbiology at [phone] for results). CLINICAL INFORMATION: Menstrual History: Cyclic Date of Last Menstrual Period: 12 3 00 SPECIMEN DESCRIPTION: A: THIN PREP (CERVICAL/VAGINAL) THIN PREP PROCESS CELLULAR ENHANCEMENT ICD: 795.0 ABNORMAL PAP SMEAR CERVIX, NONSPECIFIC V72.3 GYNECOLOGICAL EXAMINATION F: A; THIN SCRN 33847, 50877 C\V (PO) SNOMED CODES: A; [id number] In cases where a pathologist has signed out the report, the service has been rendered in part by a resident. The signing pathologist has performed and is responsible for the reported pathologic evaluation. us Historical Provider MD LAB PATHOLOGY ORDERABLES Final Result [facility] from Last 3 Months or Most Recently Relevant to Health Maintenance Insurance GREG
--- NOTE | 2025-05-14 08:02 | XR_ITS ---
FINAL REPORT CLINICAL HISTORY: bilateral hand and wrist pain numbness/ tingling up into shoulders COMPARISON: None FINDINGS: RIGHT WRIST Three views demonstrate no acute fracture or dislocation. The visualized joint spaces are normally aligned. The soft tissues are unremarkable. IMPRESSION: No acute bony abnormality. Reviewed, Interpreted and Dictated by Cali Berry MD Transcribed by Tamie Martinez Authenticated and [facility]
--- NOTE | 2025-05-14 08:02 | XR_ITS ---
FINAL REPORT CLINICAL HISTORY: bilateal wrist and hand pain numbness/ tingling up into shoulders COMPARISON: None FINDINGS: RIGHT HAND Three views demonstrate no acute fracture or dislocation. The visualized joint spaces are normally aligned. The soft tissues are unremarkable. IMPRESSION: No acute bony abnormality. Reviewed, Interpreted and Dictated by Cali Berry MD Transcribed by Tamie Martinez Authenticated and [facility]
--- NOTE | 2025-05-14 08:02 | XR_ITS ---
FINAL REPORT CLINICAL HISTORY: bilateral wrist and hand pain numbness/ tingling up into shoulders COMPARISON: None FINDINGS: LEFT WRIST Three views demonstrate no acute fracture or dislocation. The visualized joint spaces are normally aligned. The soft tissues are unremarkable. IMPRESSION: No acute bony abnormality. Reviewed, Interpreted and Dictated by Cali Berry MD Transcribed by Tamie Martinez Authenticated and [facility]
--- NOTE | 2025-05-14 08:02 | XR_ITS ---
FINAL REPORT CLINICAL HISTORY: bilateral hand/wrist pain numbness/ tingling up into shoulders COMPARISON: None FINDINGS: LEFT HAND Three views demonstrate no acute fracture or dislocation. The visualized joint spaces are normally aligned. There is mild soft tissue edema over the dorsum of the hand. IMPRESSION: Soft tissue edema without acute bony abnormality. Reviewed, Interpreted and Dictated by Cali Berry MD Transcribed by Tamie Martinez Authenticated and [facility]
--- OUTSIDE RECORDS SUMMARY | 2025-05-14 08:02 | XMS_ITS | Clinical Summary ---
Author Organization [employer] ([place], [place], [place], [place]) Address [address] [place] [address] Care Team Providers Care Commissioned Sales Associate Name Role Phone Unavailable Primary Care Provider [...]
--- OUTSIDE RECORDS SUMMARY | 2025-05-14 08:02 | XMS_ITS | Encounter Summary ---
Author Organization [employer] ([place], [place], [place], [place]) Address [address] [place] [address] Care Team Providers Care Palm And Back Forger Name Role Phone Unavailable Primary Care Provider Unavailabl e Encounter Details Date Type Department Care Team (Late st Contact Info) Description 04/13/2019 Transcribed Document [facility] [place] [facility] [address] [place] [address] ProviderDevorah MD [address] [place] [address] Social History Tobacco Use Types [...] Conversion Note - Devorah ProviderMD - 04/13/2019 8:38 AM CDT Stroke/Warfarin Instructions Entered On: 04/13/2019 8:38 EDT Performed On: 04/13/2019 8:38 EDT by Monico Steele, Eryn Stroke/Warfarin Instructions Stroke/TIA Discharge Ins : N/A Warfarin Discharge Ins : N/A Monico Steele Rn - 04/13/2019 8:38 EDT documented in this encounter Plan of Treatment Not on file documented as of this encounter Visit Diagnoses Not on filedocumented in this encounter
--- OUTSIDE RECORDS SUMMARY | 2025-05-14 08:02 | XMS_ITS | Referral Summary ---
Author Organization [employer] ([place], [place], [place], [place]) Address [address] [place] [address] Care Team Providers Care Double End Tenoner Setter Name Role Phone Unavailable Primary Care Provider [...]
--- OUTSIDE RECORDS SUMMARY | 2025-05-14 08:02 | XMS_ITS | Encounter Summary ---
Author Organization [employer] ([place], [place], [place], [place]) Address [address] [place] [address] Care Team Providers Care Weaver [place] Name Role Phone Unavailable Primary Care Provider Unavailabl e Encounter Details Date Type Department Care Team (Late st Contact Info) Description 04/13/2019 Transcribed Document [facility] [place] Family Medicine [address] [place] [address] ProviderDevorah MD [address] [place] [address] Social History Tobacco Use Types [...] including vitamins, herbs, eye drops, creams, and [id number] medicines. ??? Any problems you or family [...] 05/30/2017 Else[employer] Interactive Patient Education ? 2019 [employer] documented in this encounter Plan of Treatment Not on file documented as of this encounter Visit Diagnoses Not on filedocumented in this encounter
--- OUTSIDE RECORDS SUMMARY | 2025-05-14 08:02 | XMS_ITS | Data Portability ---
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 [email or web address] Not available 11/14/2021 11:10:10 07/28/2022 07/28/2022 Follow up yearly [email or web address] Not availab le 05/27/2022 10:30:54 07/27/2023 07/27/2023 Follow up yearly jose Not availab le 07/26/2023 13:21:00 10/23/2024 10/23/2024 Follow up yearly [email or web address] Not avai lable 10/23/2024 11:56:25 Plan of Treatment Reminders Order Date Submit Date Provider Last Modified By Organization Details Last Modified Time Details Appointments DERMATOLO GY VISIT 2024 11:00A M VEENA BRAGG MD Not available Not available Not available Lab surgical pathology study 2022 023 [facility], [address] [place] [address], [phone], 07/29/2023 08:19:03 Referral None recorded. Procedures None recorded. Surgeries None recorded. Imaging None recorded. Medication Orders triamcino lone acetonide 0.1 % topical cream 2023 024 [id number], [address], [phone], 10/23/2024 12:53:20 Patient TargetsNo targets recorded. Patient Instructions Encounter Date Encounter Id Patient Instructions Last Modified By Organization Details Last Modified Time 09/30/2021 [id number] Education: We discussed the potential diagnostic options, options for further evaluation and treatments, and the risks and benefits of each. jose Not available 09/19/2021 07:03:52 11/14/2021 [id number] high cholesterol : care instructions [email or web address] Not available 11/14/2021 11:11:53 07/28/2022 [id number] Education: We discussed the potential diagnostic options, options for further evaluation and treatments, and the risks and benefits of each. [email or web address] Not available 05/27/2022 10:30:59 07/27/2023 [id number] Education: We discussed the potential diagnostic options, options for further evaluation and treatments, and the risks and benefits of each. jose Not available 07/26/2023 13:21:00 10/23/2024 [id number] Education: We discussed the potential diagnostic options, options for further evaluation and treatments, and the risks and benefits of each. [email or web address] Not available 10/23/2024 11:56:25 Reason for Referral None Reported. Results Created Date Observation Date Name Description Value Unit Range Abnormal Flag Note LastModifiedBy Organization Detail LastModifiedTime 07/27/20 23 07/27/2023 SURGI KARSON surgical SEE BELOW normal Depar tment of Patho logy Surgi karson Patho logy Repor t NAME: EDGARDO KATZ PATH. :AK-2 Copy to: Diagn osis: Left upper scapu [...] 08:18 Page 1 of 1 Not Available [facility] [address] [place] [address], [place], [address], 07/29/2023 08:19:03 11/18/19 22 11/14/2021 chelsi pitt am No observ ation record ed. [email or web address] Not Available 11/18 08:38:59 Result Notes None recorded. Problems Name Problem SNOMED Code Status Onset Date Resolution Date Notes Provider Name and Address Organization Details Recorded Time Paresthes ia of skin Active 2015 From Automated Load;Prov ider: Catina Blakely;Sta tus: Active Not Available [facility] 17:46:45 Melanoma in situ of lower limb 170434886 Active 2015 From Automated Load;Prov ider: Catina Blakely;Sta tus: Active Not Available [facility] 17:46:45 Syncope and collapse 314498394 Active 2015 From Automated Load;Prov ider: Catina Blakely;Sta tus: Active Not Available [facility] 17:46:45 Obstructi ve sleep apnea syndrome 92795573 Active 2015 From Automated Load;Prov ider: Catina Blakely;Sta tus: Active Not Available [facility] 17:46:45 Asthenia 45687446 Active 2015 From Automated Load;Prov ider: Catina Blakely;Sta tus: Active Not Available [facility] 17:46:45 Senile hyperkera tosis 864533484 Active 2015 From Automated Load;Prov ider: Veena Bragg;St atus: Active Not Available [facility] 17:46:45 Neoplasm of uncertain behavior of skin 42304834 Active 2015 From Automated Load;Prov ider: Veena Bragg;St atus: Active Not Available [facility] 17:46:45 Coronary arteriosc lerosis in [place] artery 11633283696 07 Active 2015 From Automated Load;Prov ider: Jolly Camarena;Stat us: Active Not Available [facility] 17:46:45 Hyperlipi demia 20450045 Active 2015 From Automated Load;Prov ider: Jolly Camarena;Stat us: Active Not Available [facility] 17:46:45 Hemangiom a 009880748 Active 2015 From Automated Load;Prov ider: Neto Shah; Status: Active Not Available [facility] 17:46:45 Neoplasti c disease 69617020 Active 2015 From Automated Load;Prov ider: Neto Shah; Status: Active Not Available [facility] 17:46:45 Headache 62251706 Active 2015 From Automated Load;Prov ider: Catina Blakely;Sta tus: Active Not Available [facility] 17:46:45 Long-term current use of antiplate let drug 88200639844 4101 Active 2019 Not Available [facility] 17:46:45 Problem Notes None recorded. Procedures Surgical History Date Name Laterality Status Provider Name and Address Organization Details Recorded Time 10/23/20 24 Destruction BN Lesions completed Berenice Chao [facility] 10/23/2024 12:32:15 07/27/20 23 Shave Lesion; trunk, arm, leg completed VEENA BRAGG MD [address] [place] [address] [place], [address], [facility] 08/01/2023 22:10:31 07/27/20 23 Destruction BN Lesions completed Darline Keys [facility] 07/27/2023 10:51:01 11/05/20 22 anal fistulectomy completed Madelaine Bailey [facility] 11/12/2022 08:35:59 11/14/19 22 EKG completed LUIS AN MD [address] [place], [address], [facility] 11/14/2021 11:07:28 09/30/20 21 Destruction BN Lesions completed Darline Keys [facility] 09/30/2021 11:50:05 08/22/20 20 Stress Test - Nuclear completed JOLLY CAMARENA MD [address] [place] [address], [address], [facility] 08/22/2020 16:12:57 08/04/20 19 Biopsy Skin Lesion; Punch completed VEENA BRAGG MD [address] [place] [address], [address], [facility] 08/04/2019 13:37:01 04/12/20 19 Cardiac Catheterization completed JOLLY CAMARENA MD [address] [place] [address], [address], [facility] 04/12/2019 09:21:57 04/10/20 19 Biopsy Skin Lesion; Tangential completed Enid Domínguez [facility] 04/10/2019 11:22:14 04/04/20 19 Stress Test - Nuclear completed JOLLY CAMARENA MD [address] [place] [address], [address], [facility] 04/04/2019 11:01:47 09/21/20 18 Biopsy Skin Lesion; Tangential completed Enid Domínguez [facility] 09/21/2018 15:42:56 09/21/20 18 Injection, Intralesional completed GENIE RANDHAWA PA-C [address] [place] [address], [address], [facility] 09/21/2018 16:00:40 09/07/20 17 Shave Lesion; trunk, arm, leg completed VEENA BRAGG MD [address] [place] [address], [address], [facility] 2017 21:28:25 05/26/20 17 Cholecystectomy completed Rebeca Davis [facility] 06/28/2017 11:27:49 05/26/20 17 Other completed Eryn Martinez [facility] 02/01/2020 10:29:14 05/23/20 17 Other completed Eryn Martinez [facility] 02/01/2020 10:29:14 03/29/20 17 Destruction BN Lesions completed Darline Keys [facility] 03/29/2017 11:23:21 12/14/19 14 Cardiac Catheterization completed [facility] 06/23/2017 15:47:15 11/08/19 10 Hysterectomy/revise vagina completed Rebeca [facility] 06/23/2017 15:47:36 11/08/19 10 Other completed [facility] 06/23/2017 15:48:36 12/09/19 09 Other completed Rebeca [facility] 06/23/2017 15:46:34 11/08/18 83 Other completed Rebeca [facility] 06/23/2017 15:46:49 Other completed [facility] 06/23/2017 15:47:00 Other completed [facility] 06/23/2017 15:48:46 Imaging Results None recorded. Procedure Notes None recorded. Medical Equipment None Reported. Allergies Allergen ID Allergen Name Allergen Category Reaction Reaction Severity Criticality Documentation Date Start Date Code Code System Note Provider Name and Address Organization Details Recorded Time 099653 Substance with sulfonami de structure and antibacte rial mechanism of action (substanc e) medicatio n Not available Not available Not available 10/01/20162008 13686 8003 SNOMED Comme nt: Creat ed By: Arthur chandlerCre ated Date: 009 1:56: 53 PM; Not Available [facility] 6 10:14:08 [id number] E-Mycin medicatio n rash Not available Not available 10/01/2016200960 8 RxNorm React ion: RASH; Comme nt: Creat ed By: Paty chandlerCre ated Date: 2009 11:43 :02 AM; Not Available [facility] 6 13:01:26 [id number] Levaquin medicatio n Not available Not available Not available 10/01/20162011 92829 2 RxNorm Comme nt: Creat ed By: Amee Ramírez ca;Cr eated Date: 2011 9:17: 29 AM; Not Available [facility] 6 13:01:26 720505 Product containin g penicilli n (product) medicatio n Not available Not available Not available 10/02/20162008 38978 8001 SNOMED Comme nt: Creat ed By: Arthur goff;Cre ated Date: 1:56: 42 PM; Not Available [facility] 6 03:46:42 [id number] Benadryl medicatio n Not available Not available Not available 10/02/20162008 91823 7 RxNorm Comme nt: Creat ed By: Arthur goff;Cre ated Date: 009 1:57: 32 PM; Not Available On license of [facility] 6 03:46:42 [id number] codeine medicatio n Not available Not available Not available 10/02/20162008 2670 RxNorm Comme nt: Creat ed By: Arthur goff;Cre ated Date: 1:57: 04 PM; Not Available On license of [facility] 6 08:24:21 [id number] spironola ctone medicatio n rash Not available Not available 10/23/2024 9997 RxNorm Berenice cuevas [facility] 4 12:24:35 Medications Name Sig Start Date [...] in Arterial blood by Pulse oximetry Systolic And Diastolic Provider Name and Address Organization Details Last Updated DateTime 2 46099.7 4 g 16 /min 98 % 98 % 100/60 mm[Hg] Heide Kelly [facility] 2 10:09:05 Social History Question Answer Notes LastModified by ipDatatel Details LastModified Time Tobacco Smoking Status [facility] 11/07/2019 11:19:58 How Much Tobacco Do You Chew? None Information not available 11/07/2019 Marital Status Informatio n not available 11/07/2019 What Was The Date Of Your Most Recent Tobacco Screening? 08/19/2020 Information not available 08/19/2020 How Much Tobacco Do You Smoke? 2 PPD Information not available 11/07/2019 How Many Years Have You Smoked Tobacco? 20 Information not available 11/07/2019 Sex: Female Functional Status Question Answer Note LastModified by Organizat [employer] Details LastModified Time Do you or have you ever used smokeless tobacco? 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 Never used electronic cigarettes Information not available 11/07/2019 Mental Status None recorded. Family History Relationship Description Onset Age of this Age Resolved Age Notes LastModified by Organization Details LastModified Time Unspecified Relation Family history of malignant neoplasm [email or web address] Not available 2019 10:28:08 Mother Diabetes mellitus Not available 2016 15:43:36 Paternal Uncle Diabetes mellitus Not available 2016 15:43:36 Medical History Condition Response Thyroid Disease N Atrial Fibrillation N Squamous Cell Carcinoma Y Black Lung N Thyroid Problems N Lung [...] SNOMED-CT Code Diagnosis ICD10 Code Diagnosis Note [id number] MD WINDY BUTLER [facility] [address] [place] [address] 03/29/2017 11:01:36 03/29/2017 15:56:27 History of malignant melanoma of the skin 8206744508 08 Z85.820 Status post MM on left anterior thigh 0.2 mm in March 2009 - doing well [place] 351593586 L81.4 reassuranc e, several dark but doubt cancer Hemangioma 849858230 D18 .00 left lower areola-- watch and reassuranc e Senile hyperkeratosis 39 7357288 L82.1 reassuranc e Inflamed s eborrheic keratosis 493233680 L82.0 LN x 1 Multiple b enign melanocytic nevi 873384999 D22.9 reassuranc e - will continue to monitor for changes Onychomycosis 038685120 B35.1 reassuranc e - discussed treatment options - will wait on any treatment [id number] JOLLY CAMARENA MD CARDIOLOG Y [facility] [address] [place] [address] [place] [address] 06/28/2017 10:22:58 06/28/2017 12:28:34 Hyperlipidemia 80187961 E78.5 Management of this problem was reviewed with the patient. No changes recommende d, status for this problem is stable at this time. Coronary arteriosclerosis in [place] artery 8704246086 107 I25.10 Noncritica l CAD demonstrat ed catheteriz ation. Suggest risk factor therapy with statins and low-dose aspirin. [id number] MD WINDY BUTLER [address] [place] [address] 09/07/2017 10:09:29 09/10/2017 10:52:33 History of malignant melanoma of the skin 8474065375 08 Z85.820 Status post MM on left anterior thigh 0.2 mm in March 2009 - doing well [place] 625879649 L81.4 reassuranc e, several dark Senile hyperkeratosis 39 7937947 L82.1 reassuranc e 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 01343492 D48.5 ?ISKRight upper lateral ankleShave removal and base destroyed with ED [id number] VEENA BRAGG MD DERMATOLO [facility] [address] [place] [address] 04/05/2018 10:52:35 04/05/2018 13:09:39 History of malignant melanoma of the skin 8711056465 08 Z85.820 Status post MM on left anterior thigh 0.2 mm in March 2009 - doing well [place] 164217644 L81.4 reassuranc e, several dark but doubt cancer Hemangioma 222513890 D18 .00 left lower areola-- watch and reassuranc e Senile hyperkeratosis 39 1232845 L82.1 reassuranc e Multiple b enign melanocytic nevi 508892376 D22.9 reassuranc e - will continue to monitor for changes Verruca vulgaris 7498284 3 B07.9 PW--declin es tx today Reassuranc e and education regarding the disorder and options. [id number] JOLLY CAMARENA MD CARDIOLOG Y [facility] [address] [place] [address] 07/04/2018 10:08:24 07/04/2018 11:34:40 Hyperlipidemia 36173353 E78.5 Management of this problem was reviewed with the patient. No changes recommende d, status for this problem is stable at this time. Coronary arteriosclerosis in [place] artery 3356367400 107 I25.10 Noncritica l CAD demonstrat ed catheteriz ation. Suggest risk factor therapy with statins and low-dose aspirin. [id number] GENIE RANDHAWA PA-C [facility] [address] [place] [address] 09/21/2018 15:20:55 09/22/2018 08:32:53 Neoplasm of uncertain behavior of skin 97216821 D48.5 MID LOWER ABDOMEN R/O ANGIOMA VS OTHER SHAVE BIOPSY SEE PROCEDURE NOTE WOUND CARE INSTRUCTIO NS PROVIDED F/U PER PATH O/W SCHEDULED FOR ANNUAL FSE OR SOONER IF NEEDED Lichen sim plex chronicus 95051240 L28.0 INJECTED IL KENALOG 5MG/ML X 0.1 CC'S INTO 1 LESION ON MID LOWER ABD; PT TOLERATED WELL D/C MANIPULATI ON F/U IF DOES NOT RESOLVE [id number] JOLLY CAMARENA MD CARDIOLOG Y [facility] [address] [place] [address] 03/31/2019 08:53:04 03/31/2019 09:42:39 Hyperlipidemia 03279610 E78.5 Management of this problem was reviewed with the patient. No changes recommende d, status for this problem is stable at this time. Coronary arteriosclerosis in [place] artery 5303028432 107 I25.10 Noncritica l CAD demonstrat ed catheteriz ation.Rece nt episode of chest discomfort suggestive of possible ischemia and therefore I recommend a treadmill nuclear stress test prior to proceeding with any other planned vascular procedures . Preoperati ve cardiovascular examination 902295111 Z01.810 If nuclear stress test is okay the patient may proceed with planned abdominal vascular repair. [id number] JOLLY CAMARENA MD [facility] [address] [place] [address] 04/04/2019 07:43:26 04/04/2019 11:25:21 [id number] VEENA BRAGG MD DERMATOLO [facility] [address] [place] [address] 04/10/2019 10:01:20 04/10/2019 12:57:13 History of malignant melanoma of the skin 8086853005 08 Z85.820 Status post MM on left anterior thigh 0.2 mm in March 2009 - doing well [place] 195326603 L81.4 reassuranc e, several dark but doubt cancer Hemangioma 561939381 D18 .00 left lower areola-- watch and reassuranc e Senile hyperkeratosis 39 1718373 L82.1 reassuranc e Multiple b enign melanocytic nevi 961480576 D22.9 reassuranc e - will continue to monitor for changes Verruca vulgaris 5393150 3 B07.9 PW--declin es tx today Reassuranc e and education regarding the disorder and options. Insect bite - wound 3446 45334 T14.8XXA Injection given by [facility], RN 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 01522079 D48.5 BCCLeft nasal tipShave bx and base destroyed with ED Dermatofibroma 933732290 D23.9 reassuranc e [id number] JOLLY CAMARENA MD CARDIOLOG Y [facility] [address] [place] [address] 05/12/2019 09:16:01 05/12/2019 10:07:28 Preoperative cardiovascular examination 900905473 Z01.810 She is doing well following coronary interventi on and is cleared to proceed with mesenteric stent. Dual antiplatel et therapy should be continued. Coronary arteriosclerosis in [place] artery 9662031751 107 I25.10 Noncritica l CAD demonstrat ed catheteriz ation.Rece nt episode of chest discomfort suggestive of possible ischemia and therefore I recommend a treadmill nuclear stress test prior to proceeding with any other planned vascular procedures . Hyperlipidemia 20579133 E78.5 Management of this problem was reviewed with the patient. No changes recommende d, status for this problem is stable at this time.Targe t LDL cholestero l is in the 70s. Long-term current use of antiplatelet drug 7110420134 92537 Z79.02 DAPT.No symptoms of bleeding or any evidence of anticoagul ant toxicity. Periodic CBC recommende d. [id number] MD WINDY BUTLER [facility] [address] [place] [address] 08/04/2019 07:51:31 08/04/2019 13:55:02 History of malignant melanoma of the skin 3523305297 08 Z85.820 Status post MM on left anterior thigh 0.2 mm in March 2009 - doing well [place] 285329148 L81.4 reassuranc e, several dark but doubt cancer Scab of skin 561666837 L 98.8 left lateral chest - ? insect bite or puncture wound Reassuranc e and education regarding the disorder and options. 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 48417036 D48.5 left lower chest - 3 mm punch biopsy--? GA, EAC, other Left anterior ear canal has a think 3 mm pink crust. - watch for now - if worsens will see ENT [id number] MD WINDY BUTLER [facility] [address] [place] [address] 10/27/2019 08:30:55 10/27/2019 13:39:22 History of malignant melanoma of the skin 8648378386 08 Z85.820 Status post MM on left anterior thigh 0.2 mm in March 2009 - not examined today [place] 959751400 L81.4 reassuranc e, several dark but doubt cancer Granuloma annulare 58736 009 L92.0 Per prev bx ? Reaction to breast implants Discussed [facility] [id number] JOLLY CAMARENA MD CARDIOLOG Y [address] [place] [address] 11/07/2019 11:09:11 11/07/2019 11:40:08 Coronary arteriosclerosis in [place] artery 3851304741 107 I25.10 Noncritica l CAD demonstrat ed catheteriz ation.Rece nt episode of chest discomfort suggestive of possible ischemia and therefore I recommend a treadmill nuclear stress test prior to proceeding with any other planned vascular procedures . Hyperlipidemia 97766424 E78.5 Management of this problem was reviewed with the patient. No changes recommende d, status for this problem is stable at this time.Targe t LDL cholestero l is in the 70s. Long-term current use of antiplatelet drug 5768672605 27671 Z79.02 DAPT.No symptoms of bleeding or any evidence of anticoagul ant toxicity. Periodic CBC recommende d. [id number] JOLLY CAMARENA MD CARDIOLOG Y [address],[facility] [place] [address] 02/28/2020 11:30:58 02/28/2020 11:43:08 Coronary arteriosclerosis in [place] artery 8010406287 107 I25.10 Noncritica l CAD demonstrat ed catheteriz ation.Rece nt episode of chest discomfort suggestive of possible ischemia and therefore I recommend a treadmill nuclear stress test prior to proceeding with any other planned vascular procedures . Hyperlipidemia 66786655 E78.5 Management of this problem was reviewed with the patient. No changes recommende d, status for this problem is stable at this time.Targe t LDL cholestero l is in the 70s. Long-term current use of antiplatelet drug 8659135887 51773 Z79.02 DAPT.No symptoms of bleeding or any evidence of anticoagul ant toxicity. Periodic CBC recommende d.In April she will reach one year anniversar y of her stent. I advise discontinu ation of clopidogre l at that time any increasing aspirin to 162 mg daily.Elec tronic prescripti on sent to patient's pharmacy. [id number] VEENA BRAGG MD [facility]O [facility] [address] [place] [address] 04/09/2020 10:16:57 04/09/2020 11:09:25 History of malignant melanoma of the skin 6738444290 08 Z85.820 Status post MM on left anterior thigh 0.2 mm in March 2009 - doing well [place] 033297714 L81.4 reassuranc e, several dark but doubt cancer Hemangioma 441969994 D18 .00 left lower areola-- watch and reassuranc e Senile hyperkeratosis 39 7701380 L82.1 reassuranc e Multiple b enign melanocytic nevi 688745758 D22.9 reassuranc e - will continue to monitor for changes Dermatofibroma 493908121 D23.9 reassuranc e Granuloma annulare 59398 009 L92.0 Per prev bx extensive but ? milder per pt Discussed Kenalog [place] Triamcinol one caused irritation hold IM--has DM No treatment for now Patient has crohns and Fibromyalg ia consider Humira if worse [id number] JOLLY CAMARENA MD CARDIOLOG Y [facility] [address] [place] [address] 08/19/2020 14:19:11 08/19/2020 16:08:04 Coronary arteriosclerosis in [place] artery 2618293294 107 I25.119 Noncritica l CAD demonstrat ed catheteriz ation.Rece nt episode of chest discomfort suggestive of possible ischemia and therefore I recommend a treadmill nuclear stress Hyperlipidemia 63186624 E78.5 Management of this problem was reviewed with the patient. No changes recommende d, status for this problem is stable at this time.Targe t LDL cholestero l is in the 70s. Long-term current use of antiplatelet drug 3282245293 81215 Z79.02 DAPT.No symptoms of bleeding or any evidence of anticoagul ant toxicity. Periodic CBC recommende d.In April she will reach one year anniversar y of her stent. I advise discontinu ation of clopidogre l at that time any increasing aspirin to 162 mg daily.Elec tronic prescripti on sent to patient's pharmacy. [id number] JOLLY CAMARENA MD [facility] [address] [place] [address] [address] 08/22/2020 12:12:08 08/23/2020 08:30:37 [id number] MD WINDY BUTLER [facility] [address] [place] [address] 06/02/2021 11:38:24 06/02/2021 12:09:53 History of malignant melanoma of the skin 3495618129 08 Z85.820 Status post MM on left anterior thigh 0.2 mm in March 2009 - doing well [place] 277862215 L81.4 reassuranc e, several dark but doubt cancerReco mmended Equate Ultra Sunscreen 30+ and sun protecting hats/cloth ing Hemangioma 438691603 D18 .00 left lower areola-- watch and reassuranc e Senile hyperkeratosis 39 7493565 L82.1 reassuranc e Multiple b enign melanocytic nevi 880427045 D22.9 reassuranc e - will continue to monitor for changes Dermatofibroma 778193941 D23.9 reassuranc e 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 58538872 D48.5 right lower medial leg and left lower ochoa - 3 mm crust - watch for another month may be simple abrasions Senile purpura 15421790 D69.2 Reassuranc e and education regarding the disorder and options. [id number] MD WINDY BUTLER [address] [place] [address] 09/30/2021 11:35:58 09/30/2021 12:32:20 Lipoma 76656237 D17.9 hx confirmed with U/Spt is seeing Dr. Walters ([facility] surgeon) today and will ask him about removal - on ASAthis might need to be removed before her knee replacemen tsmaller on left pubic triangle Inflamed s eborrheic keratosis 429063965 L82.0 LN x 1 History of malignant melanoma of the skin 6543615159 08 Z85.820 Status post MM on left anterior thigh 0.2 mm in March 2009 - doing well [place] 898829556 L81.4 reassuranc eRecommend ed Equate Ultra Sunscreen 30+ and sun protecting hats/cloth ing Hemangioma 120091807 D18 .00 left lower areola-- watch and reassuranc e Senile hyperkeratosis 39 1531655 L82.1 reassuranc e [id number] LUIS AN MD CARDIOLOG Y EAST [address] [address] 11/14/2021 09:51:52 11/14/2021 11:03:01 Coronary arteriosclerosis in [place] artery 0576532682 107 I25.119 Hyperlipidemia 82865182 E78.5 Preoperati ve cardiovascular examination 271903809 Z01.810 She is able to meet a [...] and restart the evening after her surgery. [id number] VEENA BRAGG MD DERMATOLO GY [facility] [address] [place] [address] 07/28/2022 15:10:54 07/28/2022 15:50:51 History of malignant melanoma of the skin 1776235735 08 Z85.820 Status post MM on left anterior thigh 0.2 mm in March 2009 - doing well [place] 920205965 L81.4 reassuranc eRecommend ed Equate Ultra Sunscreen 30+ and sun protecting hats/cloth ing Senile hyperkeratosis 39 7974583 L82.1 reassuranc e Eruption 238350722 R21 Moderate on abdomen and flanksddx - [...] Humira if worsephoto s taken today Milia 039790677 L72.0 reassuranc e [id number] VEENA BRAGG MD DERMATOLO GY [facility] [address] [place] [id number] 07/27/2023 10:31:55 07/27/2023 11:05:46 History of malignant melanoma of the skin 5964406829 08 Z85.820 Status post MM on left anterior thigh 0.2 mm in March 2009 - doing well [place] 471140423 L81.4 reassuranc eRecommend ed Equate Ultra Sunscreen 30+ and sun protecting hats/cloth ing Senile hyperkeratosis 39 9384959 L82.1 reassuranc e Milia 369010430 L72.0 reassuranc e Inflamed s eborrheic keratosis 217544604 L82.0 LN x 1 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 r/o KARSON upper scapulahx bled profuselys have removal and base destroyed with ED [id number] VEENA BRAGG MD DERMATOLO GY [facility] [address] [place] [address] 10/23/2024 11:45:29 10/23/2024 12:37:36 History of malignant melanoma of the skin 4175503154 08 Z85.820 Status post MM on left anterior thigh 0.2 mm in March 2009 - doing well [place] 677752881 L81.4 Reassuranc eRecommend ed Equate Ultra Sunscreen 30+ and sun protecting hats/cloth ing Senile hyperkeratosis 39 5178651 L82.1 Reassuranc e Inflamed s eborrheic keratosis 281079977 L82.0 LN x 8 Hemangioma 781053980 D18 .00 Reassuranc eLeft lower areola - no change per pt, cont to monitor Multiple b enign melanocytic nevi 279536500 D22.9 Reassuranc e 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 VEENA BRAGG MD [address] [place], [address], [facility] 09/30/2021 12:24:38 11/14/2021 text/html CARDIOVASCULAR [...] patient of Dr Jolly Camarena, lives in [place], [place]. She reports that her overall health [...] 153/72/68 A1c: 7.4% LUIS AN MD [address] [place], [address], [facility] 11/14/2021 11:11:57 07/28/2022 text/html Established jagd[facility] ent [...] family history of melanoma. VEENA BRAGG MD [address] [place] [address] [place], [address], [facility] 07/28/2022 17:03:15 07/27/2023 text/html Established jagdish ent [...] of melanoma. VEENA BRAGG MD [address] [place], [address], [facility] 08/01/2023 22:11:18 10/23/2024 text/html Established [facility] ent Patient has Crohns and fibromyalgia [...] family history of melanoma. VEENA BRAGG MD [address] [place] [address] [place], [address], [facility] 10/23/2024 12:53:41 OBGyn Episode No OBEpisode recorded.
--- OUTSIDE RECORDS SUMMARY | 2025-05-14 08:02 | XMS_ITS | Encounter Summary ---
Author Organization [employer] ([place], [place], [place], [place]) Address [address] [place] [address] Care Team Providers Care Calender Inspector Name Role Phone Unavailable Primary Care Provider Unavailabl e Encounter Details Date Type Department Care Team (Late st Contact Info) Description 04/13/2019 Transcribed Document [facility] [place] [address] [place] [address] ProviderDevorah MD [address] [place] [address] Social History Tobacco Use Types [...] Note - Devorah Brown MD - 04/13/2019 8:57 AM CDT [facility] [place] [address] CODIE ALEJANDRA :1965 Visit Time:04/12/2019 Your [...] Comments May 12 @ 9:30am Where: [address] [place] [address]- [phone] Business (1) Medications What How Much When [...] including vitamins, herbs, eye drops, creams, and dugl-ctl-snkvova medicines. ??? Any problems you or family [...] 04/30/2004 Document Revised: 06/24/2017 Document Reviewed: 05/30/2017 [employer] Interactive Patient Education ?? 2019 [employer]. Emergency Awareness and Preventative Care STROKE is [...] Assistance with quitting is available by contacting 2-957-CLSU-NOW. This is a free resource providing counseling, [...] computer, smartphone, or tablet. Just go to [employer] to get started. Questions? Call . Test [...] was given the opportunity to ask questions. Patient/Car Wash Manager Name: Patient/Car Wash Manager Signature: Relationship to Patient: Clinician/Hospital Car Wash Manager Signature: Date: documented in this encounter Plan of Treatment Not on file documented as of this encounter Visit Diagnoses Not on filedocumented in this encounter
--- OUTSIDE RECORDS SUMMARY | 2025-05-14 08:02 | XMS_ITS | Encounter Summary ---
Author Organization [employer] ([place], [place], [place], [place]) Address [address] [place] [address] Care Team Providers Care Slot Machine Department Floorperson Name Role Phone Unavailable Primary Care Provider Unavailabl e Encounter Details Date Type Department Care Team (Late st Contact Info) Description 04/13/2019 Transcribed Document [facility] [place] [address] [place] [address] ProviderDevorah MD [address] [place], [place] [id number] Social History Tobacco Use Types Packs/Day Years [...]
--- OUTSIDE RECORDS SUMMARY | 2025-05-14 08:02 | XMS_ITS | Encounter Summary ---
Author Organization [employer] ([place], [place], [place], [place]) Address [address] [place] [address] Care Team Providers Care Senior Maintenance Mechanic Name Role Phone Unavailable Primary Care Provider Unavailabl e Encounter Details Date Type Department Care Team (Late st Contact Info) Description 04/13/2019 Transcribed Document [facility] [place] [facility] [place] [address] ProviderDevorah MD [address] [place] [address] Social History Tobacco Use Types [...] Associated Diagnoses: None Author: MARTIN DUNN APRN [facility] CARDIOLOGY PROGRESS NOTE: DIAGNOSIS: 1. CAD 2. [...] Clinical Weight CLINICALWEIGHT: 100 kg (04/12/19 09:14:00) [place] Body Weight: 59 kg (04/12/19 09:14:00) Intake [...] up with Dr Camarena one month Dictation #[id number] Electronically signed by Juan Ramon Larkin Conversion Sweet Potato Disintegrator Cerner at 02/26/2023 12:52 PM CDT documented in this encounter Plan of Treatment Not on file documented as of this encounter Visit Diagnoses Not on filedocumented in this encounter
--- OUTSIDE RECORDS SUMMARY | 2025-05-14 08:02 | XMS_ITS | Encounter Summary ---
Author Organization [employer] ([place], [place], [place], [place]) Address [address] [place] [address] Care Team Providers Care Watch Band Assembler Name Role Phone Unavailable Primary Care Provider Unavailabl e Encounter Details Date Type Department Care Team (Late st Contact Info) Description 04/12/2019 Transcribed Document [facility] [place] [facility] [place] [address] ProviderDevorah MD [address] [place] [address] Social History Tobacco Use Types [...] study with angina. DESCRIPTION OF PROCEDURE: RFA 5-Uzbek sheath, 5-Uzbek Wilner multipack for diagnostic study. Exchange of 6-sheath and CLS guiding catheter. A long [place] wire was deployed. The patient received intracoronary nitroglycerin as well as prasugrel and aspirin per protocol. Angiomax initiated. Lesion traversed with [place] wire and directly stented utilizing a Synergy [...]
--- OUTSIDE RECORDS SUMMARY | 2025-05-14 08:02 | XMS_ITS | Encounter Summary ---
Author Organization [employer] ([place], [place], [place], [place]) Address [address] [place] [address] Care Team Providers Care Instrumentation And Controls Technician Name Role Phone Unavailable Primary Care Provider Unavailabl e Encounter Details Date Type Department Care Team (Late st Contact Info) Description 04/12/2019 Transcribed Document [facility] [place] [address] [place] [address] ProviderDevorah MD [address] [place] [address] Social History Tobacco Use Types [...] Conversion Note - Historical ProviderMD - 04/12/2019 8:00 PM CDT Pain Assessment Entered On: 04/12/2019 23:15 EDT Performed On: 04/12/2019 21:45 EDT by KEIKO PERERA RN Intervention Information: acetaminophen-HYDROcodone Performed by KEIKO PERERA, RN on 04/12/2019 20:45:00 EDT acetaminophen-HYDROcodone,1Tab Oral,Pain (Moderate 4-6) Pain Assessment Pain Assessment : Follow-up assessment Pain Improved by Intervention : Yes KEIKO PERERA RN - 04/12/2019 23:15 EDT documented in this encounter Plan of Treatment Not on file documented as of this encounter Visit Diagnoses Not on filedocumented in this encounter
--- OUTSIDE RECORDS SUMMARY | 2025-05-14 08:02 | XMS_ITS | Encounter Summary ---
Author Organization [employer] ([place], [place], [place], [place]) Address [address] [place] [address] Care Team Providers Care Junior High Math Teacher Name Role Phone Unavailable Primary Care Provider Unavailabl e Encounter Details Date Type Department Care Team (Late st Contact Info) Description 04/12/2019 Transcribed Document [facility] [place] [facility] [place] [address] ProviderDevorah MD [address] [place] [address] Social History Tobacco Use Types [...] Conversion Note - Historical ProviderMD - 04/12/2019 9:14 AM CDT Admission [...] : Home Patient Lives With : Spouse HARSHAL Hx Falls Immediate/Within 3 Months : Yes Current Home Treatments : Blood glucose monitoring Monico Steele Rn - 04/12/2019 9:14 EDT General Info Arrived From : Home Mode of Arrival on Unit : Ambulatory Legal Guardian : Spouse Support Person/Patient Repair Mechanic : Yes Support Person/Pt Rep Name : Lyle Alejandra spouse Support Person/Pt Rep Contact Information : [phone] Want Family/Rep/Phys Notified of Admit : No Emergency Contact #1 : see above Emergency Contact #1 Phone Number : na Emergency Contact #1 Relationship : na Emergency Contact #2 : none Emergency Contact #2 Phone Number : na Emergency Contact #2 Relationship : na Primary Language : Indonesian Communication Barrier : None Monico Steele Rn [...] own ability Caputo Fall Risk Score : 35 CAPUTO Fall Scale Risk Level : 25-45 Medium Risk [place] Fall Interventions : Adequate lighting, Assistive devices [...] Source : Stated Height Entry Format : [place] Height, Feet : 5 ft(Converted to: 152 cm, 60 Inch) Height, Inches : 6 Inch(Converted to: 0 ft 6 Inch, 15.24 cm) Clinical Height : 167.64 cm Weight Source : Standing scale Weight Entry Format : [place] Clinical Dosing Weight : 100 kg Weight, Pounds : 220 lb Body Surface Area (BSA) : 2.08 m2 Body Mass Index : 35.6 kg/m2 (HI) [place] Body Weight : 59 kg Monico Steele [...] - 04/12/2019 9:14 EDT Electronically signed by [facility] Conversion Millinery Blocker Cerner at 02/26/2023 1:00 PM CDT documented in this encounter Plan of Treatment Not on file documented as of this encounter Visit Diagnoses Not on filedocumented in this encounter
--- OUTSIDE RECORDS SUMMARY | 2025-05-14 08:02 | XMS_ITS | Encounter Summary ---
Author Organization [employer] ([place], [place], [place], [place]) Address [address] [place] [address] Care Team Providers Care Tree Topper Name Role Phone Unavailable Primary Care Provider Unavailabl e Encounter Details Date Type Department Care Team (Late st Contact Info) Description 04/13/2019 Transcribed Document [facility] [place] [address] [place] [address] ProviderDevorah MD [address] [place] [address] Social History Tobacco Use Types [...] On: 04/13/2019 9:30 EDT by Monico Steele Rn Discharge Documentation Discharge Date/Time : 04/13/2019 9:30 EDT [...] Monico Steele Rn - 04/13/2019 9:30 EDT Electronically signed by [facility] Conversion Automatic Fancy Machine Operator Cerner at 02/26/2023 12:53 PM CDT documented in this encounter Plan of Treatment Not on file documented as of this encounter Visit Diagnoses Not on filedocumented in this encounter
--- OUTSIDE RECORDS SUMMARY | 2025-05-14 08:02 | XMS_ITS | Encounter Summary ---
Author Organization [employer] ([place], [place], [place], [place]) Address [address] [place] [address] Care Team Providers Care Tinning Machine Set Up Operator Name Role Phone Unavailable Primary Care Provider Unavailabl e Encounter Details Date Type Department Care Team (Late st Contact Info) Description 04/12/2019 Transcribed Document [facility] [place] [facility] [place] [address] ProviderDevorah MD [address] [place] [address] Social History Tobacco Use Types [...] Performed On: 04/12/2019 7:03 EDT by PATRICIA GARCIAS RN Height and Weight, Clinical Dosing Height Source : Stated Height Entry Format : [place] Height, Feet : 5 ft(Converted to: 152 cm, 60 Inch) Height, Inches : 6 Inch(Converted to: 0 ft 6 Inch, 15.24 cm) Clinical Height : 167.64 cm Weight Source : Standing scale Weight Entry Format : [place] Clinical Dosing Weight : 100 kg Weight, Pounds : 220 lb Body Surface Area (BSA) : 2.08 m2 Body Mass Index : 35.6 kg/m2 (HI) [place] Body Weight : 59 kg PATRICIA GARCIAS RN - 04/12/2019 7:03 EDT Health Histories [...] Ambulatory Legal Guardian : Spouse Support Person/Patient Heel Coverer : Yes Support Person/Pt Rep Name : Lyle Alejandra , spouse Support Person/Pt Rep Contact Information : [phone] Want Family/Rep/Phys Notified of Admit : No Emergency Contact #1 : see above Emergency Contact #1 Phone Number : na Emergency Contact #1 Relationship : na Emergency Contact #2 : none Emergency Contact #2 Phone Number : na Emergency Contact #2 Relationship : na Primary Language : Mongolian Communication Barrier : None PATRICIA GARCIAS RN - 04/12/2019 7:03 EDT Vital Measurements [...] Scale Risk Level : 25-45 Medium Risk [place] Fall Interventions : Adequate lighting, Bed in low position, Call device within reach, Non-slip footwear, Personal items within reach, Room free of clutter/spills, Wheels locked, Wires/Cords secured PATRICIA GARCIAS, DEV - 04/12/2019 7:03 EDT Valuables and Belongings [...] that need locked in hospital safe PATRICIA GARCIAS RN - 04/12/2019 7:03 EDT Pain Scale Intensity [...]
--- OUTSIDE RECORDS SUMMARY | 2025-05-14 08:02 | XMS_ITS | Encounter Summary ---
Author Organization [employer] ([place], [place], [place], [place]) Address [address] [place] [address] Care Team Providers Care Title Searcher Name Role Phone Unavailable Primary Care Provider Unavailabl e Encounter Details Date Type Department Care Team (Late st Contact Info) Description 04/12/2019 Transcribed Document [facility] [place] [facility] [place] [address] ProviderDevorah MD [address] [place] [address] Social History Tobacco Use Types Packs/Day Years Used Date Smoking Tobacco: Never Assessed Comments Unknown Sex and Gender Information Value Date Recorded Sex Assigned at Female 05/05/2022 3:36 PM CDT Legal Sex Female 3:36 PM CDT Gender Identity Female 05/05/2022 3:36 PM CDT Sexual Orientation Not on file documented as of this encounter Miscellaneous Notes * Kamininer Conversion Note - Devorah Brown MD - [...] stopped for one year. Prerscriptions sent via [employer]. documented in this encounter Plan of Treatment Not on file documented as of this encounter Visit Diagnoses Not on filedocumented in this encounter
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
== END 2025-05-14 23:59 | disposition home or self-care (01) ==
LOC: RAD 07:59
PROVIDERS: PCP Family Medicine; Visit Provider Physician Assistant Surgical
DX: M79.89 Other specified soft tissue disorders (principal); M79.642 Pain in left hand; M79.641 Pain in right hand; M25.532 Pain in left wrist; M25.531 Pain in right wrist
CPT/HCPCS: 73110; 73130

== ENCOUNTER 2025-05-29 09:47 | Outpatient (RCR) | payer BC, SELFPAY ==
--- NOTE | 2025-05-29 14:08 | HMH.PTOPEV ---
PT Outpatient Evaluation Rehab PT Outpatient Evaluation Start: 05/29/25 09:53 Freq: Status: Active Protocol: Document 05/29/25 09:53 BECCA (Rec: 05/29/25 14:08 BECCA [id number]) E-signed By Sam Thompson, PT Outpatient Therapy Subjective History Subjective History Pt is a 59 yof who is referred to [facility] outpatient PT with complaints of b/l numbness and tingling into her arms and hands. Pt reports that her R arm is affected more than her L arm. Reports that her arms feel like they just fall asleep. Pt describes her symptoms as affecting the entire arm and hands, not just a certain finger. Pt reports that she can typically relieve the symptoms by shaking her arms, or changing her positions . Pt reports that her symptoms are the worst at nighttime in bed and when she is driving. Pt denies any Lower extremity symptoms. PMH: Bilateral wrist pain Bilateral hand pain Rash Thyroid nodule Edema of left lower leg Syncopal episodes Abnormal nuclear cardiac imaging test History of CT scan of brain History of MRI of brain and brain stem Angina pectoris Dilatation of thoracic aorta Abdominal pain Crohn's disease Multiple thyroid nodules Paranoia Tinnitus Impacted cerumen, right ear Hypothyroidism Asthma Dyspnea on exertion Stopped smoking with greater than 20 pack year history Nodule of left lung Lung nodule Abnormal chest x-ray Pneumonia Headache History of melanoma Lymphadenopathy Arthritis GERD (gastroesophageal reflux disease) Cancer Former smoker Hypertension Diabetes Dyspareunia in female Vaginal atrophy Early satiety Claudication Heart murmur New diagnosis of No cancer in past 12 months? Chief Complaint Pain,Paresthesia Symptom Type Numbness,Tingling Symptoms Relieved By Shaking Symptoms Aggravated Supine By Prior Functional None Limitations Current Functional Lifting,Driving,Sleeping Limitations Symptom Description Constant but Variable,Activity Dependent Level of pain today 4 (0-10) Pain scale - at its 2 best (0-10) Pain scale - at its 10 worst (0-10) Cervical Eval Palpation Cervical Muscles R CT Junction,L CT Junction Cervical/Thoracic Tenderness Palpation Findings Posture Head/C-Spine Posture Flexed Sitting Position Head/C-Spine Posture Flexed Standing Position Flexibility Deficits Upper Trapezius (R) Moderate Tightness,(L) Moderate Tightness Muscle Length Scalene Group Muscle (R) Moderate Tightness,(L) Moderate Tightness Length Passive Joint Mobility Cervical PIVM Dec: R C6/7 L C6/7 R C7/T1 L C7/T1 AROM Cervical Spine 50% Extension Active Range of Motion ( degrees) Cervical Spine 75% Flexion Active Range of Motion (degrees) Cervical Spine Right 25% Lateral Flexion Active Range of Motion (degrees) Cervical Spine Left 25% Lateral Flexion Active Range of Motion (degrees) Cervical Spine Right 25% Rotation Active Range of Motion ( degrees) Cervical Spine Left 25% Rotation Active Range of Motion ( degrees) DTR Rt Biceps 1+ Lt Biceps 1+ Rt Brachioradialis 1+ Lt Brachioradialis 1+ Rt Triceps 1+ Lt Triceps 1+ Altered Sensation Bilateral Comment Intact to LT symetrically Special Test C-Spine Foraminal Negative Left,Negative Right Compression ( Spurling) Test C-Spine Foraminal Negative Distraction Test Shoulder Brachial Positive Right Plexus Stretch Test Neck Disability Index Neck Disability Index Section 1: Pain The pain is fairly severe at the moment Intensity Section 2: Personal I can look after myself normally without causing extra Care (washing, pain dressing, etc.) Section 3: Lifting Pain prevents me from lifting heavy weights, but I can manage light to Section 4: Reading I can read as much as I want to with slight pain in my neck Section 5: Headaches I have moderate headaches, which come frequently Section 6: I have a fair degree of difficulty in concentrating Concentration when I want to Section 7: Work I can do most of my usual work, but no more Section 8: Driving I can drive my car as long as I want with moderate pain in my neck Section 9: Sleeping My sleep is moderately disturbed (2-3 hrs. sleepless) Section 10: I am able to engage in most, but not all of my usual Recreation recreation NDI Score 21 Miscellaneous Dx PT Eval Objective Objective Median N ULTT: + to R and L Regino Test: + Posture: - Rounded shoulders with forward head MMT: - B Rhomboids 2/5 - B LT 2/5 Outpatient Therapy Assessment Impairments Problems/ Palpation Tenderness,Impaired Range of Motion,Impaired Impairmments Strength,Impaired Driving,Impaired Desk/Computer Activities,Subjective C/O Pain Prognosis Rehab Potential Good Comment w HEP compliance Clinical Impression Consistent with No Diagnosis Consistent with b/l Thoracic outlet syndrome Additional details: G54.0 Pt demonstrates tightness into her scalenes bilaterally , as well as forward/rounded shoulders. Pt also demonstrates diffuse complaints of numbness and tingling. Pt's symptoms are recreated with the Regino test. These signs and symptoms are consistent with Thoracic outlet syndrome. Short Term Goals Number of Weeks 4 Decreased Palpation Yes: 2/4 to TTP assessment above Tenderness Increase Range of Yes: 50% WNL CROM and mild tightness of scalenes Motion Increase Strength Yes: 3/5 to scapulothoracic msk Improve Neck Yes: by 3 points Disability Index Score Decrease Subjective Yes: 5/10 with above assessment C/O Pain Improve Self Care/ Yes Self Management Patient to be Ind w/ Yes HEP Shelter Goals Number of Weeks 8 Decreased Palpation Yes: 0-1/4 Tenderness Increase Range of Yes: 75% WNL CROM, mild pec minor tightness Motion Increase Strength Yes: 4/5 to Scapulothoracic MSK Improve Neck Yes: by 6 points Disability Index Score Decrease Subjective Yes: 2-3/10 with above assessment C/O Pain Patient to be Ind w/ Yes Advanced HEP Outpatient Therapy Plan of Care Treatment Plan May Include Therapeutic Exercise Yes Including Home Exercise Program Manual Therapy Yes Techniques Neuromuscular Re- Yes education Therapeutic Yes Activities to Return to Previous Functional/Work Level Gait Training Yes ADL/Self Care Yes Education Mechanical Traction Yes Dry Needling Yes Thermal Modalities Yes Electrical Yes Stimulation Ultrasound/ Yes Phonophoresis Iontophoresis Yes Manual Lymphatic Yes Drainage Eval/Re-Eval Yes Frequency Times per week 2 Duration Number of Weeks 8 Addendums This patient is a No candidate for social or vocational rehab ? Patient/Guardian Yes verbally acknowledges understanding of treatment program and consents to further treatment? Patient/Guardian Yes verbally acknowledges understanding of diagnosis, prognosis and goals for treatment? Eval Complexity PT Charges 07893 - High Complexity Shoulder/Elbow Eval Shoulder Objective Measurements Elbow Objective Measurements PHYSICIAN CERTIFICATION: I certify the specified therapy services for Sydnie Alejandra are required, authorized, and reviewed every 30 days.
== END 2025-05-29 23:59 | disposition home or self-care (01) ==
LOC: PT 09:47
PROVIDERS: PCP Family Medicine; Visit Provider Physician Assistant Surgical
DX: M79.641 Pain in right hand (principal); M79.642 Pain in left hand; M25.531 Pain in right wrist; M25.532 Pain in left wrist
CPT/HCPCS: 97163

== ENCOUNTER 2025-05-31 13:48 | Outpatient (CLI) | payer BC, SELFPAY ==
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
--- OUTSIDE RECORDS SUMMARY | 2025-05-31 13:52 | XMS_ITS | Referral Summary ---
Author Organization [employer] ([place], [place], [place], [place]) Address [address] [place] [address] Care Team Providers Care Donkey Doctor Name Role Phone Unavailable Primary Care Provider [...]
--- OUTSIDE RECORDS SUMMARY | 2025-05-31 13:52 | XMS_ITS | Clinical Summary ---
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
--- OUTSIDE RECORDS SUMMARY | 2025-05-31 13:52 | XMS_ITS | Clinical Summary ---
Author Organization [facility] Address [address] [place] [address] Care Team Providers Care Aerial Erector Name Role Phone Unavailable Primary Care Provider [...] (2 - Td or Tdap) 04/27/2023 04/27/2013 [id number] Vaccine (3 - season) 2024 01/19/2021, 12/22/2020 [...] Narrative SUNQUEST - 11/05/2000 12:51 PM EST [facility] MR #: [id number] [facility] CODIE [place]JANDRA [place], [place] [address] 1965 (Age: 35) FW Collect Date: 10/20/2000 00:00 Receipt Date: 10/21/2000 09:55 Page 1 DEPARTMENT OF PATHOLOGY AND LABORATORY MEDICINE CYTOPATHOLOGY REPORT Email: [email or web address] [phone] ATTENDING MD/Practitioner: Elma Talley MD Service: [facility] Location: [facility] Reported: 11/05/2000 12:51 Collected: [...] results is suggested (please call Microbiology at [phone] for results). CLINICAL INFORMATION: Menstrual History: Cyclic Date of Last Menstrual Period: 12 3 00 SPECIMEN DESCRIPTION: A: THIN PREP (CERVICAL/VAGINAL) THIN PREP PROCESS CELLULAR ENHANCEMENT ICD: 795.0 ABNORMAL PAP SMEAR CERVIX, NONSPECIFIC V72.3 GYNECOLOGICAL EXAMINATION F: A; THIN SCRN 56921, [address] C\V (PO) SNOMED CODES: A; [id number] In cases where a pathologist has signed out the report, the service has been rendered in part by a resident. The signing pathologist has performed and is responsible for the reported pathologic evaluation. us Historical Provider MD LAB PATHOLOGY ORDERABLES Final Result katena from Last 3 Months or Most Recently Relevant to Health Maintenance Insurance GREG
--- OUTSIDE RECORDS SUMMARY | 2025-05-31 13:52 | XMS_ITS | Encounter Summary ---
Author Organization [employer] ([place], [place], [place], [place]) Address [address] [place] [address] Care Team Providers Care Delivery Room Supervisor Name Role Phone Unavailable Primary Care Provider Unavailabl e Encounter Details Date Type Department Care Team (Late st Contact Info) Description 04/13/[address] [facility] Family Medicine [address] [place] [address] ProviderDevorah MD [address] [place] [address] Social History Tobacco Use Types [...] 04/13/2019 9:30 EDT Electronically signed by [facility] Conversion Philosophy Instructor Cerner at 02/26/2023 12:53 PM CDT documented in this encounter Plan of Treatment Not on file documented as of this encounter Visit Diagnoses Not on filedocumented in this encounter
--- OUTSIDE RECORDS SUMMARY | 2025-05-31 13:53 | XMS_ITS | Encounter Summary ---
Author Organization [employer] ([place], [place], [place], [place]) Address [address] [place] [address] Care Team Providers Care Ems Helicopter Pilot Name Role Phone Unavailable Primary Care Provider Unavailabl e Encounter Details Date Type Department Care Team (Late st Contact Info) Description 04/12/2019 Transcribed Document [facility] [place] [facility] [place] [address] ProviderDevorah MD [address] [place] [address] Social History Tobacco Use Types [...] study with angina. DESCRIPTION OF PROCEDURE: RFA 5-Mongolian sheath, 5-Mongolian Wilner multipack for diagnostic study. Exchange of 6-sheath and CLS guiding catheter. A long [place] wire was deployed. The patient received intracoronary nitroglycerin as well as prasugrel and aspirin per protocol. Angiomax initiated. Lesion traversed with [place] wire and directly stented utilizing a Synergy [...]
--- OUTSIDE RECORDS SUMMARY | 2025-05-31 13:53 | XMS_ITS | Encounter Summary ---
Author Organization [facility] ([place], [place], [place], [place]) Address [address] [place] [address] Care Team Providers Care Side Splitter Name Role Phone Unavailable Primary Care Provider Unavailabl e Encounter Details Date Type Department Care Team (Late st Contact Info) Description 04/12/2019 Transcribed Document [facility] Family Medicine [facility] [place] [address] ProviderDevorah MD [address] [place] [address] Social History Tobacco Use Types [...] MD - 04/12/2019 11:13 AM CDT Patient: COIDE ALEJANDRA Age: 53 years Sex: Female : [...] stopped for one year. Prerscriptions sent via [employer]. documented in this encounter Plan of Treatment Not on file documented as of this encounter Visit Diagnoses Not on filedocumented in this encounter
--- OUTSIDE RECORDS SUMMARY | 2025-05-31 13:53 | XMS_ITS | Clinical Summary ---
Author Organization [facility] Address [address] [place] [address] Care Team Providers Care Rn Cvicu Name Role Phone Christiano Garcia MD Primary Care Provider [phone] Allergies Active Allergy Reactions Criticality Noted Date Comments Codeine Anaphylaxis High 05/19/2017 Diphenhydramine Other (See Comments) 03/14/2009 Erythromycin Rash Low 03/24/2010 Levofloxacin Provider Review Needed 12/29/2011 Penicillins Other (See Comments) 05/19/2017 chilkdhood reaction unknown Sulfa Antibiotics Other (See Comments) 03/14/20 09 Childhood reaction unknown Medications gabapentin (NEURONTIN) 100 MG capsule Take 600 mg by mouth Daily. Active rosuvastatin (CRESTOR) 20 MG tablet Take 20 mg by mouth Every Night. Active metFORMIN (GLUCOPHAGE) 500 MG tablet Take 2,000 mg by mouth Daily. Active aspirin 81 MG EC tablet aspirin 81 mg tablet,delayed release TAKE 2 TABLETS DAILY Active Trulicity 0.75 MG/0.5ML solution pen-injector 1 Active metoprolol succinate XL (TOPROL-XL) 25 MG 24 hr tablet Take by mouth Daily. 1 Active Xarelto 2.5 MG tablet LAST DOSE 10/30/20 PER PATIENT FOR SURGERY ON 11/05/2022 1 Active nitroglycerin (NITROSTAT) 0.4 MG SL tablet Nitrostat 0.4 mg sublingual tablet As Directed Active spironolactone (ALDACTONE) 50 MG tablet 1 Active linaclotide (Linzess) 145 MCG capsule capsuleIndication s:Other constipation Take 1 capsule by mouth Every Morning Before Breakfast. 30 capsule 5 2 Active cyclobenzaprine (FLEXERIL) 5 MG tablet Take 5 mg by mouth 3 (Three) Times a Day As Needed for Muscle Spasms. Active Cyanocobalamin (VITAMIN B12 PO) Take by mouth. Active ethacrynic acid (EDECRIN) 25 MG tablet Take 25 mg by mouth Daily. Active Sod Picosulfate-Mag Ox-Cit Acd 10-3.5-12 MG-GM -GM/160ML solution Take 350 mL by mouth Take As Directed for 1 dose. 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 Asthenia 03/18/2016 Obstructive sleep apnea syndrome 03/18/2016 Headache 01/20/2016 Melanoma in situ of lower extremity 01/20/2016 Syncope and collapse 01/20/2016 Paresthesia of skin 01/20/2016 Family History Medical History Relation Name Comments Diverticulitis Father Rubia Relation Name Status Comments Father Rubia Alive Sister Fernando Alive Waiting on Live r transplant- Hepatic Adenomatosisi Social History Tobacco Use Types Packs/Day Years Used Date Smoking Tobacco: Former Cigarettes 2.5 20 1 12/1977 - 10/1998 Smokeless Tobacco: Never Tobacco Cessation:Counseling Given: Not Answered Alcohol Use Standard Drinks/Week Comments No 0 (1 standard drink = 0.6 oz pur e alcohol) Abuse Screen Answer Date Recorded Unsafe at Home or Work/School Not on file Feels Threatened by Someone? Not on file 02/2024 Does Anyone Keep You from Co ntacting Others or Doint Things Outside the Home? Not on file 11/11/2023 Physical Sign of Abuse Present Not on file 0 11/11/2023 Housing Stability Answer Date Recorded Current Living Arrangements Not on file 02/2024 Potentially Unsafe Housing Conditions Not on ruby e 11/11/2023 Family and Community Support Answer Crispin e Recorded Help with Day-to-Day Activities Not on file 08/16/2023 Lonely or Isolated Not on file 08/16/2023 Employment Answer Date Recorded Do you want help finding or keeping work or a beti b? Not on file 08/16/2023 Disabilities Answer Date Recorded Concentrating, Remembering, or Making Decisions Difficulty Not on file 11/11/2023 Doing Errands Independently Difficulty Not on fi le 11/11/2023 Education Answer Date Recorded Help with school or training? Not on file Preferred Language Not on file 11/05/2023 Comments No Sex and Gender Information Value Date Recorded Sex Assigned at Not on file Legal Sex Female 10:04 AM EDT Gender Identity Not on file Sexual Orientation Not on file Last Filed Vital Signs Vital Sign Reading Time Taken Comments Blood Pressure 126/63 11/05/2022 9:15 AM EST Pulse 89 11/05/2022 9:15 AM EST Temperature 36.6 C (97.8 F) 11/05/2022 9:00 AM EST Respiratory Rate 16 11/05/2022 9:00 AM EST Oxygen Saturation 94% 11/05/2022 9:15 AM EST Inhaled Oxygen Concentration - - Weight 81.7 kg (180 lb 0.1 oz) 11/03/2022 12:49 PM EST Height 165.1 cm (5' 5 ) 11/03/2022 12:49 PM EST Body Mass Index 29.95 11/03/2022 12:49 PM EST Plan of Treatment Health Maintenance Due Date Last Done Comments Annual Gynecologic Pelvic an d Breast Exam 1965 LIPID PANEL 1965 TDAP/TD VACCINES (1 - Tdap) 1983 MAMMOGRAM 2004 COLOGUARD 2009 COLON CANCER SCREENING 5 YEA R SIGMOIDOSCOPY 2009 [address] COLONOGRAPHY 2009 FECAL OCCULT BLOOD TEST 2009 FIT Testing (1 year) 2009 Pneumococcal Vaccine 50+ (1 of 1 - PCV) 2014 ZOSTER VACCINE (1 of 2) 2014 ANNUAL PHYSICAL 05/19/2017 COVID-19 Vaccine (3 - 2023-2 5 season) 2024 01/19/2021, 12/22/2020 INFLUENZA VACCINE 08/08/2025 08/20/2021, , 08/17/2018 COLONOSCOPY 09/27/2034 09/27/2024, 09/08, 03/06/2019, Additional history exists COLORECTAL CANCER SCREENING 09/27/2034 HEPATITIS C SCREENING Completed 11/30/2017 Procedures Procedure Name Priority Date/Time Associated Diagnosis Comments SCANNED - COLONOSCOPY 09/27/2024 HEPATITIS C ANTIBODY Routine 11/30/2017 10:12 AM EST Encounter for hepatitis C screening test for low risk patient from Last 3 Months or Most Recently Relevant to Health Maintenance Results * Colonoscopy, Scan (09/27/2024) Shaw Cage MD CHART REVIEW TABS María Elena l Result * Hepatitis C Antibody (11/30/2017 10:12 AM EST) Hepatitis C Ab Non-Reacti ve Non-Reacti ve 11/30/2017 12:46 PM EST [facility] Blood Venipuncture / Unknown 11/30/2017 10:12 AM EST 11/30/2017 10:12 AM EST Lora Juarez APRN LAB BLOOD ORDERABLES Final Result [facility]
[address] [place] [address], from Last 3 Months or Most Recently Relevant to Health Maintenance Insurance [facility] PPO Care Teams Rn Cvicu Relationship Specialty Start Date End Date Christiano Garcia MD [address] [place] [facility] [address] [facility] [address] [place] [address] PCP - General 01/20/16
--- OUTSIDE RECORDS SUMMARY | 2025-05-31 13:53 | XMS_ITS | Encounter Summary ---
Author Organization [employer] ([place], [place], [place], [place]) Address [address] [place] [address] Care Team Providers Care Manager Critical Care Name Role Phone Unavailable Primary Care Provider Unavailabl e Encounter Details Date Type Department Care Team (Late st Contact Info) Description 04/13/2019 Transcribed Document [facility] [place] [address] [place] [address] ProviderDevorah MD [address] [place] [address] Social History Tobacco Use Types [...] including vitamins, herbs, eye drops, creams, and [id number] medicines. ??? Any problems you or family [...] 05/30/2017 Elsevier Interactive Patient Education ? 2019 [employer] documented in this encounter Plan of Treatment Not on file documented as of this encounter Visit Diagnoses Not on filedocumented in this encounter
--- OUTSIDE RECORDS SUMMARY | 2025-05-31 13:53 | XMS_ITS | Encounter Summary ---
Author Organization [employer] [facility] ([place], [place], [place], [place]) Address [address] [place] [address] Care Team Providers Care Website/Blog Editor Name Role Phone Unavailable Primary Care Provider Unavailabl e Encounter Details Date Type Department Care Team (Late st Contact Info) Description 04/12/2019 Transcribed Document [facility] Family Medicine [facility] [place] [address] ProviderDevorah MD [address] [place] [address] Social History Tobacco Use Types [...] Ambulatory Legal Guardian : Spouse Support Person/Patient [place] : Yes Support Person/Pt Rep Name : Lyle Alejandra spouse Support Person/Pt Rep Contact Information : [phone] Want Family/Rep/Phys Notified of Admit : No Emergency Contact #1 : see above Emergency Contact #1 Phone Number : na Emergency Contact #1 Relationship : na Emergency Contact #2 : none Emergency Contact #2 Phone Number : na Emergency Contact #2 Relationship : na Primary Language : Slovenian Communication Barrier : None Monico Steele Rn [...] Scale Risk Level : 25-45 Medium Risk [place] Fall Interventions : Adequate lighting, Assistive devices [...] Source : Stated Height Entry Format : [place] Height, Feet : 5 ft(Converted to: 152 cm, 60 Inch) Height, Inches : 6 Inch(Converted to: 0 ft 6 Inch, 15.24 cm) Clinical Height : 167.64 cm Weight Source : Standing scale Weight Entry Format : [place] Clinical Dosing Weight : 100 kg Weight, Pounds : 220 lb Body Surface Area (BSA) : 2.08 m2 Body Mass Index : 35.6 kg/m2 (HI) [place] Body Weight : 59 kg Monico Steele [...] 04/12/2019 9:14 EDT Electronically signed by [facility] Conversion Pizza Baker Cerner at 02/26/2023 1:00 PM CDT documented in this encounter Plan of Treatment Not on file documented as of this encounter Visit Diagnoses Not on filedocumented in this encounter
--- OUTSIDE RECORDS SUMMARY | 2025-05-31 13:53 | XMS_ITS | Encounter Summary ---
Author Organization [employer] ([place], [place], [place], [place]) Address [address] [place] [address] Care Team Providers Care Insurance Account Assistant Name Role Phone Unavailable Primary Care Provider Unavailabl e Encounter Details Date Type Department Care Team (Late st Contact Info) Description 04/13/2019 Transcribed Document [facility] [place] [facility] [place] [address] ProviderDevorah MD [address] [place] [address] Social History Tobacco Use Types [...] Associated Diagnoses: None Author: MARTIN DUNN APRN [facility] CARDI[facility] PROGRESS NOTE: DIAGNOSIS: 1. CAD 2. [...] Clinical Weight CLINICALWEIGHT: 100 kg (04/12/19 09:14:00) [place] Body Weight: 59 kg (04/12/19 09:14:00) Intake [...] up with Dr Camarena one month Dictation #[id number] Electronically signed by Juan Ramon Larkin Conversion Director Manufacturing Engineering Cerner at 02/26/2023 12:52 PM CDT documented in this encounter Plan of Treatment Not on file documented as of this encounter Visit Diagnoses Not on filedocumented in this encounter
--- OUTSIDE RECORDS SUMMARY | 2025-05-31 13:53 | XMS_ITS | Encounter Summary ---
Author Organization [employer] ([place], [place], [place], [place]) Address [address] [place] [address] Care Team Providers Care Biomechanical Engineer Name Role Phone Unavailable Primary Care Provider Unavailabl e Encounter Details Date Type Department Care Team (Late st Contact Info) Description 04/13/2019 Transcribed Document [facility] [place] [address] [place] [address] ProviderDevorah MD [address] [place], [place] [id number] Social History Tobacco Use Types Packs/Day Years [...]
--- OUTSIDE RECORDS SUMMARY | 2025-05-31 13:53 | XMS_ITS | Encounter Summary ---
Author Organization [employer] ([place], [place], [place], [place]) Address [address] [place] [address] Care Team Providers Care Track Worker Name Role Phone Unavailable Primary Care Provider Unavailabl e Encounter Details Date Type Department Care Team (Late st Contact Info) Description 04/12/2019 Transcribed Document [facility] [place] Family Medicine [facility] [place] [address] ProviderDevorah MD [address] [place] [address] Social History Tobacco Use Types [...] Source : Stated Height Entry Format : [place] Height, Feet : 5 ft(Converted to: 152 cm, 60 Inch) Height, Inches : 6 Inch(Converted to: 0 ft 6 Inch, 15.24 cm) Clinical Height : 167.64 cm Weight Source : Standing scale Weight Entry Format : [place] Clinical Dosing Weight : 100 kg Weight, Pounds : 220 lb Body Surface Area (BSA) : 2.08 m2 Body Mass Index : 35.6 kg/m2 ([place]) [place] Body Weight : 59 kg PATRICIA GARCIAS [...] Ambulatory Legal Guardian : Spouse 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
--- OUTSIDE RECORDS SUMMARY | 2025-05-31 13:53 | XMS_ITS | Encounter Summary ---
Author Organization [employer] ([place], [place], [place], [place]) Address [address] [place] [address] Care Team Providers Care [employer] Special Education Teacher Name Role Phone Unavailable Primary Care Provider Unavailabl e Encounter Details Date Type Department Care Team (Late st Contact Info) Description 04/13/2019 Transcribed Document [facility] [place] [address] [place] [address] ProviderDevorah MD [address] [place] [address] Social History Tobacco Use Types [...] Brown MD - 04/13/2019 8:57 AM CDT [facility] [place] [address] CODIE ALEJANDRA :1965 Visit Time:04/12/2019 Your [...] @ 9:30am Where: [address] [place] [address]- [phone] Business (1) Medications What How Much When [...] including vitamins, herbs, eye drops, creams, and jyts-yzz-rjapnbi medicines. ??? Any problems you or family [...] 04/30/2004 Document Revised: 06/24/2017 Document Reviewed: 05/30/2017 [employer] Patient Education ?? 2019 [employer]. Emergency Awareness and Preventative Care STROKE is [...] Assistance with quitting is available by contacting 1-201-YHEF-NOW. This is a free resource providing counseling, [...] computer, smartphone, or tablet. Just go to [employer] to get started. Questions? Call . Test [...] was given the opportunity to ask questions. Patient/Grain Combine Driver Name: Patient/Grain Combine Driver Signature: Relationship to Patient: Clinician/Hospital Grain Combine Driver Signature: Date: documented in this encounter Plan of Treatment Not on file documented as of this encounter Visit Diagnoses Not on filedocumented in this encounter
--- OUTSIDE RECORDS SUMMARY | 2025-05-31 13:53 | XMS_ITS | Encounter Summary ---
Author Organization [employer] ([place], [place], [place], [place]) Address [address] [place] [address] Care Team Providers Care Stock Clipper Name Role Phone Unavailable Primary Care Provider Unavailabl e Encounter Details Date Type Department Care Team (Late st Contact Info) Description 04/13/2019 Transcribed Document [facility] [place] [address] [place] [address] ProviderDevorah MD [address] [place] [address] Social History Tobacco Use Types [...]
--- OUTSIDE RECORDS SUMMARY | 2025-05-31 13:53 | XMS_ITS | Encounter Summary ---
Author Organization [employer] ([place], [place], [place], [place]) Address [address] [place] [address] Care Team Providers Care Speaker Mounter Name Role Phone Unavailable Primary Care Provider Unavailabl e Encounter Details Date Type Department Care Team (Late st Contact Info) Description 04/12/2019 Transcribed Document [facility] [place] Medicine [address] [place] [address] ProviderDevorah MD [address] [place] [address] Social History Tobacco Use Types [...]
--- OUTSIDE RECORDS SUMMARY | 2025-05-31 13:54 | XMS_ITS | Data Portability ---
Author Organization DONN TAI FuentesS WAUKESHA CLOSED Address [address] [facility] [place] [address] Care Team Providers Care Teaching Fellow Name Role Phone MARTINE RAYO General Surgeon MALATHI KYLE [employer] Driver MELCHOR ALLEN Primary Care Provider Assessment Encounter [...] carotid duplex, check BP in both arms. [email or web address] Not available 11/14/2021 11:10:10 07/28/2022 07/28/2022 Follow up yearly [email or web address] Not availab le 05/27/2022 10:30:54 07/27/2023 07/27/2023 Follow up yearly jose Not availab le 07/26/2023 13:21:00 10/23/2024 10/23/2024 Follow up yearly [email or web address] Not avai lable 10/23/2024 11:56:25 Plan of Treatment Reminders Order Date Submit Date Provider Last Modified By Organization Details Last Modified Time Details Appointments DERMATOLO GY VISIT 2024 11:00A M VEENA BRAGG MD Not available Not available Not available Lab surgical pathology study 2022 023 [facility], [address] [place] [address], [phone], 07/29/2023 08:19:03 Referral None recorded. Procedures None recorded. Surgeries None recorded. Imaging None recorded. Medication Orders triamcino lone acetonide 0.1 % topical cream 2023 024 [id number], [address], [phone], 10/23/2024 12:53:20 Patient TargetsNo targets recorded. Patient Instructions Encounter Date Encounter Id Patient Instructions Last Modified By Organization Details Last Modified Time 09/30/2021 [id number] Education: We discussed the potential diagnostic options, options for further evaluation and treatments, and the risks and benefits of each. jose Not available 09/19/2021 07:03:52 11/14/2021 [id number] high cholesterol : care instructions [email or web address] Not available 11/14/2021 11:11:53 07/28/2022 [id number] Education: We discussed the potential diagnostic options, options for further evaluation and treatments, and the risks and benefits of each. [email or web address] Not available 05/27/2022 10:30:59 07/27/2023 [id number] Education: We discussed the potential diagnostic options, options for further evaluation and treatments, and the risks and benefits of each. jose Not available 07/26/2023 13:21:00 10/23/2024 [id number] Education: We discussed the potential diagnostic options, options for further evaluation and treatments, and the risks and benefits of each. [email or web address] Not available 10/23/2024 11:56:25 Reason for Referral None Reported. Results Created Date Observation Date Name Description Value Unit Range Abnormal Flag Note LastModifiedBy Organization Detail LastModifiedTime 07/27/20 23 07/27/2023 SURGI KARSON surgical SEE BELOW normal Depar tment of Patho logy Surgi karson Patho logy Repor t NAME: EDGARDO KATZ PATH. :SD-2 Copy to: Diagn osis: Left upper scapu [...] 1 of 1 Not Available [facility] [address] [place] [address], [place], [address], 07/29/2023 08:19:03 11/18/19 22 11/14/2021 elect kenny pitt am No observ ation record ed. [email or web address] Not Available 11/18 08:38:59 Result Notes None recorded. Problems Name Problem SNOMED Code Status Onset Date Resolution Date Notes Provider Name and Address Organization Details Recorded Time Paresthes ia of skin Active 2015 From Automated Load;Prov ider: Catina Blakely;Sta tus: Active Not Available [facility] 17:46:45 Melanoma in situ of lower limb 541628477 Active 2015 From Automated Load;Prov ider: Catina Blakely;Sta tus: Active Not Available [facility] 17:46:45 Syncope and collapse 348984732 Active 2015 From Automated Load;Prov ider: Catina Blakely;Sta tus: Active Not Available [facility] 17:46:45 Headache 13205854 Active 2015 From Automated Load;Prov ider: Catina Blakely;Sta tus: Active Not Available [facility] 17:46:45 Obstructi ve sleep apnea syndrome 47978191 Active 2015 From Automated Load;Prov ider: Catina Blakely;Sta tus: Active Not Available [facility] 17:46:45 Asthenia 13169984 Active 2015 From Automated Load;Prov ider: Catina Blakely;Sta tus: Active Not Available [facility] 17:46:45 Senile hyperkera tosis 087274261 Active 2015 From Automated Load;Prov ider: Veena Bragg;St atus: Active Not Available [facility] 17:46:45 Neoplasm of uncertain behavior of skin 32811445 Active 2015 From Automated Load;Prov ider: Veena Bragg; atus: Active Not Available [facility] 17:46:45 Coronary arteriosc lerosis in [place] artery 57203352677 07 Active 2015 From Automated Load;Prov ider: Jolly Camarena;Stat us: Active Not Available [facility] 17:46:45 Hyperlipi demia 30884569 Active 2015 From Automated Load;Prov ider: Jolly Camarena;Stat us: Active Not Available [facility] 17:46:45 Hemangiom a 771866414 Active 2015 From Automated Load;Prov ider: Neto Shah; Status: Active Not Available [facility] 17:46:45 Neoplasti c disease 41485120 Active 2015 From Automated Load;Prov ider: Neto Shah; Status: Active Not Available [facility] 17:46:45 Long-term current use of antiplate let drug 21153307654 4101 Active 2019 Not Available [facility] 17:46:45 Problem Notes None recorded. Procedures Surgical History Date Name Laterality Status Provider Name and Address Organization Details Recorded Time 10/23/20 24 Destruction BN Lesions completed Berenice Chao [facility] 10/23/2024 12:32:15 07/27/20 23 Shave Lesion; trunk, arm, leg completed VEENA BRAGG MD [address] [place] [address] [place], [address], [facility] 08/01/2023 22:10:31 07/27/20 23 Destruction BN Lesions completed Darline Keys [facility] 07/27/2023 10:51:01 11/05/20 22 anal fistulectomy completed Madelaine Bailey [facility] 11/12/2022 08:35:59 11/14/19 22 EKG completed LUIS AN MD [address] [place], [address], [facility] 11/14/2021 11:07:28 09/30/20 21 Destruction BN Lesions completed Darline Keys [facility] 09/30/2021 11:50:05 08/22/20 20 Stress Test - Nuclear completed JOLLY CAMARENA MD [address] [place] [address], [address], [facility] 08/22/2020 16:12:57 08/04/20 19 Biopsy Skin Lesion; Punch completed VEENA BRAGG MD [address] [place] [address], [phone], [facility] 08/04/2019 13:37:01 04/12/20 19 Cardiac Catheterization completed JOLLY CAMARENA MD [address] [place] [address], [address], [facility] 04/12/2019 09:21:57 04/10/20 19 Biopsy Skin Lesion; Tangential completed Enid Domínguez [facility] 04/10/2019 11:22:14 04/04/20 19 Stress Test - Nuclear completed JOLLY CAMARENA MD [address] [place] [address], [address], [facility] 04/04/2019 11:01:47 09/21/20 18 Biopsy Skin Lesion; Tangential completed Enid Domínguez [facility] 09/21/2018 15:42:56 09/21/20 18 Injection, Intralesional completed GENIE RANDHAWA PA-C [address] [place] [address], [address], [facility] 09/21/2018 16:00:40 09/07/20 17 Shave Lesion; trunk, arm, leg completed VEENA BRAGG MD [address] [place] [address], [address], [facility] 2017 21:28:25 05/26/20 17 Cholecystectomy completed Rebeca Davis [facility] 06/28/2017 11:27:49 05/26/20 17 Other completed Eryn Martinez [facility] 02/01/2020 10:29:14 05/23/20 17 Other completed Eryn Martinez [facility] 02/01/2020 10:29:14 03/29/20 17 Destruction BN Lesions completed Darline Keys [facility] 03/29/2017 11:23:21 12/14/19 14 Cardiac Catheter[facility] completed [facility] 06/23/2017 15:47:15 11/08/19 10 Hysterectomy/revise vagina completed Rebeca Graham [facility] 06/23/2017 15:47:36 11/08/19 10 Other completed [facility] 06/23/2017 15:48:36 12/09/19 09 Other completed Rebeca Graham [facility] 06/23/2017 15:46:34 11/08/18 83 Other completed Rebeca Graham [facility] 06/23/2017 15:46:49 Other completed [facility] 06/23/2017 15:47:00 Other completed [facility] 06/23/2017 15:48:46 Imaging Results None recorded. Procedure Notes None recorded. Medical Equipment None Reported. Allergies Allergen ID Allergen Name Allergen Category Reaction Reaction Severity Criticality Documentation Date Start Date Code Code System Note Provider Name and Address Organization Details Recorded Time 289375 Substance with sulfonami de structure and antibacte rial mechanism of action (substanc e) medicatio n Not available Not available Not available 10/01/20162008 95315 8003 SNOMED Comme nt: Creat ed By: Arthur chandlerCre ated Date: 009 1:56: 53 PM; Not Available [facility] 6 10:14:08 [id number] E-Mycin medicatio n rash Not available Not available 10/01/2016200960 8 RxNorm React ion: RASH; Comme nt: Creat ed By: Paty chandlerCre ated Date: 2009 11:43 :02 AM; Not Available [facility] 6 13:01:26 [id number] Levaquin medicatio n Not available Not available Not available 10/01/20162011 92796 2 RxNorm Comme nt: Creat ed By: Amee Ramírez ca;Cr eated Date: 2011 9:17: 29 AM; Not Available [facility] 6 13:01:26 407161 Product containin g penicilli n (product) medicatio n Not available Not available Not available 10/02/20162008 77208 8001 SNOMED Comme nt: Creat ed By: Arthur goff;Cre ated Date: 1:56: 42 PM; Not Available [facility] 6 03:46:42 311914 Benadryl medicatio n Not available Not available Not available 10/02/20162008 35670 7 RxNorm Comme nt: Creat ed By: Arthur goff;Cre ated Date: 009 1:57: 32 PM; Not Available [facility] 6 03:46:42 108705 codeine medicatio n Not available Not available Not available 10/02/20162008 2670 RxNorm Comme nt: Creat ed By: Arthur goff;Cre ated Date: 1:57: 04 PM; Not Available [facility] 6 08:24:21 [id number] spironola ctone medicatio n rash Not available Not available 10/23/2024 9997 RxNorm Berenice cuevas [facility] 4 12:24:35 Medications Name Sig Start Date [...] Address Organization Details Last Updated DateTime 2 63533.7 4 g 16 /min 98 % 98 % 100/60 mm[Hg] Heide Kelly [facility] 2 10:09:05 Social History Question Answer Notes LastModified by [email or web address] Details LastModified Time Tobacco Smoking Status Former Sm[facility] 11/07/2019 11:19:58 How Much Tobacco Do You Chew? None Information not available 11/07/2019 Marital Status Informatio n not available 11/07/2019 What Was The Date Of Your Most Recent Tobacco Screening? 08/19/2020 [email or web address] Information not available 08/19/2020 How Much Tobacco Do You Smoke? 2 PPD Information not available 11/07/2019 How Many Years Have You Smoked Tobacco? 20 Information not available 11/07/2019 Sex: Female Functional Status Question Answer Note LastModified by Organizat [email or web address] Details LastModified Time Do you or have you ever used smokeless tobacco? 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 Never used electronic cigarettes Information not available 11/07/2019 Mental Status None recorded. Family History Relationship Description Onset Age of this Age Resolved Age Notes LastModified by Organization Details LastModified Time Unspecified Relation Family history of malignant neoplasm [email or web address] Not available 2019 10:28:08 Mother Diabetes mellitus [...] N Hyperlipidemia Y Cancer N Eczema N Stroke N Melanoma Y Asthma N [...] SNOMED-CT Code Diagnosis ICD10 Code Diagnosis Note [id number] MD WINDY BUTLER [facility] [address] [place] [address] 03/29/2017 11:01:36 03/29/2017 15:56:27 History of malignant melanoma of the skin 7056190092 08 Z85.820 Status post MM on left anterior thigh 0.2 mm in March 2009 - doing well [place] 610172708 L81.4 reassuranc e, several dark but doubt cancer Hemangioma 353818008 D18 .00 left lower areola-- watch and reassuranc e Senile hyperkeratosis 39 3598265 L82.1 reassuranc e Inflamed s eborrheic keratosis 508545959 L82.0 LN x 1 Multiple b enign melanocytic nevi 055140940 D22.9 reassuranc e - will continue to monitor for changes Onychomycosis 975362531 B35.1 reassuranc e - discussed treatment options - will wait on any treatment [id number] JOLLY CAMARENA MD CARDIOLOG Y EAST [address] [place] [address] [place] [address] 06/28/2017 10:22:58 06/28/2017 12:28:34 Hyperlipidemia 71526852 E78.5 Management of this problem was reviewed with the patient. No changes recommende d, status for this problem is stable at this time. Coronary arteriosclerosis in [place] artery 6848689996 107 I25.10 Noncritica l CAD demonstrat ed catheteriz ation. Suggest risk factor therapy with statins and low-dose aspirin. [id number] MD WINDY BUTLER [address] [place] [address] 09/07/2017 10:09:29 09/10/2017 10:52:33 History of malignant melanoma of the skin 5001703027 08 Z85.820 Status post MM on left anterior thigh 0.2 mm in March 2009 - doing well [place] 387592709 L81.4 reassuranc e, several dark Senile hyperkeratosis 39 5280348 L82.1 reassuranc e 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 69790120 D48.5 ?ISKRight upper lateral ankleShave removal and base destroyed with ED [id number] VEENA BRAGG MD DERMATOLO GY [facility] [address] [place] [address] 04/05/2018 10:52:35 04/05/2018 13:09:39 History of malignant melanoma of the skin 1804366882 08 Z85.820 Status post MM on left anterior thigh 0.2 mm in March 2009 - doing well [place] 835893678 L81.4 reassuranc e, several dark but doubt cancer Hemangioma 538832388 D18 .00 left lower areola-- watch and reassuranc e Senile hyperkeratosis 39 5648689 L82.1 reassuranc e Multiple b enign melanocytic nevi 935314354 D22.9 reassuranc e - will continue to monitor for changes Verruca vulgaris 3194637 3 B07.9 PW--declin es tx today Reassuranc e and education regarding the disorder and options. [id number] JOLLY CAMARENA MD CARDIOLOG Y [facility] [address] [place] [address] 07/04/2018 10:08:24 07/04/2018 11:34:40 Hyperlipidemia 74336064 E78.5 Management of this problem was reviewed with the patient. No changes recommende d, status for this problem is stable at this time. Coronary arteriosclerosis in [place] artery 4184134134 107 I25.10 Noncritica l CAD demonstrat ed catheteriz ation. Suggest risk factor therapy with statins and low-dose aspirin. [id number] GENIE RANDHAWA PA-C DER[facility]OLO [facility] [address] [place] [address] 09/21/2018 15:20:55 09/22/2018 08:32:53 Neoplasm of uncertain behavior of skin 17465704 D48.5 MID LOWER ABDOMEN R/O ANGIOMA VS OTHER SHAVE BIOPSY SEE PROCEDURE NOTE WOUND CARE INSTRUCTIO NS PROVIDED F/U PER PATH O/W SCHEDULED FOR ANNUAL FSE OR SOONER IF NEEDED Lichen sim plex chronicus 81013318 L28.0 INJECTED IL KENALOG 5MG/ML X 0.1 CC'S INTO 1 LESION ON MID LOWER ABD; PT TOLERATED WELL D/C MANIPULATI ON F/U IF DOES NOT RESOLVE [id number] JOLLY CAMARENA MD CARDIOLOG Y [facility] CL[facility] [address] [place] [address] 03/31/2019 08:53:04 03/31/2019 09:42:39 Hyperlipidemia 18850053 E78.5 Management of this problem was reviewed with the patient. No changes recommende d, status for this problem is stable at this time. Coronary arteriosclerosis in [place] artery 3913802499 107 I25.10 Noncritica l CAD demonstrat ed catheteriz ation.Rece nt episode of chest discomfort suggestive of possible ischemia and therefore I recommend a treadmill nuclear stress test prior to proceeding with any other planned vascular procedures . Preoperati ve cardiovascular examination 661956602 Z01.810 If nuclear stress test is okay the patient may proceed with planned abdominal vascular repair. [id number] JOLLY CAMARENA MD [facility] [address] [place] [address] 04/04/2019 07:43:26 04/04/2019 11:25:21 [id number] VEENA BRAGG MD [facility]ERMATOLO [facility] [address] [place] [address] 04/10/2019 10:01:20 04/10/2019 12:57:13 History of malignant melanoma of the skin 1758851182 08 Z85.820 Status post MM on left anterior thigh 0.2 mm in March 2009 - doing well [place] 959644309 L81.4 reassuranc e, several dark but doubt cancer Hemangioma 532902132 D18 .00 left lower areola-- watch and reassuranc e Senile hyperkeratosis 39 7991678 L82.1 reassuranc e Multiple b enign melanocytic nevi 208171027 D22.9 reassuranc e - will continue to monitor for changes Verruca vulgaris 8163045 3 B07.9 PW--declin es tx today Reassuranc e and education regarding the disorder and options. Insect bite - wound 1775 64016 T14.8XXA Injection given by [facility], RN 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 68404937 D48.5 BCCLeft nasal tipShave bx and base destroyed with ED Dermatofibroma 667166263 D23.9 reassuranc e [id number] JOLLY CAMARENA MD CARDIOLOG Y [facility] [address] [place] [address] 05/12/2019 09:16:01 05/12/2019 10:07:28 Preoperative cardiovascular examination 292837662 Z01.810 She is doing well following coronary interventi on and is cleared to proceed with mesenteric stent. Dual antiplatel et therapy should be continued. Coronary arteriosclerosis in [place] artery 9754101597 107 I25.10 Noncritica l CAD demonstrat ed catheteriz ation.Rece nt episode of chest discomfort suggestive of possible ischemia and therefore I recommend a treadmill nuclear stress test prior to proceeding with any other planned vascular procedures . Hyperlipidemia 51895149 E78.5 Management of this problem was reviewed with the patient. No changes recommende d, status for this problem is stable at this time.Targe t LDL cholestero l is in the 70s. Long-term current use of antiplatelet drug 9695587214 10391 Z79.02 DAPT.No symptoms of bleeding or any evidence of anticoagul ant toxicity. Periodic CBC recommende d. [id number] MD WINDY BUTLER [facility] [address] [place] [address] 08/04/2019 07:51:31 08/04/2019 13:55:02 History of malignant melanoma of the skin 7784326001 08 Z85.820 Status post MM on left anterior thigh 0.2 mm in March 2009 - doing well [place] 104060141 L81.4 reassuranc e, several dark but doubt cancer Scab of skin 801094328 L 98.8 left lateral chest - ? insect bite or puncture wound Reassuranc e and education regarding the disorder and options. 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 03614827 D48.5 left lower chest - 3 mm punch biopsy--? GA, EAC, other Left anterior ear canal has a think 3 mm pink crust. - watch for now - if worsens will see ENT [id number] MD WINDY BUTLER [facility] [address] [place] [address] 10/27/2019 08:30:55 10/27/2019 13:39:22 History of malignant melanoma of the skin 2521527408 08 Z85.820 Status post MM on left anterior thigh 0.2 mm in March 2009 - not examined today [place] 059369856 L81.4 reassuranc e, several dark but doubt cancer Granuloma annulare 86252 009 L92.0 Per prev bx ? Reaction to breast implants Discussed [facility] [id number] JOLLY CAMARENA MD CARDIOLOG Y [address] [place] [address] 11/07/2019 11:09:11 11/07/2019 11:40:08 Coronary arteriosclerosis in [place] artery 1429596780 107 I25.10 Noncritica l CAD demonstrat ed catheteriz ation.Rece nt episode of chest discomfort suggestive of possible ischemia and therefore I recommend a treadmill nuclear stress test prior to proceeding with any other planned vascular procedures . Hyperlipidemia 21882217 E78.5 Management of this problem was reviewed with the patient. No changes recommende d, status for this problem is stable at this time.Targe t LDL cholestero l is in the 70s. Long-term current use of antiplatelet drug 5804969214 26151 Z79.02 DAPT.No symptoms of bleeding or any evidence of anticoagul ant toxicity. Periodic CBC recommende d. [id number] JOLLY CAMARENA MD CARDIOLOG Y [address] FLO[address] [place] [address] 02/28/2020 11:30:58 02/28/2020 11:43:08 Coronary arteriosclerosis in [place] artery 2077322681 107 I25.10 Noncritica l CAD demonstrat ed catheteriz ation.Rece nt episode of chest discomfort suggestive of possible ischemia and therefore I recommend a treadmill nuclear stress test prior to proceeding with any other planned vascular procedures . Hyperlipidemia 17250340 E78.5 Management of this problem was reviewed with the patient. No changes recommende d, status for this problem is stable at this time.Targe t LDL cholestero l is in the 70s. Long-term current use of antiplatelet drug 7127241690 11990 Z79.02 DAPT.No symptoms of bleeding or any evidence of anticoagul ant toxicity. Periodic CBC recommende d.In April she will reach one year anniversar y of her stent. I advise discontinu ation of clopidogre l at that time any increasing aspirin to 162 mg daily.Elec tronic prescripti on sent to patient's pharmacy. [id number] VEENA BRAGG MD [facility]O [facility] [address] [place] [address] 04/09/2020 10:16:57 04/09/2020 11:09:25 History of malignant melanoma of the skin 7293553040 08 Z85.820 Status post MM on left anterior thigh 0.2 mm in March 2009 - doing well [place] 581768923 L81.4 reassuranc e, several dark but doubt cancer Hemangioma 955891574 D18 .00 left lower areola-- watch and reassuranc e Senile hyperkeratosis 39 8437180 L82.1 reassuranc e Multiple b enign melanocytic nevi 594881953 D22.9 reassuranc e - will continue to monitor for changes Dermatofibroma 698042256 D23.9 reassuranc e Granuloma annulare 73249 009 L92.0 Per prev bx extensive but ? milder per pt Discussed Kenalog [place] Triamcinol one caused irritation hold IM--has DM No treatment for now Patient has crohns and Fibromyalg ia consider Humira if worse [id number] JOLLY CAMARENA MD CARDIOLOG Y E[facility] [address] [place] [address] 08/19/2020 14:19:11 08/19/2020 16:08:04 Coronary arteriosclerosis in [place] artery 0263450693 107 I25.119 Noncritica l CAD demonstrat ed catheteriz ation.Rece nt episode of chest discomfort suggestive of possible ischemia and therefore I recommend a treadmill nuclear stress Hyperlipidemia 12121948 E78.5 Management of this problem was reviewed with the patient. No changes recommende d, status for this problem is stable at this time.Targe t LDL cholestero l is in the 70s. Long-term current use of antiplatelet drug 0246480762 93063 Z79.02 DAPT.No symptoms of bleeding or any evidence of anticoagul ant toxicity. Periodic CBC recommende d.In April she will reach one year anniversar y of her stent. I advise discontinu ation of clopidogre l at that time any increasing aspirin to 162 mg daily.Elec tronic prescripti on sent to patient's pharmacy. [id number] JOLLY CAMARENA MD [facility] [address] [place] [address] [place] [address] 08/22/2020 12:12:08 08/23/2020 08:30:37 [id number] MD WINDY BUTLER [facility] [address] [place] [address] 06/02/2021 11:38:24 06/02/2021 12:09:53 History of malignant melanoma of the skin 1789749145 08 Z85.820 Status post MM on left anterior thigh 0.2 mm in March 2009 - doing well [place] 813179806 L81.4 reassuranc e, several dark but doubt cancerReco mmended Equate Ultra Sunscreen 30+ and sun protecting hats/cloth ing Hemangioma 704801204 D18 .00 left lower areola-- watch and reassuranc e Senile hyperkeratosis 39 9321785 L82.1 reassuranc e Multiple b enign melanocytic nevi 165008618 D22.9 reassuranc e - will continue to monitor for changes Dermatofibroma 062017762 D23.9 reassuranc e 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 85558463 D48.5 right lower medial leg and left lower ochoa - 3 mm crust - watch for another month may be simple abrasions Senile purpura 46456324 D69.2 Reassuranc e and education regarding the disorder and options. [id number] MD WINDY BUTLER [address] [place] [address] 09/30/2021 11:35:58 09/30/2021 12:32:20 Lipoma 32476686 D17.9 hx confirmed with U/Spt is seeing Dr. Walters ([facility] surgeon) today and will ask him about removal - on ASAthis might need to be removed before her knee replacemen tsmaller on left pubic triangle Inflamed s eborrheic keratosis 588820318 L82.0 LN x 1 History of malignant melanoma of the skin 0568728748 08 Z85.820 Status post MM on left anterior thigh 0.2 mm in March 2009 - doing well [place] 689050201 L81.4 reassuranc eRecommend ed Equate Ultra Sunscreen 30+ and sun protecting hats/cloth ing Hemangioma 821451332 D18 .00 left lower areola-- watch and reassuranc e Senile hyperkeratosis 39 9241369 L82.1 reassuranc e [id number] LUIS AN MD CARDIOLOG Y EAST [address] [place] [address] 11/14/2021 09:51:52 11/14/2021 11:03:01 Coronary arteriosclerosis in [place] artery 5029249156 107 I25.119 Hyperlipidemia 77221402 E78.5 Preoperati ve cardiovascular examination 712051718 Z01.810 She is able to meet a [...] and restart the evening after her surgery. [id number] VEENA BRAGG MD DERMATOLO GY [facility] [address] [place] [address] 07/28/2022 15:10:54 07/28/2022 15:50:51 History of malignant melanoma of the skin 1796165323 08 Z85.820 Status post MM on left anterior thigh 0.2 mm in March 2009 - doing well [place] 618884425 L81.4 reassuranc eRecommend ed Equate Ultra Sunscreen 30+ and sun protecting hats/cloth ing Senile hyperkeratosis 39 0665954 L82.1 reassuranc e Eruption 807139471 R21 Moderate on abdomen and flanksddx - [...] Humira if worsephoto s taken today Milia 106609548 L72.0 reassuranc e [id number] VEENA BRAGG MD DERMATOLO GY [facility] [address] [place] [address] 07/27/2023 10:31:55 07/27/2023 11:05:46 History of malignant melanoma of the skin 9928762390 08 Z85.820 Status post MM on left anterior thigh 0.2 mm in March 2009 - doing well [place] 802048430 L81.4 reassuranc eRecommend ed Equate Ultra Sunscreen 30+ and sun protecting hats/cloth ing Senile hyperkeratosis 39 1055233 L82.1 reassuranc e Milia 190979798 L72.0 reassuranc e Inflamed s eborrheic keratosis 767173564 L82.0 LN x 1 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 D48.5 r/o KARSON upper scapulahx bled profuselys have removal and base destroyed with ED [id number] VEENA BRAGG MD DERMATOLO [facility] [address] [place] [address] 10/23/2024 11:45:29 10/23/2024 12:37:36 History of malignant melanoma of the skin 9987606252 08 Z85.820 Status post MM on left anterior thigh 0.2 mm in March 2009 - doing well [place] 264683519 L81.4 Reassuranc eRecommend ed Equate Ultra Sunscreen 30+ and sun protecting hats/cloth ing Senile hyperkeratosis 39 7634483 L82.1 Reassuranc e Inflamed s eborrheic keratosis 805201277 L82.0 LN x 8 Hemangioma 806169059 D18 .00 Reassuranc eLeft lower areola - no change per pt, cont to monitor Multiple b enign melanocytic nevi 857530444 D22.9 Reassuranc e 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 vs contact derm vs DH vs [...] Brady Member ID Guarantor Name 07/27/2023 2 [facility] PL[facility]-PR (MEDICAID REPLACEMENT - HMO) [id number] Sydnie Alejandra [id number] Sydnie Alejandra 07/27/2023 2 [facility]ICA[facility] HEALTH CHOICES - FFS/TRADITIONA L Sydnie Alejandra [id number] Sydnie Dewey Justyn 07/27/2023 1 [facility] [id number] Sydnie Dewey Justyn [id number] Sydnie Dewey Justyn 10/27/2024 1 [place] [id number] Sydnie Alejandra [id number] Sydnie Alejandra Notes Date Note Type Note Provider Name and Address Organization Details Recorded Time 09/30/2021 text/html ROS as noted in the HPI Established patient patient has Crohns and fibromyalgia Monitor: MM [...] family history of melanoma. VEENA BRAGG MD [facility] [place], [address], [facility] 09/30/2021 12:24:38 11/14/2021 text/html ROS as noted in the HPI CARDIOVASCULAR HISTORY:# Coronary artery disease s/p stent [...] patient of Dr Jolly Camarena, lives in [place], [place]. She reports that her overall health [...] panel: 153/72/68 A1c: 7.4% LUIS AN MD [facility] [place], [address], [facility] 11/14/2021 11:11:57 07/28/2022 text/html ROS as noted in the [facility] Established patient Patient has Crohns and fibromyalgia and DM [...] history of melanoma. VEENA BRAGG MD [address] [place], [address], [facility] 07/28/2022 17:03:15 07/27/2023 text/html ROS as noted in the [facility] Established patient Patient has Crohns and fibromyalgia and DM Monitor: MM - on left anterior thigh 0.2 mm in March 2009 LOCATION: right cheek, posterior hairline, shoulderDURATION: x monthsSYMPTOMS: L post shoulder - bleedsTREATMENTS: none Denies any other new, changing, or bleeding lesions, or other rashes, feels well ,in a good mood and has no family history of melanoma. VEENA BRAGG MD [address] [place] [address], [address], [facility] 08/01/2023 22:11:18 10/23/2024 text/html ROS as noted in the [facility] Established patient Patient has Crohns and fibromyalgia and DM [...] family history of melanoma. VEENA BRAGG MD [address] [place] [address], [address], [facility] 10/23/2024 12:53:41 OBGyn Episode No OBEpisode recorded.
[2025-05-31 16:03] LABS: Chloride 102 mmol/L (98-107); Potassium 3.7 mmoL/L (3.5-5.1); Sodium 135 mmol/L (136-145)
[2025-05-31 16:06] LABS: Blood Urea Nitrogen 12 mg/dl (7-17); Creatinine,Serum 0.70 mg/dl (0.52-1.04); Estimated Glomerular Filt Rate 85 ml/min (>60); GFR (African American) 103 ML/MIN (>60)
[2025-05-31 16:07] LABS: Anion Gap 8.7 mEq/L (5-15); Calcium 10.2 mg/dl (8.4-10.2); Carbon Dioxide 28 mmol/L (22.0-30.0); Glucose 124 mg/dl (74-100)
== END 2025-05-31 23:59 | disposition home or self-care (01) ==
LOC: LAB 13:48
PROVIDERS: PCP Family Medicine; Visit Provider Nurse Practitioner Family
DX: I25.10 Atherosclerotic heart disease of native coronary artery without angina pectoris (principal)
CPT/HCPCS: 36415; 80048

== ENCOUNTER 2025-07-03 13:00 | Outpatient (RCR) | payer BC, SELFPAY ==
--- NOTE | 2025-06-28 09:37 | HMH.RHREAS ---
Rehab Reassessment Rehab OP Re-assessment Start: 06/12/25 10:14 Freq: Status: Active Protocol: Document 06/28/25 09:25 ENRIQUEDexZAHEER (Rec: 06/28/25 09:37 PHORNE [id number]) E-signed By Vaughn Borja, PT Neck Disability Index Neck Disability Index Section 1: Pain The pain is very mild at moment Intensity Section 2: Personal I can look after myself normally without causing extra Care (washing, pain dressing, etc.) Section 3: Lifting Pain prevents me lifting heavy weights off the floor, but I can manage Section 4: Reading I can read as much as I want to with slight pain in my neck Section 5: Headaches I have slight headaches, which come infrequently Section 6: I can concentrate fully when I want to with slight Concentration difficulty Section 7: Work I can do most of my usual work, but no more Section 8: Driving I can drive my car as long as I want with slight pain in my neck Section 9: Sleeping My sleep is slightly disturbed (less than 1 hr sleepless) Section 10: I am able to engage in all my recreation activities Recreation with some pain in NDI Score 11 Rehab Re-assessment Subjective Subjective Pt reports she is able to drive for longer periods of time without increased symptoms, but does have increased muscle soreness the next day. She reports continued numbness and tingling in B UE, but not quite as frequent. Pain at this time is 2/10. Objective Objective Notes Pain: Currently 2/10, at worst over the past week 5/10. \ TTP: 2/[address] junction. AROM Cervical Spine: FLEX 75%, EXT 75%, R SB 25%, L SB 25%, R ROT 50%, L ROT 50% MMT: Periscapular mm grossly 3+/5. ULTT: Ulnar nerve tension test remains + on B UE, Radial and Medial are -. NDI: 11 this date vs 21 on IE. Assessment Progress Assessment Progressing as Expected Assessment Notes Pt has shown overall improvement in neck pain and radicular symptoms in B UE, but little improvement in cervical spine AROM, posture, and strength of B periscapular muscles. Skilled therapy remains indicated in order to improve these areas of deficit and aid pt improvement in QOL. 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 5) Report no numbness tingling in B UE with normal work activities. Plan Plan Continued pt treatment may include any or all of the following interventions in order to improve functional outcomes and aid pt improvement in QOL: Frequency of Therapy 2 x/wk Duration of Therapy 4 wks Therapeutic Exercise Yes Including Home Exercise Program Manual Therapy Yes Techniques Neuromuscular Re- Yes education Therapeutic Yes Activities to Return to Previous Functional/Work Level ADL/Self Care Yes Education Mechanical Traction Yes Dry Needling Yes Thermal Modalities Yes Electrical Yes Stimulation Ultrasound/ Yes Phonophoresis Iontophoresis Yes Orthotics/Bracing/ Yes Splinting Massage Yes Eval/Re-Eval Yes Time and Billing Re-Eval Time 16 Re-Eval Billing 1 Units Charge for PT Yes reassessment? PHYSICIAN CERTIFICATION: I certify the specified therapy services for Sydnie Alejandra are required, authorized, and reviewed every 30 days.
== END 2025-07-03 23:59 | disposition home or self-care (01) ==
LOC: PT 13:00
PROVIDERS: PCP Family Medicine; Visit Provider Physician Assistant Surgical
DX: M79.641 Pain in right hand (principal); M79.642 Pain in left hand; M25.531 Pain in right wrist; M25.532 Pain in left wrist
CPT/HCPCS: 97012; 97032; 97110; 97140; 97164

== ENCOUNTER 2025-07-17 07:50 | Outpatient (CLI) | payer BC, SELFPAY ==
--- OUTSIDE RECORDS SUMMARY | 2024-12-20 06:15 | XMS_ITS ---
Author Organization [facility] Address [address] [facility] [address] [facility] [address] [place] [id number] Care Team Providers Care Medical Assistant Instructor Name Role Phone Christiano Garcia Primary Care Provider REASON FOR VISIT F/U [facility] Encounters Encounter Location Date Provider Diagnosis [facility] [address] [facility] [address] [place] [phone] 12/20/2024 Christiano Garcia Plan Of Treatment Next Appt Details Provider Name:Christiano Trinidad ry, 07/30/2025 09:30:00 AM, [address], [address], [place], [phone], Progress Notes * BETI ALEJANDRAB:[birth year] (59 yo F)Acc No.[id number]:12/20/2024 Progress Notes Patient: CODIE BRAVO Provider: Nannette Garcia M.D. :1965 A ge:59 Y S ex:Female Date:12/20/2024 Address[id number] Subjective: * Chief Complaints: * 1 . F/U [facility]. * Medical History: Objective: * Vitals: Assessment: Plan: * Treatment: * Images: Billing Information: * Visit Code: * Procedure Codes: * Electronic signature of Nancy Garcia MD on 07/17/2025 at 07:54 AM EDT Sign off status: Pending * Provider: Nannette Garcia M.D. Date: 0 12/20/2024 Generated for Katelyn del cid/Jennifer/Aj on: 0 07/17/2025 07:54 AM EDT
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
--- NOTE | 2025-07-17 | CA_ITS ---
APPROVED REPORT Exam: Pharmacologic Technologist: Minerva Strickland Stress Nurse: Audra Batista Ht: 5 ft 6 in Wt: 181 lbs BSA: 1.92 m2 HR: 65 bpm BP: 133/60 mmHg Stress Test Details Test: Lexiscan HR Resting HR: 65 bpm Max Heart Rate (APMHR): 160 bpm Max HR Achieved: 89 bpm Target HR (85% APMHR): 136 bpm % of APMHR: 56 Recovery HR: 75 bpm BP Resting BP: 133.0/60.0 mmHg Max BP: 146.0/65.0 mmHg Recovery BP: 136.0/61.0 mmHg ECG Resting ECG: Sinus rhythm, no ectopy. Stress ECG Conclusion Symptoms: Headache, low blood pressure Arrhythmias/Ectopy: None ST-T Changes: Less than 0.[address] segment changes. Conclusion: Non-diagnostic ECG/Lexiscan. Electronically signed by : Xin Francisco MD 07/17/2025 13:07:03
--- OUTSIDE RECORDS SUMMARY | 2025-07-17 07:53 | XMS_ITS | Clinical Summary ---
Author Organization [facility] Address [address] [place] [address] Care Team Providers Care Cardiovascular Surgeon Name Role Phone Christiano Garcia MD Primary Care Provider [phone] Allergies Active Allergy Reactions Criticality Noted Date [...] Anorectal skin tags 11/05/2022 Encounter for current [facility] use of antiplate let drug 02/28/2020 Hemangioma 07/01/2016 Neoplasm by body site 07/01/2016 Coronary arteriosclerosis in hoh artery 06/22 Hyperlipidemia 06/22/2016 Neoplasm of uncertain [...] ANNUAL PHYSICAL 05/19/2017 COVID-19 Vaccine (3 - 2024-2 6 season) 2025 01/19/2021, 12/22/2020 INFLUENZA VACCINE 08/08/2025 08/20/2021, , [...] ve Non-Reacti ve 11/30/2017 12:46 PM EST [facility] Blood Venipuncture / Unknown 11/30/2017 10:12 AM EST 11/30/2017 10:12 AM EST Lora Juarez APRN LAB BLOOD ORDERABLES Final Result [facility]
[address] [place] [address], from Last 3 Months or Most Recently Relevant to Health Maintenance Insurance [facility] PPO Care Teams Cardiovascular Surgeon Relationship Specialty Start Date End Date Christiano Garcia MD [address] [place] [facility] [address] [facility] [address] [place] [address] PCP - General 01/20/16
--- OUTSIDE RECORDS SUMMARY | 2025-07-17 07:55 | XMS_ITS | Patient Health Record ---
[facility] Address [address] [place] [id number] Care Team Providers Care Siebel Architect Name Role Phone Christiano Garcia Primary Care Provider Melania Jaramillo Unavailable [phone] Suyapa Morris Unavailable [phone] Allergies Allergen (clinical drug ingredient) Drug/Non Drug [...] Interpretation:372 Performing Lab: Notes/Report: Test performed by [facility] [address] [place] [address] , [address], [place] [address] Bandar Russo MD, Fire Control Mechanic CLIA: [id number] Vitamin B12 378 714-0236 pg/mL P-Comprehensive Metabolic Pa michael (CMP) Reviewed date:01/30/2025 11:35:34 AM Interpretation:K+ 3.4, bun 7, prot 5.9 Performing Lab: Notes/Report: Test performed by [facility] [address] [place] [address] , [address], [place] [address] Bandar Russo MD, Fire Control Mechanic CLIA: [id number] Sodium 143 135-145 mmol/L Potassium 3.4 3.5-5.3 [...] Interpretation:Normal Performing Lab: Notes/Report: Test performed by [facility] [address] [place] [address] , [address], [place] [address] Bandar Russo MD, Fire Control Mechanic CLIA: [id number] Thyroxine Free (free T4) 1.10 0.86-1.76 ng/dL P-Lipid Panel Reviewed date:01/30/2025 11:35:34 AM Interpretation:Normal Performing Lab: Notes/Report: Test performed by [facility] [address] [facility] [address], [place] [address] Bandar Russo MD, Fire Control Mechanic CLMARION: [id number] Cholesterol 155 <200 mg/dL Triglycerides 94 <150 [...] Interpretation:Normal Performing Lab: Notes/Report: Test performed by [facility] / [facility] [address] , [address], [place] [address] Bandar Russo MD, Fire Control Mechanic CLIA: [id number] TSH 1.98 0.43-5.25 mU/L P-Microalbumin/Creatinine, R andom Urine Sample Reviewed date:01/30/2025 11:35:34 AM Interpretation:Normal Performing Lab: Notes/Report: Test performed by [facility] / [facility] [address] , [place] [address] Bandar Russo MD, Fire Control Mechanic CLIA: [id number] Albumin/Creatinine Ratio, Urine <9.83 0-30 ug/mg Microalbumin, Urine, Random <0.3 Creatinine, Urine 30.5 P-Vitamin D 25-Hydroxy Reviewed date:01/30/2025 11:35:34 AM Interpretation:31.3 Performing Lab: Notes/Report: Test performed by [facility] / [facility] [address] , [place] [address] Bandar Russo MD, Fire Control Mechanic CLIA: [id number] Vitamin D 25-Hydroxy 31.3 30.0-100.0 ng/mL Interpretation of Vitamin D 25 OH: < 20 ng/mL - Deficiency 20 - 29 ng/mL - Insufficiency 30 - 100 ng/mL - Sufficiency > 100 ng/mL - Super-therapeutic- toxicity may occur above this level. Clinical correlation required. Covid test (in house) Reviewed date:12/26/2024 07:34:35 [...] Interpretation: Performing Lab: Notes/Report: Test performed by [facility] [address] [place] [address] , [address], [place] [address] Bandar Russo MD, Fire Control Mechanic CLIA: [id number] Allergy Footnotes SEE COMMENT Reference Ranges and [...] >=50.00 kU/L Very high level of sensitization P-Alpha Gal, Galactose-Alpha -1,3-Galactose (Alpha-Gal) IgE Reviewed date:04/05/2025 11:37:42 AM Interpretation:Negative Performing Lab: Notes/Report: Test performed by [facility] [address] [place] [address] , [address], [place] [address] Bandar Russo MD, Fire Control Mechanic CLIA: [id number] Allergen, Food, Alpha Galactose (Alpha-Gal) IgE <0.1 [...] day; Duration: 30 days 01/30/2025 Not-Takin g Clotrimazole 1 % 1 application Externally Twice [...] Once a day; Duration: 30 day(s) Active Rosuvastatin Calcium 20 mg 1 tablet Oral ly Once a day; Duration: 90 days Active Gabapentin 300 MG 2 cap(s) orally once a day at bedtime; Duration: 90 days 04/26/2025 Active Triamcinolone Acetonide 0.1 % 1 stuart applied topically 3 times a day Active Syringe Luer Lock 25G X 1 3 ML inject 1 mL of B12 once a month; Duration: 90 days 06/21/2025 Active Cyanocobalamin 1000 MCG/ML INJECT INTO T [...] Status W/U Status Risk Notes Problem Hypothyroidism (67907599) Hypothyroidism (acquired) (E03.9) Active confirmed Problem Vitamin D deficiency (08908010) Vitamin D deficiency (E55.9) Active confirmed Problem Vitamin B12 deficiency (550134849) Vitamin B12 deficiency (E53.8) Active confirmed Problem Otitis externa (3347441) Otitis externa (H60.90) Active confirmed Problem Anxiety (85064531) Anxiety (F41.9) Active confi rmed Problem Vitamin D deficiency (12092121) Vitamin D deficiency, unspecified (E55.9) Active confirmed Problem Mixed hyperlipidemia (407485559) Mixed hyperlipidemia (E78.2) Active confirmed Problem Dilatation of aorta (71976309) Thoracic aortic ectasia (I77.810) Active confirmed Problem Type II diabetes mellitus without complication (148667299) Type 2 diabetes mellitus without complication (E11.9) Active confirmed Problem Constipation (24564543) Constipation, unspecified constipation type (K59.00) Active confirmed Problem Acquired hypothyroidism (218445204) Acquired hypothyroidism (E03.9) Active confirmed Problem Atherosclerotic heart disease of [place] coronary artery without angina pectoris (168215662799635) Coronary artery disease involving [place] coronary artery of [place] heart without angina pectoris (I25.10) Active confirmed Problem Osteoarthritis of knee (957459738) Primary osteoarthritis of left knee (M17.12) Active confirmed Problem Headache (14811521) Chronic nonintractable headache, unspecified headache type (R51) Active confirmed Problem Leukopenia (06671049) Leukopenia, unspecified type (D72.819) Active confirmed Problem Memory deficit (835940487) Memory deficit (R41.3) Active confirmed Problem Atherosclerotic heart disease of [place] coronary artery without angina pectoris (794394804267181) Atherosclerosis of [place] coronary artery without angina pectoris, unspecified whether [place] or transplanted heart (I25.10) Active confirmed Problem Memory impairment (565522797) Memory impairment (R41.3) Active confirmed Problem Celiac artery compression syndrome (0848978) 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) Active confirmed Problem Gastroesophageal reflux disease (982659185) Gastroesophageal reflux disease, unspecified whether esophagitis present (K21.9) Active confirmed Problem Skin sensation disturbance (70744987) Complaint of paresthesia (R20.2) Active confirmed Problem Stricture of artery (06888158) 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 2 and Excessive wax in right ear H61.21 [facility] [address] [place], [place] [id number] 12/26/2024 Melaniawatson Jaramillo URI (upper respirato ry infection) J06.9 ; Conjunctivitis H10.9 and Rash R21 [facility] [address] [place], [place] [id number] 01/08/2025 Christiano Hagerman Influenza A J10.1 [facility] [address] [facility] [address] [place], [place] [id number] 01/29/2025 Christiano Hagerman Type 2 diabetes mellitus without complication E11.9 ; Mixed hyperlipidemia E78.2 ; Acquired hypothyroidism E03.9 ; Vitamin D deficiency, unspecified E55.9 and Vitamin B12 deficiency E53.8 [facility] [address] [facility] [address] [place], [place] [id number] 03/29/2025 Suyapa Crowdy Rash R21 ; Tick bite , unspecified site, initial encounter W57.XXXA and BMI 29.0-29.9,adult Z68.29 [facility] [address] [place], [place] [id number] 10/20/2024 Christiano Hagerman [facility] [address] [place], [place] [id number] 10/27/2024 Suyapa Crowdy [facility] [address] [place], [place] [id number] 11/20/2024 Christiano Hagerman [facility] [address] [place] [id number] 01/30/2025 Christiano Hagerman [facility] [address] [place], [place] [id number] 04/09/2025 Suyapa Crowdy Rash R21 [facility] [address] [place] [id number] 04/26/2025 Christiano Hagerman [facility] [address] [place], [place] [id number] 06/21/2025 Christiano Hagerman [facility] [address] [place], [place] [id number] 07/10/2025 Suyapa Crowdy Rash R21 Assessments Encounter Date Diagnosis (ICD Code) Assessment Notes Treatment Notes Treatment Clinical Notes Section Notes 04/09/2025 Rash (ICD-10 - R21) 03/29/2025 Rash (ICD-10 - R21) 03/29/2025 Tick bite, unspecified site, initial encounter (ICD-10 - W57.XXXA) Patient had a tick bite and would like to be checked for alpha gal. 10/31/2024 Excessive wax in right ear (ICD-10 - H61.21) 10/31/2024 Facial tingling (ICD-10 - R20.2) 12/26/2024 URI (upper respiratory infection) (ICD-10 - J06.9) fluids, rest, supportive measures for fever/symptom relief 12/26/2024 Conjunctivitis (ICD-10 - H10.9) 01/08/2025 Influenza A (ICD-10 - J10.1) 01/29/2025 Mixed hyperlipidemia (ICD-10 - E78.2) 01/29/2025 Type 2 diabetes mellitus without complication (ICD-10 - E11.9) 07/10/2025 Rash (ICD-10 - R21) 01/29/2025 Acquired hypothyroidism (ICD-10 - E03.9) 12/26/2024 Rash (ICD-10 - R21) 03/29/2025 BMI 29.0-29.9,adult (ICD-10 - Z68.29) 01/29/2025 Vitamin D deficiency, unspecified (ICD-10 - E55.9) 01/29/2025 Vitamin B12 deficiency (ICD-10 - E53.8) Plan Of Treatment Next Appt Details Provider Name:Christiano Trinidad ry, 07/30/2025 09:30:00 AM, [address], [place], [place], [id number], Insurance Providers Payer Name Payer Address Payer Phone Subscriber Number Group Number Insured Name Patient Relationship to Insured Coverage Start Date Coverage End Date FORMERLY [facility] [employer] [facility] [address] [place] [address] [id number] CODIE ALEJANDRA Self - patient is the [...] 2008 LT Leg Cancer Removal 2008 Cholecystectomy 2009 Double Mastectomy with Reconstruction 20 10 Heart Cath 12/2013 Gum Graft 12/2014 Cholecystectomy 05/26/2017 EGD and Colonoscopy 12/2017 Cardiac Stent Placement x2 04/12/2019 Hospitalization History Reason Date(Month/Year) [facility] [place]- [facility] 05/19/2017 UTI- [facility] 08/28/2016
--- OUTSIDE RECORDS SUMMARY | 2025-07-17 07:55 | XMS_ITS | Clinical Summary ---
Author Organization [facility] Address [address] [place] [address] Care Team Providers Care Dynamite Shooter Name Role Phone Unavailable Primary Care Provider [...] Date Last Done Comments [facility]-Depression Screening 1965 [facility]-/Child/Adol SDOH Screenings 1965 [facility]- SDOH Screenings 1982 [facility]-Adult SDOH Screenings 1982 [facility]-Pap Smear 10/20/2003 10/20/2000 [facility]-Cervical Cancer Screening 10/20/2005 [facility]-HPV/Cotest 10/20/2005 10/20/2000 CT Colonography 2009 Colonoscopy 2009 FIT-DNA 2009 FIT 2009 FOBT 2009 Sigmoidoscopy 2009 [facility]-Colorectal Cancer Screening 2009 [facility]-Pneumococcal Vaccine: 50+ Years (2 of 2 - PCV) 02/28/2020 02/27/2019 [facility]-DTaP,Tdap,and Td Vaccines (2 - Td or Tdap) 04/27/2023 04/27/2013 [id number] Vaccine (3 - season) 2025 01/19/2021, 12/22/2020 [facility]-Influenza Vaccine (#1) 07/09/202510/08, 08/20/2021, [...] Narrative SUNQUEST - 11/05/2000 12:51 PM EST [facility] MR #: [id number] [facility] CODIE [place]JANDRA [place], [place] [address] 1965 (Age: 35) FW Collect Date: 10/20/2000 00:00 Receipt Date: 10/21/2000 09:55 Page 1 DEPARTMENT OF PATHOLOGY AND LABORATORY MEDICINE CYTOPATHOLOGY REPORT Email: [email or web address] [phone] ATTENDING MD/Practitioner: Elma Talley MD Service: [facility] Location: [facility] Reported: 11/05/2000 12:51 Collected: 10/20/2000 00:00 INTERPRETATION [...] results is suggested (please call Microbiology at [phone] for results). CLINICAL INFORMATION: Menstrual History: Cyclic Date of Last Menstrual Period: 12 3 00 SPECIMEN DESCRIPTION: A: THIN PREP (CERVICAL/VAGINAL) THIN PREP PROCESS CELLULAR ENHANCEMENT ICD: 795.0 ABNORMAL PAP SMEAR CERVIX, NONSPECIFIC V72.3 GYNECOLOGICAL EXAMINATION F: A; THIN SCRN 65609, 53267 C\V (PO) SNOMED CODES: A; [id number] In cases where a pathologist has signed out the report, the service has been rendered in part by a resident. The signing pathologist has performed and is responsible for the reported pathologic evaluation. us Historical Provider LAB PATHOLOGY ORDERABLES Fin al Result [employer] from Last 3 Months or Most Recently Relevant to Health Maintenance Insurance GREG
[2025-07-17] MEDS: SODIUM CHLORIDE 0.9% 10ML SYR (RAD ONLY) 10 ML IV ×2 (08:00→09:30)
--- NOTE | 2025-07-17 08:00 | NM_ITS ---
APPROVED REPORT Exam: Nuclear Stress Test Indication: CAD, 3 stents, diabetes, hyperlipidemia, edema, chest pain, dyspnea, syncope Patient Location: Outpatient Stress Tech: Minerva Strickland [place] Tech:Audra ValdezPAULIE RT (R)(N)(M) Ht: 5 ft 6 in Wt: 180 lbs Bra Size: c HR: 65 bpm BP: 133/60 mmHg BSA: 1.91 m2 TID: 1.15 BMI: 29.0 History: CAD, 3 stents, diabetes, hyperlipidemia, edema, chest pain, dyspnea, syncope Procedure: Patient received 0.4 mg of intravenous Lexiscan, resting heart rate 65 bpm, resting blood pressure 133/60 mmHg, with Lexiscan maximum heart rate achieved was 89 bpm which is % of the maximum predicted heart rate and blood pressure was 114/78 mmHg. With Lexiscan, patient denied any complaint of chest pain. Cardiac Stress and Resting SPECT Images: Cardiac Stress and Resting SPECT images were obtained using technetium 99m Myoview 31.6 mCi stress and 10.91 mCi at rest. Resting and stress imaging in supine and prone positions demonstrate no evidence of fixed or reversible perfusion defects. Gated imaging demonstrates normal global LV systolic function. LVEF is calculated at 64%. Conclusion: No evidence of fixed or reversible perfusion defects. Gated imaging demonstrates normal global LV systolic function. LVEF is calculated at 64%. Electronically signed by : Xin Francisco MD 07/17/2025 13:05:05
[2025-07-17 10:02] VITALS: BP 133/60; PULSE 65; RESP 16
[2025-07-17] MEDS: ISOTOPE MYOVIEW (PER STUDY) 1 DOSE IV (10:32)
== END 2025-07-17 23:59 | disposition home or self-care (01) ==
LOC: RAD 07:51
PROVIDERS: PCP Family Medicine; Visit Provider Nurse Practitioner Family
DX: I25.10 Atherosclerotic heart disease of native coronary artery without angina pectoris (principal); I10 Essential (primary) hypertension; E11.9 Type 2 diabetes mellitus without complications; E78.5 Hyperlipidemia, unspecified; R55 Syncope and collapse; Z95.5 Presence of coronary angioplasty implant and graft
CPT/HCPCS: 78452; 93017; 93018; A9502; J2785

== ENCOUNTER 2025-07-18 08:00 | Outpatient (RCR) | payer BC, SELFPAY | END 2025-07-18 23:59 | disposition home or self-care (01) | LOC: PT 08:00 | PROVIDERS: PCP Family Medicine; Visit Provider Physician Assistant Surgical | DX: M79.641 Pain in right hand (principal); M79.642 Pain in left hand; M25.532 Pain in left wrist; M25.531 Pain in right wrist | CPT/HCPCS: 97012; 97014; 97140; G0283 ==

== ENCOUNTER 2025-08-16 11:43 | Outpatient (CLI) | payer BC, SELFPAY ==
[2025-08-16 13:26] LABS: Anion Gap 12.8 mEq/L (5-15); Blood Urea Nitrogen 14 mg/dl (7-17); Calcium 9.1 mg/dl (8.4-10.2); Carbon Dioxide 27 mmol/L (22.0-30.0); Chloride 102 mmol/L (98-107); Creatinine,Serum 0.90 mg/dl (0.52-1.04); Estimated Glomerular Filt Rate 64 ml/min (>60); GFR (African American) 77 ML/MIN (>60); Glucose 149 mg/dl (74-100); Potassium 3.8 mmoL/L (3.5-5.1); Sodium 138 mmol/L (136-145)
== END 2025-08-16 23:59 | disposition home or self-care (01) ==
LOC: LAB 11:44
PROVIDERS: PCP Family Medicine; Visit Provider Nurse Practitioner Family
DX: I25.10 Atherosclerotic heart disease of native coronary artery without angina pectoris (principal)
CPT/HCPCS: 36415; 80048

== ENCOUNTER 2025-09-11 12:36 | Outpatient (CLI) | payer BC, SELFPAY ==
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
--- OUTSIDE RECORDS SUMMARY | 2024-12-20 05:15 | XMS_ITS ---
Author Organization [facility] Address [address] [facility] [address] [address] [facility] [address] [place] [id number] Care Team Providers Care Manager Highway Name Role Phone Christiano Garcia Primary Care Provider [phone] REASON FOR VISIT F/U [facility] Encounters Encounter Location Date Provider Diagnosis [facility] [address] [facility] [address] [place] [id number] 12/20/2024 Christiano Garcia Plan Of Treatment Next Appt Details Provider Name:Christiano Trinidad ry, 01/28/2026 09:15:00 AM, [address], [address], [place], [id number], Progress Notes * BETI ALEJANDRAB:[birth year] (60 yo F)Acc No.[id number]:12/20/2024 Progress Notes Patient: CODIE BRAVO Provider: Nannette Garcia M.D. :1965 A ge:59 Y S ex:Female Date:12/20/2024 Address:[address] [id number] Subjective: * Chief Complaints: * 1 . F/U [facility]. * Medical History: Objective: * Vitals: Assessment: Plan: * Treatment: * Images: Billing Information: * Visit Code: * Procedure Codes: * Electronic signature of Nancy Garcia MD on 09/11/2025 at 12:40 PM EST Sign off status: Pending * Provider: Nannette Garcia M.D. Date: 0 12/20/2024 Generated for Katelyn del cid/Jennifer/Aj on: 1 11/11/2024 12:40 PM EST
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
--- NOTE | 2025-09-11 12:38 | XR_ITS ---
FINAL REPORT CLINICAL HISTORY: left knee pain FINDINGS: LEFT KNEE 3 views of the left knee were obtained. There is no acute fracture or dislocation. There is degenerative joint disease and chondrocalcinosis. Joint space narrowing is seen, most pronounced in the lateral compartment. Visualized joint spaces are normally aligned. Soft tissues are unremarkable. IMPRESSION: Degenerative changes without acute bony abnormality. Reviewed, Interpreted and Dictated by Krista Mcintyre MD Transcribed by Silvia Mak Authenticated and [facility]
--- OUTSIDE RECORDS SUMMARY | 2025-09-11 12:40 | XMS_ITS | Encounter Summary ---
Author Organization [employer] ([place], [place], [place], [place], [place]) Address [address] [place] [address] Care Team Providers Care Cross Roller Name Role Phone Unavailable Primary Care Provider Unavailabl e Encounter Details Date Type Department Care Team (Late st Contact Info) Description 04/12/[address] [facility] [place] [address] ProviderDevorah MD [address] [place] [address] Social History Tobacco Use Types [...] study with angina. DESCRIPTION OF PROCEDURE: RFA 5-Swazi sheath, 5-Swazi Wilner multipack for diagnostic study. Exchange of 6-sheath and CLS guiding catheter. A long [place] wire was deployed. The patient received intracoronary nitroglycerin as well as prasugrel and aspirin per protocol. Angiomax initiated. Lesion traversed with [place] wire and directly stented utilizing a Synergy [...]
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
--- OUTSIDE RECORDS SUMMARY | 2025-09-11 12:40 | XMS_ITS | Encounter Summary ---
Author Organization [employer] ([place], [place], [place], [place], [place]) Address [address] [place] [address] Care Team Providers Care Commercial Property Administrator Name Role Phone Unavailable Primary Care Provider Unavailabl e Encounter Details Date Type Department Care Team (Late st Contact Info) Description 04/12/2019 Transcribed Document [facility] [place] Medicine [place] [address] ProviderDevorah MD [address] [place] [address] Social History Tobacco Use Types [...] Conversion Note - Devorah ProviderMD - 04/12/2019 7:03 AM CDT Pre Procedure Adult Entered On: 04/12/2019 7:09 EDT Performed On: 04/12/2019 7:03 EDT by PATRICIA GARCIAS RN Height and Weight, Clinical Dosing Height Source : Stated Height Entry Format : [place] Height, Feet : 5 ft(Converted to: 152 cm, 60 Inch) Height, Inches : 6 Inch(Converted to: 0 ft 6 Inch, 15.24 cm) Clinical Height : 167.64 cm Weight Source : Standing scale Weight Entry Format : [place] Clinical Dosing Weight : 100 kg Weight, Pounds : 220 lb Body Surface Area (BSA) : 2.08 m2 Body Mass Index : 35.6 kg/m2 (HI) [place] Body Weight : 59 kg PATRICIA GARCIAS [...] Ambulatory Legal Guardian : Spouse Support Person/Patient Belt Press Operator : Yes Support Person/Pt Rep Name : Lyle Alejandra , spouse Support Person/Pt Rep Contact Information : [phone] Want Family/Rep/Phys Notified of Admit : No Emergency Contact #1 : see above Emergency Contact #1 Phone Number : na Emergency Contact #1 Relationship : na Emergency Contact #2 : none Emergency Contact #2 Phone Number : na Emergency Contact #2 Relationship : na Primary Language : Iranian Communication Barrier : None PATRICIA GARCIAS RN [...] Scale Risk Level : 25-45 Medium Risk [place] Fall Interventions : Adequate lighting, Bed in [...] EDT Pain Scale Intensity : 0 PATRICIA GARCIAS, RN - 04/12/2019 7:03 EDT Image 4 - Images currently included in the form version of this document have not been included in the text rendition version of the form. documented in this encounter Plan of Treatment Not on file documented as of this encounter Visit Diagnoses Not on filedocumented in this encounter
--- OUTSIDE RECORDS SUMMARY | 2025-09-11 12:40 | XMS_ITS | Clinical Summary ---
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/01/2016 Coronary arteriosclerosis in [place] artery 06/22 Hyperlipidemia 06/22/2016 Neoplasm of uncertain [...] (1 of 2) 2014 ANNUAL PHYSICAL 05/19/2017 INFLUENZA VACCINE 06/08/2025 08/20/2021, , 08/17/2018 COLONOSCOPY 09/27/2034 09/27/2024, 09/08, [...] Scan (09/27/2024) Shaw Cage MD CHART REVIEW TALONS María Elena melo Result * Hepatitis C Antibody (11/30/2017 10:12 AM EST) Hepatitis C Ab Non-Reacti ve Non-Reacti ve 11/30/2017 12:46 PM EST [facility] Blood Venipuncture / Unknown 11/30/2017 10:12 AM EST 11/30/2017 10:12 AM EST Lora Juarez APRN LAB BLOOD ORDERABLES Final Result [facility]
[address] [place] [address], from Last 3 Months or Most Recently Relevant to Health Maintenance Insurance PPO Care Teams Electrical Prospecting Observer Relationship Specialty Start Date End Date Christiano Garcia MD [address] [place] [facility] [address] [facility] [address] [place] [address] PCP - General 01/20/16
--- OUTSIDE RECORDS SUMMARY | 2025-09-11 12:40 | XMS_ITS | Clinical Summary ---
Author Organization [employer] ([place], [place], [place], [place], [place]) Address [address] [place] [address] Care Team Providers Care Manager Culture Name Role Phone Unavailable Primary Care Provider [...]
--- OUTSIDE RECORDS SUMMARY | 2025-09-11 12:40 | XMS_ITS | Encounter Summary ---
Author Organization [employer] ([place], [place], [place], [place], [place]) Address [address] [place] [address] Care Team Providers Care Sql Server Developer Name Role Phone Unavailable Primary Care Provider Unavailabl e Encounter Details Date Type Department Care Team (Late st Contact Info) Description 04/13/2019 Transcribed Document [facility] Pending [facility] [place] [address] ProviderDevorah MD [address] [place] [address] Social History Tobacco Use Types [...] Brown MD - 04/13/2019 8:57 AM CDT [facility] [place] [address] CODIE ALEJANDRA :1965 Visit Time:04/12/2019 Your [...] Comments May 12 @ 9:30am Where: [address] [place] [phone] Business (1) Medications What How Much When [...] including vitamins, herbs, eye drops, creams, and hsyk-mrf-txbdlun medicines. ??? Any problems you or family [...] 04/30/2004 Document Revised: 06/24/2017 Document Reviewed: 05/30/2017 [employer] Interactive Patient Education ?? 2019 Sleep.FM. Emergency Awareness and Preventative Care STROKE is [...] Assistance with quitting is available by contacting 9-268-YXGV-NOW. This is a free resource providing counseling, [...] computer, smartphone, or tablet. Just go to [employer] to get started. Questions? Call . Test [...] between ( 10.0 and 20.0 ) Patient Name:ARELIS ALEJANDRARINMabel Tony have received and understand this information and was given the opportunity to ask questions. Patient/Arts And Sciences Dean Name: Patient/Arts And Sciences Dean Signature: Relationship to Patient: Clinician/Hospital Arts And Sciences Dean Signature: Date: Electronically signed by Interface, [facility] Conversion Personal Property Assessor Cerner at 02/26/2023 1:02 PM CDT documented in this encounter Plan of Treatment Not on file documented as of this encounter Visit Diagnoses Not on filedocumented in this encounter
--- OUTSIDE RECORDS SUMMARY | 2025-09-11 12:40 | XMS_ITS | Encounter Summary ---
Author Organization [employer] ([place], [place], [place], [place], [place]) Address [address] [place] [address] Care Team Providers Care Clam Dredger Name Role Phone Unavailable Primary Care Provider Unavailabl e Encounter Details Date Type Department Care Team (Late st Contact Info) Description 04/13/2019 Transcribed Document [facility] [place] [address] ProviderDevorah MD [address] [place] [address] Social History Tobacco Use Types [...] Associated Diagnoses: None Author: MARTIN DUNN APRN [facility] CARDIOLOGY PROGRESS NOTE: DIAGNOSIS: 1. [...] Clinical Weight CLINICALWEIGHT: 100 kg (04/12/19 09:14:00) Wesley Body Weight: 59 kg (04/12/19 09:14:00) Intake [...] up with Dr Camarena one month Dictation #[id number] documented in this encounter Plan of Treatment Not on file documented as of this encounter Visit Diagnoses Not on filedocumented in this encounter
--- OUTSIDE RECORDS SUMMARY | 2025-09-11 12:40 | XMS_ITS | Encounter Summary ---
Author Organization [employer] ([place], [place], [place], [place], [place]) Address [address] [address] Care Team Providers Care Cushion Assembler Name Role Phone Unavailable Primary Care Provider Unavailabl e Encounter Details Date Type Department Care Team (Late st Contact Info) Description 04/13/2019 Transcribed Document [facility] [place] Family Medicine [address] [place] [address] ProviderDevorah MD [address] [place] [id number] Social History Tobacco Use Types Packs/Day Years [...] Performed On: 04/13/2019 8:38 EDT by Monico Steele Rn Stroke/Warfarin Instructions Stroke/TIA Discharge Ins : N/A Warfarin Discharge Ins : N/A Monico Steele Rn - 04/13/2019 8:38 EDT documented in this encounter Plan of Treatment Not on file documented as of this encounter Visit Diagnoses Not on filedocumented in this encounter
--- OUTSIDE RECORDS SUMMARY | 2025-09-11 12:40 | XMS_ITS | Encounter Summary ---
Author Organization [employer] ([place], [place], [place], [place], [place]) Address [address] [facility] [facility] [place] [address] Care Team Providers Care Agricultural Produce Washer Name Role Phone Unavailable Primary Care Provider Unavailabl e Encounter Details Date Type Department Care Team (Late st Contact Info) Description 04/12/2019 Transcribed Document [facility] [place] Medicine [facility] [place] [address] ProviderDevorah MD [address] [place] [address] Social History Tobacco Use Types [...] stopped for one year. Prerscriptions sent via [employer]. Electronically signed by Juan Ramon Larkinh Conversion Field Administrative Assistant Cerner at 02/26/2023 1:14 PM CDT documented in this encounter Plan of Treatment Not on file documented as of this encounter Visit Diagnoses Not on filedocumented in this encounter
--- OUTSIDE RECORDS SUMMARY | 2025-09-11 12:40 | XMS_ITS | Encounter Summary ---
Author Organization [employer] ([place], [place], [place], [place], [place]) Address [address] [place] [address] Care Team Providers Care Mold Worker Name Role Phone Unavailable Primary Care Provider Unavailabl e Encounter Details Date Type Department Care Team (Late st Contact Info) Description 04/13/2019 Transcribed Document [facility] [place] [facility] [place] [address] ProviderDevorah MD [address] [place] [address] Social History Tobacco Use Types [...] including vitamins, herbs, eye drops, creams, and sdoz-fml-wpuezrl medicines. ??? Any problems you or family [...] 05/30/2017 Elsevier Interactive Patient Education ? 2019 [employer] documented in this encounter Plan of Treatment Not on file documented as of this encounter Visit Diagnoses Not on filedocumented in this encounter
--- OUTSIDE RECORDS SUMMARY | 2025-09-11 12:40 | XMS_ITS | Encounter Summary ---
Author Organization [employer] ([place], [place], [place], [place], [place]) Address [address] [place] [address] Care Team Providers Care Certified Marine Mechanic Name Role Phone Unavailable Primary Care Provider Unavailabl e Encounter Details Date Type Department Care Team (Late st Contact Info) Description 04/13/2019 Transcribed Document [facility] [place] [facility] [place] [address] ProviderDevorah MD [address] [place], [place] [id number] Social History Tobacco Use Types Packs/Day Years [...]
--- OUTSIDE RECORDS SUMMARY | 2025-09-11 12:40 | XMS_ITS | Encounter Summary ---
Author Organization [employer] ([place], [place], [place], [place], [place]) Address [address] [place] [address] Care Team Providers Care Certified Medical Transcriptionist Name Role Phone Unavailable Primary Care Provider Unavailabl e Encounter Details Date Type Department Care Team (Late st Contact Info) Description 04/12/2019 Transcribed Document [facility] [place] [address] [place] [address] ProviderDevorah MD [address], [place] [id number] Social History Tobacco Use Types Packs/Day Years [...]
--- OUTSIDE RECORDS SUMMARY | 2025-09-11 12:40 | XMS_ITS | Encounter Summary ---
Author Organization [employer] ([place], [place], [place], [place], [place]) Address [address] [place] [address] Care Team Providers Care Graduate Teacher Education Name Role Phone Unavailable Primary Care Provider Unavailabl e Encounter Details Date Type Department Care Team (Late st Contact Info) Description 04/13/2019 Transcribed Document [facility] [place] [facility] [place] [address] ProviderDevorah MD [address] [place] [address] Social History Tobacco Use Types [...] 04/13/2019 9:30 EDT Electronically signed by Trae [facility] Conversion Telecommunications Consultant Cerner at 02/26/2023 12:53 PM CDT documented in this encounter Plan of Treatment Not on file documented as of this encounter Visit Diagnoses Not on filedocumented in this encounter
--- OUTSIDE RECORDS SUMMARY | 2025-09-11 12:40 | XMS_ITS | Referral Summary ---
Author Organization [employer] ([place], [place], [place], [place], [place]) Address [address] [place] [address] Care Team Providers Care Splicing Technician Name Role Phone Unavailable Primary Care [...]
--- OUTSIDE RECORDS SUMMARY | 2025-09-11 12:40 | XMS_ITS | Encounter Summary ---
Author Organization [employer] ([place], [place], [place], [place], [place]) Address [address] [place] [address] Care Team Providers Care Service Cleaner Name Role Phone Unavailable Primary Care Provider Unavailabl e Encounter Details Date Type Department Care Team (Late st Contact Info) Description 04/12/2019 Transcribed Document [facility] [place] [facility] [place] [address] ProviderDevorah MD [address], [place] [id number] Social History Tobacco Use Types Packs/Day Years [...] Ambulatory Legal Guardian : Spouse Support Person/Patient Allopathic Doctor : Yes Support Person/Pt Rep Name : Lyle Alejandra spouse Support Person/Pt Rep Contact Information : [phone] Want Family/Rep/Phys Notified of Admit : No Emergency Contact #1 : see above Emergency Contact #1 Phone Number : na Emergency Contact #1 Relationship : na Emergency Contact #2 : none Emergency Contact #2 Phone Number : na Emergency Contact #2 Relationship : na Primary Language : Nigerien Communication Barrier : None Monico Steele Rn [...] Scale Risk Level : 25-45 Medium Risk [place] Fall Interventions : Adequate lighting, Assistive devices [...] (Last Updated: 12/14/2013 06:52:38 EST by LEONOR GONZALEZ, DEV) Alcohol: Alcohol Use History No. (Last Updated: 04/12/2019 07:04:17 EDT by PATRICIA GARCIAS, RN) Substance Abuse: Drug Use Hx: No. (Last Updated: 04/12/2019 07:04:20 EDT by PATRICIA GARCIAS, RN) Height and Weight, Clinical Dosing Height Source : Stated Height Entry Format : Humphreys Height, Feet : 5 ft(Converted to: 152 cm, 60 Inch) Height, Inches : 6 Inch(Converted to: 0 ft 6 Inch, 15.24 cm) Clinical Height : 167.64 cm Weight Source : Standing scale Weight Entry Format : Humphreys Clinical Dosing Weight : 100 kg Weight, Pounds : 220 lb Body Surface Area (BSA) : 2.08 m2 Body Mass Index : 35.6 kg/m2 (HI) Gap Body Weight : 59 kg Monico Steele [...] - 04/12/2019 9:14 EDT Electronically signed by Trae [facility] Conversion Unemployment Insurance Director Cerner at 02/26/2023 1:00 PM CDT documented in this encounter Plan of Treatment Not on file documented as of this encounter Visit Diagnoses Not on filedocumented in this encounter
--- OUTSIDE RECORDS SUMMARY | 2025-09-11 12:40 | XMS_ITS | Clinical Summary ---
Author Organization [facility] Address [address] [place] [address] Care Team Providers Care Machinist Apprentice Wood Name Role Phone Unavailable Primary Care Provider [...] (2 - Td or Tdap) 04/27/2023 04/27/2013 [id number] Vaccine (3 - season) 2025 01/19/2021, 12/22/2020 [...] Narrative SUNQUEST - 11/05/2000 12:51 PM EST [facility] MR #: [id number] [facility] [address] [place], [place] [address] 1965 (Age: 35) FW Collect Date: 10/20/2000 00:00 Receipt Date: 10/21/2000 09:55 Page 1 DEPARTMENT OF PATHOLOGY AND LABORATORY MEDICINE CYTOPATHOLOGY REPORT Email: [email or web address] [phone] ATTENDING MD/Practitioner: Elma Talley MD Service: [facility] [place] [facility] [place]: 11/05/2000 12:51 Collected: 10/20/2000 00:00 INTERPRETATION [...] results is suggested (please call Microbiology at [phone] for results). CLINICAL INFORMATION: Menstrual History: Cyclic Date of Last Menstrual Period: 12 3 00 SPECIMEN DESCRIPTION: A: THIN PREP (CERVICAL/VAGINAL) THIN PREP PROCESS CELLULAR ENHANCEMENT ICD: 795.0 ABNORMAL PAP SMEAR CERVIX, NONSPECIFIC V72.3 GYNECOLOGICAL EXAMINATION F: A; THIN SCRN 32122, [id number] C\V (PO) SNOMED CODES: A; [id number] In cases where a pathologist has signed out the report, the service has been rendered in part by a resident. The signing pathologist has performed and is responsible for the reported pathologic evaluation. us Historical Provider LAB PATHOLOGY ORDERABLES Fin al Result [facility]BOOK A TIGER from Last 3 Months or Most Recently Relevant to Health Maintenance Insurance GREG
== END 2025-09-11 23:59 | disposition home or self-care (01) ==
LOC: RAD 12:36
PROVIDERS: PCP Family Medicine; Visit Provider Physician Assistant
DX: M17.12 Unilateral primary osteoarthritis, left knee (principal)
CPT/HCPCS: 73562

== ENCOUNTER 2025-10-15 16:33 | Outpatient (CLI) | payer BC, SELFPAY ==
--- NOTE | 2025-10-15 16:38 | XR_ITS ---
PROCEDURE INFORMATION: Exam: XR Left Finger(s) Exam date and time: 10/15/2025 4:40 PM Age: 60 years old Clinical indication: Mass or lump; Finger(s); Left; Pain, thumb locks up , knot - bb placed at site TECHNIQUE: Imaging protocol: Radiologic exam of the left fingers. Views: Minimum 2 views. COMPARISON: CR XR HAND LT MIN 3V 05/14/2025 8:14 AM FINDINGS: Bones/joints: A metallic BB skin marker has been placed on the soft tissues volar to the metacarpal phalangeal joint of the thumb identified in the area of clinical concern. No fractures, dislocations, or focal bone lesions. Joint spaces are well preserved. Soft tissues: No associated soft tissue masses or radiopaque foreign bodies are identified. No soft tissue gas. IMPRESSION: No acute findings in the left thumb. No soft tissue abnormalities.
== END 2025-10-15 23:59 | disposition home or self-care (01) ==
LOC: RAD 16:33
PROVIDERS: PCP Family Medicine; Visit Provider Family Medicine
DX: M79.645 Pain in left finger(s) (principal)
CPT/HCPCS: 73140